=== PATIENT | female | born 1950 | race Caucasian/White ===

== ENCOUNTER 2017-05-15 08:51 | Inpatient (IN) | payer MEDICARE, OTHER ==
[2017-05-15] MEDS ORDERED: IPRATROPIUM-ALBUTEROL 3 ML NEB INHALATION STA (08:55)
--- NOTE | 2017-05-15 08:58 | ED ---
General Adult HPI - General Stated complaint: Difficulty Breathing Time Seen by Provider: 05/15/17 08:54 Source: patient, EMS, RN notes reviewed Mode of arrival: EMS Limitations: physical limitation - History of Present Illness Initial comments: Patient is a pleasant 66-year-old female presenting to the emergency department with difficulty in breathing. Patient is in respiratory distress with CPAP and provides limited history. Patient reportedly did choke on some food yesterday. Patient does have a history of dyspnea with previous CHF and COPD. No reported fever. No chest pain - Related Data Home Medications Medication Instructions Recorded Confirmed Alendronate Sodium [Fosamax] 70 mg PO WE 01/05/14 05/15/17 Lactulose 20 gm PO DAILY PRN 01/05/14 05/15/17 Metoprolol Tartrate [Lopressor] 12.5 mg PO BID 01/05/14 05/15/17 hydrALAZINE HCL 25 mg PO BID@0800,199901/05/14 05/15/17 ARIPiprazole [Abilify] 2 mg PO HS 10/30/14 05/15/17 Omeprazole [PriLOSEC] 20 mg PO Q48H 10/30/14 05/15/17 rOPINIRole HCL [Requip] 0.25 mg PO HS@199910/30/14 05/15/17 Multivitamins, Thera [Multivitamin 1 tab PO DAILY 11/06/14 05/15/17 (formulary)] Fluticasone Nasal Mel[place] [Flonase 1 spray EA NOSTRIL BID@0800,199906/01/1505/15 Nasal Mellette] Thiamine [Vitamin B-1] 100 mg PO DAILY@0800 08/24/15 05/15/17 Gabapentin [Neurontin] 200 mg PO AC-TID 09/29/15 05/15/17 Aspirin EC [Ecotrin Low Dose] 81 mg PO DAILY 01/07/16 05/15/17 Ipratropium-Albuterol Nebulize 3 ml INHALATION RT-QID PRN 01/07/16 05/15/17 [Duoneb 0.5 mg-3 mg/3 ml Soln] levETIRAcetam [Keppra] 500 mg PO BID@0800,199901/07/16 05/15/17 Albuterol Inhaler [Ventolin Hfa 2 puff INHALATION RT-Q6H PRN 01/28/16 05/15/17 Inhaler] Budesonide [Pulmicort Flexhaler] 1 puff INHALATION RT-BID 01/28/16 05/15/17 Theophylline 24 Hour [Craig-24] 200 mg PO DAILY@0800 01/28/16 05/15/17 ALPRAZolam [Xanax] 0.25 mg PO BID 05/15/17 05/15/17 Acetaminophen Tab [Tylenol Tab] 650 mg PO Q4H PRN 05/15/17 05/15/17 Atorvastatin [Lipitor] 10 mg PO HS@199905/15/17 05/15/17 Brimonidine Tartrate [Alphagan P 1 drops BOTH EYES BID 05/15/17 05/15/17 0.1% Ophth Soln] Bromfenac Sodium [Prolensa Ophth 1 drop RIGHT EYE DAILY 05/15/17 05/15/17 Soln] Cholecalciferol [Vitamin D3] 2,000 units PO DAILY 05/15/17 05/15/17 HYDROcodone/APAP 7.5-325MG [Badger 1 tab PO Q6H PRN 05/15/17 05/15/17 7.5-325] Latanoprost [Xalatan 0.005%] 1 drop BOTH EYES HS 05/15/17 05/15/17 Nicotine 14Mg/24Hr Patch [Habitrol 1 patch TRANSDERM DAILY 05/15/17 05/15/17 14Mg/24Hr Patch] Nitroglycerin Sl Tabs [Nitrostat] 0.4 mg SUBLINGUAL Q5M PRN 05/15/17 05/15/17 PARoxetine HCL [Paxil] 60 mg PO DAILY 05/15/17 05/15/17 Sennosides-Docusate Sodium 1 tab PO BID 05/15/17 05/15/17 [Senokot-S] Zolpidem [Ambien] 10 mg PO HS@1999 PRN 05/15/17 05/15/17 Previous Rx's Medication Instructions Recorded guaiFENesin [Mucinex] 1,200 mg PO Q12HR tablet.er 02/01/16 Allergies Allergy/AdvReac Type Severity Reaction Status Date / Time latex Allergy Rash/Hives Verified 05/15/17 09:14 strawberry [[place]] Allergy Dyspnea,swe Verified 05/15/17 09:14 lling,rash Sulfa (Sulfonamide Allergy Rash/Hives, Verified 05/15/17 09:14 Antibiotics) swelling Review of Systems ROS Statement: Those systems with pertinent positive or pertinent negative responses have been documented in the HPI. ROS Other: All systems not noted in ROS Statement are negative. Constitutional: Denies: fever Eyes: Denies: eye discharge ENT: Denies: throat pain Respiratory: Reports: dyspnea Cardiovascular: Denies: chest pain Endocrine: Reports: fatigue Gastrointestinal: Denies: abdominal pain Genitourinary: Denies: dysuria Musculoskeletal: Denies: back pain Skin: Denies: rash Neurological: Denies: headache Past Medical History Past Medical History: Asthma, COPD, GERD/Reflux, Hypertension, Liver Disease, Osteoarthritis (OA), Pneumonia, Seizure Disorder Additional Past Medical History / Comment(s): Chronic respiratory failure O2 3liters PRN, hep C, urinary incontinence- wears briefs, chronic back pain, chronic anemia, neuropathy, varicose veins, sinusitis, seasonal allergies, tinnitis, uses walker, NO SEIZURE ACTIVITY SINCE 08/08/12 WHEN ADMITTED TO [facility], STROKE 2013-NO RESIDUAL PROBLEMS, RT CATARACT,. 000 History of Any Multi-Drug Resistant Organisms: None Reported Past Surgical History: Hysterectomy, Joint Replacement, Orthopedic Surgery, Tubal Ligation Additional Past Surgical History / Comment(s): patel knee arthroplasty, left wrist ORIF, Right hip surgery, oophorectomy, liver biopsy. limited surgical hx at [facility] Past Anesthesia/Blood Transfusion Reactions: No Reported Reaction Additional Past Anesthesia/Blood Transfusion Reaction / Comment(s): Pt states she had blood transfusion when her children were little without reaction. Past Psychological History: Anxiety, Depression, Panic Disorder Additional Psychological History / Comment(s): Pt resides at [facility].USES A WALKER WHEN UP Smoking Status: Current every day smoker Past Alcohol Use History: None Reported Additional Past Alcohol Use History / Comment(s): smokes 1 PPD, [facility] not sure how long Past Drug Use History: None Reported Additional Drug Use History / Comment(s): . - Past Family History Mother History Unknown: Yes Family Medical History: Diabetes Mellitus Additional Family Medical History / Comment(s): unable to obtain any family history from previous chart or patient Father History Unknown: Yes Family Medical History: Vascular Disorder Additional Family Medical History / Comment(s): PERIPHERAL VASCULAR DISEASE, MACULAR DEGENERATION General Exam Limitations: physical limitation General appearance: alert, in distress Head exam: Present: atraumatic Eye exam: Present: normal appearance, PERRL ENT exam: Present: normal oropharynx Neck exam: Present: normal inspection Respiratory exam: Present: respiratory distress, wheezes, rales Cardiovascular Exam: Present: tachycardia GI/Abdominal exam: Present: soft. Absent: tenderness Extremities exam: Present: normal inspection. Absent: pedal edema, calf tenderness Neurological exam: Present: alert Psychiatric exam: Present: normal affect, normal mood Skin exam: Present: normal color Course Vital Signs 05/15/17 05/15/17 05/15/17 08:57 09:06 09:15 Temperature 98.5 F Pulse Rate 118 H 119 H Respiratory 34 H Rate Blood Pressure 111/77 O2 Sat by Pulse 87 L 90 L Oximetry 05/15/17 05/15/17 05/15/17 09:20 10:00 11:00 Temperature 98.7 F Pulse Rate 121 H 120 H 122 H Respiratory 32 H 28 H Rate Blood Pressure 167/87 148/94 O2 Sat by Pulse 94 L 99 Oximetry - Reevaluation(s) Reevaluation #1: 05/15/17 09:06 Patient has DO NOT RESUSCITATE paperwork signed by Dr. Redmond. 05/15/17 11:36 Patient meet sepsis criteria diagnosed at 11:36 AM. Blood cultures ordered. Lactic acid added on. IV antibiotics will be started. 05/15/17 11:37 Patient was reevaluated and updated. 05/15/17 11:42 Case was discussed in detail with Dr. Davis, who will consult. He does recommend ICU. EKG Findings - EKG Comments: EKG Findings:: Sinus tachycardia 119. UT 136. QRS 74. QT 328. QTC 461. Normal axis. Normal QRS. No acute ST change. Procedures - ABG Interpretation Ph: 7.38 PCO2: 59.4 PO2: 57 Interpretation: respiratory acidosis, metabolic alkalosis Medical Decision Making - Lab Data Result diagrams: 05/15/17 09:10 05/15/17 09:10 Lab Results 05/15/17 05/15/17 05/15/17 Range/Units 09:10 09:10 09:10 WBC 17.5 H (3.8-10.6) k/uL RBC 4.54 (3.80-5.40) m/uL Hgb 13.7 (11.4-16.0) gm/dL Hct 42.1 (34.0-46.0) % MCV 92.9 (80.0-100.0) fL MCH 30.2 (25.0-35.0) pg MCHC 32.5 (31.0-37.0) g/dL RDW 13.1 (11.5-15.5) % Plt Count 480 H (150-450) k/uL Neutrophils % 80 % Lymphocytes % 12 % Monocytes % 5 % Eosinophils % 1 % Basophils % 1 % Neutrophils # 14.0 H (1.3-7.7) k/uL Lymphocytes # 2.1 (1.0-4.8) k/uL Monocytes # 0.8 (0-1.0) k/uL Eosinophils # 0.2 (0-0.7) k/uL Basophils # 0.1 (0-0.2) k/uL PT (9.0-12.0) sec INR (<1.2) APTT (22.0-30.0) sec Sample Site ABG pH (7.35-7.45) ABG pCO2 (35-45) mmHg ABG pO2 (83-108) mmHg ABG HCO3 (21-25) mmol/L ABG Total CO2 (19-24) mmol/L ABG O2 Saturation (94-97) % ABG Base Excess mmol/L Henry Test FiO2 % Sodium 144 (137-145) mmol/L Potassium 4.4 (3.5-5.1) mmol/L Chloride 95 L (98-107) mmol/L Carbon Dioxide 34 H (22-30) mmol/L Anion Gap 15 mmol/L BUN 17 (7-17) mg/dL Creatinine 0.90 (0.52-1.04) mg/dL Est GFR (MDRD) Af Amer >60 (>60 ml/min/1.73 sqM) Est GFR (MDRD) Non-Af >60 (>60 ml/min/1.73 sqM) Glucose 201 H (74-99) mg/dL Calcium 10.0 (8.4-10.2) mg/dL Magnesium 1.8 (1.6-2.3) mg/dL Total Bilirubin 0.5 (0.2-1.3) mg/dL AST 25 (14-36) U/L ALT 27 (9-52) U/L Alkaline Phosphatase 63 (38-126) U/L Total Creatine Kinase 48 (30-135) U/L CK-MB (CK-2) 1.4 (0.0-2.4) ng/mL CK-MB (CK-2) Rel Index 2.9 Troponin I <0.012 (0.000-0.034) ng/mL NT-Pro-B Natriuret Pep pg/mL Total Protein 8.5 H (6.3-8.2) g/dL Albumin 4.7 (3.5-5.0) g/dL Theophylline 1.7 ug/mL 05/15/17 05/15/17 05/15/17 Range/Units 09:10 09:10 09:19 WBC (3.8-10.6) k/uL RBC (3.80-5.40) m/uL Hgb (11.4-16.0) gm/dL Hct (34.0-46.0) % MCV (80.0-100.0) fL MCH (25.0-35.0) pg MCHC (31.0-37.0) g/dL RDW (11.5-15.5) % Plt Count (150-450) k/uL Neutrophils % % Lymphocytes % % Monocytes % % Eosinophils % % Basophils % % Neutrophils # (1.3-7.7) k/uL Lymphocytes # (1.0-4.8) k/uL Monocytes # (0-1.0) k/uL Eosinophils # (0-0.7) k/uL Basophils # (0-0.2) k/uL PT 10.5 (9.0-12.0) sec INR 1.1 (<1.2) APTT 25.1 (22.0-30.0) sec Sample Site lbrac ABG pH 7.38 (7.35-7.45) ABG pCO2 59 H (35-45) mmHg ABG pO2 57 L (83-108) mmHg ABG HCO3 34 H (21-25) mmol/L ABG Total CO2 36 H (19-24) mmol/L ABG O2 Saturation 88.0 L (94-97) % ABG Base Excess 9.0 mmol/L Henry Test Yes FiO2 50 % Sodium (137-145) mmol/L Potassium (3.5-5.1) mmol/L Chloride (98-107) mmol/L Carbon Dioxide (22-30) mmol/L Anion Gap mmol/L BUN (7-17) mg/dL Creatinine (0.52-1.04) mg/dL Est GFR (MDRD) Af Amer (>60 ml/min/1.73 sqM) Est GFR (MDRD) Non-Af (>60 ml/min/1.73 sqM) Glucose (74-99) mg/dL Calcium (8.4-10.2) mg/dL Magnesium (1.6-2.3) mg/dL Total Bilirubin (0.2-1.3) mg/dL AST (14-36) U/L ALT (9-52) U/L Alkaline Phosphatase (38-126) U/L Total Creatine Kinase (30-135) U/L CK-MB (CK-2) (0.0-2.4) ng/mL CK-MB (CK-2) Rel Index Troponin I (0.000-0.034) ng/mL NT-Pro-B Natriuret Pep 165 pg/mL Total Protein (6.3-8.2) g/dL Albumin (3.5-5.0) g/dL Theophylline ug/mL - Radiology Data Radiology results: image reviewed (Chest x-ray shows left basilar opacity could represent atelectasis or pneumonia.) Critical Care Time Critical Care Time: Yes Total Critical Care Time: 33 Disposition Clinical Impression: Pneumonia, Sepsis, Acute respiratory failure Disposition: ADMITTED IP TO THIS [facility] Condition: Critical Referrals: Rhett Redmond DO [Primary Care Provider] - 1-2 days Decision Time: 11:37
--- NOTE | 2017-05-15 09:14 | XR ---
EXAMINATION TYPE: XR chest 1V portable DATE OF EXAM: 05/15/2017 Comparison: 12/30/2016 Clinical History: 66 year-old female shortness of breath, dyspnea, difficulty breathing Findings: Low lung volumes with crowded vascular markings. Heart appears borderline enlarged. Mild diffuse inte rstitial prominence. There is focal left basilar opacity. Impression: 1. Hypoventilatory changes. In addition, interstitial changes appear largely chronic, possible chroni c bronchitis/asthma. 2. Focal left basilar opacity could represent atelectasis or pneumonia. Clinically correlate and foll ow-up after any potential treatment to ensure clearance.
[2017-05-15 09:34] LABS: ABG HCO3 34 mmol/L (21-25); ABG PCO2 59 mmHg (35-45); ABG PH 7.38 (7.35-7.45); ABG PO2 57 mmHg (83-108); ABG TCO2 36 mmol/L (19-24)
[2017-05-15 09:38] LABS: ALT 27 U/L (9-52); AST 25 U/L (14-36); Albumin 4.7 g/dL (3.5-5.0); Alkaline Phosphatase 63 U/L (38-126); Anion Gap 15 mmol/L; Blood Urea Nitrogen 17 mg/dL (7-17); Carbon Dioxide 34 mmol/L (22-30); Chloride 95 mmol/L (98-107); Glucose 201 mg/dL (74-99); Magnesium 1.8 mg/dL (1.6-2.3); Potassium 4.4 mmol/L (3.5-5.1); Sodium 144 mmol/L (137-145); Theophylline 1.7 ug/mL; Total Bilirubin 0.5 mg/dL (0.2-1.3); Total Protein 8.5 g/dL (6.3-8.2)
[2017-05-15 09:39] LABS: INR 1.1 (<1.2); Partial Thromboplastin Time 25.1 sec (22.0-30.0); Prothrombin Time 10.5 sec (9.0-12.0)
[2017-05-15 09:47] LABS: Basophils # (A) 0.1 k/uL (0-0.2); Basophils % (A) 1 %; Eosinophils # (A) 0.2 k/uL (0-0.7); Eosinophils % (A) 1 %; HCT 42.1 % (34.0-46.0); HGB 13.7 gm/dL (11.4-16.0); Lymphocytes # (A) 2.1 k/uL (1.0-4.8); Lymphocytes % (A) 12 %; MCH 30.2 pg (25.0-35.0); MCHC 32.5 g/dL (31.0-37.0); MCV 92.9 fL (80.0-100.0); Mean Platelet Volume 8.1; Monocytes # (A) 0.8 k/uL (0-1.0); Monocytes % (A) 5 %; Neutrophils % (A) 80 %; Platelet Count 480 k/uL (150-450); RBC 4.54 m/uL (3.80-5.40); RDW 13.1 % (11.5-15.5); WBC 17.5 k/uL (3.8-10.6)
[2017-05-15 09:54] LABS: Creatine Kinase 48 U/L (30-135)
[2017-05-15] MEDS ORDERED: MORPHINE SULFATE 2 MG/ML SYRINGE IVP ONE (09:56)
[2017-05-15 10:06] LABS: Creatine Kinase MB 1.4 ng/mL (0.0-2.4); Troponin I <0.012 ng/mL (0.000-0.034)
[2017-05-15] MEDS ORDERED: PNEUMONIA PROTOCOL UTILIZED 1 EACH MISC PO PRN (11:38)
[2017-05-15] MEDS ORDERED: IPRATROPIUM-ALBUTEROL 3 ML NEB INHALATION PRN (11:38)
[2017-05-15] MEDS ORDERED: PIPERACILLIN-TAZOBACTAM 3.375 GM in DEXTROSE/WATER 1 50ML.BAG IVPB STA (11:38)
[2017-05-15] MEDS ORDERED: LEVOFLOXACIN 750MG-D5W PMX 750 MG in DEXTROSE/WATER 1 150ML.BAG IVPB STA (11:38)
[2017-05-15] MEDS: SODIUM CHLORIDE 0.9% 1,000 ML IV SCH (11:46)
[2017-05-15] MEDS ORDERED: SODIUM CHLORIDE 0.9% 250 ML IV STA (11:55)
[2017-05-15] MEDS ORDERED: SODIUM CHLORIDE 0.9% 1,000 ML IV STA ×2 (11:55)
[2017-05-15 12:31] LABS: Glucose,Whole Blood 167 mg/dL (75-99)
[2017-05-15] MEDS: IPRATROPIUM-ALBUTEROL 3 ML NEB INHALATION SCH ×3 (12:32→20:01)
[2017-05-15] MEDS ORDERED: ACETAMINOPHEN TAB 325 MG TAB PO PRN (13:18)
[2017-05-15] MEDS ORDERED: LACTULOSE 20 GM/30 ML CUP PO PRN (13:18)
[2017-05-15] MEDS ORDERED: PARoxetine 20 MG TAB PO SCH (13:30)
[2017-05-15] MEDS ORDERED: FUROSEMIDE 10 MG/ML 2 ML VIAL IV ONE (14:11)
[2017-05-15] MEDS: methylPREDNISolone SOD SUCCI 125 MG/2 ML VIAL IV SCH ×2 (14:21→18:09)
[2017-05-15] MEDS: PANTOPRAZOLE 40 MG/10 ML VIAL IVP SCH (14:22)
[2017-05-15] MEDS: HYDROmorphone 0.5 MG/0.5 ML SYRINGE IVP PRN ×3 (14:23→21:43)
[2017-05-15 14:49] LABS: Amorphous Sediment,Urine Occasional /hpf; Appearance,Urine Clear (Clear); Bacteria,Urine Many /hpf; Bilirubin,Urine Negative (Negative); Blood,Urine Negative (Negative); Color,Urine Yellow; Glucose,Urine (UA) Negative (Negative); Hyaline Casts,Urine 59 /lpf (0-2); Ketones,Urine Negative (Negative); Leukocyte Esterase,Urine Large (Negative); Mucus,Urine Occasional /hpf; Nitrite,Urine Positive (Negative); Protein,Urine Trace (Negative); RBC,Urine 4 /hpf (0-5); Specific Gravity,Urine 1.015 (1.001-1.035); Squamous Epithelial Cell,Urine 3 /hpf (0-4); Urobilinogen,Urine <2.0 mg/dL (<2.0); WBC,Urine 56 /hpf (0-5)
--- NOTE | 2017-05-15 15:41 | P.CNPUL ---
History of Present Illness Consult date: 05/15/17 Reason for consult: dyspnea History of present illness: A 66-year-old female patient who is known to me from previous hospitalizations, who is a resident of an assisted living/[place] assisted [facility], presented to the ED today with difficulty in breathing. The patient reportedly was having increased weakness, chills, shakes, and apparently she did choke on some food material yesterday. Subsequently her breathing got progressively worse and she started having chest congestion and dyspnea and for that reason she presented to the hospital for further advice. No reported fever. No reported chest pain. In the ED, the patient was found to be in significant respiratory distress. She had a DNR/DNI CODE STATUS. She was placed on a BiPAP for respiratory support. The chest x-ray was obtained and showed small lung volumes , carotid vascular markings, the heart size was borderline enlarged and there was mild diffuse interstitial prominence and a focal left basilar opacity/ infiltration suggestive an underlying pneumonia. The patient had a blood gas that showed a pH of 7.38 with a pCO2 of 59 and pO2 of 57 and this was done and FiO2 of 50%. Based on that, the patient was placed on a BiPAP and following that the patient got transferred to the intensive care unit. Current white cell count is at 17.5. The lactic acid level is at 2.3. The rest of the electrodes are within normal limits. First set of troponin is negative and the patient has a nonelevated BNP level. Urinalysis is also abnormal with increased white cell counts and influenza screen was also negative. Currently, the patient is on a combination of Zosyn and Levaquin. Note that the patient has a chronic component of hypercapnic arrest 30 failure. Based on previous echocardiogram the patient has a normal ejection fraction without evidence of any pulmonary hypertension. She is known to have COPD however. Review of Systems Constitutional: Reports fatigue, Reports lethargy, Reports weakness, Reports weight gain Eyes: denies blurred vision, denies bulging eye, denies decreased vision Ears: deny: decreased hearing, ear discharge, earache Ears, nose, mouth and throat: Denies headache, Denies sore throat Cardiovascular: Reports decreased exercise tolerance, Reports dyspnea on exertion, Reports shortness of breath Respiratory: Reports cough, Reports cough with sputum, Reports dyspnea, Reports sleep apnea, Reports wheezing Gastrointestinal: Denies abdominal pain, Denies diarrhea, Denies nausea, Denies vomiting Genitourinary: Denies dysuria, Denies hematuria Musculoskeletal: Reports gait dysfunction, Reports muscle weakness Musculoskeletal: bilateral: ankle swelling, absent: ankle pain, ankle stiffness Integumentary: Denies pruritus, Denies rash Neurological: Denies numbness, Denies weakness Psychiatric: Denies anxiety, Denies depression Endocrine: Denies fatigue, Denies weight change Past Medical History Past Medical History: Asthma, Heart Failure, COPD, Eye Disorder, GERD/Reflux, Hyperlipidemia, Hypertension, Liver Disease, Osteoarthritis (OA), Pneumonia, Renal Disease, Seizure Disorder Additional Past Medical History / Comment(s): Chronic respiratory failure /O2 2liters ATC, COPD and chronic bronchitis, sinus problems, 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 000 History of Any Multi-Drug Resistant Organisms: None Reported Past Surgical History: Hysterectomy, Joint Replacement, Orthopedic Surgery, Tubal Ligation Additional Past Surgical History / Comment(s): Bilateral total knees and total R hip arthroplasty, L wrist ORIF, R oophorectomy d/t cyst, liver bx, back epidural injections. Past Anesthesia/Blood Transfusion Reactions: No Reported Reaction Additional Past Anesthesia/Blood Transfusion Reaction / Comment(s): Pt states she had blood transfusion without reaction. Smoking Status: Former smoker - Past Family History Mother History Unknown: Yes Family Medical History: Diabetes Mellitus Additional Family Medical History / Comment(s): unable to obtain any family history from previous chart or patient Father History Unknown: Yes Family Medical History: Eye Disorder, Vascular Disorder Additional Family Medical History / Comment(s): PERIPHERAL VASCULAR DISEASE, MACULAR DEGENERATION Medications and Allergies Home Medications Medication Instructions Recorded Confirmed Type Alendronate Sodium [Fosamax] 70 mg PO WE 01/05/14 05/15/17 History Lactulose 20 gm PO DAILY PRN 01/05/14 05/15/17 History Metoprolol Tartrate [Lopressor] 12.5 mg PO BID 01/05/14 05/15/17 History hydrALAZINE HCL 25 mg PO BID@08,199901/05/14 05/15/17 History ARIPiprazole [Abilify] 2 mg PO HS 10/30/14 05/15/17 History Omeprazole [PriLOSEC] 20 mg PO Q48H 10/30/14 05/15/17 History rOPINIRole HCL [Requip] 0.25 mg PO HS@199910/30/14 05/15/17 History Multivitamins, Thera [Multivitamin 1 tab PO DAILY 11/06/14 05/15/17 History (formulary)] Fluticasone Nasal [place] [Flonase 1 spray EA NOSTRIL BID@08,199906/01/1505/15 History Nasal [place]] Thiamine [Vitamin B-1] 100 mg PO DAILY@0800 08/24/15 05/15/17 History Gabapentin [Neurontin] 200 mg PO AC-TID 09/29/15 05/15/17 History Aspirin EC [Ecotrin Low Dose] 81 mg PO DAILY 01/07/16 05/15/17 History Ipratropium-Albuterol Nebulize 3 ml INHALATION RT-QID PRN 01/07/16 05/15/17 History [Duoneb 0.5 mg-3 mg/3 ml Soln] levETIRAcetam [Keppra] 500 mg PO BID@08,199901/07/16 05/15/17 History Albuterol Inhaler [Ventolin Hfa 2 puff INHALATION RT-Q6H PRN 01/28/16 05/15/17 History Inhaler] Budesonide [Pulmicort Flexhaler] 1 puff INHALATION RT-BID 01/28/16 05/15/17 History Theophylline 24 Hour [Craig-24] 200 mg PO DAILY@0800 01/28/16 05/15/17 History guaiFENesin [Mucinex] 1,200 mg PO Q12HR tablet.er 02/01/16 05/15/17 Rx ALPRAZolam [Xanax] 0.25 mg PO BID 05/15/17 05/15/17 History Acetaminophen Tab [Tylenol Tab] 650 mg PO Q4H PRN 05/15/17 05/15/17 History Atorvastatin [Lipitor] 10 mg PO HS@199905/15/17 05/15/17 History Brimonidine Tartrate [Alphagan P 1 drops BOTH EYES BID 05/15/17 05/15/17 History 0.1% Ophth Soln] Bromfenac Sodium [Prolensa Ophth 1 drop RIGHT EYE DAILY 05/15/17 05/15/17 History Soln] Cholecalciferol [Vitamin D3] 2,000 units PO DAILY 05/15/17 05/15/17 History HYDROcodone/APAP 7.5-325MG [[place] 1 tab PO Q6H PRN 05/15/17 05/15/17 History 7.5-325] Latanoprost [Xalatan 0.005%] 1 drop BOTH EYES HS 05/15/17 05/15/17 History Nicotine 14Mg/24Hr Patch [Habitrol 1 patch TRANSDERM DAILY 05/15/17 05/15/17 History 14Mg/24Hr Patch] Nitroglycerin Sl Tabs [Nitrostat] 0.4 mg SUBLINGUAL Q5M PRN 05/15/17 05/15/17 History PARoxetine HCL [Paxil] 60 mg PO DAILY 05/15/17 05/15/17 History Sennosides-Docusate Sodium 1 tab PO BID 05/15/17 05/15/17 History [Senokot-S] Zolpidem [Ambien] 10 mg PO HS@2000 PRN 05/15/17 05/15/17 History Allergies Allergy/AdvReac Type Severity Reaction Status Date / Time latex Allergy Rash/Hives Verified 05/15/17 09:14 strawberry [[place]] Allergy Dyspnea,swe Verified 05/15/17 09:14 lling,rash Sulfa (Sulfonamide Allergy Rash/Hives, Verified 05/15/17 09:14 Antibiotics) swelling Physical Exam Vitals: Vital Signs Temp Pulse Resp BP Pulse Ox 05/15/17 14:30 128 H 30 H 112/58 90 L 05/15/17 14:15 127 H 32 H 112/78 95 05/15/17 14:00 122 H 27 H 140/87 97 05/15/17 13:45 136 H 32 H 135/75 99 05/15/17 13:30 115 H 26 H 128/71 99 05/15/17 13:15 138 H 31 H 95/56 100 05/15/17 13:00 113 H 34 H 109/63 98 05/15/17 12:46 107 H 05/15/17 12:45 91 30 H 132/70 97 05/15/17 12:33 93 05/15/17 12:30 99 F 104 H 30 H 132/70 97 05/15/17 12:09 98 F 128 H 30 H 149/87 94 L 05/15/17 12:00 122 H 32 H 149/77 85 L 05/15/17 11:00 98.7 F 122 H 28 H 148/94 99 05/15/17 10:00 120 H 32 H 167/87 94 L 05/15/17 09:20 121 H 05/15/17 09:15 90 L 05/15/17 09:06 119 H 05/15/17 08:57 98.5 F 118 H 34 H 111/77 87 L Intake and Output 05/15/17 05/15/17 05/15/17 06:59 14:59 22:59 Other: Weight 72.575 kg Patient Weight 05/16/17 06:59 Weight 72.575 kg The patient is in significant amount of respiratory distress and the patient is utilizing BiPAP for now for respiratory support. Note that she has a DNR/DNI CODE STATUS and she will not get intubated based on her CODE STATUS. She has however tolerating the BiPAP and she is synchronous with a full facemask. Head exam was generally normal. There was no scleral icterus or corneal arcus. Mucous membranes were moist.Neck was supple and without jugular venous distension, thyromegaly, or carotid bruits. Carotids were easily palpable bilaterally. There was no adenopathy. Lung sounds are diminished bilaterally and there is diffuse expiratory wheezes and rhonchi heard throughout the lung hall and her axillary phase of breathing is quite prolonged.Cardiac exam revealed the PMI to be normally situated and sized. The rhythm was regular and no extrasystoles were noted during several minutes of auscultation. The first and second heart sounds were normal and physiologic splitting of the second heart sound was noted. There were no murmurs, rubs, clicks, or gallops. Abdominal exam revealed normal bowel sounds. The abdomen was soft, non-tender, and without masses, organomegaly, or appreciable enlargement of the abdominal aorta.Examination of the extremities revealed easily palpable radial, femoral and pedal pulses. There was no cyanosis, clubbing or edema.Examination of the skin revealed no evidence of significant rashes, suspicious appearing nevi or other concerning lesions. Neurologically the exam is nonfocal and the patient is moving all 4 extremities without any limitation. She is awake and alert. Results - Laboratory Findings CBC and BMP: 05/15/17 09:10 05/15/17 09:10 ABG ABG pH 7.38 (7.35-7.45) 05/15/17 09:19 ABG pCO2 59 mmHg (35-45) H 05/15/17 09:19 ABG pO2 57 mmHg (83-108) L 05/15/17 09:19 ABG O2 Saturation 88.0 % (94-97) L 05/15/17 09:19 PT/INR, D-dimer PT 10.5 sec (9.0-12.0) 05/15/17 09:10 INR 1.1 (<1.2) 05/15/17 09:10 Abnormal lab findings: Abnormal Labs 05/15/17 05/15/17 05/15/17 09:10 09:10 09:10 WBC 17.5 H Plt Count 480 H Neutrophils # 14.0 H ABG pCO2 ABG pO2 ABG HCO3 ABG Total CO2 ABG O2 Saturation Chloride 95 L Carbon Dioxide 34 H Glucose 201 H POC Glucose (mg/dL) Plasma Lactic Acid Sammy 2.3 H* Total Protein 8.5 H Urine Protein Urine Nitrite Ur Leukocyte Esterase Urine WBC Amorphous Sediment Urine Bacteria Hyaline Casts Urine Mucus 05/15/17 05/15/17 05/15/17 09:19 12:29 13:30 WBC Plt Count Neutrophils # ABG pCO2 59 H ABG pO2 57 L ABG HCO3 34 H ABG Total CO2 36 H ABG O2 Saturation 88.0 L Chloride Carbon Dioxide Glucose POC Glucose (mg/dL) 167 H Plasma Lactic Acid Sammy Total Protein Urine Protein Trace H Urine Nitrite Positive H Ur Leukocyte Esterase Large H Urine WBC 56 H Amorphous Sediment Occasional H Urine Bacteria Many H Hyaline Casts 59 H Urine Mucus Occasional H - Diagnostic Findings Chest x-ray: image reviewed Assessment and Plan Plan: Impression 1 acute COPD exacerbation secondary to a left lung pneumonia, rule out an aspiration pneumonia with impending respiratory failure. 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 The patient is currently on BiPAP for respiratory support. We'll monitor the blood gases. We'll monitor the chest x-ray. Cover the patient with a combination of Zosyn and Levaquin. DuoNeb neb last treatment [id number]. IV Solu-Medrol 60 every 6. Nicotine patch for smoking cessation. Sputum Gram stain and culture. Blood culture. Check a urine culture to make sure there is no underlying urine checked infection. Cut down the IV fluids to 50 mL an hour and give the patient 20 mg of IV Lasix to optimize her volume status. Based on echocardiogram from several years ago showed no evidence of any cardiomyopathy and the BNP level is not elevated at this point. DNR/DNI CODE STATUS. Prognosis poor based on the above-mentioned comorbidities. We'll continue to follow make further recommendations based on her progress. Influenza screen was negative. This is a critically care evaluation.
[2017-05-15 16:14] LABS: Glucose,Whole Blood 148 mg/dL (75-99)
[2017-05-15] MEDS: HEPARIN SODIUM,PORCINE 5,000 UNIT/ML 1 ML VIAL SQ SCH (16:40)
[2017-05-15] MEDS: GABAPENTIN 100 MG CAP PO SCH (17:16)
[2017-05-15 19:58] LABS: Glucose,Whole Blood 162 mg/dL (75-99)
[2017-05-15] MEDS ORDERED: ATORVASTATIN 10 MG TAB PO SCH (20:00)
[2017-05-15] MEDS ORDERED: levETIRAcetam 500 MG TAB PO SCH (20:00)
[2017-05-15] MEDS ORDERED: ARIPiprazole 2 MG TAB PO SCH (21:00)
[2017-05-15] MEDS ORDERED: ALPRAZolam 0.25 MG TAB PO SCH (21:00)
[2017-05-15] MEDS ORDERED: NITROGLYCERIN SL TABS 0.4 MG TAB SUBLINGUAL PRN (21:21)
[2017-05-15] MEDS ORDERED: NON-FORMULARY DRUG (Omeprazole 20 MG) PO SCH (21:30)
[2017-05-15] MEDS: LATANOPROST 0.005% OPHTH DROPS 2.5 ML BTL BOTH EYES SCH (21:39)
[2017-05-15] MEDS: INSULIN ASPART 100 UNIT/ML 1 ML 10 ML VIAL SQ SCH (21:39)
[2017-05-15] MEDS ORDERED: ACETAMINOPHEN IV (For NPO) 1,000 MG in EMPTY BAG 1 BAG IVPB ONE (22:30)
[2017-05-15 23:49] LABS: Glucose,Whole Blood 148 mg/dL (75-99)
[2017-05-16] MEDS: INSULIN ASPART 100 UNIT/ML 1 ML 10 ML VIAL SQ SCH ×6 (00:31→20:42)
[2017-05-16] MEDS: methylPREDNISolone SOD SUCCI 125 MG/2 ML VIAL IV SCH ×4 (00:32→17:31)
[2017-05-16] MEDS: HEPARIN SODIUM,PORCINE 5,000 UNIT/ML 1 ML VIAL SQ SCH ×3 (00:32→15:53)
[2017-05-16] MEDS: PIPERACILLIN-TAZOBACTAM 3.375 GM in DEXTROSE/WATER 1 50ML.BAG IVPB SCH ×3 (00:32→15:53)
[2017-05-16] MEDS: HYDROmorphone 0.5 MG/0.5 ML SYRINGE IVP PRN ×3 (01:47→12:25)
[2017-05-16 03:58] LABS: Glucose,Whole Blood 140 mg/dL (75-99)
[2017-05-16 04:47] LABS: Basophils % (A) 0 %; Eosinophils # (A) 0.1 k/uL (0-0.7); Eosinophils % (A) 0 %; HCT 39.2 % (34.0-46.0); HGB 12.9 gm/dL (11.4-16.0); Lymphocytes # (A) 0.7 k/uL (1.0-4.8); Lymphocytes % (A) 5 %; MCH 30.2 pg (25.0-35.0); MCV 91.4 fL (80.0-100.0); Monocytes # (A) 0.4 k/uL (0-1.0); Monocytes % (A) 3 %; Neutrophils # (A) 12.4 k/uL (1.3-7.7); Neutrophils % (A) 91 %; Platelet Count 325 k/uL (150-450); RBC 4.29 m/uL (3.80-5.40); RDW 12.2 % (11.5-15.5); WBC 13.7 k/uL (3.8-10.6)
[2017-05-16] MEDS: LORazepam 2 MG/ML INJ IV PRN ×3 (05:02→21:52)
[2017-05-16 05:51] LABS: Anion Gap 11 mmol/L; Blood Urea Nitrogen 22 mg/dL (7-17); Calcium 8.4 mg/dL (8.4-10.2); Carbon Dioxide 30 mmol/L (22-30); Chloride 101 mmol/L (98-107); Glucose 139 mg/dL (74-99); Magnesium 1.5 mg/dL (1.6-2.3); Phosphorus 2.9 mg/dL (2.5-4.5); Potassium 4.8 mmol/L (3.5-5.1); Sodium 142 mmol/L (137-145)
[2017-05-16] MEDS ORDERED: Magnesium Replacement Protocol 1 EACH MISC MISCELLANE PRN (06:30)
[2017-05-16] MEDS: BUDESONIDE 1 MG/2 ML NEBU INHALATION SCH ×2 (07:24→20:14)
[2017-05-16] MEDS: FORMOTEROL FUMARATE 20 MCG/2 ML NEBU INHALATION SCH ×2 (07:24→20:14)
[2017-05-16] MEDS: IPRATROPIUM-ALBUTEROL 3 ML NEB INHALATION SCH ×4 (07:25→20:14)
--- NOTE | 2017-05-16 07:31 | HP ---
HISTORY AND PHYSICAL DATE OF SERVICE: 05/15/2017 CHIEF COMPLAINT: Shortness of breath. HISTORY OF PRESENT ILLNESS: This 66-year-old woman with a past medical history of multiple medical issues including COPD, history of asthma, history of CHF, history of GERD, hypertension, hyperlipidemia, DJD being followed by Dr. Redmond in [facility] is complaining of some difficulty in swallowing and dysphagia also. The patient had previous evaluations. The patient also had CVA in the past. Also the patient apparently having shortness of breath and cough and sputum and the patient was found to have left lower lobe pneumonia. Patient is extremely short of breath. The patient is NO CODE. Patient is on BiPAP with some relief at this time. Patient admitted for further evaluation and treatment. Dr. Davis's evaluation in progress. Broad-spectrum IV antibiotics been given. There is no history of any fever, rigors. No history of headache, loss of consciousness or seizures. No history of contacts at this time. The nasal influenza was negative at this time. The plasma lactic acid was found to be 3, WBC 17.5. PAST MEDICAL HISTORY: History of asthma, CHF, COPD, GERD, hypertension, hyperlipidemia, history of DJD , history of seizure disorder. MEDICATIONS: Medications prior to admission home medications are: 1. Requip 0.25 mg q.h.s. 2. Keppra 500 mg p.o. b.i.d. 3. Hydralazine 25 mg p.o. b.i.d. 4. Mucinex 1200 mg p.o. b.i.d. 5. Ambien 10 mg p.o. q.h.s. 6. Vitamin B1, 100 mg p.o. daily. 7. Craig-24, 200 mg p.o. daily. 8. Senokot-S 1 tab p.o. b.i.d. 9. Paxil 60 mg p.o. daily. 10.Prilosec 20 mg q.48h. 11.Nitrostat 0.4 sublingual p.r.n. 12.Habitrol 14 daily. 13.Multivitamins 1 p.o. daily. 14.Lopressor 12.5 mg b.i.d. 15.Xalatan 0.005% one drop both eyes q.h.s. 16.Lactulose 20 grams p.o. daily p.r.n. 17.DuoNeb q.i.d. and p.r.n. 18.[place] 1 tablet q.6 hours p.r.n. 19.Neurontin 200 mg p.o. t.i.d. 20.Flonase one spray each nostril. 21.Vitamin D3, 2000 daily. 22.Pulmicort 1 puff b.i.d. 23.Alphagan 0.1% one drop both eyes b.i.d. 24.Lipitor 10 mg q.h.s. 25.Ecotrin 81 mg daily. 26.Fosamax 70 mg on Monday. 27.Ventolin HFA 2 puffs q.6 p.r.n. 28.Tylenol 650 q.4 p.r.n. 29.Abilify 2 mg q.h.s. 30.Xanax 0.25 b.i.d. p.r.n. ALLERGIES: Allergies are LATEX, STRAWBERRIES, SULFA. FAMILY HISTORY: Diabetes mellitus in the family. SOCIAL HISTORY: Previous history of smoking. No history of current smoking or alcohol intake. REVIEW OF SYSTEM: Review of systems could not be taken at length because the patient using BiPAP and also some change in mental status. PHYSICAL EXAM: Patient is conscious, on BiPAP. Pulse 122, blood pressure 107/70, respirations 23, temperature 100.7, pulse ox 94% on BiPAP. BiPAP settings are noted. HEENT: Conjunctivae normal. Oral mucosa moist. Neck is no jugular venous distention. No carotid bruit. No lymph node enlargement. RESPIRATORY: Breathing efforts are markedly increased. Bilateral scattered rhonchi and crackles. Expiratory wheezing CARDIOVASCULAR: S1 and S2 normal. No S3, no S4. ABDOMEN: Soft, nontender. No mass palpable. No hepatosplenomegaly. LEGS: No edema, no swelling. NERVOUS SYSTEM: Higher functions as mentioned earlier. Moves all 4 limbs. No focal motor or sensory deficits. LYMPHATICS: No lymphadenopathy of the neck, axillae or groin. SKIN: No ulcer, rash or bleeding. LABS: WBC 17.5, hemoglobin 13.7. ABGs noted. Otherwise, glucose 162. Lactic acid ntd , UA noted. ASSESSMENT: 1. Chronic obstructive pulmonary disease acute exacerbation with acute hypoxic hypercarbic respiratory failure with left lower pneumonia possibly aspiration with sepsis, present on admission. 2. Change in mental status, metabolic encephalopathy, multifactorial. 3. Increased WBC. 4. History of asthma. 5. History of congestive heart failure. 6. History of chronic obstructive pulmonary disease. 7. History of gastroesophageal reflux disease. 8. Hypertension. 9. Hyperlipidemia. 10.Degenerative joint disease. 11.History of pneumonia. 12.History of seizure disorder. 13.Chronic respiratory failure with 2 L nasal cannula with hypoxic. 14.History hepatitis C. 15.History of glaucoma, cataracts. 16.History of degenerative joint disease. 17.History of restless leg syndrome. 18.Remote history of nicotine dependence. RECOMMENDATIONS AND DISCUSSION: This 66-year-old woman presented with multiple complex medical issues, will monitor the patient closely. Continue the current medication and symptomatic treatment. Otherwise, broad-spectrum IV antibiotics initiated. Otherwise I would also recommend bronchodilators and patient was started on IV Zosyn. I would also add a course of steroids as well and will check Accu-Cheks a.c. and at bedtime. Resume the home medications. I would also recommend DVT prophylaxis and incentive spirometer also. The overall prognosis guarded because of multiple complex medical issues. Further recommendations to follow. Will avoid sedatives at this time. Further recommendations to follow. Discussed with the patient, understands and agrees. SAVI / SEAMUSN: [id number] / FRIDA
[2017-05-16] MEDS: GABAPENTIN 100 MG CAP PO SCH (07:55)
[2017-05-16] MEDS ORDERED: THEOPHYLLINE 24 HOUR 200 MG CAP.ER.24H PO SCH (08:00)
[2017-05-16] MEDS ORDERED: THIAMINE 100 MG TAB PO SCH (08:00)
[2017-05-16] MEDS: NICOTINE 14MG/24HR PATCH TRANSDERM SCH (08:43)
[2017-05-16] MEDS: KETOROLAC 0.5% OPHTH DROPS 5 ML BTL RIGHT EYE SCH ×4 (08:43→21:17)
[2017-05-16] MEDS: FLUTICASONE 50MCG/SPRAY NASAL 16GM EA NOSTRIL SCH ×2 (08:43→19:46)
[2017-05-16] MEDS: BRIMONIDINE TARTRATE 0.2% DROPS 5 ML BTL BOTH EYES SCH ×2 (08:43→21:17)
[2017-05-16] MEDS: MAGNESIUM SULFATE-D5W PMX 1 GM in DEXTROSE/WATER 1 100ML.BAG IVPB SCH ×2 (08:43→11:36)
[2017-05-16] MEDS: PANTOPRAZOLE 40 MG/10 ML VIAL IVP SCH (08:43)
--- NOTE | 2017-05-16 08:58 | XR ---
EXAMINATION TYPE: XR chest 1V DATE OF EXAM: 05/16/2017 COMPARISON: 05/15/2017 HISTORY: Dyspnea TECHNIQUE: Single frontal view of the chest is obtained. FINDINGS: Again there are low lung volumes accentuating the pulmonary vasculature. Cardiomediastinal silhouette is upper limits of normal, unchanged from the prior. There is a new [id number] rig ht layering pleural effusion with associated right basilar airspace disease. Linear left basal atelec tasis is unchanged. Remainder the lungs are clear. Mild cephalization is also unchanged. IMPRESSION: New small moderate right pleural effusion and stable mild pulmonary vascular congestion as well as stable left basilar atelectasis.
[2017-05-16] MEDS ORDERED: METOPROLOL TARTRATE 12.5 MG TAB PO SCH (09:00)
[2017-05-16] MEDS ORDERED: ASPIRIN 81 MG PO SCH (09:00)
[2017-05-16] MEDS ORDERED: SENNOSIDES-DOCUSATE SODIUM 1 EACH TAB PO SCH (09:00)
[2017-05-16] MEDS ORDERED: guaiFENesin 600 MG TABLET.ER PO SCH (09:00)
[2017-05-16 09:14] LABS: Glucose,Whole Blood 140 mg/dL (75-99)
[2017-05-16 09:20] LABS: ABG Base Excess 7.5 mmol/L; ABG HCO3 33 mmol/L (21-25); ABG Oxygen Saturation 99.3 % (94-97); ABG PCO2 58 mmHg (35-45); ABG PH 7.36 (7.35-7.45); ABG PO2 123 mmHg (83-108); ABG TCO2 78 mmol/L (19-24)
[2017-05-16] MEDS: SODIUM CHLORIDE 0.9% 1,000 ML IV SCH ×2 (09:37→11:31)
--- NOTE | 2017-05-16 10:18 | P.PN ---
Subjective Progress Note Date: 05/16/17 A 66-year-old female patient who is known to me from previous hospitalizations, who is a resident of an assisted living/[facility], presented to the ED today with difficulty in breathing. The patient reportedly was having increased weakness, chills, shakes, and apparently she did choke on some food material yesterday. Subsequently her breathing got progressively worse and she started having chest congestion and dyspnea and for that reason she presented to the hospital for further advice. No reported fever. No reported chest pain. In the ED, the patient was found to be in significant respiratory distress. She had a DNR/DNI CODE STATUS. She was placed on a BiPAP for respiratory support. The chest x-ray was obtained and showed small lung volumes , carotid vascular markings, the heart size was borderline enlarged and there was mild diffuse interstitial prominence and a focal left basilar opacity/ infiltration suggestive an underlying pneumonia. The patient had a blood gas that showed a pH of 7.38 with a pCO2 of 59 and pO2 of 57 and this was done and FiO2 of 50%. Based on that, the patient was placed on a BiPAP and following that the patient got transferred to the intensive care unit. Current white cell count is at 17.5. The lactic acid level is at 2.3. The rest of the electrodes are within normal limits. First set of troponin is negative and the patient has a nonelevated BNP level. Urinalysis is also abnormal with increased white cell counts and influenza screen was also negative. Currently, the patient is on a combination of Zosyn and Levaquin. Note that the patient has a chronic component of hypercapnic arrest 30 failure. Based on previous echocardiogram the patient has a normal ejection fraction without evidence of any pulmonary hypertension. She is known to have COPD however. On 05/16/2016 I'm seeing this patient for a follow-up. The patient is still BiPAP dependent at a pressure of 14/7 cm of water. She had developed some hypoxemia and she was placed on 100% FiO2. Subsequent blood gases showed a pH of 7.36 with a pCO2 of 58 and pO2 of 123 and based on that the FiO2 was dropped down to 80%. Currently the patient's pulse ox is around 97%. The patient has developed a new small to moderate-sized right-sided pleural effusion. There is also evidence of pulmonary vascular congestion. She feels clinically better however the chest x-ray findings are slightly worse especially with development of a new moderate-sized right-sided pleural effusion. The patient is receiving 0.9 normal saline at the rate of 50 mL an hour. She is on a combination of Zosyn and Levaquin. The creatinine is stable at 0.81 with a BUN of 22. No other significant events overnight. Her breathing is still labored. Culture has been on and showed few gram-positive cocci . The urine output is around 30 mL an hour. The patient remains on a combination of DuoNeb, systemic steroids, Pulmicort and Perforomist embolus treatments around the clock. The patient is also on heparin subcu. The patient is on IV Solu-Medrol. Objective - Vital Signs Vital signs: Vital Signs Temp 99.7 F H 05/16/17 08:00 Pulse 114 H 05/16/17 09:00 Resp 28 H 05/16/17 09:00 BP 127/72 05/16/17 09:00 Pulse Ox 99 05/16/17 09:00 Intake & Output 05/15/17 05/16/17 05/16/17 18:59 06:59 18:59 Intake Total 300 550 200 Output Total 1282 397 60 Balance -982 153 140 Weight 72.575 kg 76.7 kg Intake: IV 300 550 200 Magnesium Sulfate-D5w Pmx 100 1 gm In Dextrose/Water 1 100ml.bag @ 100 mls/hr IVPB Q1H [facility] Rx#: [id number] Sodium Chloride 0.9% 1, 300 550 100 000 ml @ 50 mls/hr IV . Q20H [facility] Rx#:[id number] Output: Urine 1282 397 60 Other: Voiding Method Indwelling Catheter Indwelling Catheter - Exam The patient is in significant amount of respiratory distress and the patient is utilizing BiPAP for now for respiratory support. Note that she has a DNR/DNI CODE STATUS and she will not get intubated based on her CODE STATUS. She has however tolerating the BiPAP and she is synchronous with a full facemask. Head exam was generally normal. There was no scleral icterus or corneal arcus. Mucous membranes were moist.Neck was supple and without jugular venous distension, thyromegaly, or carotid bruits. Carotids were easily palpable bilaterally. There was no adenopathy. Lung sounds are diminished bilaterally and there is diffuse expiratory wheezes and rhonchi heard throughout the lung hall and her axillary phase of breathing is quite prolonged.Cardiac exam revealed the PMI to be normally situated and sized. The rhythm was regular and no extrasystoles were noted during several minutes of auscultation. The first and second heart sounds were normal and physiologic splitting of the second heart sound was noted. There were no murmurs, rubs, clicks, or gallops. Abdominal exam revealed normal bowel sounds. The abdomen was soft, non-tender, and without masses, organomegaly, or appreciable enlargement of the abdominal aorta.Examination of the extremities revealed easily palpable radial, femoral and pedal pulses. There was no cyanosis, clubbing or edema.Examination of the skin revealed no evidence of significant rashes, suspicious appearing nevi or other concerning lesions. Neurologically the exam is nonfocal and the patient is moving all 4 extremities without any limitation. She is awake and alert. - Labs CBC & Chem 7: 05/16/17 03:54 05/16/17 03:54 Labs: Abnormal Lab Results - Last 24 Hours (Table) 05/15/17 05/15/17 05/15/17 Range/Units 09:10 12:29 13:30 WBC (3.8-10.6) k/uL Neutrophils # (1.3-7.7) k/uL Lymphocytes # (1.0-4.8) k/uL ABG pCO2 (35-45) mmHg ABG pO2 (83-108) mmHg ABG HCO3 (21-25) mmol/L ABG Total CO2 (19-24) mmol/L ABG O2 Saturation (94-97) % BUN (7-17) mg/dL Glucose (74-99) mg/dL POC Glucose (mg/dL) 167 H (75-99) mg/dL Plasma Lactic Acid Sammy 2.3 H* (0.7-2.0) mmol/L Magnesium (1.6-2.3) mg/dL Urine Protein Trace H (Negative) Urine Nitrite Positive H (Negative) Ur Leukocyte Esterase Large H (Negative) Urine WBC 56 H (0-5) /hpf Amorphous Sediment Occasional H (None) /hpf Urine Bacteria Many H (None) /hpf Hyaline Casts 59 H (0-2) /lpf Urine Mucus Occasional H (None) /hpf 05/15/17 05/15/17 05/15/17 Range/Units 15:02 16:11 19:56 WBC (3.8-10.6) k/uL Neutrophils # (1.3-7.7) k/uL Lymphocytes # (1.0-4.8) k/uL ABG pCO2 (35-45) mmHg ABG pO2 (83-108) mmHg ABG HCO3 (21-25) mmol/L ABG Total CO2 (19-24) mmol/L ABG O2 Saturation (94-97) % BUN (7-17) mg/dL Glucose (74-99) mg/dL POC Glucose (mg/dL) 148 H 162 H (75-99) mg/dL Plasma Lactic Acid Sammy 3.0 H* (0.7-2.0) mmol/L Magnesium (1.6-2.3) mg/dL Urine Protein (Negative) Urine Nitrite (Negative) Ur Leukocyte Esterase (Negative) Urine WBC (0-5) /hpf Amorphous Sediment (None) /hpf Urine Bacteria (None) /hpf Hyaline Casts (0-2) /lpf Urine Mucus (None) /hpf 05/15/17 05/16/17 05/16/17 Range/Units 23:46 03:54 03:54 WBC 13.7 H (3.8-10.6) k/uL Neutrophils # 12.4 H (1.3-7.7) k/uL Lymphocytes # 0.7 L (1.0-4.8) k/uL ABG pCO2 (35-45) mmHg ABG pO2 (83-108) mmHg ABG HCO3 (21-25) mmol/L ABG Total CO2 (19-24) mmol/L ABG O2 Saturation (94-97) % BUN 22 H (7-17) mg/dL Glucose 139 H (74-99) mg/dL POC Glucose (mg/dL) 148 H (75-99) mg/dL Plasma Lactic Acid Sammy (0.7-2.0) mmol/L Magnesium 1.5 L (1.6-2.3) mg/dL Urine Protein (Negative) Urine Nitrite (Negative) Ur Leukocyte Esterase (Negative) Urine WBC (0-5) /hpf Amorphous Sediment (None) /hpf Urine Bacteria (None) /hpf Hyaline Casts (0-2) /lpf Urine Mucus (None) /hpf 05/16/17 05/16/17 05/16/17 Range/Units 03:56 09:01 09:15 WBC (3.8-10.6) k/uL Neutrophils # (1.3-7.7) k/uL Lymphocytes # (1.0-4.8) k/uL ABG pCO2 58 H (35-45) mmHg ABG pO2 123 H (83-108) mmHg ABG HCO3 33 H (21-25) mmol/L ABG Total CO2 78 H (19-24) mmol/L ABG O2 Saturation 99.3 H (94-97) % BUN (7-17) mg/dL Glucose (74-99) mg/dL POC Glucose (mg/dL) 140 H 140 H (75-99) mg/dL Plasma Lactic Acid Sammy (0.7-2.0) mmol/L Magnesium (1.6-2.3) mg/dL Urine Protein (Negative) Urine Nitrite (Negative) Ur Leukocyte Esterase (Negative) Urine WBC (0-5) /hpf Amorphous Sediment (None) /hpf Urine Bacteria (None) /hpf Hyaline Casts (0-2) /lpf Urine Mucus (None) /hpf Microbiology - Last 24 Hours (Table) 05/15/17 21:27 Gram Stain - Preliminary Sputum 05/15/17 13:30 Urine Culture - Preliminary Urine,Catheterized Assessment and Plan Plan: Impression 1 acute COPD exacerbation secondary to a left lung pneumonia, rule out an aspiration pneumonia with impending respiratory failure. There is also interval worsening of the chest x-ray findings with development of a right- sided pleural effusion and the patient remains BiPAP dependent for now at a pressure of 14/7 cm of water and FiO2 of 80%. Clinically the patient feels less short of breath compared to yesterday. 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 The patient is currently on BiPAP for respiratory support. We'll monitor the blood gases. We'll monitor the chest x-ray. Cover the patient with a combination of Zosyn and Levaquin. Add vancomycin today empiric antibiotic coverage. Sukhdev ortiz last treatment [id number]. IV Solu-Medrol 60 every 6. Nicotine patch for smoking cessation. Sputum Gram stain and culture. Blood culture. Check a urine culture to make sure there is no underlying urine checked infection. The patient will be given Lasix 40 mg IV push today. The IV Fluids to KVO. Repeat Chest X-Ray with the Next 24 Hours. We'll Continue to Follow. CODE STATUS Is DNR/DNI, prognosis poor based on the above-mentioned comorbidities. Critical care evaluation more than 30 minutes. Time with Patient: Greater than 30
[2017-05-16] MEDS ORDERED: FUROSEMIDE 10 MG/ML 4 ML VIAL IV STA ×2 (10:19→20:35)
[2017-05-16] MEDS ORDERED: VANCOMYCIN IV PER PHARMACY 1 EACH MISC MISCELLANE PRN (10:20)
[2017-05-16] MEDS: VANCOMYCIN 1,500 MG in SODIUM CHLORIDE 0.9% 250 ML IVPB SCH (11:30)
[2017-05-16 11:42] LABS: Glucose,Whole Blood 150 mg/dL (75-99)
[2017-05-16] MEDS ORDERED: CHOLECALCIFEROL 1,000 UNIT TAB PO SCH (12:00)
[2017-05-16] MEDS ORDERED: MULTIVITAMINS, THERA 1 EACH TAB PO SCH (12:00)
--- NOTE | 2017-05-16 12:13 | P.CONS ---
History of Present Illness - Reason for Consult Consult date: 05/16/17 Dysphagia Requesting physician: Hedy Hawley - History of Present Illness 66-year-old female is treated chronic hepatitis C treated successfully 2013 admitted with acute COPD exacerbation secondary to pneumonia possible aspiration. Consult requested for dysphagia. Patient ate a steak dinner on Monday after a few bites she developed difficulty swallowing. She vomited several times remnants of undigested food/steak. She reports most of the steak was vomited. No history of dysphagia. No recent EGD. Presently denies dysphagia but reports mild odynophagia in the posterior portion of her throat. Bedside swallow exam was completed and reported as failed. Denies hematemesis hematochezia melena. White count 13.7. Hemoglobin 12.9. Influenza not detected. Chest x-ray new small moderate right pleural effusion. Review of Systems RConstitutional: Denies fever, chills, sweats, weight gain, or loss. HEENT: Negative for migraines, blurred vision or loss, earaches, drainage, tinnitus, oral mucosal lesions, dysphagia, or odynophagia. CARDIAC: Negative for chest pain, arrhythmias, or palpitation. RESPIRATORY: COPD. Asthma. Heart failure. Hyperlipidemia. Hypertension. Seizure disorder. Negative for shortness of breath, hemoptysis, cough, or sputum production. GI: See HPI for pertinent findings. : Negative for hematuria, urgency, frequency, polyuria, or dysuria. GYNc: Denies possibility of . Negative vaginal discharge. MUSCULOSKELETAL: Negative for muscle aches, swelling, arthritis, and arthralgias. NEUROLOGIC: CVA history. ENDOCRINE: Negative for thyroid problems. SKIN: Negative for rash or itching. 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 000 History of Any Multi-Drug Resistant Organisms: None Reported Past Surgical History: Hysterectomy, Joint Replacement, Orthopedic Surgery, Tubal Ligation Additional Past Surgical History / Comment(s): Bilateral total knees and total R hip arthroplasty, L wrist ORIF, R oophorectomy d/t cyst, liver bx, back epidural injections. Past Anesthesia/Blood Transfusion Reactions: No Reported Reaction Additional Past Anesthesia/Blood Transfusion Reaction / Comm: Pt states she had blood transfusion without reaction. Smoking Status: Former smoker - Past Family History Mother History Unknown: Yes Family Medical History: Diabetes Mellitus Additional Family Medical History / Comment(s): unable to obtain any family history from previous chart or patient Father History Unknown: Yes Family Medical History: Eye Disorder, Vascular Disorder Additional Family Medical History / Comment(s): PERIPHERAL VASCULAR DISEASE, MACULAR DEGENERATION Medications and Allergies Home Medications Medication Instructions Recorded Confirmed Type Alendronate Sodium [Fosamax] 70 mg PO WE 01/05/14 05/15/17 History Lactulose 20 gm PO DAILY PRN 01/05/14 05/15/17 History Metoprolol Tartrate [Lopressor] 12.5 mg PO BID 01/05/14 05/15/17 History hydrALAZINE HCL 25 mg PO BID@08,199901/05/14 05/15/17 History ARIPiprazole [Abilify] 2 mg PO HS 10/30/14 05/15/17 History Omeprazole [PriLOSEC] 20 mg PO Q48H 10/30/14 05/15/17 History rOPINIRole HCL [Requip] 0.25 mg PO HS@199910/30/14 05/15/17 History Multivitamins, Thera [Multivitamin 1 tab PO DAILY 11/06/14 05/15/17 History (formulary)] Fluticasone Nasal [place] [Flonase 1 spray EA NOSTRIL BID@08,199906/01/1505/15 History Nasal [place]] Thiamine [Vitamin B-1] 100 mg PO DAILY@0800 08/24/15 05/15/17 History Gabapentin [Neurontin] 200 mg PO AC-TID 09/29/15 05/15/17 History Aspirin EC [Ecotrin Low Dose] 81 mg PO DAILY 01/07/16 05/15/17 History Ipratropium-Albuterol Nebulize 3 ml INHALATION RT-QID PRN 01/07/16 05/15/17 History [Duoneb 0.5 mg-3 mg/3 ml Soln] levETIRAcetam [Keppra] 500 mg PO BID@0800,199901/07/16 05/15/17 History Albuterol Inhaler [Ventolin Hfa 2 puff INHALATION RT-Q6H PRN 01/28/16 05/15/17 History Inhaler] Budesonide [Pulmicort Flexhaler] 1 puff INHALATION RT-BID 01/28/16 05/15/17 History Theophylline 24 Hour [Craig-24] 200 mg PO DAILY@0800 01/28/16 05/15/17 History guaiFENesin [Mucinex] 1,200 mg PO Q12HR tablet.er 02/01/16 05/15/17 Rx ALPRAZolam [Xanax] 0.25 mg PO BID 05/15/17 05/15/17 History Acetaminophen Tab [Tylenol Tab] 650 mg PO Q4H PRN 05/15/17 05/15/17 History Atorvastatin [Lipitor] 10 mg PO HS@199905/15/17 05/15/17 History Brimonidine Tartrate [Alphagan P 1 drops BOTH EYES BID 05/15/17 05/15/17 History 0.1% Ophth Soln] Bromfenac Sodium [Prolensa Ophth 1 drop RIGHT EYE DAILY 05/15/17 05/15/17 History Soln] Cholecalciferol [Vitamin D3] 2,000 units PO DAILY 05/15/17 05/15/17 History HYDROcodone/APAP 7.5-325MG [[place] 1 tab PO Q6H PRN 05/15/17 05/15/17 History 7.5-325] Latanoprost [Xalatan 0.005%] 1 drop BOTH EYES HS 05/15/17 05/15/17 History Nicotine 14Mg/24Hr Patch [Habitrol 1 patch TRANSDERM DAILY 05/15/17 05/15/17 History 14Mg/24Hr Patch] Nitroglycerin Sl Tabs [Nitrostat] 0.4 mg SUBLINGUAL Q5M PRN 05/15/17 05/15/17 History PARoxetine HCL [Paxil] 60 mg PO DAILY 05/15/17 05/15/17 History Sennosides-Docusate Sodium 1 tab PO BID 05/15/17 05/15/17 History [Senokot-S] Zolpidem [Ambien] 10 mg PO HS@1999 PRN 05/15/17 05/15/17 History Allergies Allergy/AdvReac Type Severity Reaction Status Date / Time latex Allergy Rash/Hives Verified 05/15/17 09:14 strawberry [[place]] Allergy Dyspnea,swe Verified 05/15/17 09:14 lling,rash Sulfa (Sulfonamide Allergy Rash/Hives, Verified 05/15/17 09:14 Antibiotics) swelling Physical Exam Vitals: Vital Signs Temp Pulse Resp BP Pulse Ox 05/16/17 11:44 109 H 05/16/17 10:00 108 H 29 H 116/56 97 05/16/17 09:00 114 H 28 H 127/72 99 05/16/17 08:00 99.7 F H 122 H 36 H 157/60 99 05/16/17 07:50 112 H 05/16/17 07:38 109 H 05/16/17 07:37 109 H 05/16/17 07:25 114 H 05/16/17 07:00 111 H 30 H 96/66 96 05/16/17 06:00 99.6 F 111 H 30 H 102/61 95 05/16/17 05:00 106 H 25 H 89/58 96 05/16/17 04:00 105 H 21 106/62 97 05/16/17 03:00 107 H 26 H 118/62 95 05/16/17 02:00 102 H 16 132/77 97 05/16/17 01:00 104 H 12 99/62 97 05/16/17 00:00 98.4 F 109 H 24 82/62 95 05/15/17 23:00 100.7 F H 100 32 H 100/62 94 L 05/15/17 22:00 101.4 F H 111 H 30 H 83/58 91 L 05/15/17 21:00 122 H 44 H 103/59 93 L 05/15/17 20:16 95 05/15/17 20:02 120 H 05/15/17 20:00 100.7 F H 122 H 23 107/70 95 05/15/17 19:00 119 H 25 H 97/65 95 05/15/17 18:00 125 H 44 H 118/65 94 L 05/15/17 17:45 123 H 41 H 95 05/15/17 17:30 124 H 37 H 109/80 91 L 05/15/17 17:15 123 H 37 H 95/77 94 L 05/15/17 17:00 125 H 25 H 100/62 95 05/15/17 16:45 125 H 38 H 108/67 95 05/15/17 16:30 127 H 38 H 85/53 94 L 05/15/17 16:27 126 H 05/15/17 16:15 124 H 26 H 107/78 92 L 05/15/17 16:13 111 H 05/15/17 16:00 99.1 F 128 H 42 H 107/78 92 L 05/15/17 15:45 99.8 F H 129 H 46 H 128/56 92 L 05/15/17 15:30 130 H 36 H 115/72 91 L 05/15/17 15:15 146 H 52 H 103/74 91 L 05/15/17 15:00 113 H 46 H 90 L 05/15/17 14:45 127 H 40 H 106/61 89 L 05/15/17 14:30 128 H 30 H 112/58 90 L 05/15/17 14:15 127 H 32 H 112/78 95 05/15/17 14:00 122 H 27 H 140/87 97 05/15/17 13:45 136 H 32 H 135/75 99 05/15/17 13:30 115 H 26 H 128/71 99 05/15/17 13:15 138 H 31 H 95/56 100 05/15/17 13:00 113 H 34 H 109/63 98 05/15/17 12:46 107 H 05/15/17 12:45 91 30 H 132/70 97 05/15/17 12:33 93 05/15/17 12:30 99 F 104 H 30 H 132/70 97 05/15/17 12:09 98 F 128 H 30 H 149/87 94 L Intake and Output 05/15/17 05/16/17 05/16/17 22:59 06:59 14:59 Intake Total 400 400 582.5 Output Total 1212 242 125 Balance -812 158 457.5 Intake: IV 400 400 582.5 Magnesium Sulfate-D5w Pmx 200 1 gm In Dextrose/Water 1 100ml.bag @ 100 mls/hr IVPB Q1H [facility] Rx#: [id number] Piperacillin-Tazobactam 3 12.5 .375 gm In Dextrose/Water 1 50ml.bag @ 12.5 mls/hr IVPB Q8HR [facility] Rx#: [id number] Sodium Chloride 0.9% 1, 20 000 ml @ 20 mls/hr IV . Q24H [facility] Rx#:[id number] Sodium Chloride 0.9% 1, 400 400 100 000 ml @ 50 mls/hr IV . Q20H [facility] Rx#:[id number] Vancomycin 1,500 mg In 250 Sodium Chloride 0.9% 250 ml @ 125 mls/hr IVPB Q16H [facility] Rx#:[id number] Output: Urine 1212 242 125 Other: Voiding Method Indwelling Catheter Indwelling Catheter Weight 76.7 kg General appearance: The patient is alert, oriented, in no acute distress. HET: Head is normocephalic and atraumatic. Pupils are equal and reactive. Oropharynx is clear without lesions. Neck: Supple without lymphadenopathy. Trachea midline. Heart: S1 S2. Regular rate and rhythm. Lungs: No course breath sounds productive yellow sputum. Abdomen: Soft, nontender, nondistended with bowel sounds. No peritoneal signs. No palpable organomegaly or masses. Extremities: Normal skin color and turgor. No cyanosis, rash, ulceration, clubbing, or edema. Radial and pedal pulses are 2/4 bilaterally. Neurological: No focal deficits. Strength and sensation are grossly intact. Results CBC & Chem 7: 05/17/17 04:52 05/17/17 04:52 Labs: Abnormal Lab Results - Last 24 Hours (Table) 05/15/17 05/15/17 05/15/17 Range/Units 12:29 13:30 15:02 WBC (3.8-10.6) k/uL Neutrophils # (1.3-7.7) k/uL Lymphocytes # (1.0-4.8) k/uL ABG pCO2 (35-45) mmHg ABG pO2 (83-108) mmHg ABG HCO3 (21-25) mmol/L ABG Total CO2 (19-24) mmol/L ABG O2 Saturation (94-97) % BUN (7-17) mg/dL Glucose (74-99) mg/dL POC Glucose (mg/dL) 167 H (75-99) mg/dL Plasma Lactic Acid Sammy 3.0 H* (0.7-2.0) mmol/L Magnesium (1.6-2.3) mg/dL Urine Protein Trace H (Negative) Urine Nitrite Positive H (Negative) Ur Leukocyte Esterase Large H (Negative) Urine WBC 56 H (0-5) /hpf Amorphous Sediment Occasional H (None) /hpf Urine Bacteria Many H (None) /hpf Hyaline Casts 59 H (0-2) /lpf Urine Mucus Occasional H (None) /hpf 05/15/17 05/15/17 05/15/17 Range/Units 16:11 19:56 23:46 WBC (3.8-10.6) k/uL Neutrophils # (1.3-7.7) k/uL Lymphocytes # (1.0-4.8) k/uL ABG pCO2 (35-45) mmHg ABG pO2 (83-108) mmHg ABG HCO3 (21-25) mmol/L ABG Total CO2 (19-24) mmol/L ABG O2 Saturation (94-97) % BUN (7-17) mg/dL Glucose (74-99) mg/dL POC Glucose (mg/dL) 148 H 162 H 148 H (75-99) mg/dL Plasma Lactic Acid Sammy (0.7-2.0) mmol/L Magnesium (1.6-2.3) mg/dL Urine Protein (Negative) Urine Nitrite (Negative) Ur Leukocyte Esterase (Negative) Urine WBC (0-5) /hpf Amorphous Sediment (None) /hpf Urine Bacteria (None) /hpf Hyaline Casts (0-2) /lpf Urine Mucus (None) /hpf 05/16/17 05/16/17 05/16/17 Range/Units 03:54 03:54 03:56 WBC 13.7 H (3.8-10.6) k/uL Neutrophils # 12.4 H (1.3-7.7) k/uL Lymphocytes # 0.7 L (1.0-4.8) k/uL ABG pCO2 (35-45) mmHg ABG pO2 (83-108) mmHg ABG HCO3 (21-25) mmol/L ABG Total CO2 (19-24) mmol/L ABG O2 Saturation (94-97) % BUN 22 H (7-17) mg/dL Glucose 139 H (74-99) mg/dL POC Glucose (mg/dL) 140 H (75-99) mg/dL Plasma Lactic Acid Sammy (0.7-2.0) mmol/L Magnesium 1.5 L (1.6-2.3) mg/dL Urine Protein (Negative) Urine Nitrite (Negative) Ur Leukocyte Esterase (Negative) Urine WBC (0-5) /hpf Amorphous Sediment (None) /hpf Urine Bacteria (None) /hpf Hyaline Casts (0-2) /lpf Urine Mucus (None) /hpf 05/16/17 05/16/17 05/16/17 Range/Units 09:01 09:15 11:39 WBC (3.8-10.6) k/uL Neutrophils # (1.3-7.7) k/uL Lymphocytes # (1.0-4.8) k/uL ABG pCO2 58 H (35-45) mmHg ABG pO2 123 H (83-108) mmHg ABG HCO3 33 H (21-25) mmol/L ABG Total CO2 78 H (19-24) mmol/L ABG O2 Saturation 99.3 H (94-97) % BUN (7-17) mg/dL Glucose (74-99) mg/dL POC Glucose (mg/dL) 140 H 150 H (75-99) mg/dL Plasma Lactic Acid Sammy (0.7-2.0) mmol/L Magnesium (1.6-2.3) mg/dL Urine Protein (Negative) Urine Nitrite (Negative) Ur Leukocyte Esterase (Negative) Urine WBC (0-5) /hpf Amorphous Sediment (None) /hpf Urine Bacteria (None) /hpf Hyaline Casts (0-2) /lpf Urine Mucus (None) /hpf Microbiology - Last 24 Hours (Table) 05/15/17 09:10 Blood Culture - Preliminary Blood No Growth after 24 hours 05/15/17 21:27 Gram Stain - Preliminary Sputum 05/15/17 13:30 Urine Culture - Preliminary Urine,Catheterized Assessment and Plan (1) Dysphagia Narrative/Plan: 66-year-old female admitted with acute COPD exacerbation possible aspiration pneumonia. Patient consumed steak dinner 2 days ago with development of dysphagia possible foreign body since resolved with emesis. Ongoing odynophagia in the posterior pharynx most likely due to irritation with failed bedside swallow evaluation earlier this morning. Residual foreign body cannot be excluded however presently patient is without nausea vomiting and not exhibiting features of obstruction. Current Visit: No Status: Acute Code(s): R13.10 - DYSPHAGIA, UNSPECIFIED SNOMED Code(s): 97642568 (2) Pneumonia Current Visit: Yes Status: Acute Code(s): J18.9 - PNEUMONIA, UNSPECIFIED ORGANISM SNOMED Code(s): 909718501 (3) Acute exacerbation of chronic obstructive airways disease Current Visit: No Status: Acute Code(s): J44.1 - CHRONIC OBSTRUCTIVE PULMONARY DISEASE W (ACUTE) EXACERBATION SNOMED Code(s): 157267366 Plan: 1. We'll discuss swallowing evaluation with speech therapist. Consideration esophagram based on clinical progress for further evaluation until respiratory status is optimized. EGD was discussed with patient at this time she is declining but recommended if odynophagia dysphagia does not improve or worsens. Patient will require pulmonary clearance prior to endoscopy if necessary. Presently her respiratory status is not optimized. 2. Continue nothing by mouth status. Protonix 40 mg IV daily. Thank you for this kind referral and the opportunity to participate in the care of your patient. This consultation was discussed with Dr. Ortiz. The impression and plan of care have been directed as dictated.
[2017-05-16] MEDS: LEVOFLOXACIN 750MG-D5W PMX 750 MG in DEXTROSE/WATER 1 150ML.BAG IVPB SCH (12:24)
[2017-05-16] MEDS ORDERED: METOPROLOL TARTRATE 5 MG/5 ML VIAL IVP PRN (14:05)
[2017-05-16 17:27] LABS: Glucose,Whole Blood 121 mg/dL (75-99)
[2017-05-16] MEDS ORDERED: ACETAMINOPHEN IV (For NPO) 1,000 MG in EMPTY BAG 1 BAG IVPB PRN (18:04)
[2017-05-16] MEDS: levETIRAcetam IV 500 MG in SODIUM CHLORIDE 0.9% 100 ML IVPB SCH (19:45)
[2017-05-16 20:04] LABS: Glucose,Whole Blood 114 mg/dL (75-99)
[2017-05-16] MEDS: LATANOPROST 0.005% OPHTH DROPS 2.5 ML BTL BOTH EYES SCH (21:17)
[2017-05-17] MEDS ORDERED: methylPREDNISolone SOD SUCCI 125 MG/2 ML VIAL ONE (00:15)
[2017-05-17] MEDS ORDERED: HYDROmorphone 0.5 MG/0.5 ML SYRINGE ONE (00:15)
[2017-05-17] MEDS ORDERED: LORazepam 2 MG/ML INJ ONE (00:15)
[2017-05-17] MEDS ORDERED: HEPARIN SODIUM,PORCINE 5,000 UNIT/ML 1 ML VIAL ONE (00:15)
[2017-05-17 03:43] LABS: Glucose,Whole Blood 148 mg/dL (75-99)
[2017-05-17 04:05] LABS: Glucose,Whole Blood 150 mg/dL (75-99)
[2017-05-17] MEDS: VANCOMYCIN 1,500 MG in SODIUM CHLORIDE 0.9% 250 ML IVPB SCH ×2 (05:02→19:04)
[2017-05-17] MEDS: methylPREDNISolone SOD SUCCI 125 MG/2 ML VIAL IV SCH ×4 (05:12→17:04)
[2017-05-17] MEDS: HEPARIN SODIUM,PORCINE 5,000 UNIT/ML 1 ML VIAL SQ SCH ×3 (05:12→15:54)
[2017-05-17] MEDS: INSULIN ASPART 100 UNIT/ML 1 ML 10 ML VIAL SQ SCH ×6 (05:12→21:06)
[2017-05-17] MEDS: PIPERACILLIN-TAZOBACTAM 3.375 GM in DEXTROSE/WATER 1 50ML.BAG IVPB SCH ×3 (05:13→15:03)
[2017-05-17 05:38] LABS: Basophils % (A) 0 %; Eosinophils # (A) 0.1 k/uL (0-0.7); Eosinophils % (A) 1 %; HGB 11.4 gm/dL (11.4-16.0); Lymphocytes # (A) 0.7 k/uL (1.0-4.8); Lymphocytes % (A) 5 %; MCH 29.6 pg (25.0-35.0); MCHC 31.8 g/dL (31.0-37.0); Mean Platelet Volume 8.3; Monocytes # (A) 0.5 k/uL (0-1.0); Monocytes % (A) 4 %; Neutrophils # (A) 11.3 k/uL (1.3-7.7); Neutrophils % (A) 89 %; Platelet Count 390 k/uL (150-450); RBC 3.87 m/uL (3.80-5.40); RDW 13.2 % (11.5-15.5); WBC 12.6 k/uL (3.8-10.6)
[2017-05-17 05:53] LABS: Anion Gap 15 mmol/L; Blood Urea Nitrogen 33 mg/dL (7-17); Calcium 8.6 mg/dL (8.4-10.2); Carbon Dioxide 29 mmol/L (22-30); Chloride 98 mmol/L (98-107); Glucose 151 mg/dL (74-99); Magnesium 2.1 mg/dL (1.6-2.3); Phosphorus 2.4 mg/dL (2.5-4.5); Potassium 3.5 mmol/L (3.5-5.1); Sodium 142 mmol/L (137-145)
[2017-05-17] MEDS ORDERED: Phosphorus Replacement Protoco 1 EACH MISC MISCELLANE PRN (06:30)
[2017-05-17] MEDS ORDERED: Potassium Replacement Protocol 1 EACH MISC MISCELLANE PRN (06:58)
[2017-05-17] MEDS ORDERED: POTASSIUM PHOSPHATE 10 MMOL in SODIUM CHLORIDE 0.9% 250 ML IV ONE (08:00)
[2017-05-17] MEDS: levETIRAcetam IV 500 MG in SODIUM CHLORIDE 0.9% 100 ML IVPB SCH ×2 (08:01→20:54)
[2017-05-17] MEDS: POTASSIUM CHLORIDE 20 MEQ in SODIUM CHLORIDE 0.9% 100 ML IVPB ONE ×2 (08:01→08:04)
--- NOTE | 2017-05-17 08:10 | XR ---
EXAMINATION TYPE: XR chest 1V DATE OF EXAM: 05/17/2017 CLINICAL HISTORY: Difficulty breathing and pneumonia progress study. TECHNIQUE: Single AP portable upright view of the chest is obtained. COMPARISON: Chest x-ray from one day earlier and older studies. FINDINGS: There is reticular interstitial prominence seen bilaterally. There is persistent right low er lung opacity with some improved aeration. There is probable persistent small right pleural effusio n. Cardiac silhouette size is stable and felt within normal limits. There is atherosclerotic and ecta tic thoracic aorta redemonstrated. Visualized osseous structures are intact. Low lung volumes are red emonstrated. IMPRESSION: Chronic reticulonodular interstitial changes and low lung volumes redemonstrated, persist ent but improving right lower lung infiltrate and small right pleural effusion noted.
[2017-05-17 08:13] LABS: Glucose,Whole Blood 114 mg/dL (75-99)
[2017-05-17] MEDS: PANTOPRAZOLE 40 MG/10 ML VIAL IVP SCH (08:13)
[2017-05-17] MEDS: FLUTICASONE 50MCG/SPRAY NASAL 16GM EA NOSTRIL SCH ×2 (08:13→20:55)
[2017-05-17] MEDS: IPRATROPIUM-ALBUTEROL 3 ML NEB INHALATION SCH ×4 (08:17→19:02)
[2017-05-17] MEDS: FORMOTEROL FUMARATE 20 MCG/2 ML NEBU INHALATION SCH ×2 (08:17→19:02)
[2017-05-17] MEDS: BUDESONIDE 1 MG/2 ML NEBU INHALATION SCH ×2 (08:17→19:02)
[2017-05-17] MEDS: POTASSIUM CHLORIDE 10 MEQ in WATER FOR INJECTION 1 100ML.BAG IVPB SCH ×4 (09:10→18:05)
[2017-05-17] MEDS: BRIMONIDINE TARTRATE 0.2% DROPS 5 ML BTL BOTH EYES SCH ×2 (09:12→20:55)
[2017-05-17] MEDS: NICOTINE 14MG/24HR PATCH TRANSDERM SCH (09:57)
[2017-05-17] MEDS: KETOROLAC 0.5% OPHTH DROPS 5 ML BTL RIGHT EYE SCH ×4 (09:57→22:47)
[2017-05-17] MEDS: HALOPERIDOL LACTATE 5 MG/ML 1 ML VIAL IVP PRN ×3 (11:02→20:55)
[2017-05-17] MEDS: SODIUM CHLORIDE 0.9% 1,000 ML IV SCH ×2 (11:10→11:11)
[2017-05-17 11:55] LABS: Glucose,Whole Blood 133 mg/dL (75-99)
[2017-05-17] MEDS: LEVOFLOXACIN 750MG-D5W PMX 750 MG in DEXTROSE/WATER 1 150ML.BAG IVPB SCH (12:07)
--- NOTE | 2017-05-17 12:32 | P.PN ---
Subjective Progress Note Date: 05/17/17 Principal diagnosis: dysphagia More confused today. Nursing reports no episodes of nausea vomiting. Failed bedside swallow yesterday. Respiratory status slightly improved stable. Objective - Vital Signs Vital signs: Vital Signs Temp 99.2 F 05/17/17 12:00 Pulse 105 H 05/17/17 12:12 Resp 29 H 05/17/17 12:00 BP 125/78 05/17/17 12:00 Pulse Ox 96 05/17/17 12:00 Intake & Output 05/16/17 05/17/17 05/17/17 18:59 06:59 18:59 Intake Total 935.0 252.5 970.0 Output Total 1640 550 125 Balance -705.0 -297.5 845.0 Weight 72.2 kg Intake: IV 935.0 252.5 970.0 Levofloxacin 750Mg-D5w 150 Pmx 750 mg In Dextrose/ Water 1 150ml.bag @ 100 mls/hr IVPB ONCE STA Rx#: [id number] Magnesium Sulfate-D5w Pmx 200 1 gm In Dextrose/Water 1 100ml.bag @ 100 mls/hr IVPB Q1H [facility] Rx#: [id number] Piperacillin-Tazobactam 3 75.0 12.5 50.0 .375 gm In Dextrose/Water 1 50ml.bag @ 12.5 mls/hr IVPB Q8HR [facility] Rx#: [id number] Potassium Chloride 10 meq 200 In Water For Injection 1 100ml.bag @ 100 mls/hr IVPB Q1H [facility] Rx#: [id number] Potassium Phosphate 10 250 mmol In Sodium Chloride 0 .9% 250 ml @ 125 mls/hr IV ONCE ONE Rx#:[id number] Sodium Chloride 0.9% 1, 160 240 70 000 ml @ 20 mls/hr IV . Q24H [facility] Rx#:[id number] Sodium Chloride 0.9% 1, 100 000 ml @ 50 mls/hr IV . Q20H [facility] Rx#:[id number] Vancomycin 1,500 mg In 250 Sodium Chloride 0.9% 250 ml @ 125 mls/hr IVPB Q16H [facility] Rx#:[id number] levETIRAcetam IV 500 mg 400 In Sodium Chloride 0.9% 100 ml @ 400 mls/hr IVPB 0800,2000 [facility] Rx#: [id number] Output: Urine 1640 550 125 Other: Voiding Method Indwelling Catheter Indwelling Catheter Indwelling Catheter # Voids 1 - Exam General appearance: The patient is alert, confused. HET: Head is normocephalic and atraumatic. Pupils are equal and reactive. Oropharynx is clear without lesions. Neck: Supple without lymphadenopathy. Trachea midline. Heart: S1 S2. Regular rate and rhythm. Lungs: No coarse sounds bilaterally diminished in bases Abdomen: Soft, nontender, nondistended with bowel sounds. No peritoneal signs. No palpable organomegaly or masses. Extremities: Normal skin color and turgor. No cyanosis, rash, ulceration, clubbing, or edema. Radial and pedal pulses are 2/4 bilaterally. Neurological: No focal deficits. Strength and sensation are grossly intact. - Labs CBC & Chem 7: 05/17/17 04:52 05/17/17 04:52 Labs: Abnormal Lab Results - Last 24 Hours (Table) 05/16/17 05/16/17 05/17/17 Range/Units 17:25 20:02 00:13 WBC (3.8-10.6) k/uL Neutrophils # (1.3-7.7) k/uL Lymphocytes # (1.0-4.8) k/uL BUN (7-17) mg/dL Glucose (74-99) mg/dL POC Glucose (mg/dL) 121 H 114 H 148 H (75-99) mg/dL Phosphorus (2.5-4.5) mg/dL 05/17/17 05/17/17 05/17/17 Range/Units 04:03 04:52 04:52 WBC 12.6 H (3.8-10.6) k/uL Neutrophils # 11.3 H (1.3-7.7) k/uL Lymphocytes # 0.7 L (1.0-4.8) k/uL BUN 33 H (7-17) mg/dL Glucose 151 H (74-99) mg/dL POC Glucose (mg/dL) 150 H (75-99) mg/dL Phosphorus 2.4 L (2.5-4.5) mg/dL 05/17/17 05/17/17 Range/Units 08:12 11:53 WBC (3.8-10.6) k/uL Neutrophils # (1.3-7.7) k/uL Lymphocytes # (1.0-4.8) k/uL BUN (7-17) mg/dL Glucose (74-99) mg/dL POC Glucose (mg/dL) 114 H 133 H (75-99) mg/dL Phosphorus (2.5-4.5) mg/dL Microbiology - Last 24 Hours (Table) 05/15/17 09:10 Blood Culture - Preliminary Blood No Growth after 48 hours 05/15/17 13:30 Urine Culture - Preliminary Urine,Catheterized Gram Neg Bacilli 05/15/17 21:27 Gram Stain - Preliminary Sputum Assessment and Plan (1) Dysphagia Narrative/Plan: 66-year-old female admitted with acute COPD exacerbation possible aspiration pneumonia. Patient consumed steak dinner 2 days ago with development of dysphagia possible foreign body since resolved with emesis. Ongoing odynophagia in the posterior pharynx most likely due to irritation with failed bedside swallow evaluation earlier this morning. Residual foreign body cannot be excluded however presently patient is without nausea vomiting and not exhibiting features of obstruction. Current Visit: No Status: Acute Code(s): R13.10 - DYSPHAGIA, UNSPECIFIED SNOMED Code(s): 96462115 (2) Pneumonia Current Visit: Yes Status: Acute Code(s): J18.9 - PNEUMONIA, UNSPECIFIED ORGANISM SNOMED Code(s): 910868994 (3) Acute exacerbation of chronic obstructive airways disease Current Visit: No Status: Acute Code(s): J44.1 - CHRONIC OBSTRUCTIVE PULMONARY DISEASE W (ACUTE) EXACERBATION SNOMED Code(s): 319227436 Plan: 1. Consideration for esophagram based on clinical progress. For now continue with observation and supportive measures. EGD not planned at this time. Patient will require pulmonary clearance prior to endoscopy if necessary. Presently her respiratory status is stable and guarded. 2. Continue nothing by mouth status. Protonix 40 mg IV daily. 3. Consideration for NG tube insertion for enteral feeds/medications was discussed however patient's agitation may result in her removal of NG tube. Assessment and plan a care discussed with Dr. Ortiz.
[2017-05-17] MEDS: LORazepam 2 MG/ML INJ IV PRN ×2 (13:05→17:19)
[2017-05-17] MEDS ORDERED: SODIUM CHLORIDE 0.9% 500 ML IV ONE (14:36)
[2017-05-17 15:58] LABS: Glucose,Whole Blood 103 mg/dL (75-99)
[2017-05-17 17:18] LABS: Glucose,Whole Blood 123 mg/dL (75-99)
--- NOTE | 2017-05-17 18:01 | P.PN ---
<Shi Hunt - Last Filed: 05/17/17 17:52> Subjective Progress Note Date: 05/17/17 Principal diagnosis: Acute exacerbation of chronic obstructive pulmonary disease complicated by left lung pneumonia suspect aspiration and acute respiratory failure requiring BiPAP support. A 66-year-old female patient who is known to me from previous hospitalizations, who is a resident of an assisted living/[facility], presented to the ED today with difficulty in breathing. The patient reportedly was having increased weakness, chills, shakes, and apparently she did choke on some food material yesterday. Subsequently her breathing got progressively worse and she started having chest congestion and dyspnea and for that reason she presented to the hospital for further advice. No reported fever. No reported chest pain. In the ED, the patient was found to be in significant respiratory distress. She had a DNR/DNI CODE STATUS. She was placed on a BiPAP for respiratory support. The chest x-ray was obtained and showed small lung volumes , carotid vascular markings, the heart size was borderline enlarged and there was mild diffuse interstitial prominence and a focal left basilar opacity/ infiltration suggestive an underlying pneumonia. The patient had a blood gas that showed a pH of 7.38 with a pCO2 of 59 and pO2 of 57 and this was done and FiO2 of 50%. Based on that, the patient was placed on a BiPAP and following that the patient got transferred to the intensive care unit. Current white cell count is at 17.5. The lactic acid level is at 2.3. The rest of the electrodes are within normal limits. First set of troponin is negative and the patient has a nonelevated BNP level. Urinalysis is also abnormal with increased white cell counts and influenza screen was also negative. Currently, the patient is on a combination of Zosyn and Levaquin. Note that the patient has a chronic component of hypercapnic arrest 30 failure. Based on previous echocardiogram the patient has a normal ejection fraction without evidence of any pulmonary hypertension. She is known to have COPD however. On 05/16/2016 I'm seeing this patient for a follow-up. The patient is still BiPAP dependent at a pressure of 14/7 cm of water. She had developed some hypoxemia and she was placed on 100% FiO2. Subsequent blood gases showed a pH of 7.36 with a pCO2 of 58 and pO2 of 123 and based on that the FiO2 was dropped down to 80%. Currently the patient's pulse ox is around 97%. The patient has developed a new small to moderate-sized right-sided pleural effusion. There is also evidence of pulmonary vascular congestion. She feels clinically better however the chest x-ray findings are slightly worse especially with development of a new moderate-sized right-sided pleural effusion. The patient is receiving 0.9 normal saline at the rate of 50 mL an hour. She is on a combination of Zosyn and Levaquin. The creatinine is stable at 0.81 with a BUN of 22. No other significant events overnight. Her breathing is still labored. Culture has been on and showed few gram-positive cocci . The urine output is around 30 mL an hour. The patient remains on a combination of DuoNeb, systemic steroids, Pulmicort and Perforomist embolus treatments around the clock. The patient is also on heparin subcu. The patient is on IV Solu-Medrol. The patient is seen again today 05/17/2016 in follow-up in the intensive care unit. She is continue to utilize BiPAP throughout the evening at a pressure 14/ 7 cm of water. She is more awake and alert today as compared to yesterday. She is currently off the BiPAP and maintaining O2 saturations in the 90s on 5 L/ m per nasal cannula. She is confused to time and place. She is somewhat restless. Her urine is positive for gram-negative bacilli, blood cultures reveal no growth to date, sputum culture pending. White count 12.6. Hemoglobin 11.4. Creatinine 1.00. She is continued on DuoNeb inhalations 4 times a day and when necessary along with Pulmicort and Perforomist inhalations twice a day. She is covered with vancomycin, Zosyn and Levaquin. Continued on IV Solu-Medrol. Today's chest x-ray reveals chronic reticulonodular interstitial changes of the lung volumes. There is persistent but improving right lower lung infiltrate and a small right pleural effusion. Objective - Vital Signs Vital signs: Vital Signs Temp 98.2 F 05/17/17 16:00 Pulse 124 H 05/17/17 17:00 Resp 32 H 05/17/17 17:00 BP 92/75 05/17/17 17:00 Pulse Ox 98 05/17/17 17:00 Intake & Output 05/16/17 05/17/17 05/17/17 18:59 06:59 18:59 Intake Total 935.0 252.5 1295.0 Output Total 1640 550 269 Balance -705.0 -297.5 1026.0 Weight 72.2 kg Intake: IV 935.0 252.5 1295.0 Levofloxacin 750Mg-D5w 150 Pmx 750 mg In Dextrose/ Water 1 150ml.bag @ 100 mls/hr IVPB ONCE [facility] Rx#: [id number] Magnesium Sulfate-D5w Pmx 200 1 gm In Dextrose/Water 1 100ml.bag @ 100 mls/hr IVPB Q1H [facility] Rx#: [id number] Piperacillin-Tazobactam 3 75.0 12.5 75.0 .375 gm In Dextrose/Water 1 50ml.bag @ 12.5 mls/hr IVPB Q8HR [facility] Rx#: [id number] Potassium Chloride 10 meq 300 In Water For Injection 1 100ml.bag @ 100 mls/hr IVPB Q1H [facility] Rx#: [id number] Potassium Phosphate 10 250 mmol In Sodium Chloride 0 .9% 250 ml @ 125 mls/hr IV ONCE ONE Rx#:[id number] Sodium Chloride 0.9% 1, 160 240 270 000 ml @ 20 mls/hr IV . Q24H [facility] Rx#:[id number] Sodium Chloride 0.9% 1, 100 000 ml @ 50 mls/hr IV . Q20H [facility] Rx#:[id number] Vancomycin 1,500 mg In 250 Sodium Chloride 0.9% 250 ml @ 125 mls/hr IVPB Q16H [facility] Rx#:[id number] levETIRAcetam IV 500 mg 400 In Sodium Chloride 0.9% 100 ml @ 400 mls/hr IVPB 0800,2000 [facility] Rx#: [id number] Output: Urine 1640 550 269 Other: Voiding Method Indwelling Catheter Indwelling Catheter Indwelling Catheter # Voids 1 1 - Exam The patient has improved slightly from her respiratory distress. She was tolerating 5 L/m per nasal cannula while off the BiPAP briefly. Note that she has a DNR/DNI CODE STATUS and she will not get intubated based on her CODE STATUS. She has however tolerating the BiPAP and she is synchronous with a full facemask. Head exam was generally normal. There was no scleral icterus or corneal arcus. Mucous membranes were moist.Neck was supple and without jugular venous distension, thyromegaly, or carotid bruits. Carotids were easily palpable bilaterally. There was no adenopathy. Lung sounds are diminished bilaterally and there is diffuse expiratory wheezes and rhonchi heard throughout the lung hall and her axillary phase of breathing is quite prolonged.Cardiac exam revealed the PMI to be normally situated and sized. The rhythm was regular and no extrasystoles were noted during several minutes of auscultation. The first and second heart sounds were normal and physiologic splitting of the second heart sound was noted. There were no murmurs, rubs, clicks, or gallops. Abdominal exam revealed normal bowel sounds. The abdomen was soft, non-tender, and without masses, organomegaly, or appreciable enlargement of the abdominal aorta.Examination of the extremities revealed easily palpable radial, femoral and pedal pulses. There was no cyanosis, clubbing or edema.Examination of the skin revealed no evidence of significant rashes, suspicious appearing nevi or other concerning lesions. Neurologically the exam is nonfocal and the patient is moving all 4 extremities without any limitation. She is awake and alert to person. She is having some confusion and hallucinations. - Labs CBC & Chem 7: 05/17/17 04:52 05/17/17 15:07 Labs: Abnormal Lab Results - Last 24 Hours (Table) 05/16/17 05/17/17 05/17/17 Range/Units 20:02 00:13 04:03 WBC (3.8-10.6) k/uL Neutrophils # (1.3-7.7) k/uL Lymphocytes # (1.0-4.8) k/uL BUN (7-17) mg/dL Glucose (74-99) mg/dL POC Glucose (mg/dL) 114 H 148 H 150 H (75-99) mg/dL Phosphorus (2.5-4.5) mg/dL 05/17/17 05/17/17 05/17/17 Range/Units 04:52 04:52 08:12 WBC 12.6 H (3.8-10.6) k/uL Neutrophils # 11.3 H (1.3-7.7) k/uL Lymphocytes # 0.7 L (1.0-4.8) k/uL BUN 33 H (7-17) mg/dL Glucose 151 H (74-99) mg/dL POC Glucose (mg/dL) 114 H (75-99) mg/dL Phosphorus 2.4 L (2.5-4.5) mg/dL 05/17/17 05/17/17 05/17/17 Range/Units 11:53 15:56 17:16 WBC (3.8-10.6) k/uL Neutrophils # (1.3-7.7) k/uL Lymphocytes # (1.0-4.8) k/uL BUN (7-17) mg/dL Glucose (74-99) mg/dL POC Glucose (mg/dL) 133 H 103 H 123 H (75-99) mg/dL Phosphorus (2.5-4.5) mg/dL Microbiology - Last 24 Hours (Table) 05/15/17 09:10 Blood Culture - Preliminary Blood No Growth after 48 hours 05/15/17 13:30 Urine Culture - Preliminary Urine,Catheterized Gram Neg Bacilli Assessment and Plan Assessment: Impression 1 acute COPD exacerbation secondary to a left lung pneumonia, rule out an aspiration pneumonia with impending respiratory failure. There is also interval worsening of the chest x-ray findings with development of a right- sided pleural effusion and the patient remains BiPAP dependent for now at a pressure of 14/7 cm of water and FiO2 of 80%. Clinically the patient feels less short of breath compared to yesterday. She was maintaining O2 saturations in the low 90s while on 5 L/m per nasal cannula for brief trial off the BiPAP. 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 Davis. Her chest x-ray and labs were reviewed. We'll continue with her current medications including vancomycin , Zosyn and Levaquin. She remains on IV Solu-Medrol along with bronchodilators. Her chest x-ray shows some slight improvement in the right lung infiltration. She will be given Haldol for her hallucinations and restlessness. We will continue to utilize BiPAP as needed at 14/7 at 50% FiO2 to maintain O2 saturations in the 90s. We will continue to monitor her closely here in the intensive care unit. She is a DO NOT RESUSCITATE/DO NOT INTUBATE CODE STATUS. We will continue to follow and make further recommendations based on her clinical status. I, the cosigning physician, performed a history & physical examination of the patient. Lungs sounds few scattered rhonchi, crackles in the posterior bases more so on the right. Maintaining good O2 saturations in the 90s on BiPAP with intermittent 5 L/m per nasal cannula. I discussed the assessment and plan of care with my nurse practitioner, Shi Hunt. I attest to the above note as dictated by her. Time with Patient: Greater than 30 <Samra Davis - Last Filed: 05/17/17 18:14> Objective - Vital Signs Vital signs: Vital Signs Temp 98.2 F 05/17/17 16:00 Pulse 124 H 05/17/17 17:00 Resp 32 H 05/17/17 17:00 BP 92/75 05/17/17 17:00 Pulse Ox 98 05/17/17 17:00 Intake & Output 05/16/17 05/17/17 05/17/17 18:59 06:59 18:59 Intake Total 935.0 252.5 1295.0 Output Total 1640 550 269 Balance -705.0 -297.5 1026.0 Weight 72.2 kg Intake: IV 935.0 252.5 1295.0 Levofloxacin 750Mg-D5w 150 Pmx 750 mg In Dextrose/ Water 1 150ml.bag @ 100 mls/hr IVPB ONCE STA Rx#: [id number] Magnesium Sulfate-D5w Pmx 200 1 gm In Dextrose/Water 1 100ml.bag @ 100 mls/hr IVPB Q1H [facility] Rx#: [id number] Piperacillin-Tazobactam 3 75.0 12.5 75.0 .375 gm In Dextrose/Water 1 50ml.bag @ 12.5 mls/hr IVPB Q8HR [facility] Rx#: [id number] Potassium Chloride 10 meq 300 In Water For Injection 1 100ml.bag @ 100 mls/hr IVPB Q1H [facility] Rx#: [id number] Potassium Phosphate 10 250 mmol In Sodium Chloride 0 .9% 250 ml @ 125 mls/hr IV ONCE ONE Rx#:[id number] Sodium Chloride 0.9% 1, 160 240 270 000 ml @ 20 mls/hr IV . Q24H [facility] Rx#:[id number] Sodium Chloride 0.9% 1, 100 000 ml @ 50 mls/hr IV . Q20H [facility] Rx#:[id number] Vancomycin 1,500 mg In 250 Sodium Chloride 0.9% 250 ml @ 125 mls/hr IVPB Q16H [facility] Rx#:[id number] levETIRAcetam IV 500 mg 400 In Sodium Chloride 0.9% 100 ml @ 400 mls/hr IVPB 0800,2000 [facility] Rx#: [id number] Output: Urine 1640 550 269 Other: Voiding Method Indwelling Catheter Indwelling Catheter Indwelling Catheter # Voids 1 1 - Labs CBC & Chem 7: 05/17/17 04:52 05/17/17 15:07 Labs: Abnormal Lab Results - Last 24 Hours (Table) 05/16/17 05/17/17 05/17/17 Range/Units 20:02 00:13 04:03 WBC (3.8-10.6) k/uL Neutrophils # (1.3-7.7) k/uL Lymphocytes # (1.0-4.8) k/uL BUN (7-17) mg/dL Glucose (74-99) mg/dL POC Glucose (mg/dL) 114 H 148 H 150 H (75-99) mg/dL Phosphorus (2.5-4.5) mg/dL 05/17/17 05/17/17 05/17/17 Range/Units 04:52 04:52 08:12 WBC 12.6 H (3.8-10.6) k/uL Neutrophils # 11.3 H (1.3-7.7) k/uL Lymphocytes # 0.7 L (1.0-4.8) k/uL BUN 33 H (7-17) mg/dL Glucose 151 H (74-99) mg/dL POC Glucose (mg/dL) 114 H (75-99) mg/dL Phosphorus 2.4 L (2.5-4.5) mg/dL 05/17/17 05/17/17 05/17/17 Range/Units 11:53 15:56 17:16 WBC (3.8-10.6) k/uL Neutrophils # (1.3-7.7) k/uL Lymphocytes # (1.0-4.8) k/uL BUN (7-17) mg/dL Glucose (74-99) mg/dL POC Glucose (mg/dL) 133 H 103 H 123 H (75-99) mg/dL Phosphorus (2.5-4.5) mg/dL Microbiology - Last 24 Hours (Table) 05/15/17 09:10 Blood Culture - Preliminary Blood No Growth after 48 hours 05/15/17 13:30 Urine Culture - Preliminary Urine,Catheterized Gram Neg Bacilli Assessment and Plan Assessment: Joint evaluation done along with the nurse practitioner. Continue BiPAP for respiratory support. Today chest x-ray shows improvement in the right lower lobe pulmonary infiltrate/effusion lower lobe effusion right infusion effusion and there is obvious consolidation of the right lung base. Left lung seems to be more clear. The patient will have a swallow evaluation. She'll be kept nothing by mouth for now. She is considered to be an increased risk of aspiration and she presented with an aspiration pneumonia at a time of admission. She is on broad-spectrum antibiotics. She may benefit from gentle hydration.
--- NOTE | 2017-05-17 19:46 | P.PN ---
Subjective Progress Note Date: 05/16/17 Personal being dictated for Dr. Hawley Interval history: This is a 66-year-old female admitted in the ICU with acute exacerbation COPD, acute hypoxic hypercarbic respiratory failure, left lower lobe pneumonia, possibly aspiration, metabolic encephalopathy and multiple other medical issues. Continues on Levaquin ,Zosyn, nebulized bronchodilators, steroids. Currently on BiPAP, chest x-ray reporting new small-moderate right pleural effusion. Reports productive cough with yellow sputum.Failed Bedside swallow evaluation,remains nothing by mouth. Evaluated by GI with recommendations noted, including possible esophagram. Complains of nausea, minimal emesis. Maintained on gentle IV fluid hydration. Urine culture reporting gram-negative bacilli. Unable to perform review of systems, patient currently very BiPAP, anxious. Active Medications Albuterol/Ipratropium (Duoneb 0.5 Mg-3 Mg/3 Ml Soln) 3 ml INHALATION RT-QID [facility] Last Admin: 05/17/17 19:02 Dose: 3 ml Albuterol/Ipratropium (Duoneb 0.5 Mg-3 Mg/3 Ml Soln) 3 ml INHALATION RT-Q4H PRN PRN Reason: shortness of breath Brimonidine Tartrate (Alphagan P 0.2% Ophth Soln) 1 drops BOTH EYES BID [facility] Last Admin: 05/17/17 09:12 Dose: 1 drops Budesonide (Pulmicort) 1 mg INHALATION RT-BID [facility] Last Admin: 05/17/17 19:02 Dose: 1 mg Fluticasone Propionate (Flonase Nasal [place]) 1 spray EA NOSTRIL BID@0800,2000 [facility] Last Admin: 05/17/17 08:13 Dose: 1 spray Formoterol Fumarate (Perforomist) 20 mcg INHALATION RT-BID [facility] Last Admin: 05/17/17 19:02 Dose: 20 mcg Haloperidol Lactate (Haldol) 1 mg IVP Q4HR PRN PRN Reason: Agitation or Acute Psychosis Last Admin: 05/17/17 16:29 Dose: 1 mg Heparin Sodium (Porcine) (Heparin) 5,000 unit SQ Q8HR [facility] Last Admin: 05/17/17 15:54 Dose: 5,000 unit Hydromorphone HCl (Dilaudid) 0.5 mg IVP Q4HR PRN PRN Reason: Pain Last Admin: 05/16/17 12:25 Dose: 0.5 mg Levofloxacin 750 mg/ IV (Solution) 150 mls @ 100 mls/hr IVPB Q24H [facility] Stop: 05/28/17 12:01 Last Admin: 05/17/17 12:07 Dose: 100 mls/hr Piperacillin/Tazobactam/ (Dextrose 3.375 gm/ IV Solution) 50 mls @ 12.5 mls/hr IVPB Q8HR [facility] Stop: 05/25/17 00:01 Last Admin: 05/17/17 15:03 Dose: 12.5 mls/hr Vancomycin HCl 1,500 mg/ (Sodium Chloride) 250 mls @ 125 mls/hr IVPB Q16H [facility] Last Admin: 05/17/17 19:04 Dose: 125 mls/hr Levetiracetam 500 mg/ Sodium (Chloride) 105 mls @ 400 mls/hr IVPB 0800,2000 [facility] Last Admin: 05/17/17 08:01 Dose: 400 mls/hr Sodium Chloride (Saline 0.9%) 1,000 mls @ 50 mls/hr IV .Q20H [facility] Last Admin: 05/17/17 11:10 Dose: 50 mls/hr Insulin Aspart (Novolog) 0 unit SQ Q4H [facility] PRN Reason: Protocol Last Admin: 05/17/17 15:56 Dose: Not Given Ketorolac Tromethamine (Acular) 1 drops RIGHT EYE QID [facility] Last Admin: 05/17/17 17:04 Dose: 1 drops Latanoprost (Xalatan 0.005%) 1 drops BOTH EYES HS [facility] Last Admin: 05/16/17 21:17 Dose: 1 drops Lorazepam (Ativan) 0.5 mg IV Q4HR PRN PRN Reason: Anxiety Last Admin: 05/17/17 17:19 Dose: 0.5 mg Methylprednisolone Sodium Succinate (Solu-Medrol) 60 mg IV Q6HR [facility] Last Admin: 05/17/17 17:04 Dose: 60 mg Metoprolol Tartrate (Lopressor) 5 mg IVP Q8HR PRN PRN Reason: Heart Rate - HIGH Miscellaneous Information (Pneumonia Protocol Utilized) 1 each PO ONCE PRN PRN Reason: Per Protocol Miscellaneous Information (Magnesium Per Protocol) 1 each MISCELLANE DAILY PRN ; Protocol PRN Reason: Per Protocol Miscellaneous Information (Phosphorus Per Protocol) 1 each MISCELLANE DAILY PRN ; Protocol PRN Reason: Per Protocol Miscellaneous Information (Potassium Per Protocol) 1 each MISCELLANE DAILY PRN ; Protocol PRN Reason: Per Protocol Miscellaneous Information (Vancomycin Trough Due) 0 each MISCELLANE DIRECTED ONE Stop: 05/18/17 10:01 Nicotine (Habitrol 14mg/24hr Patch) 1 patch TRANSDERM DAILY [facility] Last Admin: 05/17/17 09:57 Dose: 1 patch Nitroglycerin (Nitrostat) 0.4 mg SUBLINGUAL Q5M PRN PRN Reason: Chest Pain Pantoprazole Sodium (Protonix) 40 mg IVP DAILY [facility] Last Admin: 05/17/17 08:13 Dose: 40 mg Objective - Vital Signs Vital signs: Vital Signs Temp 99.0 F 05/16/17 16:00 Pulse 92 05/16/17 17:00 Resp 28 H 05/16/17 17:00 BP 90/59 05/16/17 17:00 Pulse Ox 94 L 05/16/17 17:08 Intake & Output 05/15/17 05/16/17 05/16/17 18:59 06:59 18:59 Intake Total 300 550 902.5 Output Total 2206 214 6881 Balance -982 153 -707.5 Weight 72.575 kg 76.7 kg Intake: IV 300 550 902.5 Levofloxacin 750Mg-D5w 150 Pmx 750 mg In Dextrose/ Water 1 150ml.bag @ 100 mls/hr IVPB ONCE [facility] Rx#: [id number] Magnesium Sulfate-D5w Pmx 200 1 gm In Dextrose/Water 1 100ml.bag @ 100 mls/hr IVPB Q1H [facility] Rx#: [id number] Piperacillin-Tazobactam 3 62.5 .375 gm In Dextrose/Water 1 50ml.bag @ 12.5 mls/hr IVPB Q8HR [facility] Rx#: [id number] Sodium Chloride 0.9% 1, 140 000 ml @ 20 mls/hr IV . Q24H [facility] Rx#:[id number] Sodium Chloride 0.9% 1, 300 550 100 000 ml @ 50 mls/hr IV . Q20H [facility] Rx#:[id number] Vancomycin 1,500 mg In 250 Sodium Chloride 0.9% 250 ml @ 125 mls/hr IVPB Q16H [facility] Rx#:[id number] Output: Urine 9937 202 7178 Other: Voiding Method Indwelling Catheter Indwelling Catheter Indwelling Catheter - Exam PHYSICAL EXAM: VITAL SIGNS: [As above] GENERAL: Sitting up in bed, wearing BiPAP, respiratory effort increased HEENT: Conjunctivae normal. eyes normal. NECK: No JVD. No thyroid enlargement. No LNs CARDIOVASCULAR: S1, S2 muffled. No murmur RESPIRATION: Breath sounds diminished in the bases. Scattered rhonchi and crackles throughout. Occasional fine expiratory wheezing ABDOMEN: Soft, nontender . No guarding. no masses palpable. Bowel sounds heard. LEGS: No edema. no swelling PSYCHIATRY: Alert and oriented -3, mood and affect anxious NERVOUS SYSTEM: Cranial N 2-12 grossly normal. Moves all 4 limbs. Diffuse weakness No focal deficits. No sensory deficit. Skin: no ulcer no rash Joints: No active swelling. No inflammation. Lymphatic system. No LN neck axilla or groin. - Labs CBC & Chem 7: 05/17/17 04:52 05/17/17 15:07 Labs: Abnormal Lab Results - Last 24 Hours (Table) 05/15/17 05/15/17 05/16/17 Range/Units 19:56 23:46 03:54 WBC 13.7 H (3.8-10.6) k/uL Neutrophils # 12.4 H (1.3-7.7) k/uL Lymphocytes # 0.7 L (1.0-4.8) k/uL ABG pCO2 (35-45) mmHg ABG pO2 (83-108) mmHg ABG HCO3 (21-25) mmol/L ABG Total CO2 (19-24) mmol/L ABG O2 Saturation (94-97) % BUN (7-17) mg/dL Glucose (74-99) mg/dL POC Glucose (mg/dL) 162 H 148 H (75-99) mg/dL Magnesium (1.6-2.3) mg/dL 05/16/17 05/16/17 05/16/17 Range/Units 03:54 03:56 09:01 WBC (3.8-10.6) k/uL Neutrophils # (1.3-7.7) k/uL Lymphocytes # (1.0-4.8) k/uL ABG pCO2 (35-45) mmHg ABG pO2 (83-108) mmHg ABG HCO3 (21-25) mmol/L ABG Total CO2 (19-24) mmol/L ABG O2 Saturation (94-97) % BUN 22 H (7-17) mg/dL Glucose 139 H (74-99) mg/dL POC Glucose (mg/dL) 140 H 140 H (75-99) mg/dL Magnesium 1.5 L (1.6-2.3) mg/dL 05/16/17 05/16/17 05/16/17 Range/Units 09:15 11:39 17:25 WBC (3.8-10.6) k/uL Neutrophils # (1.3-7.7) k/uL Lymphocytes # (1.0-4.8) k/uL ABG pCO2 58 H (35-45) mmHg ABG pO2 123 H (83-108) mmHg ABG HCO3 33 H (21-25) mmol/L ABG Total CO2 78 H (19-24) mmol/L ABG O2 Saturation 99.3 H (94-97) % BUN (7-17) mg/dL Glucose (74-99) mg/dL POC Glucose (mg/dL) 150 H 121 H (75-99) mg/dL Magnesium (1.6-2.3) mg/dL Microbiology - Last 24 Hours (Table) 05/15/17 09:10 Blood Culture - Preliminary Blood No Growth after 24 hours 05/15/17 21:27 Gram Stain - Preliminary Sputum 05/15/17 13:30 Urine Culture - Preliminary Urine,Catheterized Assessment and Plan Assessment: 1. Acute COPD exacerbation with acute hypoxic hypercarbic respiratory failure with left lower lobe pneumonia, suspect aspiration with sepsis, present on admission 2. Change in mental status, acute metabolic encephalopathy, multifactorial 3. Leukocytosis 4. History of COPD, asthma 5. Chronic CHF 6. Chronic respiratory failure 7. History of hepatitis C 8. History of glaucoma, cataracts 9. Degenerative joint disease 10 hypertension 11 hyperlipidemia 12 history of seizure disorder 13. Possible acute UTI, gram-negative bacilli Plan: Continue current medication regime ,monitoring and symptomatic treatment. Maintain broad-spectrum IV antibiotics, nebulized bronchodilators, steroids. Aggressive pulmonary toileting. Follow sputum and blood and urine cultures closely. GI and DVT prophylaxis. Further recommendations to follow. Prognosis guarded given multiple complex medical issues. The impression and plan of care has been dictated as directed. : I performed a history and examination of this patient, discussed the same with the dictator. I agree with the dictator's note ,documented as a scribe. Any additional findings or plans will be noted.
--- NOTE | 2017-05-17 19:56 | P.PN ---
Subjective Progress Note Date: 05/17/17 Personal being dictated for Dr. Hawley Interval history: This is a 66-year-old female admitted in the ICU with acute exacerbation COPD, acute hypoxic hypercarbic respiratory failure, left lower lobe pneumonia, possibly aspiration, metabolic encephalopathy and multiple other medical issues. Continues on Levaquin ,Zosyn, nebulized bronchodilators, steroids. Currently on BiPAP, chest x-ray reporting new small-moderate right pleural effusion. Reports productive cough with yellow sputum.Failed Bedside swallow evaluation,remains nothing by mouth. Evaluated by GI with recommendations noted, including possible esophagram. Complains of nausea, minimal emesis. Maintained on gentle IV fluid hydration. Urine culture reporting gram-negative bacilli. 05/17/2017 maintained on vancomycin, Zosyn, Levaquin .Remains NPO. Hallucinating, staff reports patient seeing things in room, thinks she's in a plane crash, talking to the IV pump. Psych has been consulted. Currently on BiPAP. Chest x-ray reporting persistent but improving right lower lung infiltrate, small right pleural effusion, we demonstrated low lung volumes and chronic reticulonodular interstitial changes. T-max 101.8, sputum culture pending, preliminary blood negative, and urine gram-negative bacilli.. Unable to perform review of systems, patient currently very BiPAP, anxious, hallucinating. Active Medications Albuterol/Ipratropium (Duoneb 0.5 Mg-3 Mg/3 Ml Soln) 3 ml INHALATION RT-QID [facility] Last Admin: 05/17/17 19:02 Dose: 3 ml Albuterol/Ipratropium (Duoneb 0.5 Mg-3 Mg/3 Ml Soln) 3 ml INHALATION RT-Q4H PRN PRN Reason: shortness of breath Brimonidine Tartrate (Alphagan P 0.2% Ophth Soln) 1 drops BOTH EYES BID [facility] Last Admin: 05/17/17 09:12 Dose: 1 drops Budesonide (Pulmicort) 1 mg INHALATION RT-BID [facility] Last Admin: 05/17/17 19:02 Dose: 1 mg Fluticasone Propionate (Flonase Nasal [place]) 1 spray EA NOSTRIL BID@0800,2000 [facility] Last Admin: 05/17/17 08:13 Dose: 1 spray Formoterol Fumarate (Perforomist) 20 mcg INHALATION RT-BID [facility] Last Admin: 05/17/17 19:02 Dose: 20 mcg Haloperidol Lactate (Haldol) 1 mg IVP Q4HR PRN PRN Reason: Agitation or Acute Psychosis Last Admin: 05/17/17 16:29 Dose: 1 mg Heparin Sodium (Porcine) (Heparin) 5,000 unit SQ Q8HR [facility] Last Admin: 05/17/17 15:54 Dose: 5,000 unit Hydromorphone HCl (Dilaudid) 0.5 mg IVP Q4HR PRN PRN Reason: Pain Last Admin: 05/16/17 12:25 Dose: 0.5 mg Levofloxacin 750 mg/ IV (Solution) 150 mls @ 100 mls/hr IVPB Q24H [facility] Stop: 05/28/17 12:01 Last Admin: 05/17/17 12:07 Dose: 100 mls/hr Piperacillin/Tazobactam/ (Dextrose 3.375 gm/ IV Solution) 50 mls @ 12.5 mls/hr IVPB Q8HR [facility] Stop: 05/25/17 00:01 Last Admin: 05/17/17 15:03 Dose: 12.5 mls/hr Vancomycin HCl 1,500 mg/ (Sodium Chloride) 250 mls @ 125 mls/hr IVPB Q16H [facility] Last Admin: 05/17/17 19:04 Dose: 125 mls/hr Levetiracetam 500 mg/ Sodium (Chloride) 105 mls @ 400 mls/hr IVPB 0800,2000 [facility] Last Admin: 05/17/17 08:01 Dose: 400 mls/hr Sodium Chloride (Saline 0.9%) 1,000 mls @ 50 mls/hr IV .Q20H [facility] Last Admin: 05/17/17 11:10 Dose: 50 mls/hr Insulin Aspart (Novolog) 0 unit SQ Q4H [facility] PRN Reason: Protocol Last Admin: 05/17/17 15:56 Dose: Not Given Ketorolac Tromethamine (Acular) 1 drops RIGHT EYE QID [facility] Last Admin: 05/17/17 17:04 Dose: 1 drops Latanoprost (Xalatan 0.005%) 1 drops BOTH EYES HS [facility] Last Admin: 05/16/17 21:17 Dose: 1 drops Lorazepam (Ativan) 0.5 mg IV Q4HR PRN PRN Reason: Anxiety Last Admin: 05/17/17 17:19 Dose: 0.5 mg Methylprednisolone Sodium Succinate (Solu-Medrol) 60 mg IV Q6HR [facility] Last Admin: 05/17/17 17:04 Dose: 60 mg Metoprolol Tartrate (Lopressor) 5 mg IVP Q8HR PRN PRN Reason: Heart Rate - HIGH Miscellaneous Information (Pneumonia Protocol Utilized) 1 each PO ONCE PRN PRN Reason: Per Protocol Miscellaneous Information (Magnesium Per Protocol) 1 each MISCELLANE DAILY PRN ; Protocol PRN Reason: Per Protocol Miscellaneous Information (Phosphorus Per Protocol) 1 each MISCELLANE DAILY PRN ; Protocol PRN Reason: Per Protocol Miscellaneous Information (Potassium Per Protocol) 1 each MISCELLANE DAILY PRN ; Protocol PRN Reason: Per Protocol Miscellaneous Information (Vancomycin Trough Due) 0 each MISCELLANE DIRECTED ONE Stop: 05/18/17 10:01 Nicotine (Habitrol 14mg/24hr Patch) 1 patch TRANSDERM DAILY [facility] Last Admin: 05/17/17 09:57 Dose: 1 patch Nitroglycerin (Nitrostat) 0.4 mg SUBLINGUAL Q5M PRN PRN Reason: Chest Pain Pantoprazole Sodium (Protonix) 40 mg IVP DAILY [facility] Last Admin: 05/17/17 08:13 Dose: 40 mg Objective - Vital Signs Vital signs: Vital Signs Temp 98.2 F 05/17/17 16:00 Pulse 110 H 05/17/17 19:46 Resp 34 H 05/17/17 19:00 BP 132/76 05/17/17 19:00 Pulse Ox 99 05/17/17 19:00 Intake & Output 05/17/17 05/17/17 05/18/17 06:59 18:59 06:59 Intake Total 252.5 1407.5 62.5 Output Total 550 281 10 Balance -297.5 1126.5 52.5 Weight 72.2 kg Intake: IV 252.5 1407.5 62.5 Piperacillin-Tazobactam 3 12.5 87.5 12.5 .375 gm In Dextrose/Water 1 50ml.bag @ 12.5 mls/hr IVPB Q8HR [facility] Rx#: [id number] Potassium Chloride 10 meq 400 In Water For Injection 1 100ml.bag @ 100 mls/hr IVPB Q1H [facility] Rx#: [id number] Potassium Phosphate 10 250 mmol In Sodium Chloride 0 .9% 250 ml @ 125 mls/hr IV ONCE ONE Rx#:[id number] Sodium Chloride 0.9% 1, 240 270 50 000 ml @ 20 mls/hr IV . Q24H [facility] Rx#:[id number] levETIRAcetam IV 500 mg 400 In Sodium Chloride 0.9% 100 ml @ 400 mls/hr IVPB 0800,2000 [facility] Rx#: [id number] Output: Urine 550 281 10 Other: Voiding Method Indwelling Catheter Indwelling Catheter # Voids 1 1 1 - Exam PHYSICAL EXAM: VITAL SIGNS: [As above] GENERAL: Sitting up in bed, wearing BiPAP, respiratory effort increased, restless HEENT: Conjunctivae normal. eyes normal. NECK: No JVD. No thyroid enlargement. No LNs CARDIOVASCULAR: S1, S2 muffled. No murmur RESPIRATION: Breath sounds diminished in the bases. Scattered rhonchi throughout. Occasional fine expiratory wheezing ABDOMEN: Soft, nontender . No guarding. no masses palpable. Bowel sounds heard. LEGS: No edema. no swelling PSYCHIATRY: Alert and oriented -2,. Periods of confusion, hallucinating NERVOUS SYSTEM: Cranial N 2-12 grossly normal. Moves all 4 limbs. Diffuse weakness No focal deficits. No sensory deficit. Skin: no ulcer no rash Joints: No active swelling. No inflammation. Lymphatic system. No LN neck axilla or groin. - Labs CBC & Chem 7: 05/17/17 04:52 05/17/17 15:07 Labs: Abnormal Lab Results - Last 24 Hours (Table) 05/16/17 05/17/17 05/17/17 Range/Units 20:02 00:13 04:03 WBC (3.8-10.6) k/uL Neutrophils # (1.3-7.7) k/uL Lymphocytes # (1.0-4.8) k/uL BUN (7-17) mg/dL Glucose (74-99) mg/dL POC Glucose (mg/dL) 114 H 148 H 150 H (75-99) mg/dL Phosphorus (2.5-4.5) mg/dL 05/17/17 05/17/17 05/17/17 Range/Units 04:52 04:52 08:12 WBC 12.6 H (3.8-10.6) k/uL Neutrophils # 11.3 H (1.3-7.7) k/uL Lymphocytes # 0.7 L (1.0-4.8) k/uL BUN 33 H (7-17) mg/dL Glucose 151 H (74-99) mg/dL POC Glucose (mg/dL) 114 H (75-99) mg/dL Phosphorus 2.4 L (2.5-4.5) mg/dL 05/17/17 05/17/17 05/17/17 Range/Units 11:53 15:56 17:16 WBC (3.8-10.6) k/uL Neutrophils # (1.3-7.7) k/uL Lymphocytes # (1.0-4.8) k/uL BUN (7-17) mg/dL Glucose (74-99) mg/dL POC Glucose (mg/dL) 133 H 103 H 123 H (75-99) mg/dL Phosphorus (2.5-4.5) mg/dL Microbiology - Last 24 Hours (Table) 05/15/17 09:10 Blood Culture - Preliminary Blood No Growth after 48 hours 05/15/17 13:30 Urine Culture - Preliminary Urine,Catheterized Gram Neg Bacilli Assessment and Plan Assessment: 1. Acute COPD exacerbation with acute hypoxic hypercarbic respiratory failure with left lower lobe pneumonia, suspect aspiration with sepsis, present on admission 2. Change in mental status, acute metabolic encephalopathy, multifactorial 3. Leukocytosis 4. History of COPD, asthma 5. Chronic CHF 6. Chronic respiratory failure 7. History of hepatitis C 8. History of glaucoma, cataracts 9. Degenerative joint disease 10 hypertension 11 hyperlipidemia 12 history of seizure disorder 13. Possible acute UTI, gram-negative bacilli Plan: Continue current medication regime ,monitoring and symptomatic treatment. Maintain broad-spectrum IV antibiotics, nebulized bronchodilators, steroids and gentle IV fluid hydration. Psychiatry consulted, recommendations pending. Follow sputum and blood and urine cultures closely. Strict aspiration precautions. Potential esophagram pending improvement in respiratory status. Further recommendations to follow. Prognosis guarded given multiple complex medical issues. The impression and plan of care has been dictated as directed. : I performed a history and examination of this patient, discussed the same with the dictator. I agree with the dictator's note ,documented as a scribe. Any additional findings or plans will be noted.
[2017-05-17] MEDS: LATANOPROST 0.005% OPHTH DROPS 2.5 ML BTL BOTH EYES SCH (20:55)
[2017-05-17 21:01] LABS: Glucose,Whole Blood 112 mg/dL (75-99)
[2017-05-17] MEDS: HYDROmorphone 0.5 MG/0.5 ML SYRINGE IVP PRN (22:47)
[2017-05-17 23:52] LABS: Glucose,Whole Blood 126 mg/dL (75-99)
[2017-05-18] MEDS: INSULIN ASPART 100 UNIT/ML 1 ML 10 ML VIAL SQ SCH ×6 (01:38→21:41)
[2017-05-18] MEDS: methylPREDNISolone SOD SUCCI 125 MG/2 ML VIAL IV SCH ×4 (01:39→17:56)
[2017-05-18] MEDS: PIPERACILLIN-TAZOBACTAM 3.375 GM in DEXTROSE/WATER 1 50ML.BAG IVPB SCH ×2 (01:39→07:55)
[2017-05-18] MEDS: HEPARIN SODIUM,PORCINE 5,000 UNIT/ML 1 ML VIAL SQ SCH ×3 (01:40→16:23)
[2017-05-18] MEDS: HALOPERIDOL LACTATE 5 MG/ML 1 ML VIAL IVP PRN (01:40)
[2017-05-18] MEDS: HYDROmorphone 0.5 MG/0.5 ML SYRINGE IVP PRN ×3 (03:00→15:10)
[2017-05-18 03:57] LABS: Glucose,Whole Blood 123 mg/dL (75-99)
[2017-05-18 05:24] LABS: Basophils % (A) 0 %; Eosinophils % (A) 1 %; HCT 32.2 % (34.0-46.0); HGB 10.3 gm/dL (11.4-16.0); Lymphocytes # (A) 0.7 k/uL (1.0-4.8); Lymphocytes % (A) 8 %; MCH 29.9 pg (25.0-35.0); MCV 93.3 fL (80.0-100.0); Mean Platelet Volume 8.4; Monocytes # (A) 0.3 k/uL (0-1.0); Monocytes % (A) 4 %; Neutrophils # (A) 8.2 k/uL (1.3-7.7); Neutrophils % (A) 88 %; Platelet Count 314 k/uL (150-450); RBC 3.45 m/uL (3.80-5.40); WBC 9.3 k/uL (3.8-10.6)
[2017-05-18 05:48] LABS: Anion Gap 10 mmol/L; Blood Urea Nitrogen 32 mg/dL (7-17); Calcium 7.9 mg/dL (8.4-10.2); Carbon Dioxide 29 mmol/L (22-30); Chloride 107 mmol/L (98-107); Glucose 125 mg/dL (74-99); Magnesium 2.2 mg/dL (1.6-2.3); Phosphorus 2.6 mg/dL (2.5-4.5); Potassium 3.9 mmol/L (3.5-5.1); Sodium 146 mmol/L (137-145)
[2017-05-18] MEDS: BUDESONIDE 1 MG/2 ML NEBU INHALATION SCH ×2 (07:37→19:32)
[2017-05-18] MEDS: FORMOTEROL FUMARATE 20 MCG/2 ML NEBU INHALATION SCH ×2 (07:39→19:32)
[2017-05-18] MEDS: IPRATROPIUM-ALBUTEROL 3 ML NEB INHALATION SCH ×4 (07:39→19:32)
[2017-05-18] MEDS: SODIUM CHLORIDE 0.9% 1,000 ML IV SCH (07:55)
[2017-05-18] MEDS: levETIRAcetam IV 500 MG in SODIUM CHLORIDE 0.9% 100 ML IVPB SCH (07:56)
[2017-05-18] MEDS: FLUTICASONE 50MCG/SPRAY NASAL 16GM EA NOSTRIL SCH ×2 (07:56→20:14)
[2017-05-18 07:59] LABS: Glucose,Whole Blood 115 mg/dL (75-99)
[2017-05-18] MEDS: PANTOPRAZOLE 40 MG/10 ML VIAL IVP SCH (08:57)
[2017-05-18] MEDS: BRIMONIDINE TARTRATE 0.2% DROPS 5 ML BTL BOTH EYES SCH ×2 (08:57→20:16)
[2017-05-18] MEDS: NICOTINE 14MG/24HR PATCH TRANSDERM SCH (08:57)
[2017-05-18] MEDS: KETOROLAC 0.5% OPHTH DROPS 5 ML BTL RIGHT EYE SCH ×4 (09:23→21:13)
--- NOTE | 2017-05-18 09:49 | P.PN ---
Subjective Progress Note Date: 05/18/17 Principal diagnosis: dysphagia More lucid today. Nursing reports no episodes of nausea vomiting. MBS scheduled today. Respiratory status improved stable. Objective - Vital Signs Vital signs: Vital Signs Temp 98.6 F 05/18/17 08:00 Pulse 90 05/18/17 09:00 Resp 41 H 05/18/17 09:00 BP 147/69 05/18/17 09:00 Pulse Ox 97 05/18/17 09:00 Intake & Output 05/17/17 05/18/17 05/18/17 18:59 06:59 18:59 Intake Total 1407.5 1245.0 212.5 Output Total 281 460 120 Balance 1126.5 785.0 92.5 Weight 72.2 kg Intake: IV 1407.5 62.5 112.5 Piperacillin-Tazobactam 3 87.5 12.5 12.5 .375 gm In Dextrose/Water 1 50ml.bag @ 12.5 mls/hr IVPB Q8HR [facility] Rx#: [id number] Potassium Chloride 10 meq 400 In Water For Injection 1 100ml.bag @ 100 mls/hr IVPB Q1H [facility] Rx#: [id number] Potassium Phosphate 10 250 mmol In Sodium Chloride 0 .9% 250 ml @ 125 mls/hr IV ONCE ONE Rx#:[id number] Sodium Chloride 0.9% 1, 270 50 000 ml @ 20 mls/hr IV . Q24H [facility] Rx#:[id number] levETIRAcetam IV 500 mg 400 100 In Sodium Chloride 0.9% 100 ml @ 400 mls/hr IVPB 0800,2000 [facility] Rx#: [id number] Intake, IV Titration 1182.5 100 Amount Piperacillin-Tazobactam 3 62.5 .375 gm In Dextrose/Water 1 50ml.bag @ 12.5 mls/hr IVPB Q8HR [facility] Rx#: [id number] Sodium Chloride 0.9% 1, 20 000 ml @ 20 mls/hr IV . Q24H [facility] Rx#:[id number] Sodium Chloride 0.9% 1, 450 100 000 ml @ 50 mls/hr IV . Q20H [facility] Rx#:[id number] Vancomycin 1,500 mg In 250 Sodium Chloride 0.9% 250 ml @ 125 mls/hr IVPB Q16H [facility] Rx#:[id number] levETIRAcetam IV 500 mg 400 In Sodium Chloride 0.9% 100 ml @ 400 mls/hr IVPB 0800,1999 [facility] Rx#: [id number] Output: Urine 281 460 120 Other: Voiding Method Indwelling Catheter Indwelling Catheter Indwelling Catheter # Voids 1 1 - Exam General appearance: The patient is alert. HET: Head is normocephalic and atraumatic. Pupils are equal and reactive. Oropharynx is clear without lesions. Neck: Supple without lymphadenopathy. Trachea midline. Heart: S1 S2. Regular rate and rhythm. Lungs: No coarse sounds bilaterally diminished in bases Abdomen: Soft, nontender, nondistended with bowel sounds. No peritoneal signs. No palpable organomegaly or masses. Extremities: Normal skin color and turgor. No cyanosis, rash, ulceration, clubbing, or edema. Radial and pedal pulses are 2/4 bilaterally. Neurological: No focal deficits. Strength and sensation are grossly intact. - Labs CBC & Chem 7: 05/18/17 04:59 05/18/17 04:59 Labs: Abnormal Lab Results - Last 24 Hours (Table) 05/17/17 05/17/17 05/17/17 Range/Units 11:53 15:56 17:16 RBC (3.80-5.40) m/uL Hgb (11.4-16.0) gm/dL Hct (34.0-46.0) % Neutrophils # (1.3-7.7) k/uL Lymphocytes # (1.0-4.8) k/uL Sodium (137-145) mmol/L BUN (7-17) mg/dL Glucose (74-99) mg/dL POC Glucose (mg/dL) 133 H 103 H 123 H (75-99) mg/dL Calcium (8.4-10.2) mg/dL 05/17/17 05/17/17 05/18/17 Range/Units 20:59 23:51 03:55 RBC (3.80-5.40) m/uL Hgb (11.4-16.0) gm/dL Hct (34.0-46.0) % Neutrophils # (1.3-7.7) k/uL Lymphocytes # (1.0-4.8) k/uL Sodium (137-145) mmol/L BUN (7-17) mg/dL Glucose (74-99) mg/dL POC Glucose (mg/dL) 112 H 126 H 123 H (75-99) mg/dL Calcium (8.4-10.2) mg/dL 05/18/17 05/18/17 05/18/17 Range/Units 04:59 04:59 07:57 RBC 3.45 L (3.80-5.40) m/uL Hgb 10.3 L (11.4-16.0) gm/dL Hct 32.2 L (34.0-46.0) % Neutrophils # 8.2 H (1.3-7.7) k/uL Lymphocytes # 0.7 L (1.0-4.8) k/uL Sodium 146 H (137-145) mmol/L BUN 32 H (7-17) mg/dL Glucose 125 H (74-99) mg/dL POC Glucose (mg/dL) 115 H (75-99) mg/dL Calcium 7.9 L (8.4-10.2) mg/dL Microbiology - Last 24 Hours (Table) 05/15/17 13:30 Urine Culture - Final Urine,Catheterized Escherichia coli 05/15/17 09:10 Blood Culture - Preliminary Blood No Growth after 48 hours Assessment and Plan (1) Dysphagia Narrative/Plan: 66-year-old female admitted with acute COPD exacerbation possible aspiration pneumonia. Patient consumed steak dinner 2 days ago with development of dysphagia possible foreign body since resolved with emesis. Ongoing odynophagia in the posterior pharynx most likely due to irritation with failed bedside swallow evaluation earlier this morning. Residual foreign body cannot be excluded however presently patient is without nausea vomiting and not exhibiting features of obstruction. Current Visit: No Status: Acute Code(s): R13.10 - DYSPHAGIA, UNSPECIFIED SNOMED Code(s): 63432353 (2) Pneumonia Current Visit: Yes Status: Acute Code(s): J18.9 - PNEUMONIA, UNSPECIFIED ORGANISM SNOMED Code(s): 795180240 (3) Acute exacerbation of chronic obstructive airways disease Current Visit: No Status: Acute Code(s): J44.1 - CHRONIC OBSTRUCTIVE PULMONARY DISEASE W (ACUTE) EXACERBATION SNOMED Code(s): 589634060 Plan: 1. MBS evaluation. EGD not planned at this time. Patient will require pulmonary clearance prior to endoscopy if necessary. 2. Continue nothing by mouth status until MBS is completed Protonix 40 mg IV daily. Assessment and plan a care discussed with Dr. Ortiz.
--- NOTE | 2017-05-18 09:56 | XR ---
EXAMINATION TYPE: XR chest 1V DATE OF EXAM: 05/18/2017 HISTORY: Shortness of breath. COMPARISON: 05/17/2017 TECHNIQUE: Single view of the chest is submitted. FINDINGS: Demonstrated are scattered senescent parenchymal change. Patchy perihilar and basilar infiltrates persist although appear to be improving. Continued follow-up advised. The heart is stable. Hilar and mediastinal structures are within normal limits. Degenerative changes are seen of the dorsal spine. IMPRESSION: 1. Patchy perihilar and basilar infiltrates persist although appear to be improving. Continued follo w-up advised.
[2017-05-18] MEDS ORDERED: VANCOMYCIN TROUGH DUE 1 EACH MISC MISCELLANE ONE (10:00)
[2017-05-18 11:43] LABS: Glucose,Whole Blood 122 mg/dL (75-99)
[2017-05-18] MEDS: MEROPENEM 1 GM in SODIUM CHLORIDE 0.9% 100 ML IVPB SCH ×2 (12:33→20:14)
--- NOTE | 2017-05-18 14:51 | P.PN ---
<Shi Hunt - Last Filed: 05/18/17 14:44> Subjective Progress Note Date: 05/18/17 Principal diagnosis: Acute exacerbation of chronic obstructive pulmonary disease complicated by left lung pneumonia suspect aspiration and acute respiratory failure requiring BiPAP support. A 66-year-old female patient who is known to me from previous hospitalizations, who is a resident of an assisted living/[place], presented to the ED today with difficulty in breathing. The patient reportedly was having increased weakness, chills, shakes, and apparently she did choke on some food material yesterday. Subsequently her breathing got progressively worse and she started having chest congestion and dyspnea and for that reason she presented to the hospital for further advice. No reported fever. No reported chest pain. In the ED, the patient was found to be in significant respiratory distress. She had a DNR/DNI CODE STATUS. She was placed on a BiPAP for respiratory support. The chest x-ray was obtained and showed small lung volumes , carotid vascular markings, the heart size was borderline enlarged and there was mild diffuse interstitial prominence and a focal left basilar opacity/ infiltration suggestive an underlying pneumonia. The patient had a blood gas that showed a pH of 7.38 with a pCO2 of 59 and pO2 of 57 and this was done and FiO2 of 50%. Based on that, the patient was placed on a BiPAP and following that the patient got transferred to the intensive care unit. Current white cell count is at 17.5. The lactic acid level is at 2.3. The rest of the electrodes are within normal limits. First set of troponin is negative and the patient has a nonelevated BNP level. Urinalysis is also abnormal with increased white cell counts and influenza screen was also negative. Currently, the patient is on a combination of Zosyn and Levaquin. Note that the patient has a chronic component of hypercapnic arrest 30 failure. Based on previous echocardiogram the patient has a normal ejection fraction without evidence of any pulmonary hypertension. She is known to have COPD however. On 05/16/2016 I'm seeing this patient for a follow-up. The patient is still BiPAP dependent at a pressure of 14/7 cm of water. She had developed some hypoxemia and she was placed on 100% FiO2. Subsequent blood gases showed a pH of 7.36 with a pCO2 of 58 and pO2 of 123 and based on that the FiO2 was dropped down to 80%. Currently the patient's pulse ox is around 97%. The patient has developed a new small to moderate-sized right-sided pleural effusion. There is also evidence of pulmonary vascular congestion. She feels clinically better however the chest x-ray findings are slightly worse especially with development of a new moderate-sized right-sided pleural effusion. The patient is receiving 0.9 normal saline at the rate of 50 mL an hour. She is on a combination of Zosyn and Levaquin. The creatinine is stable at 0.81 with a BUN of 22. No other significant events overnight. Her breathing is still labored. Culture has been on and showed few gram-positive cocci . The urine output is around 30 mL an hour. The patient remains on a combination of DuoNeb, systemic steroids, Pulmicort and Perforomist embolus treatments around the clock. The patient is also on heparin subcu. The patient is on IV Solu-Medrol. The patient is seen again today in follow-up in the intensive care unit. She is continue to utilize BiPAP throughout the evening at a pressure 14/ 7 cm of water. She is more awake and alert today as compared to yesterday. She is currently off the BiPAP and maintaining O2 saturations in the 90s on 5 L/ m per nasal cannula. She is confused to time and place. She is somewhat restless. Her urine is positive for gram-negative bacilli, blood cultures reveal no growth to date, sputum culture pending. White count 12.6. Hemoglobin 11.4. Creatinine 1.00. She is continued on DuoNeb inhalations 4 times a day and when necessary along with Pulmicort and Perforomist inhalations twice a day. She is covered with vancomycin, Zosyn and Levaquin. Continued on IV Solu-Medrol. Today's chest x-ray reveals chronic reticulonodular interstitial changes of the lung volumes. There is persistent but improving right lower lung infiltrate and a small right pleural effusion. Patient is seen again today 05/18/2017 in follow-up in the intensive care unit. She is awake and alert in no acute distress. She is still somewhat disoriented to place and time. She is doing better on the Haldol. She is currently off the BiPAp and maintaining good O2 saturations in the upper 90s on 4 L/m per nasal cannula. She's been afebrile. Slightly tachycardic. No leukocytosis. Hemoglobin 10.3. Creatinine 0.80. Sodium 146. Or cultures positive for E. coli ESBL. We'll discontinue the vancomycin and Zosyn and Levaquin. She'll remain on meropenem now. Chest x-ray continues revealed patchy perihilar and basilar infiltrates persistent although improving. Objective - Vital Signs Vital signs: Vital Signs Temp 98.5 F 05/18/17 12:00 Pulse 100 05/18/17 14:00 Resp 24 05/18/17 14:00 BP 142/74 05/18/17 14:00 Pulse Ox 94 L 05/18/17 14:00 Intake & Output 05/17/17 05/18/17 05/18/17 18:59 06:59 18:59 Intake Total 1407.5 1245.0 487.5 Output Total 281 460 395 Balance 1126.5 785.0 92.5 Weight 72.2 kg Intake: IV 1407.5 62.5 287.5 Piperacillin-Tazobactam 3 87.5 12.5 37.5 .375 gm In Dextrose/Water 1 50ml.bag @ 12.5 mls/hr IVPB Q8HR [facility] Rx#: [id number] Potassium Chloride 10 meq 400 In Water For Injection 1 100ml.bag @ 100 mls/hr IVPB Q1H [facility] Rx#: [id number] Potassium Phosphate 10 250 mmol In Sodium Chloride 0 .9% 250 ml @ 125 mls/hr IV ONCE ONE Rx#:[id number] Sodium Chloride 0.9% 1, 270 50 000 ml @ 20 mls/hr IV . Q24H [facility] Rx#:[id number] Sodium Chloride 0.9% 1, 100 000 ml @ 50 mls/hr IV . Q20H [facility] Rx#:[id number] Sodium Chloride 0.9% 500 50 ml @ 999 mls/hr IV .Q31M [facility] Rx#:[id number] levETIRAcetam IV 500 mg 400 100 In Sodium Chloride 0.9% 100 ml @ 400 mls/hr IVPB 0800,2000 [facility] Rx#: [id number] Intake, IV Titration 1182.5 200 Amount Piperacillin-Tazobactam 3 62.5 .375 gm In Dextrose/Water 1 50ml.bag @ 12.5 mls/hr IVPB Q8HR [facility] Rx#: [id number] Sodium Chloride 0.9% 1, 20 000 ml @ 20 mls/hr IV . Q24H [facility] Rx#:[id number] Sodium Chloride 0.9% 1, 450 200 000 ml @ 50 mls/hr IV . Q20H [facility] Rx#:[id number] Vancomycin 1,500 mg In 250 Sodium Chloride 0.9% 250 ml @ 125 mls/hr IVPB Q16H [facility] Rx#:[id number] levETIRAcetam IV 500 mg 400 In Sodium Chloride 0.9% 100 ml @ 400 mls/hr IVPB 0800,2000 [facility] Rx#: [id number] Output: Urine 281 460 395 Other: Voiding Method Indwelling Catheter Indwelling Catheter Indwelling Catheter # Voids 1 1 - Exam The patient has improved slightly from her respiratory distress. She was tolerating 4 L/m per nasal cannula while off the BiPAP for longer periods today. Note that she has a DNR/DNI CODE STATUS and she will not get intubated based on her CODE STATUS. She has however tolerating the BiPAP and she is synchronous with a full facemask. Head exam was generally normal. There was no scleral icterus or corneal arcus. Mucous membranes were moist.Neck was supple and without jugular venous distension, thyromegaly, or carotid bruits. Carotids were easily palpable bilaterally. There was no adenopathy. Lung sounds are diminished bilaterally and there is diffuse expiratory wheezes and rhonchi heard throughout the lung hall and her axillary phase of breathing is quite prolonged.Cardiac exam revealed the PMI to be normally situated and sized. The rhythm was regular and no extrasystoles were noted during several minutes of auscultation. The first and second heart sounds were normal and physiologic splitting of the second heart sound was noted. There were no murmurs, rubs, clicks, or gallops. Abdominal exam revealed normal bowel sounds. The abdomen was soft, non-tender, and without masses, organomegaly, or appreciable enlargement of the abdominal aorta.Examination of the extremities revealed easily palpable radial, femoral and pedal pulses. There was no cyanosis, clubbing or edema.Examination of the skin revealed no evidence of significant rashes, suspicious appearing nevi or other concerning lesions. Neurologically the exam is nonfocal and the patient is moving all 4 extremities without any limitation. She is awake and alert to person. She is having some confusion and hallucinations. - Labs CBC & Chem 7: 05/18/17 04:59 05/18/17 04:59 Labs: Abnormal Lab Results - Last 24 Hours (Table) 05/17/17 05/17/17 05/17/17 Range/Units 15:56 17:16 20:59 RBC (3.80-5.40) m/uL Hgb (11.4-16.0) gm/dL Hct (34.0-46.0) % Neutrophils # (1.3-7.7) k/uL Lymphocytes # (1.0-4.8) k/uL Sodium (137-145) mmol/L BUN (7-17) mg/dL Glucose (74-99) mg/dL POC Glucose (mg/dL) 103 H 123 H 112 H (75-99) mg/dL Calcium (8.4-10.2) mg/dL 05/17/17 05/18/17 05/18/17 Range/Units 23:51 03:55 04:59 RBC 3.45 L (3.80-5.40) m/uL Hgb 10.3 L (11.4-16.0) gm/dL Hct 32.2 L (34.0-46.0) % Neutrophils # 8.2 H (1.3-7.7) k/uL Lymphocytes # 0.7 L (1.0-4.8) k/uL Sodium (137-145) mmol/L BUN (7-17) mg/dL Glucose (74-99) mg/dL POC Glucose (mg/dL) 126 H 123 H (75-99) mg/dL Calcium (8.4-10.2) mg/dL 05/18/17 05/18/17 05/18/17 Range/Units 04:59 07:57 11:42 RBC (3.80-5.40) m/uL Hgb (11.4-16.0) gm/dL Hct (34.0-46.0) % Neutrophils # (1.3-7.7) k/uL Lymphocytes # (1.0-4.8) k/uL Sodium 146 H (137-145) mmol/L BUN 32 H (7-17) mg/dL Glucose 125 H (74-99) mg/dL POC Glucose (mg/dL) 115 H 122 H (75-99) mg/dL Calcium 7.9 L (8.4-10.2) mg/dL Microbiology - Last 24 Hours (Table) 05/15/17 09:10 Blood Culture - Preliminary Blood No Growth after 72 hours 05/15/17 13:30 Urine Culture - Final Urine,Catheterized Escherichia coli Assessment and Plan Assessment: Impression 1 acute COPD exacerbation secondary to a left lung pneumonia, rule out an aspiration pneumonia with impending respiratory failure. There is also interval worsening of the chest x-ray findings with development of a right- sided pleural effusion and the patient remains BiPAP dependent for now at a pressure of 14/7 cm of water and FiO2 of 80%. Clinically the patient feels less short of breath compared to yesterday. She was maintaining O2 saturations in the low 90s while on 5 L/m per nasal cannula for brief trial off the BiPAP. 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 Davis. Her chest x-ray and labs were reviewed. Chest x-ray continues with bilateral patchy infiltrates but sanchez show improvement. She is noted to have ESBL in the urine culture. We've discontinued the vancomycin, Levaquin and Zosyn. She'll be initiated on Merrem. She remains on IV Solu-Medrol along with bronchodilators. She will be given Haldol for her hallucinations and restlessness. We will continue to utilize BiPAP as needed at 14/7 at 50% FiO2 to maintain O2 saturations in the 90s. She may be transferred out of the ICU later today. She is a DO NOT RESUSCITATE/DO NOT INTUBATE CODE STATUS. We will continue to follow and make further recommendations based on her clinical status. I, the cosigning physician, performed a history & physical examination of the patient. Lungs sounds few scattered rhonchi, crackles in the posterior bases more so on the right. Maintaining good O2 saturations in the 90s on BiPAP with intermittent 4 L/m per nasal cannula. I discussed the assessment and plan of care with my nurse practitioner, Shi Hunt. I attest to the above note as dictated by her. Time with Patient: Greater than 30 <Samra Davis - Last Filed: 05/18/17 15:49> Objective - Vital Signs Vital signs: Vital Signs Temp 98.5 F 05/18/17 12:00 Pulse 133 H 05/18/17 15:00 Resp 28 H 05/18/17 15:00 BP 132/71 05/18/17 15:00 Pulse Ox 98 05/18/17 15:00 Intake & Output 05/17/17 05/18/17 05/18/17 18:59 06:59 18:59 Intake Total 1407.5 1245.0 537.5 Output Total 281 460 430 Balance 1126.5 785.0 107.5 Weight 72.2 kg Intake: IV 1407.5 62.5 337.5 Piperacillin-Tazobactam 3 87.5 12.5 37.5 .375 gm In Dextrose/Water 1 50ml.bag @ 12.5 mls/hr IVPB Q8HR [facility] Rx#: [id number] Potassium Chloride 10 meq 400 In Water For Injection 1 100ml.bag @ 100 mls/hr IVPB Q1H [facility] Rx#: [id number] Potassium Phosphate 10 250 mmol In Sodium Chloride 0 .9% 250 ml @ 125 mls/hr IV ONCE ONE Rx#:[id number] Sodium Chloride 0.9% 1, 270 50 000 ml @ 20 mls/hr IV . Q24H [facility] Rx#:[id number] Sodium Chloride 0.9% 1, 150 000 ml @ 50 mls/hr IV . Q20H [facility] Rx#:[id number] Sodium Chloride 0.9% 500 50 ml @ 999 mls/hr IV .Q31M [facility] Rx#:[id number] levETIRAcetam IV 500 mg 400 100 In Sodium Chloride 0.9% 100 ml @ 400 mls/hr IVPB 0800,2000 [facility] Rx#: [id number] Intake, IV Titration 1182.5 200 Amount Piperacillin-Tazobactam 3 62.5 .375 gm In Dextrose/Water 1 50ml.bag @ 12.5 mls/hr IVPB Q8HR [facility] Rx#: [id number] Sodium Chloride 0.9% 1, 20 000 ml @ 20 mls/hr IV . Q24H [facility] Rx#:[id number] Sodium Chloride 0.9% 1, 450 200 000 ml @ 50 mls/hr IV . Q20H [facility] Rx#:[id number] Vancomycin 1,500 mg In 250 Sodium Chloride 0.9% 250 ml @ 125 mls/hr IVPB Q16H [facility] Rx#:[id number] levETIRAcetam IV 500 mg 400 In Sodium Chloride 0.9% 100 ml @ 400 mls/hr IVPB 0800,2000 [facility] Rx#: [id number] Output: Urine 281 460 430 Other: Voiding Method Indwelling Catheter Indwelling Catheter Indwelling Catheter # Voids 1 1 # Bowel Movements 1 - Labs CBC & Chem 7: 05/18/17 04:59 05/18/17 04:59 Labs: Abnormal Lab Results - Last 24 Hours (Table) 05/17/17 05/17/17 05/17/17 Range/Units 15:56 17:16 20:59 RBC (3.80-5.40) m/uL Hgb (11.4-16.0) gm/dL Hct (34.0-46.0) % Neutrophils # (1.3-7.7) k/uL Lymphocytes # (1.0-4.8) k/uL Sodium (137-145) mmol/L BUN (7-17) mg/dL Glucose (74-99) mg/dL POC Glucose (mg/dL) 103 H 123 H 112 H (75-99) mg/dL Calcium (8.4-10.2) mg/dL 05/17/17 05/18/17 05/18/17 Range/Units 23:51 03:55 04:59 RBC 3.45 L (3.80-5.40) m/uL Hgb 10.3 L (11.4-16.0) gm/dL Hct 32.2 L (34.0-46.0) % Neutrophils # 8.2 H (1.3-7.7) k/uL Lymphocytes # 0.7 L (1.0-4.8) k/uL Sodium (137-145) mmol/L BUN (7-17) mg/dL Glucose (74-99) mg/dL POC Glucose (mg/dL) 126 H 123 H (75-99) mg/dL Calcium (8.4-10.2) mg/dL 05/18/17 05/18/17 05/18/17 Range/Units 04:59 07:57 11:42 RBC (3.80-5.40) m/uL Hgb (11.4-16.0) gm/dL Hct (34.0-46.0) % Neutrophils # (1.3-7.7) k/uL Lymphocytes # (1.0-4.8) k/uL Sodium 146 H (137-145) mmol/L BUN 32 H (7-17) mg/dL Glucose 125 H (74-99) mg/dL POC Glucose (mg/dL) 115 H 122 H (75-99) mg/dL Calcium 7.9 L (8.4-10.2) mg/dL Microbiology - Last 24 Hours (Table) 05/15/17 09:10 Blood Culture - Preliminary Blood No Growth after 72 hours 05/15/17 13:30 Urine Culture - Final Urine,Catheterized Escherichia coli Assessment and Plan Assessment: A joint evaluation done along with the nurse practitioner. The patient will be switched to IV Merrem knowing that the patient when ESBL producing E. coli in her urine. This will also cover this patient for any aspiration pneumonia. Clinically is improving. Less confused compared to yesterday. Continue Haldol as needed. Keep the patient ICU for 24 hours.
--- NOTE | 2017-05-18 15:23 | FL ---
Modified barium swallow. HISTORY: Dysphagia. Modified barium swallow was performed with the department of speech pathology. The patient was prese nted with various consistencies of barium. Transient penetration without evidence for aspiration. Full report is to follow from the department o f speech pathology. Impression: Transient thin liquid penetration without evidence for aspiration.
[2017-05-18] MEDS ORDERED: LACTULOSE 20 GM/30 ML CUP PO PRN (15:37)
[2017-05-18] MEDS ORDERED: ALPRAZolam 0.25 MG TAB PO PRN (15:41)
[2017-05-18 16:22] LABS: Glucose,Whole Blood 116 mg/dL (75-99)
[2017-05-18] MEDS: PARoxetine 20 MG TAB PO SCH (16:47)
[2017-05-18] MEDS: GABAPENTIN 100 MG CAP PO SCH (16:49)
[2017-05-18] MEDS ORDERED: GABAPENTIN 100 MG CAP PO SCH (17:30)
[2017-05-18] MEDS ORDERED: ZOLPIDEM 10 MG TAB PO PRN (20:00)
[2017-05-18] MEDS: ATORVASTATIN 10 MG TAB PO SCH (20:16)
[2017-05-18] MEDS: levETIRAcetam 500 MG TAB PO SCH (20:16)
[2017-05-18] MEDS: METOPROLOL TARTRATE 12.5 MG TAB PO SCH (20:16)
[2017-05-18] MEDS: LATANOPROST 0.005% OPHTH DROPS 2.5 ML BTL BOTH EYES SCH (20:17)
[2017-05-18 20:47] LABS: Glucose,Whole Blood 141 mg/dL (75-99)
[2017-05-18] MEDS ORDERED: ARIPiprazole 2 MG TAB PO SCH (21:00)
[2017-05-18] MEDS: HYDROcodone/APAP 7.5-325MG 1 EACH TAB PO PRN (21:10)
[2017-05-18] MEDS: IMIPRAMINE 25 MG TAB PO SCH (21:11)
[2017-05-18] MEDS: ARIPiprazole 5 MG TAB PO SCH (21:11)
[2017-05-19] MEDS: HEPARIN SODIUM,PORCINE 5,000 UNIT/ML 1 ML VIAL SQ SCH ×3 (00:51→17:28)
[2017-05-19] MEDS: methylPREDNISolone SOD SUCCI 125 MG/2 ML VIAL IV SCH ×3 (00:51→12:36)
[2017-05-19 00:58] LABS: Glucose,Whole Blood 112 mg/dL (75-99)
[2017-05-19] MEDS: INSULIN ASPART 100 UNIT/ML 1 ML 10 ML VIAL SQ SCH ×5 (01:21→20:29)
[2017-05-19] MEDS: HYDROmorphone 0.5 MG/0.5 ML SYRINGE IVP PRN ×2 (02:21→14:55)
[2017-05-19] MEDS: SODIUM CHLORIDE 0.9% 1,000 ML IV SCH (02:24)
[2017-05-19 04:45] LABS: Basophils % (A) 0 %; Eosinophils # (A) 0.1 k/uL (0-0.7); Eosinophils % (A) 1 %; HCT 33.1 % (34.0-46.0); HGB 10.6 gm/dL (11.4-16.0); Hypochromasia Slight; Lymphocytes # (A) 0.8 k/uL (1.0-4.8); Lymphocytes % (A) 9 %; MCH 29.5 pg (25.0-35.0); MCV 91.9 fL (80.0-100.0); Mean Platelet Volume 8.1; Monocytes # (A) 0.3 k/uL (0-1.0); Monocytes % (A) 3 %; Neutrophils # (A) 7.7 k/uL (1.3-7.7); Neutrophils % (A) 87 %; Platelet Count 296 k/uL (150-450); RDW 12.9 % (11.5-15.5); WBC 8.9 k/uL (3.8-10.6)
[2017-05-19 04:56] LABS: Anion Gap 8 mmol/L; Blood Urea Nitrogen 25 mg/dL (7-17); Calcium 7.7 mg/dL (8.4-10.2); Carbon Dioxide 30 mmol/L (22-30); Chloride 104 mmol/L (98-107); Glucose 125 mg/dL (74-99); Magnesium 2.1 mg/dL (1.6-2.3); Phosphorus 2.6 mg/dL (2.5-4.5); Potassium 3.6 mmol/L (3.5-5.1); Sodium 142 mmol/L (137-145)
[2017-05-19] MEDS: HYDROcodone/APAP 7.5-325MG 1 EACH TAB PO PRN ×3 (05:25→19:13)
[2017-05-19] MEDS: MEROPENEM 1 GM in SODIUM CHLORIDE 0.9% 100 ML IVPB SCH ×3 (06:20→20:19)
[2017-05-19] MEDS ORDERED: Potassium Replacement Protocol 1 EACH MISC MISCELLANE PRN (07:12)
[2017-05-19] MEDS: IPRATROPIUM-ALBUTEROL 3 ML NEB INHALATION SCH ×4 (07:14→19:28)
[2017-05-19] MEDS: BUDESONIDE 1 MG/2 ML NEBU INHALATION SCH ×2 (07:14→19:28)
[2017-05-19] MEDS: FORMOTEROL FUMARATE 20 MCG/2 ML NEBU INHALATION SCH ×2 (07:14→19:28)
[2017-05-19 07:37] LABS: Glucose,Whole Blood 116 mg/dL (75-99)
[2017-05-19] MEDS: GABAPENTIN 100 MG CAP PO SCH ×3 (08:57→17:28)
[2017-05-19] MEDS: POTASSIUM CHLORIDE 10 MEQ in WATER FOR INJECTION 1 100ML.BAG IVPB SCH ×2 (08:57→09:30)
[2017-05-19] MEDS: FLUTICASONE 50MCG/SPRAY NASAL 16GM EA NOSTRIL SCH ×2 (08:57→20:20)
[2017-05-19] MEDS: NICOTINE 14MG/24HR PATCH TRANSDERM SCH (08:57)
[2017-05-19] MEDS: ASPIRIN 81 MG PO SCH (08:58)
[2017-05-19] MEDS: BRIMONIDINE TARTRATE 0.2% DROPS 5 ML BTL BOTH EYES SCH ×2 (08:58→20:21)
[2017-05-19] MEDS: KETOROLAC 0.5% OPHTH DROPS 5 ML BTL RIGHT EYE SCH ×3 (08:59→17:29)
[2017-05-19] MEDS: levETIRAcetam 500 MG TAB PO SCH ×2 (08:59→20:21)
[2017-05-19] MEDS: PARoxetine 20 MG TAB PO SCH (09:00)
[2017-05-19] MEDS: METOPROLOL TARTRATE 12.5 MG TAB PO SCH ×2 (09:00→23:31)
[2017-05-19] MEDS: PANTOPRAZOLE 40 MG/10 ML VIAL IVP SCH (09:00)
--- NOTE | 2017-05-19 09:37 | XR ---
EXAMINATION TYPE: XR chest 1V DATE OF EXAM: 05/19/2017 COMPARISON: 05/18/2017 HISTORY: Pneumonia TECHNIQUE: Single frontal view of the chest is obtained. FINDINGS: There a persistent right hilar and right infrahilar patchy opacities. There is improved ae ration of the left lung base. Remainder the lungs are clear. Cardia mediastinal silhouette is partial ly obscured by low lung volumes. Costophrenic angles are blunted likely relating to trace pleural eff usions. Mild to moderate acromioclavicular arthropathy is again noted. IMPRESSION: Improved aeration of the left lung base with persistent right infrahilar and right hilar opacities favored to represent pneumonia. Trace, likely parapneumonic, pleural effusions are also no t seen.
[2017-05-19] MEDS ORDERED: POTASSIUM CHLORIDE ER 20 MEQ TAB.ER PO SCH (10:00)
[2017-05-19 11:47] LABS: Glucose,Whole Blood 157 mg/dL (75-99)
--- NOTE | 2017-05-19 11:49 | CONS ---
CONSULTATION DATE OF SERVICE: 05/18/2017 PURPOSE FOR CONSULTATION: Evaluate for psychotropic medications. HISTORY OF PRESENTING ILLNESS: The patient is a 66-year-old female. She is a resident of [facility]. She was referred for shortness of breath. She was found to have left lower lobe pneumonia. She has a history of depression and had been on Paxil 60 mg a day and Abilify prior to her admission. She had been on 2 mg of Abilify though my understanding is the dose has been titrated up and she has either been on or due to go up to 10 mg of Abilify. She also is prescribed Xanax 0.25 mg twice a day p.r.n. The patient states that she has been doing fairly well from a standpoint of her mood. She says that she is comfortable in her living situation and feels well adjusted there. She has not had significant problems with depression of late. She was not able to give a very detailed history about past treatment. She does acknowledge that she had depression going back to much of her adult life, though she says it was never recognized as something to be treated until in more recent years. It is noted that the patient has a diagnosis of history of seizure disorder and history of restless legs syndrome. My understanding is that the patient was off medications temporarily during the early part of her admission to ICU. According to nursing, she has been improving and a question is whether she could resume her psychotropic medications. MENTAL STATUS: When I saw the patient, she was lying in bed, she gave fairly good eye contact. She was a little restless. She answered questions directly. Her thoughts were clear. She had a relaxed manner. She was spontaneous. Her affect was in a reasonable range. Her mood was even. She smiled some. She was friendly. She did not appear to be anxious or distressed. ASSESSMENT: This 66-year-old female is diagnosed with major depression. It would be appropriate to restart Paxil 60 mg a day. I would also add Abilify 5 mg daily. Apparently, the indication for Abilify is to augment her antidepressant. Records are not available to clarify specific issues related to her psychotropics. It is noted that with her history of restless legs syndrome, that there may need to be some concern that Abilify could aggravate restless legs syndrome. I will continue to follow. MMODL / IJN: [id number] /
--- NOTE | 2017-05-19 12:13 | P.PN ---
Subjective Progress Note Date: 05/19/17 Principal diagnosis: dysphagia More lucid today. Nursing reports no episodes of nausea vomiting. MBS passed. Diet started. Objective - Vital Signs Vital signs: Vital Signs Temp 99.1 F 05/19/17 08:00 Pulse 66 05/19/17 11:13 Resp 22 05/19/17 09:00 BP 95/56 05/19/17 09:00 Pulse Ox 93 L 05/19/17 09:00 Intake & Output 05/18/17 05/19/17 05/19/17 18:59 06:59 18:59 Intake Total 787.5 600 200 Output Total 430 1 Balance 357.5 599 200 Weight 73.8 kg Intake: IV 587.5 600 200 Meropenem 1 gm In Sodium 100 Chloride 0.9% 100 ml @ 200 mls/hr IVPB Q8H [facility] Rx#:[id number] Piperacillin-Tazobactam 3 37.5 .375 gm In Dextrose/Water 1 50ml.bag @ 12.5 mls/hr IVPB Q8HR [facility] Rx#: [id number] Potassium Chloride 10 meq 100 In Water For Injection 1 100ml.bag @ 100 mls/hr IVPB Q1H [facility] Rx#: [id number] Sodium Chloride 0.9% 1, 300 600 100 000 ml @ 50 mls/hr IV . Q20H [facility] Rx#:[id number] Sodium Chloride 0.9% 500 50 ml @ 999 mls/hr IV .Q31M [facility] Rx#:[id number] levETIRAcetam IV 500 mg 100 In Sodium Chloride 0.9% 100 ml @ 400 mls/hr IVPB 0800,2000 [facility] Rx#: [id number] Intake, IV Titration 200 Amount Sodium Chloride 0.9% 1, 200 000 ml @ 50 mls/hr IV . Q20H [facility] Rx#:[id number] Output: Urine 430 0 Urine/Stool Mix 1 Other: Voiding Method Indwelling Catheter Diaper Diaper Incontinent Incontinent # Voids 1 # Bowel Movements 1 1 - Exam General appearance: The patient is alert. HET: Head is normocephalic and atraumatic. Pupils are equal and reactive. Oropharynx is clear without lesions. Neck: Supple without lymphadenopathy. Trachea midline. Heart: S1 S2. Regular rate and rhythm. Lungs: No coarse sounds bilaterally diminished in bases Abdomen: Soft, nontender, nondistended with bowel sounds. No peritoneal signs. No palpable organomegaly or masses. Extremities: Normal skin color and turgor. No cyanosis, rash, ulceration, clubbing, or edema. Radial and pedal pulses are 2/4 bilaterally. Neurological: No focal deficits. Strength and sensation are grossly intact. - Labs CBC & Chem 7: 05/19/17 04:25 05/19/17 04:25 Labs: Abnormal Lab Results - Last 24 Hours (Table) 05/18/17 05/18/17 05/19/17 Range/Units 16:19 20:45 00:56 RBC (3.80-5.40) m/uL Hgb (11.4-16.0) gm/dL Hct (34.0-46.0) % Lymphocytes # (1.0-4.8) k/uL BUN (7-17) mg/dL Glucose (74-99) mg/dL POC Glucose (mg/dL) 116 H 141 H 112 H (75-99) mg/dL Calcium (8.4-10.2) mg/dL 05/19/17 05/19/17 05/19/17 Range/Units 04:25 04:25 07:36 RBC 3.60 L (3.80-5.40) m/uL Hgb 10.6 L (11.4-16.0) gm/dL Hct 33.1 L (34.0-46.0) % Lymphocytes # 0.8 L (1.0-4.8) k/uL BUN 25 H (7-17) mg/dL Glucose 125 H (74-99) mg/dL POC Glucose (mg/dL) 116 H (75-99) mg/dL Calcium 7.7 L (8.4-10.2) mg/dL 05/19/17 Range/Units 11:45 RBC (3.80-5.40) m/uL Hgb (11.4-16.0) gm/dL Hct (34.0-46.0) % Lymphocytes # (1.0-4.8) k/uL BUN (7-17) mg/dL Glucose (74-99) mg/dL POC Glucose (mg/dL) 157 H (75-99) mg/dL Calcium (8.4-10.2) mg/dL Microbiology - Last 24 Hours (Table) 05/15/17 09:10 Blood Culture - Preliminary Blood No Growth after 96 hours 05/15/17 21:27 Gram Stain - Final Sputum Sputum Culture - Final Assessment and Plan (1) Dysphagia Narrative/Plan: 66-year-old female admitted with acute COPD exacerbation possible aspiration pneumonia. Patient consumed steak dinner 2 days ago with development of dysphagia possible foreign body since resolved with emesis. Ongoing odynophagia in the posterior pharynx most likely due to irritation with failed bedside swallow evaluation earlier this morning. Residual foreign body cannot be excluded however presently patient is without nausea vomiting and not exhibiting features of obstruction. MBS satisfactory today diet has been initiated without obstructive symptoms. Current Visit: No Status: Acute Code(s): R13.10 - DYSPHAGIA, UNSPECIFIED SNOMED Code(s): 79812543 (2) Pneumonia Current Visit: Yes Status: Acute Code(s): J18.9 - PNEUMONIA, UNSPECIFIED ORGANISM SNOMED Code(s): 216711098 (3) Acute exacerbation of chronic obstructive airways disease Current Visit: No Status: Acute Code(s): J44.1 - CHRONIC OBSTRUCTIVE PULMONARY DISEASE W (ACUTE) EXACERBATION SNOMED Code(s): 025323679 Plan: 1. Slow advancement of diet as tolerated. No further workup from a GI standpoint. We'll follow as needed. Assessment and plan a care discussed with Dr. Butt
[2017-05-19] MEDS: MULTIVITAMINS, THERA 1 EACH TAB PO SCH (12:41)
[2017-05-19] MEDS: CHOLECALCIFEROL 1,000 UNIT TAB PO SCH (12:41)
[2017-05-19] MEDS: THIAMINE 100 MG TAB PO SCH (12:41)
--- NOTE | 2017-05-19 15:32 | P.PN ---
Subjective Progress Note Date: 05/19/17 A 66-year-old female patient who is known to me from previous hospitalizations, who is a resident of an assisted living/[facility], presented to the ED today with difficulty in breathing. The patient reportedly was having increased weakness, chills, shakes, and apparently she did choke on some food material yesterday. Subsequently her breathing got progressively worse and she started having chest congestion and dyspnea and for that reason she presented to the hospital for further advice. No reported fever. No reported chest pain. In the ED, the patient was found to be in significant respiratory distress. She had a DNR/DNI CODE STATUS. She was placed on a BiPAP for respiratory support. The chest x-ray was obtained and showed small lung volumes , carotid vascular markings, the heart size was borderline enlarged and there was mild diffuse interstitial prominence and a focal left basilar opacity/ infiltration suggestive an underlying pneumonia. The patient had a blood gas that showed a pH of 7.38 with a pCO2 of 59 and pO2 of 57 and this was done and FiO2 of 50%. Based on that, the patient was placed on a BiPAP and following that the patient got transferred to the intensive care unit. Current white cell count is at 17.5. The lactic acid level is at 2.3. The rest of the electrodes are within normal limits. First set of troponin is negative and the patient has a nonelevated BNP level. Urinalysis is also abnormal with increased white cell counts and influenza screen was also negative. Currently, the patient is on a combination of Zosyn and Levaquin. Note that the patient has a chronic component of hypercapnic arrest 30 failure. Based on previous echocardiogram the patient has a normal ejection fraction without evidence of any pulmonary hypertension. She is known to have COPD however. On 05/16/2016 I'm seeing this patient for a follow-up. The patient is still BiPAP dependent at a pressure of 14/7 cm of water. She had developed some hypoxemia and she was placed on 100% FiO2. Subsequent blood gases showed a pH of 7.36 with a pCO2 of 58 and pO2 of 123 and based on that the FiO2 was dropped down to 80%. Currently the patient's pulse ox is around 97%. The patient has developed a new small to moderate-sized right-sided pleural effusion. There is also evidence of pulmonary vascular congestion. She feels clinically better however the chest x-ray findings are slightly worse especially with development of a new moderate-sized right-sided pleural effusion. The patient is receiving 0.9 normal saline at the rate of 50 mL an hour. She is on a combination of Zosyn and Levaquin. The creatinine is stable at 0.81 with a BUN of 22. No other significant events overnight. Her breathing is still labored. Culture has been on and showed few gram-positive cocci . The urine output is around 30 mL an hour. The patient remains on a combination of DuoNeb, systemic steroids, Pulmicort and Perforomist embolus treatments around the clock. The patient is also on heparin subcu. The patient is on IV Solu-Medrol. The patient is seen again today in follow-up in the intensive care unit. She is continue to utilize BiPAP throughout the evening at a pressure 14/ 7 cm of water. She is more awake and alert today as compared to yesterday. She is currently off the BiPAP and maintaining O2 saturations in the 90s on 5 L/ m per nasal cannula. She is confused to time and place. She is somewhat restless. Her urine is positive for gram-negative bacilli, blood cultures reveal no growth to date, sputum culture pending. White count 12.6. Hemoglobin 11.4. Creatinine 1.00. She is continued on DuoNeb inhalations 4 times a day and when necessary along with Pulmicort and Perforomist inhalations twice a day. She is covered with vancomycin, Zosyn and Levaquin. Continued on IV Solu-Medrol. Today's chest x-ray reveals chronic reticulonodular interstitial changes of the lung volumes. There is persistent but improving right lower lung infiltrate and a small right pleural effusion. Patient is seen again today 05/18/2017 in follow-up in the intensive care unit. She is awake and alert in no acute distress. She is still somewhat disoriented to place and time. She is doing better on the Haldol. She is currently off the BiPAp and maintaining good O2 saturations in the upper 90s on 4 L/m per nasal cannula. She's been afebrile. Slightly tachycardic. No leukocytosis. Hemoglobin 10.3. Creatinine 0.80. Sodium 146. Or cultures positive for E. coli ESBL. We'll discontinue the vancomycin and Zosyn and Levaquin. She'll remain on meropenem now. Chest x-ray continues revealed patchy perihilar and basilar infiltrates persistent although improving. On I'm seeing this patient for a follow-up. The patient is doing well and she is awake and alert. She is less confused compared to yesterday. Afebrile hemodynamically stable. I switch this patient IV meropenem regarding an ESBL producing E. coli in the urine and the patient is also covered for aspiration pneumonia. Chest x-ray remains stable with some limited infiltration of the lung bases bilaterally at for the most part the right basal infiltration is subsided. The patient is using the BiPAP overnight at a pressure of 14/7 cm of water. Her white cell count is not elevated. Hemoglobin stable at 10.6. Function is stable creatinine of 0.7. She is tolerating her diet. She passed a swallow evaluation and she was cleared and her diet will be gradually more advanced. The swallow evaluation was done and showed a transient family liquid penetration without evidence of any aspiration. Objective - Vital Signs Vital signs: Vital Signs Temp 99.0 F 05/19/17 12:00 Pulse 69 05/19/17 12:00 Resp 25 H 05/19/17 12:00 BP 110/56 05/19/17 12:00 Pulse Ox 96 05/19/17 12:00 Intake & Output 05/18/17 05/19/17 05/19/17 18:59 06:59 18:59 Intake Total 787.5 600 200 Output Total 430 1 Balance 357.5 599 200 Weight 73.8 kg Intake: IV 587.5 600 200 Meropenem 1 gm In Sodium 100 Chloride 0.9% 100 ml @ 200 mls/hr IVPB Q8H [facility] Rx#:[id number] Piperacillin-Tazobactam 3 37.5 .375 gm In Dextrose/Water 1 50ml.bag @ 12.5 mls/hr IVPB Q8HR [facility] Rx#: [id number] Potassium Chloride 10 meq 100 In Water For Injection 1 100ml.bag @ 100 mls/hr IVPB Q1H [facility] Rx#: [id number] Sodium Chloride 0.9% 1, 300 600 100 000 ml @ 50 mls/hr IV . Q20H [facility] Rx#:[id number] Sodium Chloride 0.9% 500 50 ml @ 999 mls/hr IV .Q31M ONE Rx#:[id number] levETIRAcetam IV 500 mg 100 In Sodium Chloride 0.9% 100 ml @ 400 mls/hr IVPB 0800,2000 [facility] Rx#: [id number] Intake, IV Titration 200 Amount Sodium Chloride 0.9% 1, 200 000 ml @ 50 mls/hr IV . Q20H [facility] Rx#:[id number] Output: Urine 430 0 Urine/Stool Mix 1 Other: Voiding Method Indwelling Catheter Diaper Diaper Incontinent Incontinent # Voids 1 # Bowel Movements 1 1 - Exam The patient is calm and comfortable nonacute distress. Head exam was generally normal. There was no scleral icterus or corneal arcus. Mucous membranes were moist.Neck was supple and without jugular venous distension, thyromegaly, or carotid bruits. Carotids were easily palpable bilaterally. There was no adenopathy. Lung sounds are diminished bilaterally and there is no significant wheezes or rhonchi at this point..Cardiac exam revealed the PMI to be normally situated and sized. The rhythm was regular and no extrasystoles were noted during several minutes of auscultation. The first and second heart sounds were normal and physiologic splitting of the second heart sound was noted. There were no murmurs, rubs, clicks, or gallops. Abdominal exam revealed normal bowel sounds. The abdomen was soft, non-tender, and without masses, organomegaly , or appreciable enlargement of the abdominal aorta.Examination of the extremities revealed easily palpable radial, femoral and pedal pulses. There was no cyanosis, clubbing or edema.Examination of the skin revealed no evidence of significant rashes, suspicious appearing nevi or other concerning lesions. Neurologically the exam is nonfocal and the patient is moving all 4 extremities without any limitation. She is awake and alert. - Labs CBC & Chem 7: 05/19/17 04:25 05/19/17 04:25 Labs: Abnormal Lab Results - Last 24 Hours (Table) 05/18/17 05/18/17 05/19/17 Range/Units 16:19 20:45 00:56 RBC (3.80-5.40) m/uL Hgb (11.4-16.0) gm/dL Hct (34.0-46.0) % Lymphocytes # (1.0-4.8) k/uL BUN (7-17) mg/dL Glucose (74-99) mg/dL POC Glucose (mg/dL) 116 H 141 H 112 H (75-99) mg/dL Calcium (8.4-10.2) mg/dL 05/19/17 05/19/17 05/19/17 Range/Units 04:25 04:25 07:36 RBC 3.60 L (3.80-5.40) m/uL Hgb 10.6 L (11.4-16.0) gm/dL Hct 33.1 L (34.0-46.0) % Lymphocytes # 0.8 L (1.0-4.8) k/uL BUN 25 H (7-17) mg/dL Glucose 125 H (74-99) mg/dL POC Glucose (mg/dL) 116 H (75-99) mg/dL Calcium 7.7 L (8.4-10.2) mg/dL 05/19/17 Range/Units 11:45 RBC (3.80-5.40) m/uL Hgb (11.4-16.0) gm/dL Hct (34.0-46.0) % Lymphocytes # (1.0-4.8) k/uL BUN (7-17) mg/dL Glucose (74-99) mg/dL POC Glucose (mg/dL) 157 H (75-99) mg/dL Calcium (8.4-10.2) mg/dL Microbiology - Last 24 Hours (Table) 05/15/17 09:10 Blood Culture - Preliminary Blood No Growth after 96 hours 05/15/17 21:27 Gram Stain - Final Sputum Sputum Culture - Final Assessment and Plan Plan: Impression 1 acute COPD exacerbation secondary to bilateral pneumonia. The most significant consolidation within the right along with a right-sided pleural effusion with subsided with antibiotics and the patient is currently on IV Merrem. The oxygenation is also improving and the patient is utilizing BiPAP on and off during the day. No significant respiratory distress and the patient is currently down to 4 L of oxygen by nasal cannula. 2 acute on top of chronic hypoxic respiratory failure , improved and please refer to the discussion above 3 chronic hypercapnic respiratory failure 4 E. 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 Pulmonary toileting. Aspiration precaution. Gradually advance diet as tolerated. The patient has been able to pass her swallow evaluation. She has a DNR/DNI CODE STATUS. I'm going to stop the IV Solu Medrol start the patient a prednisone burst taper. Continue bronchodilators. The rest of the medication was all reviewed and no changes from my standpoint. We'll continue to follow. We'll transfer out of the intensive care unit if beds are available on telemetry.
--- NOTE | 2017-05-19 16:13 | CONS ---
CONSULTATION DATE OF CONSULTATION: 05/19/2017 PURPOSE FOR CONSULTATION: Evaluate for psychotropic medications. INTERVAL HISTORY: The patient has been doing well. She had a quiet evening last night. She slept fairly well. Today she has been up. She is in a good mood. She interacts with others. She is hopeful to be getting off ICU soon and hopefully to get home. She has had no problems with the startup of her Paxil and Abilify. She has had no issues with anxiety or depression. She has a good outlook. She maintains good orientation. When I saw the patient, she gave good eye contact. She smiled. She was interactive. Her thoughts were clear. She was not anxious or distressed. I will continue the current diagnosis and treatment plan. I would continue her Paxil and Abilify the same. She is not needing any further psychiatric consultation at this time. SAVI / JUAN RAMON: [id number] /
[2017-05-19 17:15] LABS: Glucose,Whole Blood 123 mg/dL (75-99)
--- NOTE | 2017-05-19 18:38 | P.PN ---
Subjective Progress Note Date: 05/18/17 Personal being dictated for Dr. Hawley Interval history: This is a 66-year-old female admitted in the ICU with acute exacerbation COPD, acute hypoxic hypercarbic respiratory failure, left lower lobe pneumonia, possibly aspiration, metabolic encephalopathy and multiple other medical issues. Continues on Levaquin ,Zosyn, nebulized bronchodilators, steroids. Currently on BiPAP, chest x-ray reporting new small-moderate right pleural effusion. Reports productive cough with yellow sputum.Failed Bedside swallow evaluation,remains nothing by mouth. Evaluated by GI with recommendations noted, including possible esophagram. Complains of nausea, minimal emesis. Maintained on gentle IV fluid hydration. Urine culture reporting gram-negative bacilli. 05/17/2017 maintained on vancomycin, Zosyn, Levaquin .Remains NPO. Hallucinating, staff reports patient seeing things in room, thinks she's in a plane crash, talking to the IV pump. Psych has been consulted. Currently on BiPAP. Chest x-ray reporting persistent but improving right lower lung infiltrate, small right pleural effusion, we demonstrated low lung volumes and chronic reticulonodular interstitial changes. T-max 101.8, sputum culture pending, preliminary blood negative, and urine gram-negative bacilli.. 05/18/2017 scheduled for modified barium swallow today. Urine reporting ESBL, antibiotics changed to Merrem. Patient more alert, continues to hallucinate, psych. Consult in place, recommendations pending. Chest x-ray reporting improving patchy perihilar and bibasilar infiltrates. No nausea or vomiting today. Unable to perform review of systems, patient currently wearing BiPAP. Active Medications Generic Name Dose Route Start Last Admin Trade Name Freq PRN Reason Stop Dose Admin Hydrocodone Bitart/Acetaminophen 1 each 05/18/17 15:30 05/19/17 13:17 Aynor 7.5-325 PO 1 each Q6H PRN Administration Pain Albuterol/Ipratropium 3 ml 05/15/17 12:00 05/19/17 15:43 Duoneb 0.5 Mg-3 Mg/3 Ml Soln INHALATION 3 ml RT-QID [facility] Administration Albuterol/Ipratropium 3 ml 05/15/17 11:38 Duoneb 0.5 Mg-3 Mg/3 Ml Soln INHALATION RT-Q4H PRN shortness of breath Aripiprazole 5 mg 05/18/17 21:00 05/18/17 21:11 Abilify PO 5 mg HS DELTA Administration Aspirin 81 mg 05/19/17 09:00 05/19/17 08:58 Aspirin PO 81 mg DAILY [facility] Administration Atorvastatin Calcium 10 mg 05/18/17 21:00 05/18/17 20:16 Lipitor PO 10 mg HS DELTA Administration Brimonidine Tartrate 1 drops 05/16/17 09:00 05/19/17 08:58 Alphagan P 0.2% Ophth Soln BOTH EYES 1 drops BID [facility] Administration Budesonide 1 mg 05/16/17 08:00 05/19/17 07:14 Pulmicort INHALATION 1 mg RT-BID [facility] Administration Cholecalciferol 2,000 unit 05/19/17 12:00 05/19/17 12:41 Vitamin D3 PO 2,000 unit DAILY@1200 [facility] Administration Fluticasone Propionate 1 spray 05/16/17 08:00 05/19/17 08:57 Flonase Nasal Helper EA NOSTRIL Not Given BID@0800,1999 [facility] Formoterol Fumarate 20 mcg 05/16/17 08:00 05/19/17 07:14 Perforomist INHALATION 20 mcg RT-BID [facility] Administration Gabapentin 100 mg 05/18/17 17:30 05/19/17 17:28 Neurontin PO 100 mg AC-TID [facility] Administration Haloperidol Lactate 1 mg 05/17/17 10:42 05/18/17 01:40 Haldol IVP 1 mg Q4HR PRN Administration Agitation or Acute Psychosis Heparin Sodium (Porcine) 5,000 unit 05/15/17 16:00 05/19/17 17:28 Heparin SQ 5,000 unit Q8HR [facility] Administration Hydromorphone HCl 0.5 mg 05/15/17 14:07 05/19/17 14:55 Dilaudid IVP 0.5 mg Q4HR PRN Administration Pain Sodium Chloride 1,000 mls @ 50 mls/hr 05/17/17 10:45 05/19/17 02:24 Saline 0.9% IV 50 mls/hr .Q20H [facility] Administration Meropenem 1 gm/ Sodium 100 mls @ 200 mls/hr 05/18/17 12:00 05/19/17 12:36 Chloride IVPB 200 mls/hr Q8H [facility] Administration Imipramine HCl 25 mg 05/18/17 21:00 05/18/17 21:11 Tofranil PO 25 mg HS [facility] Administration Insulin Aspart 0 unit 05/19/17 07:30 05/19/17 17:29 Novolog SQ Not Given ACHS [facility] Protocol Ketorolac Tromethamine 1 drops 05/16/17 09:00 05/19/17 17:29 Acular RIGHT EYE 1 drops QID [facility] Administration Lactulose 20 gm 05/18/17 15:37 Cephulac PO DAILY PRN Constipation Latanoprost 1 drops 05/15/17 21:00 05/18/17 20:17 Xalatan 0.005% BOTH EYES 1 drops HS [facility] Administration Levetiracetam 500 mg 05/18/17 21:00 05/19/17 08:59 Keppra PO 500 mg Q12HR [facility] Administration Metoprolol Tartrate 12.5 mg 05/18/17 21:00 05/19/17 09:00 Lopressor PO 12.5 mg BID [facility] Administration Miscellaneous Information 1 each 05/15/17 11:38 Pneumonia Protocol Utilized PO ONCE PRN Per Protocol Miscellaneous Information 1 each 05/16/17 06:30 Magnesium Per Protocol MISCELLANE DAILY PRN Per Protocol Protocol Miscellaneous Information 1 each 05/17/17 06:30 Phosphorus Per Protocol MISCELLANE DAILY PRN Per Protocol Protocol Miscellaneous Information 1 each 05/17/17 06:58 Potassium Per Protocol MISCELLANE DAILY PRN Per Protocol Protocol Multivitamins 1 each 05/19/17 12:00 05/19/17 12:41 Theragran PO 1 each DAILY@1200 [facility] Administration Nicotine 1 patch 05/16/17 09:00 05/19/17 08:57 Habitrol 14mg/24hr Patch TRANSDERM 1 patch DAILY [facility] Administration Nitroglycerin 0.4 mg 05/15/17 21:21 Nitrostat SUBLINGUAL Q5M PRN Chest Pain Pantoprazole Sodium 40 mg 05/15/17 13:30 05/19/17 09:00 Protonix IVP 40 mg DAILY [facility] Administration Paroxetine HCl 60 mg 05/18/17 15:45 05/19/17 09:00 Paxil PO 60 mg DAILY [facility] Administration Prednisone 40 mg 05/20/17 09:00 PO DAILY DELTA Ropinirole HCl 0.25 mg 05/18/17 21:00 05/18/17 20:16 Requip PO 0.25 mg HS [facility] Administration Thiamine HCl 100 mg 05/19/17 12:00 05/19/17 12:41 Vitamin B-1 PO 100 mg DAILY@1200 [facility] Administration Objective - Vital Signs Vital signs: Vital Signs Temp 98.5 F 05/18/17 12:00 Pulse 89 05/18/17 12:00 Resp 22 05/18/17 12:00 BP 127/62 05/18/17 12:00 Pulse Ox 99 05/18/17 12:00 Intake & Output 05/17/17 05/18/17 05/18/17 18:59 06:59 18:59 Intake Total 1407.5 1245.0 387.5 Output Total 281 460 295 Balance 1126.5 785.0 92.5 Weight 72.2 kg Intake: IV 1407.5 62.5 187.5 Piperacillin-Tazobactam 3 87.5 12.5 37.5 .375 gm In Dextrose/Water 1 50ml.bag @ 12.5 mls/hr IVPB Q8HR [facility] Rx#: [id number] Potassium Chloride 10 meq 400 In Water For Injection 1 100ml.bag @ 100 mls/hr IVPB Q1H [facility] Rx#: [id number] Potassium Phosphate 10 250 mmol In Sodium Chloride 0 .9% 250 ml @ 125 mls/hr IV ONCE ONE Rx#:[id number] Sodium Chloride 0.9% 1, 270 50 000 ml @ 20 mls/hr IV . Q24H [facility] Rx#:[id number] Sodium Chloride 0.9% 500 50 ml @ 999 mls/hr IV .Q31M [facility] Rx#:[id number] levETIRAcetam IV 500 mg 400 100 In Sodium Chloride 0.9% 100 ml @ 400 mls/hr IVPB 0800,2000 [facility] Rx#: [id number] Intake, IV Titration 1182.5 200 Amount Piperacillin-Tazobactam 3 62.5 .375 gm In Dextrose/Water 1 50ml.bag @ 12.5 mls/hr IVPB Q8HR [facility] Rx#: [id number] Sodium Chloride 0.9% 1, 20 000 ml @ 20 mls/hr IV . Q24H [facility] Rx#:[id number] Sodium Chloride 0.9% 1, 450 200 000 ml @ 50 mls/hr IV . Q20H [facility] Rx#:[id number] Vancomycin 1,500 mg In 250 Sodium Chloride 0.9% 250 ml @ 125 mls/hr IVPB Q16H [facility] Rx#:[id number] levETIRAcetam IV 500 mg 400 In Sodium Chloride 0.9% 100 ml @ 400 mls/hr IVPB 0800,2000 [facility] Rx#: [id number] Output: Urine 281 460 295 Other: Voiding Method Indwelling Catheter Indwelling Catheter Indwelling Catheter # Voids 1 1 - Exam PHYSICAL EXAM: VITAL SIGNS: [As above] GENERAL: Sitting up in bed, wearing BiPAP, HEENT: Conjunctivae normal. eyes normal. NECK: No JVD. No thyroid enlargement. No LNs CARDIOVASCULAR: S1, S2 muffled. No murmur RESPIRATION: Breath sounds diminished in the bases. Scattered rhonchi throughout. Occasional fine expiratory wheezing ABDOMEN: Soft, nontender . No guarding. no masses palpable. Bowel sounds heard. LEGS: No edema. no swelling PSYCHIATRY: Alert and oriented -2,.hallucinating NERVOUS SYSTEM: Cranial N 2-12 grossly normal. Moves all 4 limbs. Diffuse weakness No focal deficits. No sensory deficit. Skin: no ulcer no rash Joints: No active swelling. No inflammation. Lymphatic system. No LN neck axilla or groin. - Labs CBC & Chem 7: 05/19/17 04:25 05/19/17 04:25 Labs: Abnormal Lab Results - Last 24 Hours (Table) 05/17/17 05/17/17 05/17/17 Range/Units 15:56 17:16 20:59 RBC (3.80-5.40) m/uL Hgb (11.4-16.0) gm/dL Hct (34.0-46.0) % Neutrophils # (1.3-7.7) k/uL Lymphocytes # (1.0-4.8) k/uL Sodium (137-145) mmol/L BUN (7-17) mg/dL Glucose (74-99) mg/dL POC Glucose (mg/dL) 103 H 123 H 112 H (75-99) mg/dL Calcium (8.4-10.2) mg/dL 05/17/17 05/18/17 05/18/17 Range/Units 23:51 03:55 04:59 RBC 3.45 L (3.80-5.40) m/uL Hgb 10.3 L (11.4-16.0) gm/dL Hct 32.2 L (34.0-46.0) % Neutrophils # 8.2 H (1.3-7.7) k/uL Lymphocytes # 0.7 L (1.0-4.8) k/uL Sodium (137-145) mmol/L BUN (7-17) mg/dL Glucose (74-99) mg/dL POC Glucose (mg/dL) 126 H 123 H (75-99) mg/dL Calcium (8.4-10.2) mg/dL 05/18/17 05/18/17 05/18/17 Range/Units 04:59 07:57 11:42 RBC (3.80-5.40) m/uL Hgb (11.4-16.0) gm/dL Hct (34.0-46.0) % Neutrophils # (1.3-7.7) k/uL Lymphocytes # (1.0-4.8) k/uL Sodium 146 H (137-145) mmol/L BUN 32 H (7-17) mg/dL Glucose 125 H (74-99) mg/dL POC Glucose (mg/dL) 115 H 122 H (75-99) mg/dL Calcium 7.9 L (8.4-10.2) mg/dL Microbiology - Last 24 Hours (Table) 05/15/17 09:10 Blood Culture - Preliminary Blood No Growth after 72 hours 05/15/17 13:30 Urine Culture - Final Urine,Catheterized Escherichia coli Assessment and Plan Assessment: 1. Acute COPD exacerbation with acute hypoxic hypercarbic respiratory failure with left lower lobe pneumonia, suspect aspiration with sepsis, present on admission 2. Change in mental status, acute metabolic encephalopathy, multifactorial 3. Leukocytosis 4. History of COPD, asthma 5. Chronic CHF 6. Chronic respiratory failure 7. History of hepatitis C 8. History of glaucoma, cataracts 9. Degenerative joint disease 10 hypertension 11 hyperlipidemia 12 history of seizure disorder 13. Possible acute UTI, E. coli Plan: Continue current medication regime , PPI, monitoring and symptomatic treatment. MBS pending. Maintain broad-spectrum IV antibiotics, nebulized bronchodilators, steroids and gentle IV fluid hydration. Psychiatry consult in place, recommendations pending. Strict aspiration precautions. Prognosis guarded given multiple complex medical issues. The impression and plan of care has been dictated as directed. : I performed a history and examination of this patient, discussed the same with the dictator. I agree with the dictator's note ,documented as a scribe. Any additional findings or plans will be noted.
--- NOTE | 2017-05-19 18:55 | P.PN ---
Subjective Progress Note Date: 05/19/17 Personal being dictated for Dr. Hawley Interval history: This is a 66-year-old female admitted in the ICU with acute exacerbation COPD, acute hypoxic hypercarbic respiratory failure, left lower lobe pneumonia, possibly aspiration, metabolic encephalopathy and multiple other medical issues. Continues on Levaquin ,Zosyn, nebulized bronchodilators, steroids. Currently on BiPAP, chest x-ray reporting new small-moderate right pleural effusion. Reports productive cough with yellow sputum.Failed Bedside swallow evaluation,remains nothing by mouth. Evaluated by GI with recommendations noted, including possible esophagram. Complains of nausea, minimal emesis. Maintained on gentle IV fluid hydration. Urine culture reporting gram-negative bacilli. 05/17/2017 maintained on vancomycin, Zosyn, Levaquin .Remains NPO. Hallucinating, staff reports patient seeing things in room, thinks she's in a plane crash, talking to the IV pump. Psych has been consulted. Currently on BiPAP. Chest x-ray reporting persistent but improving right lower lung infiltrate, small right pleural effusion, we demonstrated low lung volumes and chronic reticulonodular interstitial changes. T-max 101.8, sputum culture pending, preliminary blood negative, and urine gram-negative bacilli.. 05/18/2017 scheduled for modified barium swallow today. Urine reporting ESBL, antibiotics changed to Merrem. Patient more alert, continues to hallucinate, psych. Consult in place, recommendations pending. Chest x-ray reporting improving patchy perihilar and bibasilar infiltrates. No nausea or vomiting today. 05/19/2017 passed modified barium swallow, placed on dysphagia level III diet. Tolerating well with no nausea vomiting or diarrhea. Continues to hallucinate but states she is aware of it. Further states that she has been hallucinating for the last 2-3 years. Evaluated by psychiatry, diagnosed with major depression, recommendations noted Maintained on Merrem for E. coli ESBL of urine. Wet loose cough with minimal thick yellow secretions. Review of systems: CONSTITUTIONAL: No fever, no malaise, no fatigue. HEENT: No recent visual problems or hearing problems. Denied any sore throat. CARDIOVASCULAR: No chest pain, orthopnea, PND, no palpitations, no syncope. PULMONARY: No shortness of breath, no cough, no hemoptysis. GASTROINTESTINAL: No diarrhea, no nausea, no vomiting, no abdominal pain. Normoactive bowel sounds. NEUROLOGICAL: No headaches, no weakness, no numbness. HEMATOLOGICAL: Denies any bleeding or petechiae. GENITOURINARY: Denies any burning micturition, frequency, or urgency. MUSCULOSKELETAL/RHEUMATOLOGICAL: Denies any joint pain, swelling, or any muscle pain. ENDOCRINE: Denies any polyuria or polydipsia. PSYCHIATRIC: No anxiety, no depression The rest of the 14 point review of systems is negative Active Medications Generic Name Dose Route Start Last Admin Trade Name Freq PRN Reason Stop Dose Admin Hydrocodone Bitart/Acetaminophen 1 each 05/18/17 15:30 05/19/17 13:17 [place] 7.5-325 PO 1 each Q6H PRN Administration Pain Albuterol/Ipratropium 3 ml 05/15/17 12:00 05/19/17 15:43 Duoneb 0.5 Mg-3 Mg/3 Ml Soln INHALATION 3 ml RT-QID DELTA Administration Albuterol/Ipratropium 3 ml 05/15/17 11:38 Duoneb 0.5 Mg-3 Mg/3 Ml Soln INHALATION RT-Q4H PRN shortness of breath Aripiprazole 5 mg 05/18/17 21:00 05/18/17 21:11 Abilify PO 5 mg HS DELTA Administration Aspirin 81 mg 05/19/17 09:00 05/19/17 08:58 Aspirin PO 81 mg DAILY DELTA Administration Atorvastatin Calcium 10 mg 05/18/17 21:00 05/18/17 20:16 Lipitor PO 10 mg HS DELTA Administration Brimonidine Tartrate 1 drops 05/16/17 09:00 05/19/17 08:58 Alphagan P 0.2% Ophth Soln BOTH EYES 1 drops BID DELTA Administration Budesonide 1 mg 05/16/17 08:00 05/19/17 07:14 Pulmicort INHALATION 1 mg RT-BID DELTA Administration Cholecalciferol 2,000 unit 05/19/17 12:00 05/19/17 12:41 Vitamin D3 PO 2,000 unit DAILY@1200 DELTA Administration Fluticasone Propionate 1 spray 05/16/17 08:00 05/19/17 08:57 Flonase Nasal [place] EA NOSTRIL Not Given BID@0800,2000 [facility] Formoterol Fumarate 20 mcg 05/16/17 08:00 05/19/17 07:14 Perforomist INHALATION 20 mcg RT-BID DELTA Administration Gabapentin 100 mg 05/18/17 17:30 05/19/17 17:28 Neurontin PO 100 mg AC-TID DELTA Administration Haloperidol Lactate 1 mg 05/17/17 10:42 05/18/17 01:40 Haldol IVP 1 mg Q4HR PRN Administration Agitation or Acute Psychosis Heparin Sodium (Porcine) 5,000 unit 05/15/17 16:00 05/19/17 17:28 Heparin SQ 5,000 unit Q8HR DELTA Administration Hydromorphone HCl 0.5 mg 05/15/17 14:07 05/19/17 14:55 Dilaudid IVP 0.5 mg Q4HR PRN Administration Pain Sodium Chloride 1,000 mls @ 50 mls/hr 05/17/17 10:45 05/19/17 02:24 Saline 0.9% IV 50 mls/hr .Q20H DELTA Administration Meropenem 1 gm/ Sodium 100 mls @ 200 mls/hr 05/18/17 12:00 05/19/17 12:36 Chloride IVPB 200 mls/hr Q8H DELTA Administration Imipramine HCl 25 mg 05/18/17 21:00 05/18/17 21:11 Tofranil PO 25 mg HS DELTA Administration Insulin Aspart 0 unit 05/19/17 07:30 05/19/17 17:29 Novolog SQ Not Given ACHS [facility] Protocol Ketorolac Tromethamine 1 drops 05/16/17 09:00 05/19/17 17:29 Acular RIGHT EYE 1 drops QID DELTA Administration Lactulose 20 gm 05/18/17 15:37 Cephulac PO DAILY PRN Constipation Latanoprost 1 drops 05/15/17 21:00 05/18/17 20:17 Xalatan 0.005% BOTH EYES 1 drops HS DELTA Administration Levetiracetam 500 mg 05/18/17 21:00 05/19/17 08:59 Keppra PO 500 mg Q12HR DELTA Administration Metoprolol Tartrate 12.5 mg 05/18/17 21:00 05/19/17 09:00 Lopressor PO 12.5 mg BID DELTA Administration Miscellaneous Information 1 each 05/15/17 11:38 Pneumonia Protocol Utilized PO ONCE PRN Per Protocol Miscellaneous Information 1 each 05/16/17 06:30 Magnesium Per Protocol MISCELLANE DAILY PRN Per Protocol Protocol Miscellaneous Information 1 each 05/17/17 06:30 Phosphorus Per Protocol MISCELLANE DAILY PRN Per Protocol Protocol Miscellaneous Information 1 each 05/17/17 06:58 Potassium Per Protocol MISCELLANE DAILY PRN Per Protocol Protocol Multivitamins 1 each 05/19/17 12:00 05/19/17 12:41 Theragran PO 1 each DAILY@1200 DELTA Administration Nicotine 1 patch 05/16/17 09:00 05/19/17 08:57 Habitrol 14mg/24hr Patch TRANSDERM 1 patch DAILY DELTA Administration Nitroglycerin 0.4 mg 05/15/17 21:21 Nitrostat SUBLINGUAL Q5M PRN Chest Pain Pantoprazole Sodium 40 mg 05/15/17 13:30 05/19/17 09:00 Protonix IVP 40 mg DAILY DELTA Administration Paroxetine HCl 60 mg 05/18/17 15:45 05/19/17 09:00 Paxil PO 60 mg DAILY DELTA Administration Prednisone 40 mg 05/20/17 09:00 PO DAILY DELTA Ropinirole HCl 0.25 mg 05/18/17 21:00 05/18/17 20:16 Requip PO 0.25 mg HS DELTA Administration Thiamine HCl 100 mg 05/19/17 12:00 05/19/17 12:41 Vitamin B-1 PO 100 mg DAILY@1200 DELTA Administration Objective - Vital Signs Vital signs: Vital Signs Temp 98.4 F 05/19/17 16:00 Pulse 75 05/19/17 16:00 Resp 22 05/19/17 16:00 BP 93/51 05/19/17 16:00 Pulse Ox 99 05/19/17 16:00 Intake & Output 05/18/17 05/19/17 05/19/17 18:59 06:59 18:59 Intake Total 787.5 600 600 Output Total 430 1 Balance 357.5 599 600 Weight 73.8 kg Intake: IV 587.5 600 600 Meropenem 1 gm In Sodium 100 Chloride 0.9% 100 ml @ 200 mls/hr IVPB Q8H DELTA Rx#:[id number] Piperacillin-Tazobactam 3 37.5 .375 gm In Dextrose/Water 1 50ml.bag @ 12.5 mls/hr IVPB Q8HR DELTA Rx#: [id number] Potassium Chloride 10 meq 100 In Water For Injection 1 100ml.bag @ 100 mls/hr IVPB Q1H [facility] Rx#: [id number] Sodium Chloride 0.9% 1, 300 600 500 000 ml @ 50 mls/hr IV . Q20H [facility] Rx#:[id number] Sodium Chloride 0.9% 500 50 ml @ 999 mls/hr IV .Q31M ONE Rx#:[id number] levETIRAcetam IV 500 mg 100 In Sodium Chloride 0.9% 100 ml @ 400 mls/hr IVPB 0800,2000 [facility] Rx#: [id number] Intake, IV Titration 200 Amount Sodium Chloride 0.9% 1, 200 000 ml @ 50 mls/hr IV . Q20H [facility] Rx#:[id number] Output: Urine 430 0 Urine/Stool Mix 1 Other: Voiding Method Indwelling Catheter Diaper Diaper Incontinent Incontinent # Voids 1 1 # Bowel Movements 1 1 2 - Exam PHYSICAL EXAM: VITAL SIGNS: [As above] GENERAL: Sitting up in bed, wearing BiPAP, HEENT: Conjunctivae normal. eyes normal. NECK: No JVD. No thyroid enlargement. No LNs CARDIOVASCULAR: S1, S2 muffled. No murmur RESPIRATION: Breath sounds diminished in the bases. Scattered rhonchi throughout. Occasional fine expiratory wheezing ABDOMEN: Soft, nontender . No guarding. no masses palpable. Bowel sounds heard. LEGS: No edema. no swelling PSYCHIATRY: Alert and oriented -2,.hallucinating NERVOUS SYSTEM: Cranial N 2-12 grossly normal. Moves all 4 limbs. Diffuse weakness No focal deficits. No sensory deficit. Skin: no ulcer no rash Joints: No active swelling. No inflammation. Lymphatic system. No LN neck axilla or groin. Microbiology 05/15/17 09:10 Blood Blood Culture - Preliminary No Growth after 96 hours 05/15/17 21:27 Sputum Gram Stain - Final 05/15/17 21:27 Sputum Sputum Culture - Final 05/15/17 13:30 Urine,Catheterized Urine Culture - Final Escherichia coli - Labs CBC & Chem 7: 05/19/17 04:25 05/19/17 04:25 Labs: Abnormal Lab Results - Last 24 Hours (Table) 05/18/17 05/19/17 05/19/17 Range/Units 20:45 00:56 04:25 RBC 3.60 L (3.80-5.40) m/uL Hgb 10.6 L (11.4-16.0) gm/dL Hct 33.1 L (34.0-46.0) % Lymphocytes # 0.8 L (1.0-4.8) k/uL BUN (7-17) mg/dL Glucose (74-99) mg/dL POC Glucose (mg/dL) 141 H 112 H (75-99) mg/dL Calcium (8.4-10.2) mg/dL 05/19/17 05/19/17 05/19/17 Range/Units 04:25 07:36 11:45 RBC (3.80-5.40) m/uL Hgb (11.4-16.0) gm/dL Hct (34.0-46.0) % Lymphocytes # (1.0-4.8) k/uL BUN 25 H (7-17) mg/dL Glucose 125 H (74-99) mg/dL POC Glucose (mg/dL) 116 H 157 H (75-99) mg/dL Calcium 7.7 L (8.4-10.2) mg/dL 05/19/17 Range/Units 17:14 RBC (3.80-5.40) m/uL Hgb (11.4-16.0) gm/dL Hct (34.0-46.0) % Lymphocytes # (1.0-4.8) k/uL BUN (7-17) mg/dL Glucose (74-99) mg/dL POC Glucose (mg/dL) 123 H (75-99) mg/dL Calcium (8.4-10.2) mg/dL Microbiology - Last 24 Hours (Table) 05/15/17 09:10 Blood Culture - Preliminary Blood No Growth after 96 hours 05/15/17 21:27 Gram Stain - Final Sputum Sputum Culture - Final Assessment and Plan Assessment: 1. Acute COPD exacerbation with acute hypoxic hypercarbic respiratory failure with left lower lobe pneumonia, suspect aspiration with sepsis, present on admission 2. Change in mental status, acute metabolic encephalopathy, multifactorial 3. Leukocytosis 4. History of COPD, asthma 5. Chronic CHF 6. Chronic respiratory failure 7. History of hepatitis C 8. History of glaucoma, cataracts 9. Degenerative joint disease 10 hypertension 11 hyperlipidemia 12 history of seizure disorder 13. Possible acute UTI, E. coli/ESBL Plan: Continue current medication regime , PPI, monitoring and symptomatic treatment. MBS pending. Maintain IV antibiotics, nebulized bronchodilators, steroids. Steroid tapering in progress. Antidepressants as per psychiatry .Strict aspiration precautions. Prognosis guarded given multiple complex medical issues. The impression and plan of care has been dictated as directed. : I performed a history and examination of this patient, discussed the same with the dictator. I agree with the dictator's note ,documented as a scribe. Any additional findings or plans will be noted.
[2017-05-19] MEDS: IMIPRAMINE 25 MG TAB PO SCH (20:21)
[2017-05-19] MEDS: ATORVASTATIN 10 MG TAB PO SCH (20:21)
[2017-05-19] MEDS: LATANOPROST 0.005% OPHTH DROPS 2.5 ML BTL BOTH EYES SCH (20:21)
[2017-05-19] MEDS: ARIPiprazole 5 MG TAB PO SCH (20:21)
[2017-05-19 20:27] LABS: Glucose,Whole Blood 172 mg/dL (75-99)
[2017-05-20] MEDS: KETOROLAC 0.5% OPHTH DROPS 5 ML BTL RIGHT EYE SCH ×5 (00:45→22:14)
[2017-05-20] MEDS: HEPARIN SODIUM,PORCINE 5,000 UNIT/ML 1 ML VIAL SQ SCH ×3 (00:46→16:54)
[2017-05-20] MEDS: SODIUM CHLORIDE 0.9% 1,000 ML IV SCH ×2 (00:46→18:25)
[2017-05-20] MEDS: HYDROmorphone 0.5 MG/0.5 ML SYRINGE IVP PRN ×3 (01:19→16:54)
[2017-05-20] MEDS: HYDROcodone/APAP 7.5-325MG 1 EACH TAB PO PRN ×3 (04:17→18:24)
[2017-05-20] MEDS: MEROPENEM 1 GM in SODIUM CHLORIDE 0.9% 100 ML IVPB SCH ×3 (04:21→20:46)
[2017-05-20 05:48] LABS: Anion Gap 8 mmol/L; Blood Urea Nitrogen 24 mg/dL (7-17); Calcium 8.1 mg/dL (8.4-10.2); Carbon Dioxide 30 mmol/L (22-30); Chloride 105 mmol/L (98-107); Glucose 109 mg/dL (74-99); Magnesium 2.1 mg/dL (1.6-2.3); Potassium 3.7 mmol/L (3.5-5.1); Sodium 143 mmol/L (137-145)
[2017-05-20] MEDS ORDERED: Potassium Replacement Protocol 1 EACH MISC MISCELLANE PRN (06:48)
[2017-05-20] MEDS ORDERED: POTASSIUM CHLORIDE ER 20 MEQ TAB.ER PO SCH (07:00)
--- NOTE | 2017-05-20 07:01 | XR ---
EXAMINATION TYPE: XR chest 1V DATE OF EXAM: 05/20/2017 HISTORY: pneumonia. REFERENCE: Previous study dated 05/19/2017. FINDINGS: There is improved aeration at the right lung base. Heart size is obscured. I suspect small, bilateral effusions.. IMPRESSION: IMPROVING RIGHT BASILAR AIRSPACE DISEASE.
[2017-05-20 07:32] LABS: Glucose,Whole Blood 107 mg/dL (75-99)
[2017-05-20] MEDS: FORMOTEROL FUMARATE 20 MCG/2 ML NEBU INHALATION SCH ×2 (08:22→20:52)
[2017-05-20] MEDS: IPRATROPIUM-ALBUTEROL 3 ML NEB INHALATION SCH ×4 (08:22→20:52)
[2017-05-20] MEDS: BUDESONIDE 1 MG/2 ML NEBU INHALATION SCH ×2 (08:22→20:52)
[2017-05-20] MEDS: INSULIN ASPART 100 UNIT/ML 1 ML 10 ML VIAL SQ SCH ×4 (08:53→22:15)
[2017-05-20] MEDS: GABAPENTIN 100 MG CAP PO SCH ×3 (08:53→16:55)
[2017-05-20] MEDS: FLUTICASONE 50MCG/SPRAY NASAL 16GM EA NOSTRIL SCH ×2 (08:54→20:50)
[2017-05-20] MEDS: ASPIRIN 81 MG PO SCH (08:54)
[2017-05-20] MEDS: levETIRAcetam 500 MG TAB PO SCH ×2 (08:55→20:45)
[2017-05-20] MEDS: BRIMONIDINE TARTRATE 0.2% DROPS 5 ML BTL BOTH EYES SCH ×2 (08:55→20:46)
[2017-05-20] MEDS: METOPROLOL TARTRATE 12.5 MG TAB PO SCH (08:56)
[2017-05-20] MEDS: PANTOPRAZOLE 40 MG/10 ML VIAL IVP SCH (08:56)
[2017-05-20] MEDS: predniSONE 20 MG TAB PO SCH (08:57)
[2017-05-20] MEDS: PARoxetine 20 MG TAB PO SCH (08:57)
[2017-05-20] MEDS: NICOTINE 14MG/24HR PATCH TRANSDERM SCH (09:51)
[2017-05-20] MEDS: ALPRAZolam 0.25 MG TAB PO PRN ×2 (11:07→20:45)
[2017-05-20 12:34] LABS: Glucose,Whole Blood 100 mg/dL (75-99)
[2017-05-20] MEDS: CHOLECALCIFEROL 1,000 UNIT TAB PO SCH (12:57)
[2017-05-20] MEDS: THIAMINE 100 MG TAB PO SCH (12:58)
[2017-05-20] MEDS: MULTIVITAMINS, THERA 1 EACH TAB PO SCH (12:58)
--- NOTE | 2017-05-20 13:41 | P.PN ---
<Shi Hunt - Last Filed: 05/20/17 13:36> Subjective Progress Note Date: 05/20/17 Principal diagnosis: Acute exacerbation of chronic obstructive pulmonary disease complicated by left lung pneumonia suspect aspiration and acute respiratory failure requiring BiPAP support. A 66-year-old female patient who is known to me from previous hospitalizations, who is a resident of an assisted living/[facility], presented to the ED today with difficulty in breathing. The patient reportedly was having increased weakness, chills, shakes, and apparently she did choke on some food material yesterday. Subsequently her breathing got progressively worse and she started having chest congestion and dyspnea and for that reason she presented to the hospital for further advice. No reported fever. No reported chest pain. In the ED, the patient was found to be in significant respiratory distress. She had a DNR/DNI CODE STATUS. She was placed on a BiPAP for respiratory support. The chest x-ray was obtained and showed small lung volumes , carotid vascular markings, the heart size was borderline enlarged and there was mild diffuse interstitial prominence and a focal left basilar opacity/ infiltration suggestive an underlying pneumonia. The patient had a blood gas that showed a pH of 7.38 with a pCO2 of 59 and pO2 of 57 and this was done and FiO2 of 50%. Based on that, the patient was placed on a BiPAP and following that the patient got transferred to the intensive care unit. Current white cell count is at 17.5. The lactic acid level is at 2.3. The rest of the electrodes are within normal limits. First set of troponin is negative and the patient has a nonelevated BNP level. Urinalysis is also abnormal with increased white cell counts and influenza screen was also negative. Currently, the patient is on a combination of Zosyn and Levaquin. Note that the patient has a chronic component of hypercapnic arrest 30 failure. Based on previous echocardiogram the patient has a normal ejection fraction without evidence of any pulmonary hypertension. She is known to have COPD however. On 05/16/2016 I'm seeing this patient for a follow-up. The patient is still BiPAP dependent at a pressure of 14/7 cm of water. She had developed some hypoxemia and she was placed on 100% FiO2. Subsequent blood gases showed a pH of 7.36 with a pCO2 of 58 and pO2 of 123 and based on that the FiO2 was dropped down to 80%. Currently the patient's pulse ox is around 97%. The patient has developed a new small to moderate-sized right-sided pleural effusion. There is also evidence of pulmonary vascular congestion. She feels clinically better however the chest x-ray findings are slightly worse especially with development of a new moderate-sized right-sided pleural effusion. The patient is receiving 0.9 normal saline at the rate of 50 mL an hour. She is on a combination of Zosyn and Levaquin. The creatinine is stable at 0.81 with a BUN of 22. No other significant events overnight. Her breathing is still labored. Culture has been on and showed few gram-positive cocci . The urine output is around 30 mL an hour. The patient remains on a combination of DuoNeb, systemic steroids, Pulmicort and Perforomist embolus treatments around the clock. The patient is also on heparin subcu. The patient is on IV Solu-Medrol. The patient is seen again today in follow-up in the intensive care unit. She is continue to utilize BiPAP throughout the evening at a pressure 14/ 7 cm of water. She is more awake and alert today as compared to yesterday. She is currently off the BiPAP and maintaining O2 saturations in the 90s on 5 L/ m per nasal cannula. She is confused to time and place. She is somewhat restless. Her urine is positive for gram-negative bacilli, blood cultures reveal no growth to date, sputum culture pending. White count 12.6. Hemoglobin 11.4. Creatinine 1.00. She is continued on DuoNeb inhalations 4 times a day and when necessary along with Pulmicort and Perforomist inhalations twice a day. She is covered with vancomycin, Zosyn and Levaquin. Continued on IV Solu-Medrol. Today's chest x-ray reveals chronic reticulonodular interstitial changes of the lung volumes. There is persistent but improving right lower lung infiltrate and a small right pleural effusion. Patient is seen again today 05/18/2017 in follow-up in the intensive care unit. She is awake and alert in no acute distress. She is still somewhat disoriented to place and time. She is doing better on the Haldol. She is currently off the BiPAp and maintaining good O2 saturations in the upper 90s on 4 L/m per nasal cannula. She's been afebrile. Slightly tachycardic. No leukocytosis. Hemoglobin 10.3. Creatinine 0.80. Sodium 146. Or cultures positive for E. coli ESBL. We'll discontinue the vancomycin and Zosyn and Levaquin. She'll remain on meropenem now. Chest x-ray continues revealed patchy perihilar and basilar infiltrates persistent although improving. On I'm seeing this patient for a follow-up. The patient is doing well and she is awake and alert. She is less confused compared to yesterday. Afebrile hemodynamically stable. I switch this patient IV meropenem regarding an ESBL producing E. coli in the urine and the patient is also covered for aspiration pneumonia. Chest x-ray remains stable with some limited infiltration of the lung bases bilaterally at for the most part the right basal infiltration is subsided. The patient is using the BiPAP overnight at a pressure of 14/7 cm of water. Her white cell count is not elevated. Hemoglobin stable at 10.6. Function is stable creatinine of 0.7. She is tolerating her diet. She passed a swallow evaluation and she was cleared and her diet will be gradually more advanced. The swallow evaluation was done and showed a transient family liquid penetration without evidence of any aspiration. The patient is seen again today 05/20/2017 in follow-up in the intensive care unit. She is more awake and alert today as compared to yesterday. She denies any worsening shortness of breath, cough or congestion. His currently maintaining good O2 saturations in the mid to upper 90s on 5 L/m per nasal cannula. Temperature 99.2. She remains on meropenem for her ESBL E. coli urinary tract infection. Objective - Vital Signs Vital signs: Vital Signs Temp 99.2 F 05/20/17 12:00 Pulse 100 05/20/17 13:11 Resp 21 05/20/17 12:00 BP 117/63 05/20/17 12:00 Pulse Ox 95 05/20/17 12:00 Intake & Output 05/19/17 05/20/17 05/20/17 18:59 06:59 18:59 Intake Total 600 50 250 Output Total 0 Balance 600 50 250 Weight 75.9 kg Intake: IV 600 50 50 Potassium Chloride 10 meq 100 In Water For Injection 1 100ml.bag @ 100 mls/hr IVPB Q1H [facility] Rx#: [id number] Sodium Chloride 0.9% 1, 500 50 50 000 ml @ 50 mls/hr IV . Q20H [facility] Rx#:[id number] Oral 200 Output: Urine 0 Other: Voiding Method Diaper Diaper Diaper Incontinent Incontinent Incontinent # Voids 1 1 1 # Bowel Movements 2 1 1 - Exam The patient has improved from her respiratory distress. She was tolerating 5 L/ m per nasal cannula while off the BiPAP for longer periods today. Note that she has a DNR/DNI CODE STATUS and she will not get intubated based on her CODE STATUS. She has however tolerating the BiPAP and she is synchronous with a full facemask. Head exam was generally normal. There was no scleral icterus or corneal arcus. Mucous membranes were moist.Neck was supple and without jugular venous distension, thyromegaly, or carotid bruits. Carotids were easily palpable bilaterally. There was no adenopathy. Lung sounds are diminished bilaterally and there is diffuse expiratory wheezes and rhonchi heard throughout the lung hall and her axillary phase of breathing is quite prolonged.Cardiac exam revealed the PMI to be normally situated and sized. The rhythm was regular and no extrasystoles were noted during several minutes of auscultation. The first and second heart sounds were normal and physiologic splitting of the second heart sound was noted. There were no murmurs, rubs, clicks, or gallops. Abdominal exam revealed normal bowel sounds. The abdomen was soft, non-tender, and without masses, organomegaly, or appreciable enlargement of the abdominal aorta.Examination of the extremities revealed easily palpable radial, femoral and pedal pulses. There was no cyanosis, clubbing or edema.Examination of the skin revealed no evidence of significant rashes, suspicious appearing nevi or other concerning lesions. Neurologically the exam is nonfocal and the patient is moving all 4 extremities without any limitation. She is awake and alert to person. She is having some confusion and hallucinations. - Labs CBC & Chem 7: 05/19/17 04:25 05/20/17 05:09 Labs: Abnormal Lab Results - Last 24 Hours (Table) 05/19/17 05/19/17 05/20/17 Range/Units 17:14 20:25 05:09 BUN 24 H (7-17) mg/dL Glucose 109 H (74-99) mg/dL POC Glucose (mg/dL) 123 H 172 H (75-99) mg/dL Calcium 8.1 L (8.4-10.2) mg/dL 05/20/17 05/20/17 Range/Units 07:30 12:33 BUN (7-17) mg/dL Glucose (74-99) mg/dL POC Glucose (mg/dL) 107 H 100 H (75-99) mg/dL Calcium (8.4-10.2) mg/dL Microbiology - Last 24 Hours (Table) 05/15/17 09:10 Blood Culture - Preliminary Blood No Growth after 120 hours 05/15/17 21:27 Gram Stain - Final Sputum Sputum Culture - Final Assessment and Plan Assessment: Impression 1 acute COPD exacerbation secondary to a left lung pneumonia, rule out an aspiration pneumonia with impending respiratory failure. There is also interval worsening of the chest x-ray findings with development of a right- sided pleural effusion and the patient remains BiPAP dependent for now at a pressure of 14/7 cm of water and FiO2 of 80%. Clinically the patient feels less short of breath compared to yesterday. She was maintaining O2 saturations in the low 90s while on 5 L/m per nasal cannula for brief trial off the BiPAP. 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 Davis. Her chest x-ray and labs were reviewed. Chest x-ray continues to show improvement in the right basilar airspace disease.. She is noted to have ESBL in the urine culture. She remains on Merrem. She remains on redness on with bronchodilators. She will be given Haldol for her hallucinations and restlessness. We will continue to utilize BiPAP as needed at 14/7 at 50% FiO2 to maintain O2 saturations in the 90s. She may be transferred out of the ICU. She is a DO NOT RESUSCITATE/DO NOT INTUBATE CODE STATUS. We will continue to follow and make further recommendations based on her clinical status. I, the cosigning physician, performed a history & physical examination of the patient. Lungs sounds few scattered rhonchi, crackles in the posterior bases more so on the right. Maintaining good O2 saturations in the 90s on BiPAP with intermittent 4 L/m per nasal cannula. I discussed the assessment and plan of care with my nurse practitioner, Shi Hunt. I attest to the above note as dictated by her. <Samra Davis - Last Filed: 05/21/17 16:05> Objective - Vital Signs Vital signs: Vital Signs Temp 98.0 F 05/20/17 20:00 Pulse 75 05/21/17 15:53 Resp 21 05/21/17 08:00 BP 142/61 05/21/17 08:00 Pulse Ox 95 05/21/17 08:00 Intake & Output 05/20/17 05/21/17 05/21/17 18:59 06:59 18:59 Intake Total 550 50 400 Balance 550 50 400 Weight 80.3 kg Intake: IV 100 50 400 Sodium Chloride 0.9% 1, 100 50 400 000 ml @ 50 mls/hr IV . Q20H [facility] Rx#:[id number] Oral 450 Other: Voiding Method Diaper Diaper Diaper Incontinent Incontinent Incontinent # Voids 1 1 1 # Bowel Movements 2 - Labs CBC & Chem 7: 05/19/17 04:25 05/21/17 04:43 Labs: Abnormal Lab Results - Last 24 Hours (Table) 05/20/17 05/20/17 05/21/17 Range/Units 18:14 20:14 04:43 Carbon Dioxide 31 H (22-30) mmol/L BUN 20 H (7-17) mg/dL POC Glucose (mg/dL) 161 H 148 H (75-99) mg/dL 05/21/17 Range/Units 12:17 Carbon Dioxide (22-30) mmol/L BUN (7-17) mg/dL POC Glucose (mg/dL) 126 H (75-99) mg/dL Microbiology - Last 24 Hours (Table) 05/15/17 09:10 Blood Culture - Final Blood No Growth after 144 hours Assessment and Plan Assessment: A joint evaluation that was done along with the nurse practitioner. I tested above-mentioned information. Patient is doing very well. I'm very happy with the improvement in the chest x-ray findings. Her delirium has subsided with Haldol. She is very appropriate this morning. She is tolerating her diet and she is swallowing without any major difficulties. We'll continue to follow. We 'll move her out of the intensive care units.
[2017-05-20 18:17] LABS: Glucose,Whole Blood 161 mg/dL (75-99)
--- NOTE | 2017-05-20 18:51 | P.PN ---
Progress Note - Text Progress Note Date: 05/20/17 DATE OF SERVICE: 05/20/2017 PRESENTING COMPLAINT: Increasing shortness of breath HISTORY OF PRESENT ILLNESS: 66-year-old female resident of assisted living/[facility], presented to the emergency department with difficulty breathing. Had increasing weakness chills shakes apparently did choke on some food with her breathing subsequently becoming aggressively worse began having chest congestion and dyspnea, on arrival found to be in significant respiratory distress placed on a BiPAP, x-ray revealed small lung volumes carotid vascular markings and a left basilar opacity/infiltration suggestive of underlying pneumonia. Patient admitted to the ICU for acute exacerbation of chronic obstructive pulmonary disease complicated by left lung pneumonia, questionable aspiration and acute respiratory failure requiring BiPAP support. closer monitoring INTERVAL HISTORY: 05/20/2017: Patient lying in bed appears comfortable. Awake and alert able to answer simple straightforward questions. Has some congestion unable to cough anything up. Maintaining good oxygen saturations in the upper 90s. Temperature 99.2. Continues on meropenem for ESBL and E. coli in the urinary tract. Tolerating her diet, able to stand up at the bedside with assistance, last BM 05/19/2017. REVIEW OF SYSTEMS: Done for constitutional ,cardiovascular, GI, pulmonary with relevant findings as above. CURRENT MEDICATIONS [place], DuoNeb, Xanax, Abilify, aspirin, Lipitor, Alphagan ophthalmic drops, cholecalciferol, Flonase nasal spray, Perforomist, Neurontin, Haldol, heparin, Dilaudid, Tofranil, lactulose, Keppra, Imodium, meropenem, Lopressor, nicotine patch, Protonix, Paxil, prednisone, Requip. PHYSICAL EXAM VITAL SIGNS: Temperature 99.2, pulse 80, respiratory rate 21, blood pressure 117/63, oxygen saturation 95% on 5 L. GENERAL APPEARANCE: Lying in bed, not in distress. HENT: Normocephalic, JVD not raised. Mass not palpable. Oral cavity normal, external appearance of ears and nose normal. EYES:Pupils equal. Conjunctiva normal. RESPIRATORY: Respiratory effort mildly increased. Lungs diminished bilaterally, diffuse expiratory wheezing and rhonchi and prolonged expiration to auscultation. CARDIOVASCULAR: First and second sounds normal. No edema. ABDOMEN: Soft. Liver and spleen not palpable. No tenderness. No mass palpable. PSYCHIATRY: Alert and oriented 1-2 able to answer simple straightforward questions with some confusion and hallucinations and patient is aware of her hallucinating. Mood and affect normal. INVESTIGATIONS: BUN 24, Accu-Cheks noted, phosphorus 8.1. Chest x-ray: Improving right basilar airspace disease. ASSESSMENT: -Acute COPD exacerbation in a smoker -Left lower lobe pneumonia probably aspiration -Acute on chronic hypoxic respiratory failure, currently off BiPAP support, currently on 5 L of oxygen, slow to respond -Chronic hypercapnic respiratory failure, maintained on 23 L of oxygen at home -Acute urinary tract infection with cultures positive for E. coli/ESBL -Chronic intermittent dysphagia failed barium swallow evaluation but tolerating thin liquids -Chronic nicotine dependence the patient is a former smoker -Essential hypertension. -History of chronic hepatitis C viral infection, successfully treated back in 2012. -Anxiety depression not otherwise specified. -Primary osteoarthritis, osteoporosis with chronic back pain -Seizure disorder -Morbid obesity, body mass index 33.8. -Chronic Urinary incontinence -Peripheral neuropathy in a patient who is not a diabetic -Chronic restless leg syndrome LEGAL guardian: [facility] Public guardian, telephone #[phone]. PLAN: Patient trialed on nasal cannula 5 L has done well BiPAP support remains available, overall condition is stable for transfer to [address] [place] [address] as soon as a bed is available. Continue meropenem for E. coli in the urinary tract, Haldol for hallucinations and restlessness. Plan of care discussed at the bedside we will follow closely. ROOFING APPLICATOR statement: Patient was seen and examined by nurse practitioner Sasha Luu and all elements of the case discussed with attending Dr. Torres
[2017-05-20 20:16] LABS: Glucose,Whole Blood 148 mg/dL (75-99)
[2017-05-20] MEDS: ARIPiprazole 5 MG TAB PO SCH (20:45)
[2017-05-20] MEDS: ATORVASTATIN 10 MG TAB PO SCH (20:45)
[2017-05-20] MEDS: IMIPRAMINE 25 MG TAB PO SCH (20:46)
[2017-05-20] MEDS: LATANOPROST 0.005% OPHTH DROPS 2.5 ML BTL BOTH EYES SCH (20:46)
[2017-05-20] MEDS: LOPERAMIDE 2 MG CAP PO PRN (20:54)
--- NOTE | 2017-05-20 22:26 | PN ---
PROGRESS NOTE . DATE OF SERVICE: 05/20/17 ATTENDING NOTE: Patient seen and examined by me. I discussed with nurse practitioner, Ms. Luu. This is a patient with aspiration pneumonia in the ICU, had some trouble, has also had some intermittent dysphagia. Aspiration to thin liquids, but now trial of diet is being given. Breathing is better. PHYSICAL EXAMINATION: LUNGS: Decreased breath sounds. Mild wheezing. Some crackles. Cardiovascular 1st and 2nd sounds normal. Asked some simple questions. ASSESSMENT: 1. Acute chronic obstructive pulmonary disease exacerbation in a smoker. 2. Left lower lobe pneumonia probably aspiration. 3. Acute on chronic hypoxic respiratory failure. The patient is off now by BiPAP, currently on 5 L of oxygen. 4. Acute urinary tract infection from E coli with ESBL. PLAN: Continue current medication and treatment plan including DuoNeb, IV meropenem. Prognosis is guarded. Will follow. SAVI / ESAMUSN: [id number] /
[2017-05-21] MEDS: METOPROLOL TARTRATE 12.5 MG TAB PO SCH ×3 (01:28→21:30)
[2017-05-21] MEDS: HYDROcodone/APAP 7.5-325MG 1 EACH TAB PO PRN ×3 (01:59→18:08)
[2017-05-21] MEDS: HEPARIN SODIUM,PORCINE 5,000 UNIT/ML 1 ML VIAL SQ SCH ×3 (02:00→16:16)
[2017-05-21 05:13] LABS: Anion Gap 6 mmol/L; Blood Urea Nitrogen 20 mg/dL (7-17); Calcium 8.8 mg/dL (8.4-10.2); Carbon Dioxide 31 mmol/L (22-30); Chloride 105 mmol/L (98-107); Glucose 94 mg/dL (74-99); Potassium 3.8 mmol/L (3.5-5.1); Sodium 142 mmol/L (137-145)
[2017-05-21] MEDS: MEROPENEM 1 GM in SODIUM CHLORIDE 0.9% 100 ML IVPB SCH ×3 (06:08→20:05)
[2017-05-21] MEDS: HYDROmorphone 0.5 MG/0.5 ML SYRINGE IVP PRN (06:08)
[2017-05-21 07:32] LABS: Glucose,Whole Blood 89 mg/dL (75-99)
[2017-05-21] MEDS: IPRATROPIUM-ALBUTEROL 3 ML NEB INHALATION SCH ×4 (07:59→19:35)
[2017-05-21] MEDS: BUDESONIDE 1 MG/2 ML NEBU INHALATION SCH ×2 (07:59→19:43)
[2017-05-21] MEDS: FORMOTEROL FUMARATE 20 MCG/2 ML NEBU INHALATION SCH ×2 (07:59→19:35)
[2017-05-21] MEDS: INSULIN ASPART 100 UNIT/ML 1 ML 10 ML VIAL SQ SCH ×4 (08:35→21:31)
[2017-05-21] MEDS: KETOROLAC 0.5% OPHTH DROPS 5 ML BTL RIGHT EYE SCH ×4 (09:06→21:30)
[2017-05-21] MEDS: PARoxetine 20 MG TAB PO SCH (09:07)
[2017-05-21] MEDS: BRIMONIDINE TARTRATE 0.2% DROPS 5 ML BTL BOTH EYES SCH ×2 (09:07→21:31)
[2017-05-21] MEDS: PANTOPRAZOLE 40 MG/10 ML VIAL IVP SCH (09:07)
[2017-05-21] MEDS: predniSONE 20 MG TAB PO SCH (09:08)
[2017-05-21] MEDS: GABAPENTIN 100 MG CAP PO SCH ×3 (09:08→18:05)
[2017-05-21] MEDS: NICOTINE 14MG/24HR PATCH TRANSDERM SCH (09:09)
[2017-05-21] MEDS: ASPIRIN 81 MG PO SCH (09:09)
[2017-05-21] MEDS: levETIRAcetam 500 MG TAB PO SCH ×2 (09:09→21:30)
[2017-05-21] MEDS: FLUTICASONE 50MCG/SPRAY NASAL 16GM EA NOSTRIL SCH ×2 (09:10→19:58)
[2017-05-21] MEDS: ALPRAZolam 0.25 MG TAB PO PRN (09:16)
[2017-05-21 12:19] LABS: Glucose,Whole Blood 126 mg/dL (75-99)
--- NOTE | 2017-05-21 12:19 | P.PN ---
Progress Note - Text Progress Note Date: 05/21/17 DATE OF SERVICE: 05/21/2017 PRESENTING COMPLAINT: Increasing shortness of breath HISTORY OF PRESENT ILLNESS: 66-year-old female resident of assisted living/[facility], presented to the emergency department with difficulty breathing. Had increasing weakness chills shakes apparently did choke on some food with her breathing subsequently becoming aggressively worse began having chest congestion and dyspnea, on arrival found to be in significant respiratory distress placed on a BiPAP, x-ray revealed small lung volumes carotid vascular markings and a left basilar opacity/infiltration suggestive of underlying pneumonia. Patient admitted to the ICU for acute exacerbation of chronic obstructive pulmonary disease complicated by left lung pneumonia, questionable aspiration and acute respiratory failure requiring BiPAP support. closer monitoring INTERVAL HISTORY: 05/21/2017: Patient lying in bed appears comfortable. Awake alert able to answer simple straightforward questions. No acute overnight events, no BiPAP use overnight, titrating oxygen back to patient's baseline. Uses 3 L of oxygen at home currently on 4 L, able to maintain her current oxygen saturations in the mid 90s. Continues to have some congestion which she is unable to cough up. Tolerating her diet, up to the chair with assistance. Last BM 05/20/2017. 05/20/2017: Patient lying in bed appears comfortable. Awake and alert able to answer simple straightforward questions. Has some congestion unable to cough anything up. Maintaining good oxygen saturations in the upper 90s. Temperature 99.2. Continues on meropenem for ESBL and E. coli in the urinary tract. Tolerating her diet, able to stand up at the bedside with assistance, last BM 05/19/2017. REVIEW OF SYSTEMS: Done for constitutional ,cardiovascular, GI, pulmonary with relevant findings as above. CURRENT MEDICATIONS [place], DuoNeb, Xanax, Abilify, aspirin, Lipitor, Alphagan ophthalmic drops, budesonide, cholecalciferol, Flonase nasal spray, Perforomist, Neurontin, Haldol , heparin, Dilaudid, Tofranil, lactulose, Keppra, Imodium, meropenem, Lopressor , nicotine patch, Protonix, Paxil, prednisone, Requip. PHYSICAL EXAM VITAL SIGNS: Temperature 98.0, pulse 86, respiratory rate 21, blood pressure 142/61, oxygen saturation 95% on 4 L. GENERAL APPEARANCE: Lying in bed, not in distress. HENT: Normocephalic, JVD not raised. Mass not palpable. Oral cavity normal, external appearance of ears and nose normal. EYES:Pupils equal. Conjunctiva normal. RESPIRATORY: Respiratory effort mildly increased. Lungs diminished bilaterally, diffuse expiratory wheezing and rhonchi and prolonged expiration to auscultation. CARDIOVASCULAR: First and second sounds normal. No edema. ABDOMEN: Soft. Liver and spleen not palpable. No tenderness. No mass palpable. PSYCHIATRY: Alert and oriented 1-2 able to answer simple straightforward questions with some confusion and hallucinations and patient is aware of her hallucinating. Mood and affect normal. INVESTIGATIONS: Carbon dioxide 31, BUN 20, Accu-Cheks noted. ASSESSMENT: -Acute COPD exacerbation in a smoker, slow to respond -Left lower lobe pneumonia probably aspiration, slow to respond -Acute on chronic hypoxic respiratory failure, currently off BiPAP support, currently on 5 L of oxygen, slow to respond -Chronic hypercapnic respiratory failure, maintained on 23 L of oxygen at home -Acute urinary tract infection with cultures positive for E. coli/ESBL, improving -Chronic intermittent dysphagia failed barium swallow evaluation but tolerating thin liquids, improving -Chronic nicotine dependence the patient is a former smoker -Essential hypertension. -History of chronic hepatitis C viral infection, successfully treated back in 2012. -Anxiety depression not otherwise specified. -Primary osteoarthritis, osteoporosis with chronic back pain -Seizure disorder -Morbid obesity, body mass index 33.8. -Chronic Urinary incontinence -Peripheral neuropathy in a patient who is not a diabetic -Chronic restless leg syndrome LEGAL guardian: [facility] Public guardianShey, telephone #. PLAN: Patient trialed on nasal cannula 5 L has done well BiPAP support remains available, overall condition is stable for transfer to [address] [place], [place] [address]medical surgical floor as soon as a bed is available. Continue meropenem for E. coli in the urinary tract, Haldol for hallucinations and restlessness. Discharge planning for the next 24-48 hours she is a resident of [facility]. Plan of care discussed at the bedside we will follow closely. CAKE MAKER statement: Patient was seen and examined by nurse practitioner Sasha Luu and all elements of the case discussed with attending Dr. Torres
[2017-05-21] MEDS: CHOLECALCIFEROL 1,000 UNIT TAB PO SCH (12:35)
[2017-05-21] MEDS: THIAMINE 100 MG TAB PO SCH (12:36)
[2017-05-21] MEDS: MULTIVITAMINS, THERA 1 EACH TAB PO SCH (12:36)
[2017-05-21] MEDS: SODIUM CHLORIDE 0.9% 1,000 ML IV SCH (14:39)
--- NOTE | 2017-05-21 15:53 | P.PN ---
Subjective Progress Note Date: 05/21/17 Acute exacerbation of chronic obstructive pulmonary disease complicated by left lung pneumonia suspect aspiration and acute respiratory failure requiring BiPAP support. A 66-year-old female patient who is known to me from previous hospitalizations, who is a resident of an assisted living/[facility], presented to the ED today with difficulty in breathing. The patient reportedly was having increased weakness, chills, shakes, and apparently she did choke on some food material yesterday. Subsequently her breathing got progressively worse and she started having chest congestion and dyspnea and for that reason she presented to the hospital for further advice. No reported fever. No reported chest pain. In the ED, the patient was found to be in significant respiratory distress. She had a DNR/DNI CODE STATUS. She was placed on a BiPAP for respiratory support. The chest x-ray was obtained and showed small lung volumes , carotid vascular markings, the heart size was borderline enlarged and there was mild diffuse interstitial prominence and a focal left basilar opacity/ infiltration suggestive an underlying pneumonia. The patient had a blood gas that showed a pH of 7.38 with a pCO2 of 59 and pO2 of 57 and this was done and FiO2 of 50%. Based on that, the patient was placed on a BiPAP and following that the patient got transferred to the intensive care unit. Current white cell count is at 17.5. The lactic acid level is at 2.3. The rest of the electrodes are within normal limits. First set of troponin is negative and the patient has a nonelevated BNP level. Urinalysis is also abnormal with increased white cell counts and influenza screen was also negative. Currently, the patient is on a combination of Zosyn and Levaquin. Note that the patient has a chronic component of hypercapnic arrest 30 failure. Based on previous echocardiogram the patient has a normal ejection fraction without evidence of any pulmonary hypertension. She is known to have COPD however. On 05/16/2016 I'm seeing this patient for a follow-up. The patient is still BiPAP dependent at a pressure of 14/7 cm of water. She had developed some hypoxemia and she was placed on 100% FiO2. Subsequent blood gases showed a pH of 7.36 with a pCO2 of 58 and pO2 of 123 and based on that the FiO2 was dropped down to 80%. Currently the patient's pulse ox is around 97%. The patient has developed a new small to moderate-sized right-sided pleural effusion. There is also evidence of pulmonary vascular congestion. She feels clinically better however the chest x-ray findings are slightly worse especially with development of a new moderate-sized right-sided pleural effusion. The patient is receiving 0.9 normal saline at the rate of 50 mL an hour. She is on a combination of Zosyn and Levaquin. The creatinine is stable at 0.81 with a BUN of 22. No other significant events overnight. Her breathing is still labored. Culture has been on and showed few gram-positive cocci . The urine output is around 30 mL an hour. The patient remains on a combination of DuoNeb, systemic steroids, Pulmicort and Perforomist embolus treatments around the clock. The patient is also on heparin subcu. The patient is on IV Solu-Medrol. The patient is seen again today in follow-up in the intensive care unit. She is continue to utilize BiPAP throughout the evening at a pressure 14/ 7 cm of water. She is more awake and alert today as compared to yesterday. She is currently off the BiPAP and maintaining O2 saturations in the 90s on 5 L/ m per nasal cannula. She is confused to time and place. She is somewhat restless. Her urine is positive for gram-negative bacilli, blood cultures reveal no growth to date, sputum culture pending. White count 12.6. Hemoglobin 11.4. Creatinine 1.00. She is continued on DuoNeb inhalations 4 times a day and when necessary along with Pulmicort and Perforomist inhalations twice a day. She is covered with vancomycin, Zosyn and Levaquin. Continued on IV Solu-Medrol. Today's chest x-ray reveals chronic reticulonodular interstitial changes of the lung volumes. There is persistent but improving right lower lung infiltrate and a small right pleural effusion. Patient is seen again today 05/18/2017 in follow-up in the intensive care unit. She is awake and alert in no acute distress. She is still somewhat disoriented to place and time. She is doing better on the Haldol. She is currently off the BiPAp and maintaining good O2 saturations in the upper 90s on 4 L/m per nasal cannula. She's been afebrile. Slightly tachycardic. No leukocytosis. Hemoglobin 10.3. Creatinine 0.80. Sodium 146. Or cultures positive for E. coli ESBL. We'll discontinue the vancomycin and Zosyn and Levaquin. She'll remain on meropenem now. Chest x-ray continues revealed patchy perihilar and basilar infiltrates persistent although improving. On I'm seeing this patient for a follow-up. The patient is doing well and she is awake and alert. She is less confused compared to yesterday. Afebrile hemodynamically stable. I switch this patient IV meropenem regarding an ESBL producing E. coli in the urine and the patient is also covered for aspiration pneumonia. Chest x-ray remains stable with some limited infiltration of the lung bases bilaterally at for the most part the right basal infiltration is subsided. The patient is using the BiPAP overnight at a pressure of 14/7 cm of water. Her white cell count is not elevated. Hemoglobin stable at 10.6. Function is stable creatinine of 0.7. She is tolerating her diet. She passed a swallow evaluation and she was cleared and her diet will be gradually more advanced. The swallow evaluation was done and showed a transient family liquid penetration without evidence of any aspiration. The patient is seen again today 05/20/2017 in follow-up in the intensive care unit. She is more awake and alert today as compared to yesterday. She denies any worsening shortness of breath, cough or congestion. His currently maintaining good O2 saturations in the mid to upper 90s on 5 L/m per nasal cannula. Temperature 99.2. She remains on meropenem for her ESBL E. coli urinary tract infection. On 05/21/2017 the patient is resting comfortably in bed. Afebrile. The patient is on IV Merrem regarding E. coli ESBL in the urine. No respiratory distress. Wide awake and alert following commands and answering questions appropriately. She has been tolerating her diet without any difficulty swallowing or respiratory aspiration. No nausea no vomiting no abdominal pain. No change in mental status and no delirium. No agitation. No other complaints over the past 24 hours. She is a selective overflow and she'll be moved out of the intensive care unit. Objective - Vital Signs Vital signs: Vital Signs Temp 98.0 F 05/20/17 20:00 Pulse 70 05/21/17 11:58 Resp 21 05/21/17 08:00 BP 142/61 05/21/17 08:00 Pulse Ox 95 05/21/17 08:00 Intake & Output 05/20/17 05/21/17 05/21/17 18:59 06:59 18:59 Intake Total 550 50 400 Balance 550 50 400 Weight 80.3 kg Intake: IV 100 50 400 Sodium Chloride 0.9% 1, 100 50 400 000 ml @ 50 mls/hr IV . Q20H [facility] Rx#:[id number] Oral 450 Other: Voiding Method Diaper Diaper Diaper Incontinent Incontinent Incontinent # Voids 1 1 1 # Bowel Movements 2 - Exam The patient has improved from her respiratory distress. She was tolerating 5 L/ m per nasal cannula while off the BiPAP for longer periods today. Note that she has a DNR/DNI CODE STATUS and she will not get intubated based on her CODE STATUS. She has however tolerating the BiPAP and she is synchronous with a full facemask. Head exam was generally normal. There was no scleral icterus or corneal arcus. Mucous membranes were moist.Neck was supple and without jugular venous distension, thyromegaly, or carotid bruits. Carotids were easily palpable bilaterally. There was no adenopathy. Lung sounds are diminished bilaterally and there is diffuse expiratory wheezes and rhonchi heard throughout the lung hall and her axillary phase of breathing is quite prolonged.Cardiac exam revealed the PMI to be normally situated and sized. The rhythm was regular and no extrasystoles were noted during several minutes of auscultation. The first and second heart sounds were normal and physiologic splitting of the second heart sound was noted. There were no murmurs, rubs, clicks, or gallops. Abdominal exam revealed normal bowel sounds. The abdomen was soft, non-tender, and without masses, organomegaly, or appreciable enlargement of the abdominal aorta.Examination of the extremities revealed easily palpable radial, femoral and pedal pulses. There was no cyanosis, clubbing or edema.Examination of the skin revealed no evidence of significant rashes, suspicious appearing nevi or other concerning lesions. Neurologically the exam is nonfocal and the patient is moving all 4 extremities without any limitation. She is awake and alert to person. She is having some confusion and hallucinations. - Labs CBC & Chem 7: 05/19/17 04:25 05/21/17 04:43 Labs: Abnormal Lab Results - Last 24 Hours (Table) 05/20/17 05/20/17 05/21/17 Range/Units 18:14 20:14 04:43 Carbon Dioxide 31 H (22-30) mmol/L BUN 20 H (7-17) mg/dL POC Glucose (mg/dL) 161 H 148 H (75-99) mg/dL 05/21/17 Range/Units 12:17 Carbon Dioxide (22-30) mmol/L BUN (7-17) mg/dL POC Glucose (mg/dL) 126 H (75-99) mg/dL Microbiology - Last 24 Hours (Table) 05/15/17 09:10 Blood Culture - Final Blood No Growth after 144 hours Assessment and Plan Plan: 1 acute COPD exacerbation secondary to bilateral lower lobe pneumonia that was more pronounced on the right. The patient is responded very nicely to antibiotics and subsequent chest x-ray showed clearing of the right lower lobe consolidation. Currently she is back to her baseline. She is not having any significant respiratory distress. She is off the BiPAP for now. 2 acute on top of chronic hypoxic respiratory failure , improved acute component and the patient is back to oxygen at 4 L/m nasal cannula with a saturation of 95% 3 chronic hypercapnic respiratory failure 4 urine checked infection with E. 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 She has to this patient to selective. The rest of medication be kept unchanged. Sit up in the bed and increased level of activity as tolerated. We'll follow.
[2017-05-21] MEDS: HYDROmorphone 2 MG/ML 1 ML SYRINGE IVP PRN (16:16)
[2017-05-21 17:41] LABS: Glucose,Whole Blood 155 mg/dL (75-99)
--- NOTE | 2017-05-21 20:39 | PN ---
PROGRESS NOTE DATE OF SERVICE: 05/21/17 ATTENDING NOTE: Patient seen and examined by me. Discussed with nurse practitioner Ms. Luu. The patient admitted with COPD exacerbation. Doing better. Did tolerate some diet. Is set up a chair. PHYSICAL EXAMINATION: On examination, afebrile, pulse 116, respiration 22, blood pressure 120/61. Lungs decreased breath sounds. Some wheezing. Psych: Awake, answering questions. INVESTIGATIONS: Potassium 3.8, creatinine 0.60. ASSESSMENT: Acute chronic obstructive pulmonary disease exacerbation, slowly improving with left lower lobe pneumonia. The patient has been off BiPAP, currently on 5 L of oxygen. The patient is also getting acute urinary tract infection with E coli ESBL for which patient is on meropenem. PLAN: Continue medication and treatment plan including IV meropenem. Overall, patient is improving. Follow with Pulmonary. SAVI / SEAMUSN: [id number] /
[2017-05-21 21:06] LABS: Glucose,Whole Blood 147 mg/dL (75-99)
[2017-05-21] MEDS: ARIPiprazole 5 MG TAB PO SCH (21:30)
[2017-05-21] MEDS: IMIPRAMINE 25 MG TAB PO SCH (21:30)
[2017-05-21] MEDS: ATORVASTATIN 10 MG TAB PO SCH (21:30)
[2017-05-21] MEDS: LATANOPROST 0.005% OPHTH DROPS 2.5 ML BTL BOTH EYES SCH (21:31)
[2017-05-22] MEDS: HEPARIN SODIUM,PORCINE 5,000 UNIT/ML 1 ML VIAL SQ SCH ×3 (01:00→16:49)
[2017-05-22] MEDS: HYDROcodone/APAP 7.5-325MG 1 EACH TAB PO PRN ×3 (02:44→14:37)
[2017-05-22] MEDS: MEROPENEM 1 GM in SODIUM CHLORIDE 0.9% 100 ML IVPB SCH ×2 (05:59→11:44)
[2017-05-22] MEDS: SODIUM CHLORIDE 0.9% 1,000 ML IV SCH (06:01)
[2017-05-22 07:26] LABS: Glucose,Whole Blood 125 mg/dL (75-99)
[2017-05-22] MEDS: IPRATROPIUM-ALBUTEROL 3 ML NEB INHALATION SCH ×3 (08:09→17:06)
[2017-05-22] MEDS: FORMOTEROL FUMARATE 20 MCG/2 ML NEBU INHALATION SCH (08:09)
[2017-05-22] MEDS: BUDESONIDE 1 MG/2 ML NEBU INHALATION SCH (08:10)
[2017-05-22] MEDS: INSULIN ASPART 100 UNIT/ML 1 ML 10 ML VIAL SQ SCH ×3 (08:28→17:44)
[2017-05-22] MEDS: ASPIRIN 81 MG PO SCH (08:32)
[2017-05-22] MEDS: levETIRAcetam 500 MG TAB PO SCH (08:32)
[2017-05-22] MEDS: predniSONE 20 MG TAB PO SCH (08:32)
[2017-05-22] MEDS: GABAPENTIN 100 MG CAP PO SCH ×3 (08:32→17:42)
[2017-05-22] MEDS: METOPROLOL TARTRATE 12.5 MG TAB PO SCH (08:32)
[2017-05-22] MEDS: ALPRAZolam 0.25 MG TAB PO PRN ×2 (08:32→16:13)
[2017-05-22] MEDS: PARoxetine 20 MG TAB PO SCH (08:33)
[2017-05-22] MEDS: NICOTINE 14MG/24HR PATCH TRANSDERM SCH (08:33)
[2017-05-22] MEDS: PANTOPRAZOLE 40 MG/10 ML VIAL IVP SCH (08:33)
[2017-05-22] MEDS: KETOROLAC 0.5% OPHTH DROPS 5 ML BTL RIGHT EYE SCH ×3 (08:34→17:42)
[2017-05-22] MEDS: FLUTICASONE 50MCG/SPRAY NASAL 16GM EA NOSTRIL SCH (08:34)
[2017-05-22] MEDS: BRIMONIDINE TARTRATE 0.2% DROPS 5 ML BTL BOTH EYES SCH (08:34)
--- NOTE | 2017-05-22 10:22 | P.PN ---
Subjective Progress Note Date: 05/22/17 Principal diagnosis: Acute on chronic hypoxic respiratory failure secondary to COPD and bilateral pneumonia, likely aspiration in nature. A 66-year-old female patient who is known to me from previous hospitalizations, who is a resident of an assisted living/[facility], presented to the ED today with difficulty in breathing. The patient reportedly was having increased weakness, chills, shakes, and apparently she did choke on some food material yesterday. Subsequently her breathing got progressively worse and she started having chest congestion and dyspnea and for that reason she presented to the hospital for further advice. No reported fever. No reported chest pain. In the ED, the patient was found to be in significant respiratory distress. She had a DNR/DNI CODE STATUS. She was placed on a BiPAP for respiratory support. The chest x-ray was obtained and showed small lung volumes , carotid vascular markings, the heart size was borderline enlarged and there was mild diffuse interstitial prominence and a focal left basilar opacity/ infiltration suggestive an underlying pneumonia. The patient had a blood gas that showed a pH of 7.38 with a pCO2 of 59 and pO2 of 57 and this was done and FiO2 of 50%. Based on that, the patient was placed on a BiPAP and following that the patient got transferred to the intensive care unit. Current white cell count is at 17.5. The lactic acid level is at 2.3. The rest of the electrodes are within normal limits. First set of troponin is negative and the patient has a nonelevated BNP level. Urinalysis is also abnormal with increased white cell counts and influenza screen was also negative. Currently, the patient is on a combination of Zosyn and Levaquin. Note that the patient has a chronic component of hypercapnic arrest 30 failure. Based on previous echocardiogram the patient has a normal ejection fraction without evidence of any pulmonary hypertension. She is known to have COPD however. On 05/16/2016 I'm seeing this patient for a follow-up. The patient is still BiPAP dependent at a pressure of 14/7 cm of water. She had developed some hypoxemia and she was placed on 100% FiO2. Subsequent blood gases showed a pH of 7.36 with a pCO2 of 58 and pO2 of 123 and based on that the FiO2 was dropped down to 80%. Currently the patient's pulse ox is around 97%. The patient has developed a new small to moderate-sized right-sided pleural effusion. There is also evidence of pulmonary vascular congestion. She feels clinically better however the chest x-ray findings are slightly worse especially with development of a new moderate-sized right-sided pleural effusion. The patient is receiving 0.9 normal saline at the rate of 50 mL an hour. She is on a combination of Zosyn and Levaquin. The creatinine is stable at 0.81 with a BUN of 22. No other significant events overnight. Her breathing is still labored. Culture has been on and showed few gram-positive cocci . The urine output is around 30 mL an hour. The patient remains on a combination of DuoNeb, systemic steroids, Pulmicort and Perforomist embolus treatments around the clock. The patient is also on heparin subcu. The patient is on IV Solu-Medrol. The patient is seen again today in follow-up in the intensive care unit. She is continue to utilize BiPAP throughout the evening at a pressure 14/ 7 cm of water. She is more awake and alert today as compared to yesterday. She is currently off the BiPAP and maintaining O2 saturations in the 90s on 5 L/ m per nasal cannula. She is confused to time and place. She is somewhat restless. Her urine is positive for gram-negative bacilli, blood cultures reveal no growth to date, sputum culture pending. White count 12.6. Hemoglobin 11.4. Creatinine 1.00. She is continued on DuoNeb inhalations 4 times a day and when necessary along with Pulmicort and Perforomist inhalations twice a day. She is covered with vancomycin, Zosyn and Levaquin. Continued on IV Solu-Medrol. Today's chest x-ray reveals chronic reticulonodular interstitial changes of the lung volumes. There is persistent but improving right lower lung infiltrate and a small right pleural effusion. Patient is seen again today 05/18/2017 in follow-up in the intensive care unit. She is awake and alert in no acute distress. She is still somewhat disoriented to place and time. She is doing better on the Haldol. She is currently off the BiPAp and maintaining good O2 saturations in the upper 90s on 4 L/m per nasal cannula. She's been afebrile. Slightly tachycardic. No leukocytosis. Hemoglobin 10.3. Creatinine 0.80. Sodium 146. Or cultures positive for E. coli ESBL. We'll discontinue the vancomycin and Zosyn and Levaquin. She'll remain on meropenem now. Chest x-ray continues revealed patchy perihilar and basilar infiltrates persistent although improving. On I'm seeing this patient for a follow-up. The patient is doing well and she is awake and alert. She is less confused compared to yesterday. Afebrile hemodynamically stable. I switch this patient IV meropenem regarding an ESBL producing E. coli in the urine and the patient is also covered for aspiration pneumonia. Chest x-ray remains stable with some limited infiltration of the lung bases bilaterally at for the most part the right basal infiltration is subsided. The patient is using the BiPAP overnight at a pressure of 14/7 cm of water. Her white cell count is not elevated. Hemoglobin stable at 10.6. Function is stable creatinine of 0.7. She is tolerating her diet. She passed a swallow evaluation and she was cleared and her diet will be gradually more advanced. The swallow evaluation was done and showed a transient family liquid penetration without evidence of any aspiration. The patient is seen again today 05/20/2017 in follow-up in the intensive care unit. She is more awake and alert today as compared to yesterday. She denies any worsening shortness of breath, cough or congestion. His currently maintaining good O2 saturations in the mid to upper 90s on 5 L/m per nasal cannula. Temperature 99.2. She remains on meropenem for her ESBL E. coli urinary tract infection. On 05/21/2017 the patient is resting comfortably in bed. Afebrile. The patient is on IV Merrem regarding E. coli ESBL in the urine. No respiratory distress. Wide awake and alert following commands and answering questions appropriately. She has been tolerating her diet without any difficulty swallowing or respiratory aspiration. No nausea no vomiting no abdominal pain. No change in mental status and no delirium. No agitation. No other complaints over the past 24 hours. She is a selective overflow and she'll be moved out of the intensive care unit. Reevaluated today on 05/22/2017, patient is doing well, intermittently placed on BiPAP, but presently on nasal cannula, still receiving Merrem for E. coli ESBL in the urine. Still on multiple bronchodilators, and meds as listed. Labs were reviewed she has a relatively normal basic metabolic profile. Negative C. difficile screening. Remains on Merrem, vancomycin was discontinued. Objective - Vital Signs Vital signs: Vital Signs Temp 98.4 F 05/22/17 08:00 Pulse 80 05/22/17 08:29 Resp 17 05/22/17 08:00 BP 138/61 05/22/17 08:00 Pulse Ox 97 05/22/17 08:00 Intake & Output 05/21/17 05/22/17 05/22/17 18:59 06:59 18:59 Intake Total 900 400 Balance 900 400 Weight 84.8 kg Intake: IV 900 400 Meropenem 1 gm In Sodium 100 Chloride 0.9% 100 ml @ 200 mls/hr IVPB Q8H [facility] Rx#:[id number] Sodium Chloride 0.9% 1, 800 400 000 ml @ 50 mls/hr IV . Q20H [facility] Rx#:[id number] Other: Voiding Method Diaper Diaper Diaper Incontinent Incontinent Incontinent # Voids 1 1 - Exam Physical Exam: Revealed a 66-year-old female obese, on 5 L nasal cannula, in no distress. HEENT:[Neck is supple.] [No neck masses.] [No thyromegaly.] [No JVD.] Chest: [Minimal fine crackles at the bases, some wheezing and rhonchi on forced expiratory maneuver was noted..] Cardiac Exam: [Normal S1 and S2, no S3 gallop, no murmur.] Abdomen: [Soft, nontender, no megaly, no rebound, no guarding, normal bowel sounds.] Extremities: [No clubbing, no edema, no cyanosis.] Neurological Exam: [No focal neurologic deficit. Psychiatric: Normal mood affect and mental status examination. Musculoskeletal: Normal range of motion, no limitations, no deformities. - Labs CBC & Chem 7: 05/19/17 04:25 05/21/17 04:43 Labs: Abnormal Lab Results - Last 24 Hours (Table) 05/21/17 05/21/17 05/21/17 Range/Units 12:17 17:39 21:04 POC Glucose (mg/dL) 126 H 155 H 147 H (75-99) mg/dL 05/22/17 Range/Units 07:25 POC Glucose (mg/dL) 125 H (75-99) mg/dL Microbiology - Last 24 Hours (Table) 05/15/17 09:10 Blood Culture - Final Blood No Growth after 144 hours Assessment and Plan Assessment: 1 acute on chronic hypoxic and hypercapnic respiratory failure, secondary to COPD exacerbation, bilateral pneumonia, suspected to be aspiration in nature unless for otherwise, although the possibility of healthcare associated pneumonia is also likely and in the differential. 2 acute urinary tract infection secondary to ESBL, E. coli. 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 Time with Patient: Less than 30
[2017-05-22] MEDS: HYDROmorphone 2 MG/ML 1 ML SYRINGE IVP PRN ×2 (11:40→16:43)
[2017-05-22] MEDS: CHOLECALCIFEROL 1,000 UNIT TAB PO SCH (11:43)
[2017-05-22] MEDS: MULTIVITAMINS, THERA 1 EACH TAB PO SCH (11:43)
[2017-05-22] MEDS: THIAMINE 100 MG TAB PO SCH (11:43)
[2017-05-22 11:51] LABS: Glucose,Whole Blood 106 mg/dL (75-99)
[2017-05-22 11:54] VITALS: BP 132/67; RESP 36; TEMP 98.8
[2017-05-22] MEDS: LOPERAMIDE 2 MG CAP PO PRN (11:56)
[2017-05-22 14:42] VITALS: BMI 37.8
[2017-05-22 16:17] LABS: Glucose,Whole Blood 128 mg/dL (75-99)
--- NOTE | 2017-05-22 16:48 | DS ---
DISCHARGE SUMMARY DATE OF ADMISSION: 05/15/2017. DATE OF DISCHARGE: 05/22/2017 FINAL DIAGNOSES: 1. Acute chronic obstructive pulmonary disease exacerbation in a current smoker. 2. Left lower lobe pneumonia; suspect Gram-negative organism, probably from aspiration, present on admission. 3. Acute on chronic hypoxic respiratory failure. Patient did require BiPAP secondary to above. 4. Chronic hypercapnic respiratory failure, on 2 to 3 liters of oxygen at home. 5. Acute urinary tract infection with cultures positive for Escherichia coli/ESBL, present on admission. 6. Chronic intermittent dysphagia, failed barium swallow, but tolerating thin liquids. 7. Chronic nicotine dependence. The patient is a smoker. 8. Essential hypertension. 9. Hepatitis C treated in 2012. 10.Anxiety, depression not otherwise specified. 11.Primary osteoarthritis leading to chronic low back pain. 12.Chronic seizure disorder. 13.Obesity; body mass index of 33.8. 14.Chronic urinary stress incontinence. 15.Peripheral neuropathy, cause unknown. 16.Chronic restless leg syndrome. 17.Patient has a legal guardian, [facility] Guardian telephone [phone]. 18.CODE STATUS: DO NOT RESUSCITATE. HOSPITAL COURSE: This patient presented with shortness of breath, cough, felt to have aspiration pneumonia, also found to have a UTI, ESBL E coli. The patient's blood cultures were negative. Sputum culture was unremarkable. The patient was treated with antibiotics, including meropenem. The patient will complete 3 more days to complete for the ESBL. Currently patient doing well, tolerating a diet. Blood pressure is 127/65 and oxygen is 100% on 3 L. LUNGS: Decreased breath sounds. Some wheezing. Tired-appearing. The patient was seen by Psychiatry, Dr. Vargas, who had the patient on Paxil and increased the dose of Abilify. The patient did have a modified barium swallow that showed some thin aspiration, but she is tolerating her diet. The patient has had this before. CONSULTATIONS: 1. Dr. Davis from Pulmonary Critical Care. 2. Dr. Vargas from Psychiatry. 3. Dr. Butt from GI. DISCHARGE MEDICATIONS: 1. Fosamax 70 mg p.o. on Wednesdays. 2. Lactulose 20 grams daily p.r.n. 3. Lopressor 12.5 p.o. b.i.d. 4. Prilosec 20 mg p.o. q.48 hours. 5. Requip 0.25 p.o. at bedtime. 6. Multivitamin 1 tablet p.o. daily. 7. Flonase 1 spray each nostril b.i.d. 8. Thiamine 100 mg p.o. daily. 9. Aspirin 81 mg p.o. daily. 10.DuoNeb q.i.d. p.r.n. 11.Keppra 500 mg p.o. b.i.d. 12.Ventolin HFA 2 puffs q.6 p.r.n. 13.Flexhaler 1 puff b.i.d. 14.Craig-24 200 mg p.o. daily. 15.Mucinex 1200 mg p.o. q.12. 16.Tylenol 650 mg q.4. 17.Lipitor 10 mg at bedtime. 18.Alphagan 0.1% one drop to both eyes b.i.d. 19.Prolensa ophthalmic solution 1 drop to right eye daily. 20.Vitamin D3 2000 units p.o. daily. 21.Xalatan 0.005% one drop to both eyes at bedtime. 22.Nicotine 40 mg patch daily. 23.Nitrostat 0.4 sublingually q.5 p.r.n. 24.Paxil 60 mg p.o. daily. 25.Senokot S one tablet p.o. b.i.d. 26.Xanax 0.25 p.o. b.i.d. 27.Abilify 5 mg p.o. at bedtime. 28.Perforomist 20 mcg inhalation b.i.d. 29.Neurontin 100 mg p.o. t.i.d. 30.[place] 7.5 one tablet q.6 p.r.n. 31.DuoNeb q.i.d. 32.Imodium 2 mg p.o. q.i.d. p.r.n. 33.Meropenem 1 gram IV piggyback q.8 for a total of 9 doses. 34.Prednisone taper. DISPOSITION: [facility]. Follow up with Psychiatry in 2 weeks. Follow up with Dr. Davis in 1 week. Follow up with Dr. Redmond at the [facility]. Labs: CBC and BMP in 3 to 5 days. Oxygen 3 L nasal cannula. Per Dietary, patient may have straws at bedside; small sips only. Patient otherwise is tolerating her diet regularly. MMODL / IJN: [id number] /
[2017-05-22 17:21] VITALS: PULSE 80
--- NOTE | 2017-05-23 14:07 | CDI ---
Last Revision, March 2017 Documentation Clarification Form Date: 05/23/2017 1:46:00 PM From: Daylin Resendiz Phone: If you have a question regarding this query, please contact [employer] Worker at [phone] between 8am and 5pm. Admit Date: 05/15/2017 11:38:00 AM Patient Name: Mable Houser Visit Number: [id number] Discharge Date: ATTENTION: The Clinical Documentation Specialists (CDI) and [facility] Coding Staff appreciate your assistance in clarifying documentation. Please respond to the clarification below the line at the bottom and electronically sign. The CDI & [facility] Coding staff will review the response and follow-up if needed. Please note: Queries are made part of the Legal Health Record. If you have any questions, please contact the author of this message via ITS. Dr. Enrrique Torres Sepsis is documented in the ED report, H&P and Anna Ortiz's progress notes. History/Risk Factors: Patient was admitted for left lower lobe pneumonia. Clinical Indicators: Altered mental status, leukocytosis. WBC/Left Shift : 17.5/14.0 Lactic acid: 2.3 Blood cultures: No growth. Vitals signs on admission: T. 99.7 then up to 101.8 on same day, P. 118 - 128 on day of admission, R. 34, BP 111/77 Antibiotics: IV Levofloxacin, IV Piiperacillin/Tazobactam, IV Vancomycin IV Bolus: IV sodium chloride 1,000 mls @999 mls/h In your professional opinion, please clarify if Sepsis was ruled in or ruled out Other, please specify Unable to determine Identify the (suspected) organism Link or clarify if there is associated (due to/with): Organ failure Shock SIRS Criteria..2 or more of the following may indicate SIRS: Temperature < 96.8F (36C) or > 101.0F (38.3C) Heart Rate > 90 bpm Respiratory Rate > 20 breaths/min or PaCO2 < 32 mmHg White Blood Cell Count > 12,000 or < 4,000 cells/mm3 or > 10% bands Lactate >2.0 mmol/L (>4.0 is equivalent to septic shock) Please continue to document in your progress notes and discharge summary in order to capture severity of illness and risk of mortality. Include clinical findings that support your diagnosis. sepsis from pneumonia, suspect gram negative organism-POA MTDD
--- NOTE | 2017-06-05 08:25 | DS ---
DISCHARGE SUMMARY ADDENDUM: DATE OF ADMISSION: 05/15/2017 DATE OF DISCHARGE: 05/22/2017 Left lower lobe pneumonia, suspect gram-negative organism, probably from aspiration, causing sepsis, present on admission. MMODL / IJN: [id number] /
== END 2017-05-22 20:44 | DRG 871 ==
LOC: EC 08:51 → 6ICU 11:38
PROVIDERS: ADMIT Hospitalist; ATTEND Hospitalist
PROC: 5A09457 Assistance with Respiratory Ventilation, 24-96 Consecutive Hours, Continuous Positive Airway Pressure (ICD-10-PCS; principal; 2017-05-15)
DX: A41.50 Gram-negative sepsis, unspecified (principal); J69.0 Pneumonitis due to inhalation of food and vomit; J96.21 Acute and chronic respiratory failure with hypoxia; G93.41 Metabolic encephalopathy; E87.4 Mixed disorder of acid-base balance; J15.6 Pneumonia due to other Gram-negative bacteria; R13.10 Dysphagia, unspecified; J96.22 Acute and chronic respiratory failure with hypercapnia; J44.1 Chronic obstructive pulmonary disease with (acute) exacerbation; N39.0 Urinary tract infection, site not specified; R44.3 Hallucinations, unspecified; G62.9 Polyneuropathy, unspecified; F03.90 Unspecified dementia, unspecified severity, without behavioral disturbance, psychotic disturbance, mood disturbance, and anxiety; I11.0 Hypertensive heart disease with heart failure; I50.9 Heart failure, unspecified; E66.01 Morbid (severe) obesity due to excess calories; B96.20 Unspecified Escherichia coli [E. coli] as the cause of diseases classified elsewhere; F17.210 Nicotine dependence, cigarettes, uncomplicated; E78.5 Hyperlipidemia, unspecified; F41.0 Panic disorder [episodic paroxysmal anxiety]; G25.81 Restless legs syndrome; G40.909 Epilepsy, unspecified, not intractable, without status epilepticus; G89.29 Other chronic pain; H40.9 Unspecified glaucoma; I83.90 Asymptomatic varicose veins of unspecified lower extremity; K21.9 Gastro-esophageal reflux disease without esophagitis; M19.91 Primary osteoarthritis, unspecified site; M81.0 Age-related osteoporosis without current pathological fracture; N39.3 Stress incontinence (female) (male); R15.9 Full incontinence of feces; I69.928 Other speech and language deficits following unspecified cerebrovascular disease; M54.9 Dorsalgia, unspecified; F32.9 Major depressive disorder, single episode, unspecified; Z16.12 Extended spectrum beta lactamase (ESBL) resistance; Z66 Do not resuscitate; Z99.81 Dependence on supplemental oxygen; Z96.653 Presence of artificial knee joint, bilateral; Z96.641 Presence of right artificial hip joint; Z90.721 Acquired absence of ovaries, unilateral; Z90.710 Acquired absence of both cervix and uterus; Z87.01 Personal history of pneumonia (recurrent); Z68.33 Body mass index [BMI] 33.0-33.9, adult; Z79.82 Long term (current) use of aspirin; Z79.83 Long term (current) use of bisphosphonates; Z79.899 Other long term (current) drug therapy; Z91.040 Latex allergy status; Z88.2 Allergy status to sulfonamides; Z91.018 Allergy to other foods
CPT/HCPCS: 36415; 36600; 71045; 74230; 80048; 80053; 80198; 80202; 81001; 82550; 82553; 82805; 83605; 83735; 83880; 84100; 84132; 84484; 85025; 85610; 85730; 87040; 87070; 87077; 87086; 87186; 87205; 87324; 87502; 93005; 94640; 94660; 96365; 96375; 99291

== ENCOUNTER → 2017-12-08 | Outpatient (CLI) | payer MEDICARE, OTHER ==
--- NOTE | 2017-12-08 10:57 | MR ---
EXAMINATION TYPE: MR lumbar spine wo con DATE OF EXAM: 12/08/2017 COMPARISON: NONE HISTORY: Low Back Pain / Spondylosis Without Myelopathy TECHNIQUE: T1 and T2 axial and sagittal images of the lumbar spine are submitted. FINDINGS: There is no abnormal signal seen within the visualized spinal cord or paraspinal soft tissu es. Simple appearing cyst within the bilateral kidney. There are chronic multiple compression fractures with severe fractures at T10, T11 and L1. Moderate e ndplate compression fractures of L4 and L5 and mild superior endplate compression fracture of L2. At T12-L1 there is retropulsion of the severe compression fracture. This abuts the anterior margin th e spinal cord. Mild bilateral foraminal encroachment hypertrophic change of the facets. Central disc focal herniation also noted. There is approximate 30% reduction AP canal diameter. At L1-2 there is facet arthropathy with posterior spurring. Mild circumferential disc bulging and lig amentum flavum hypertrophy. No Canal stenosis. At L2-3 there is facet arthropathy and ligamentum flavum hypertrophy. No Canal stenosis. No foraminal encroachment. At L3-4 there is degenerative disc disease with circumferential disc bulging but no canal stenosis. T here is more moderate to advanced facet arthropathy with ligamentum flavum hypertrophy. Mild bilatera l foraminal encroachment. Borderline central stenosis. At L4-5 there is degenerative disc disease with advanced facet arthropathy. Mild central disc bulging with mild bilateral foraminal encroachment but no canal stenosis. At L5-S1 there is disease with advanced facet arthropathy. There is no canal stenosis. Neural foramin a remain patent. There is a atrophy of the paraspinal musculature. Aorta of normal caliber. Mild thickening to the lef t adrenal gland is nonspecific. IMPRESSION: 1. Multiple chronic compression fractures with severe fractures at L1, T10 and T11. 2. Retropulsion and disc small herniation T12-L1 and abuts the anterior margin of the spinal cord res ults in approximately 30% reduction AP canal diameter. 3. Multilevel disc bulging and facet arthropathy with borderline central stenosis at L3-4 and multile anamaria mild bilateral foraminal encroachment as discussed above.
== END | disposition home or self-care (01) ==
LOC: RADMRIMAIN 09:57
PROVIDERS: ATTEND Physical Medicine & Rehabilitation
DX: M48.061 Spinal stenosis, lumbar region without neurogenic claudication (principal); M51.26 Other intervertebral disc displacement, lumbar region; M46.96 Unspecified inflammatory spondylopathy, lumbar region; M48.56XA Collapsed vertebra, not elsewhere classified, lumbar region, initial encounter for fracture
CPT/HCPCS: 72148

== ENCOUNTER 2018-01-09 02:14 | Emergency (ER) | payer OTHER, MEDICARE ==
--- NOTE | 2018-01-09 02:31 | ED ---
Fall HPI - General Source: patient, RN notes reviewed Mode of arrival: EMS <Homar Torres - Last Filed: 01/09/18 03:26> <Shannan Anderson - Last Filed: 01/09/18 23:05> - General Chief Complaint: Fall Stated Complaint: Fall Time Seen by Provider: 01/09/18 02:20 - History of Present Illness Initial Comments: This a 67-year-old female presents emergency Department with chief complaint of left ankle pain. Patient currently resides at [facility]. Patient states that she was walking with her daughter and actually fell. Patient has obvious left ankle injury. Patient x-rays that facility which showed acute fracture though she was unable to be splinted there. She denies head injury no loss conscious. This did happen earlier yesterday. Patient has had a left knee surgery in the past. Patient denies any prior left ankle injuries. (Homar Torres) - Related Data Home Medications Medication Instructions Recorded Confirmed Alendronate Sodium [Fosamax] 70 mg PO WE 01/05/14 05/15/17 Lactulose 20 gm PO DAILY PRN 01/05/14 05/15/17 Metoprolol Tartrate [Lopressor] 12.5 mg PO BID 01/05/14 05/15/17 Omeprazole [PriLOSEC] 20 mg PO Q48H 10/30/14 05/15/17 rOPINIRole HCL [Requip] 0.25 mg PO HS@199910/30/14 05/15/17 Multivitamins, Thera [Multivitamin 1 tab PO DAILY 11/06/14 05/15/17 (formulary)] Fluticasone Nasal [place] [Flonase 1 spray EA NOSTRIL BID@08,199906/01/1505/15 Nasal Beggs] Thiamine [Vitamin B-1] 100 mg PO DAILY@0800 08/24/15 05/15/17 Aspirin EC [Ecotrin Low Dose] 81 mg PO DAILY 01/07/16 05/15/17 Ipratropium-Albuterol Nebulize 3 ml INHALATION RT-QID PRN 01/07/16 05/15/17 [Duoneb 0.5 mg-3 mg/3 ml Soln] levETIRAcetam [Keppra] 500 mg PO BID@0800,199901/07/16 05/15/17 Albuterol Inhaler [Ventolin Hfa 2 puff INHALATION RT-Q6H PRN 01/28/16 05/15/17 Inhaler] Budesonide [Pulmicort Flexhaler] 1 puff INHALATION RT-BID 01/28/16 05/15/17 Theophylline 24 Hour [Craig-24] 200 mg PO DAILY@0800 01/28/16 05/15/17 Acetaminophen Tab [Tylenol] 650 mg PO Q4H PRN 05/15/17 05/15/17 Atorvastatin [Lipitor] 10 mg PO HS@199905/15/17 05/15/17 Brimonidine Tartrate [Alphagan P 1 drops BOTH EYES BID 05/15/17 05/15/17 0.1% Ophth Soln] Bromfenac Sodium [Prolensa Ophth 1 drop RIGHT EYE DAILY 05/15/17 05/15/17 Soln] Cholecalciferol [Vitamin D3] 2,000 units PO DAILY 05/15/17 05/15/17 Latanoprost [Xalatan 0.005%] 1 drop BOTH EYES HS 05/15/17 05/15/17 Nicotine 14Mg/24Hr Patch [Habitrol] 1 patch TRANSDERM DAILY 05/15/17 05/15/17 Nitroglycerin Sl Tabs [Nitrostat] 0.4 mg SUBLINGUAL Q5M PRN 05/15/17 05/15/17 PARoxetine HCL [Paxil] 60 mg PO DAILY 05/15/17 05/15/17 Sennosides-Docusate Sodium 1 tab PO BID 05/15/17 05/15/17 [Senokot-S] Previous Rx's Medication Instructions Recorded guaiFENesin [Mucinex] 1,200 mg PO Q12HR tablet.er 02/01/16 ALPRAZolam [Xanax] 0.25 mg PO BID #10 tab 05/22/17 ARIPiprazole [Abilify] 5 mg PO HS #1 tab 05/22/17 Formoterol Fumarate [Perforomist] 20 mcg INHALATION RT-BID nebu 05/22/17 Gabapentin [Neurontin] 100 mg PO AC-TID #30 cap 05/22/17 HYDROcodone/APAP 7.5-325MG [[place] 1 tab PO Q6H PRN #10 tab 05/22/17 7.5-325] Ipratropium-Albuterol Nebulize 3 ml INHALATION RT-Q8H PRN 05/22/17 [Duoneb 0.5 mg-3 mg/3 ml Soln] ampul.neb Ipratropium-Albuterol Nebulize 3 ml INHALATION RT-QID ampul.neb 05/22/17 [Duoneb 0.5 mg-3 mg/3 ml Soln] Loperamide [Imodium] 2 mg PO QID PRN cap 05/22/17 Meropenem [Merrem] 1 gm IVPB Q8H #9 vial 05/22/17 predniSONE 10 mg PO DAILY #30 tab 05/22/17 Allergies Allergy/AdvReac Type Severity Reaction Status Date / Time latex Allergy Rash/Hives Verified 01/09/18 02:24 strawberry [Kendall] Allergy Dyspnea,swe Verified 01/09/18 02:24 lling,rash Sulfa (Sulfonamide Allergy Rash/Hives, Verified 01/09/18 02:24 Antibiotics) swelling Review of Systems ROS Other: All systems not noted in ROS Statement are negative. <Homar Torres - Last Filed: 01/09/18 03:26> ROS Other: All systems not noted in ROS Statement are negative. <Shannan Anderson - Last Filed: 01/09/18 23:05> ROS Statement: Those systems with pertinent positive or pertinent negative responses have been documented in the HPI. 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 000 History of Any Multi-Drug Resistant Organisms: ESBL Date of last positivie culture/infection: 05/15/17 MDRO Source:: ESBL URINE Past Surgical History: Hysterectomy, Joint Replacement, Orthopedic Surgery, Tubal Ligation Additional Past Surgical History / Comment(s): Bilateral total knees and total R hip arthroplasty, L wrist ORIF, R oophorectomy d/t cyst, liver bx, back epidural injections. Past Anesthesia/Blood Transfusion Reactions: No Reported Reaction Additional Past Anesthesia/Blood Transfusion Reaction / Comment(s): Pt states she had blood transfusion without reaction. Past Psychological History: Anxiety, Depression, Panic Disorder Smoking Status: Former smoker Past Alcohol Use History: None Reported Past Drug Use History: None Reported - Past Family History Mother History Unknown: Yes Family Medical History: Diabetes Mellitus Additional Family Medical History / Comment(s): unable to obtain any family history from previous chart or patient Father History Unknown: Yes Family Medical History: Eye Disorder, Vascular Disorder Additional Family Medical History / Comment(s): PERIPHERAL VASCULAR DISEASE, MACULAR DEGENERATION <Homar Torres M - Last Filed: 01/09/18 03:26> General Exam Limitations: physical limitation General appearance: alert, in no apparent distress Respiratory exam: Present: normal lung sounds bilaterally. Absent: respiratory distress, wheezes, rales, rhonchi, stridor Cardiovascular Exam: Present: regular rate, normal rhythm, normal heart sounds. Absent: systolic murmur, diastolic murmur, rubs, gallop, clicks Extremities exam: Present: other (Left ankle there is ecchymosis, obvious deformity neurovascular intact there is no foot tenderness no proximal tib-fib tenderness) <Homar Torres M - Last Filed: 01/09/18 03:26> Vital Signs 01/09/18 01/09/18 01/09/18 02:20 03:16 03:43 Temperature 99.5 F 98.6 F Pulse Rate 103 H 102 H Respiratory 15 18 Rate Blood Pressure 138/60 128/70 O2 Sat by Pulse 95 97 Oximetry Procedures - Orthopedic Splinting/Casting Injury #1 Side: left Lower Extremity Injury Location: short leg, ankle Lower Extremity Immobilizer: posterior splint, synthetic pre-padded splint <Homar Torres M - Last Filed: 01/09/18 03:26> Medical Decision Making <Homar Torres M - Last Filed: 01/09/18 03:26> <Shannan Anderson P - Last Filed: 01/09/18 23:05> - Medical Decision Making 67-year-old female presented to emergency department for left ankle fracture. X -rays reveals a trimalleolar fracture. Patient's orthopedic surgeon is Dr. Pennington case discussed with Dr. Pennington recommends splint and follow-up in office. Patient will be discharged back to [place] nonweightbearing and she' ll continue her [place] for pain control. She is neurovascularly intact. (Homar Trores) I was available for consultation in the emergency department. The history and physical exam were done by the midlevel provider. I was consulted for this patient's care. I reviewed the case with the midlevel provider and based on their presentation of the patient, I agree with the assessment, medical decision making and plan of care as documented. I discussed patient care with Dr. Pennington who recommended splinting, he can see the patient in office later today. (Shannan Anderson) Disposition Is patient prescribed a controlled substance at d/c from ED?: No Time of Disposition: 03:28 <Homar Torres - Last Filed: 01/09/18 03:26> <Shannan Anderson P - Last Filed: 01/09/18 23:05> Clinical Impression: Fall, Trimalleolar fracture of left ankle Disposition: HOME SELF-CARE Condition: Stable Instructions: Ankle Fracture (ED) Additional Instructions: Please return to the Emergency Department if symptoms worsen or any other concerns. Referrals: Rhett Redmond DO [Primary Care Provider] - 1-2 days Ehsan Pennington MD [STAFF PHYSICIAN] - 1-2 days
--- NOTE | 2018-01-09 02:44 | XR ---
EXAMINATION TYPE: XR ankle limited LT DATE OF EXAM: 01/09/2018 COMPARISON: NONE HISTORY: Ankle pain TECHNIQUE: 2 views FINDINGS: There are transverse fractures of the medial and lateral malleolus. There is probably a sm all chip fracture of the posterior malleolus on the lateral view. There is soft tissue swelling aroun d the ankle joint. IMPRESSION: Nondisplaced trimalleolar fracture of the left ankle. Soft tissue swelling. No dislocation.
[2018-01-09] MEDS ORDERED: MORPHINE SULFATE 4 MG/ML SYRINGE IVP STA (03:02)
[2018-01-09] MEDS ORDERED: ONDANSETRON 4 MG/2 ML VIAL IVP STA (03:02)
[2018-01-09 03:17] VITALS: BP 128/70; PULSE 102; RESP 18
[2018-01-09 03:45] VITALS: TEMP 98.6
== END 2018-01-09 03:45 | disposition home or self-care (01) ==
LOC: EC 02:14
DX: S82.852A Displaced trimalleolar fracture of left lower leg, initial encounter for closed fracture (principal); J44.9 Chronic obstructive pulmonary disease, unspecified; E78.5 Hyperlipidemia, unspecified; I11.0 Hypertensive heart disease with heart failure; I50.9 Heart failure, unspecified; H40.9 Unspecified glaucoma; G40.909 Epilepsy, unspecified, not intractable, without status epilepticus; M19.90 Unspecified osteoarthritis, unspecified site; K21.9 Gastro-esophageal reflux disease without esophagitis; J96.10 Chronic respiratory failure, unspecified whether with hypoxia or hypercapnia; F32.9 Major depressive disorder, single episode, unspecified; F41.0 Panic disorder [episodic paroxysmal anxiety]; Z87.891 Personal history of nicotine dependence; Z88.2 Allergy status to sulfonamides; Z91.018 Allergy to other foods; Z91.040 Latex allergy status; Z79.1 Long term (current) use of non-steroidal anti-inflammatories (NSAID); Z79.51 Long term (current) use of inhaled steroids; Z79.82 Long term (current) use of aspirin; Z79.899 Other long term (current) drug therapy; Z99.81 Dependence on supplemental oxygen; W01.0XXA Fall on same level from slipping, tripping and stumbling without subsequent striking against object, initial encounter; Y93.01 Activity, walking, marching and hiking; Y92.009 Unspecified place in unspecified non-institutional (private) residence as the place of occurrence of the external cause
CPT/HCPCS: 73600; 99284; 29515; 96374; 96375; J2270; J2405

== ENCOUNTER 2018-07-26 00:01 | Inpatient (IN) | payer MEDICARE, OTHER ==
[2018-07-26] MEDS ORDERED: ACETAMINOPHEN TAB 325 MG TAB PO STA (00:06)
--- NOTE | 2018-07-26 00:22 | ED ---
General Adult HPI - General Stated complaint: Poss sepsis, altered mental status Time Seen by Provider: 07/26/18 00:06 Source: EMS Mode of arrival: EMS Limitations: altered mental status - History of Present Illness Initial comments: Mable is a medically ill 68-year-old female who resides at [facility] presents to the emergency department today via EMS for evaluation of altered mental status and possible sepsis. Per EMS the patient's baseline alert and oriented to person and place she does have some speech difficulty. Yesterday staff noted that she was febrile a urinalysis revealed a UTI and lab work revealed leukocytosis with a white blood cell count of 21. This evening they noted that she seemed very sleepy her heart was racing she was febrile decided to send her the ER for further evaluation of possible sepsis likely due to urinary tract infection. Upon arrival the patient is very sleepy she does wake to voice she answers questions with yes or no answers. She denies pain. - Related Data Home Medications Medication Instructions Recorded Confirmed Alendronate Sodium [Fosamax] 70 mg PO WE 01/05/14 05/15/17 Lactulose 20 gm PO DAILY PRN 01/05/14 05/15/17 Metoprolol Tartrate [Lopressor] 12.5 mg PO BID 01/05/14 05/15/17 Omeprazole [PriLOSEC] 20 mg PO Q48H 10/30/14 05/15/17 rOPINIRole HCL [Requip] 0.25 mg PO HS@199910/30/14 05/15/17 Multivitamins, Thera [Multivitamin 1 tab PO DAILY 11/06/14 05/15/17 (formulary)] Fluticasone Nasal [place] [Flonase 1 spray EA NOSTRIL BID@0800,199906/01/15 05/15/17 Nasal [place]] Thiamine [Vitamin B-1] 100 mg PO DAILY@0800 08/24/15 05/15/17 Aspirin EC [Ecotrin Low Dose] 81 mg PO DAILY 01/07/16 05/15/17 Ipratropium-Albuterol Nebulize 3 ml INHALATION RT-QID PRN 01/07/16 05/15/17 [Duoneb 0.5 mg-3 mg/3 ml Soln] levETIRAcetam [Keppra] 500 mg PO BID@0800,199901/07/16 05/15/17 Albuterol Inhaler [Ventolin Hfa 2 puff INHALATION RT-Q6H PRN 01/28/16 05/15/17 Inhaler] Budesonide [Pulmicort Flexhaler] 1 puff INHALATION RT-BID 01/28/16 05/15/17 Theophylline 24 Hour [Craig-24] 200 mg PO DAILY@0800 01/28/16 05/15/17 Acetaminophen Tab [Tylenol] 650 mg PO Q4H PRN 05/15/17 05/15/17 Atorvastatin [Lipitor] 10 mg PO HS@199905/15/17 05/15/17 Brimonidine Tartrate [Alphagan P 1 drops BOTH EYES BID 05/15/17 05/15/17 0.1% Ophth Soln] Bromfenac Sodium [Prolensa Ophth 1 drop RIGHT EYE DAILY 05/15/17 05/15/17 Soln] Cholecalciferol [Vitamin D3] 2,000 units PO DAILY 05/15/17 05/15/17 Latanoprost [Xalatan 0.005%] 1 drop BOTH EYES HS 05/15/17 05/15/17 Nicotine 14Mg/24Hr Patch [Habitrol] 1 patch TRANSDERM DAILY 05/15/17 05/15/17 Nitroglycerin Sl Tabs [Nitrostat] 0.4 mg SUBLINGUAL Q5M PRN 05/15/17 05/15/17 PARoxetine HCL [Paxil] 60 mg PO DAILY 05/15/17 05/15/17 Sennosides-Docusate Sodium 1 tab PO BID 05/15/17 05/15/17 [Senokot-S] Previous Rx's Medication Instructions Recorded guaiFENesin [Mucinex] 1,200 mg PO Q12HR tablet.er 02/01/16 ALPRAZolam [Xanax] 0.25 mg PO BID #10 tab 05/22/17 ARIPiprazole [Abilify] 5 mg PO HS #1 tab 05/22/17 Formoterol Fumarate [Perforomist] 20 mcg INHALATION RT-BID nebu 05/22/17 Gabapentin [Neurontin] 100 mg PO AC-TID #30 cap 05/22/17 HYDROcodone/APAP 7.5-325MG [[place] 1 tab PO Q6H PRN #10 tab 05/22/17 7.5-325] Ipratropium-Albuterol Nebulize 3 ml INHALATION RT-Q8H PRN 05/22/17 [Duoneb 0.5 mg-3 mg/3 ml Soln] ampul.neb Ipratropium-Albuterol Nebulize 3 ml INHALATION RT-QID ampul.neb 05/22/17 [Duoneb 0.5 mg-3 mg/3 ml Soln] Loperamide [Imodium] 2 mg PO QID PRN cap 05/22/17 Meropenem [Merrem] 1 gm IVPB Q8H #9 vial 05/22/17 predniSONE 10 mg PO DAILY #30 tab 05/22/17 Allergies Allergy/AdvReac Type Severity Reaction Status Date / Time latex Allergy Rash/Hives Verified 07/26/18 00:10 strawberry [[place]] Allergy Dyspnea,swe Verified 07/26/18 00:10 lling,rash Sulfa (Sulfonamide Allergy Rash/Hives, Verified 07/26/18 00:10 Antibiotics) swelling Review of Systems ROS Statement: Those systems with pertinent positive or pertinent negative responses have been documented in the HPI. ROS Other: All systems not noted in ROS Statement are negative. 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 000 History of Any Multi-Drug Resistant Organisms: ESBL Date of last positivie culture/infection: 05/15/17 MDRO Source:: ESBL URINE Past Surgical History: Hysterectomy, Joint Replacement, Orthopedic Surgery, Tub al Ligation Additional Past Surgical History / Comment(s): Bilateral total knees and total R hip arthroplasty, L wrist ORIF, R oophorectomy d/t cyst, liver bx, back epidural injections. Past Anesthesia/Blood Transfusion Reactions: No Reported Reaction Additional Past Anesthesia/Blood Transfusion Reaction / Comment(s): Pt states she had blood transfusion without reaction. Past Psychological History: Anxiety, Depression, Panic Disorder Smoking Status: Former smoker Past Alcohol Use History: None Reported Past Drug Use History: None Reported - Past Family History Mother History Unknown: Yes Family Medical History: Diabetes Mellitus Additional Family Medical History / Comment(s): unable to obtain any family history from previous chart or patient Father History Unknown: Yes Family Medical History: Eye Disorder, Vascular Disorder Additional Family Medical History / Comment(s): PERIPHERAL VASCULAR DISEASE, MACULAR DEGENERATION General Exam - General Exam Comments Initial Comments: Physical Exam GENERAL: Chronically ill-appearing female appears much older than stated age Toxic appearance, having rigors HENT: Normocephalic, Atraumatic. EYES: PERRL, EOMI PULMONARY: Crackles bilaterally On 2 L supplemental oxygen via nasal cannula CARDIOVASCULAR: Tachycardic Warm and well perfused extremities ABDOMEN: Soft and nontender with normal bowel sounds. SKIN: Warm to the touch, pale : Deferred NEUROLOGIC: Alert to self MUSCULOSKELETAL: Normal extremities with adequate strength and full range of motion. No lower extremity swelling or edema. No calf tenderness. PSYCHIATRIC: Unable to assess Limitations: no limitations Limitations: altered mental status Course Vital Signs 07/26/18 00:04 Temperature 102 F H Pulse Rate 110 H Respiratory 32 H Rate Blood Pressure 128/91 O2 Sat by Pulse 96 Oximetry EKG Findings - EKG Comments: EKG Findings:: Attempt was made to obtain an EKG upon arrival however patient is having persistent right ear secondary to very high fever. History EKG obtained at 12:09 AM with significant movement artifact, rhythm appears to be sinus tachycardia. Will plan to repeat EKG when patient stabilizes. Medical Decision Making - Medical Decision Making Sepsis workup initiated Gentle IVF ordered - patient has CHF, appears clinically fluid overloaded Patient documentation confirms she is DNR - do not want to fluid overload her because we cannot intubate if she has pulmonary edema Shins mental status continues to decline while in the emergency department. At this time I do not feel the patient can tolerate by mouth intake including her antipyretics. Suppositories will be administered. Patient continues to be tachypneic with very wet breath sounds despite getting only 2-300 mL of IV fluids, bolus will be discontinued. Urinalysis from 2 days ago confirms urinary tract infection culture is pending, labs today again reveal leukocytosis with neutrophilia as well as chronic kidney disease I do feel the patient warrants further evaluation of sepsis due to urinary tract infection. IV antibiotics have been ordered. Patient will be admitted to the hospital for further management. - Lab Data Result diagrams: 07/26/18 00:25 07/26/18 00:25 Lab Results 07/26/18 07/26/18 07/26/18 Range/Units 00:25 00:25 00:25 WBC 19.1 H (3.8-10.6) k/uL RBC 4.29 (3.80-5.40) m/uL Hgb 10.6 L (11.4-16.0) gm/dL Hct 34.5 (34.0-46.0) % MCV 80.5 (80.0-100.0) fL MCH 24.7 L (25.0-35.0) pg MCHC 30.7 L (31.0-37.0) g/dL RDW 14.4 (11.5-15.5) % Plt Count 602 H (150-450) k/uL Neutrophils % 91 % Lymphocytes % 3 % Monocytes % 4 % Eosinophils % 1 % Basophils % 0 % Neutrophils # 17.3 H (1.3-7.7) k/uL Lymphocytes # 0.6 L (1.0-4.8) k/uL Monocytes # 0.8 (0-1.0) k/uL Eosinophils # 0.2 (0-0.7) k/uL Basophils # 0.1 (0-0.2) k/uL Hypochromasia Marked PT (9.0-12.0) sec INR (<1.2) APTT (22.0-30.0) sec Sodium 139 (137-145) mmol/L Potassium 4.9 (3.5-5.1) mmol/L Chloride 96 L (98-107) mmol/L Carbon Dioxide 31 H (22-30) mmol/L Anion Gap 12 mmol/L BUN 39 H (7-17) mg/dL Creatinine 2.26 H (0.52-1.04) mg/dL Est GFR (CKD-EPI)AfAm 25 (>60 ml/min/1.73 sqM) Est GFR (CKD-EPI)NonAf 22 (>60 ml/min/1.73 sqM) Glucose 127 H (74-99) mg/dL Plasma Lactic Acid Sammy 1.1 (0.7-2.0) mmol/L Calcium 9.3 (8.4-10.2) mg/dL Total Bilirubin 0.5 (0.2-1.3) mg/dL AST 39 H (14-36) U/L ALT 19 (9-52) U/L Alkaline Phosphatase 120 (38-126) U/L Troponin I (0.000-0.034) ng/mL Total Protein 7.9 (6.3-8.2) g/dL Albumin 3.5 (3.5-5.0) g/dL Influenza Type A RNA (Not Detectd) Influenza Type B (PCR) (Not Detectd) 07/26/18 07/26/18 07/26/18 Range/Units 00:25 00:25 01:20 WBC (3.8-10.6) k/uL RBC (3.80-5.40) m/uL Hgb (11.4-16.0) gm/dL Hct (34.0-46.0) % MCV (80.0-100.0) fL MCH (25.0-35.0) pg MCHC (31.0-37.0) g/dL RDW (11.5-15.5) % Plt Count (150-450) k/uL Neutrophils % % Lymphocytes % % Monocytes % % Eosinophils % % Basophils % % Neutrophils # (1.3-7.7) k/uL Lymphocytes # (1.0-4.8) k/uL Monocytes # (0-1.0) k/uL Eosinophils # (0-0.7) k/uL Basophils # (0-0.2) k/uL Hypochromasia PT 11.7 (9.0-12.0) sec INR 1.1 (<1.2) APTT 31.5 H (22.0-30.0) sec Sodium (137-145) mmol/L Potassium (3.5-5.1) mmol/L Chloride (98-107) mmol/L Carbon Dioxide (22-30) mmol/L Anion Gap mmol/L BUN (7-17) mg/dL Creatinine (0.52-1.04) mg/dL Est GFR (CKD-EPI)AfAm (>60 ml/min/1.73 sqM) Est GFR (CKD-EPI)NonAf (>60 ml/min/1.73 sqM) Glucose (74-99) mg/dL Plasma Lactic Acid Sammy (0.7-2.0) mmol/L Calcium (8.4-10.2) mg/dL Total Bilirubin (0.2-1.3) mg/dL AST (14-36) U/L ALT (9-52) U/L Alkaline Phosphatase (38-126) U/L Troponin I 0.012 (0.000-0.034) ng/mL Total Protein (6.3-8.2) g/dL Albumin (3.5-5.0) g/dL Influenza Type A RNA Not Detected (Not Detectd) Influenza Type B (PCR) Not Detected (Not Detectd) Disposition Clinical Impression: Sepsis, UTI (urinary tract infection) Disposition: ADMITTED IP TO THIS [facility] Condition: Critical Is patient prescribed a controlled substance at d/c from ED?: No Referrals: Rhett Redmond DO [Primary Care Provider] - 1-2 days
[2018-07-26] MEDS: SODIUM CHLORIDE 0.9% 500 ML 500 ML IV SCH ×2 (00:27→02:15)
--- NOTE | 2018-07-26 00:52 | XR ---
EXAM: XR Chest, 1 View CLINICAL HISTORY: Fever TECHNIQUE: Frontal view of the chest. COMPARISON: 06-19-17 FINDINGS: Lungs: Lungs are underinflated but clear Pleural space: Unremarkable. No pneumothorax. Heart: Unremarkable. No cardiomegaly. Mediastinum: Unremarkable. Bones/joints: Osteopenia. Moderate degenerative changes. IMPRESSION: No acute findings.
[2018-07-26 01:08] LABS: Albumin 3.5 g/dL (3.5-5.0); Calcium 9.3 mg/dL (8.4-10.2); Potassium 4.9 mmol/L (3.5-5.1); Total Bilirubin 0.5 mg/dL (0.2-1.3); Total Protein 7.9 g/dL (6.3-8.2)
[2018-07-26 01:35] LABS: INR 1.1 (<1.2); Partial Thromboplastin Time 31.5 sec (22.0-30.0); Prothrombin Time 11.7 sec (9.0-12.0)
[2018-07-26 01:37] LABS: Basophils # (A) 0.1 k/uL (0-0.2); Basophils % (A) 0 %; Eosinophils # (A) 0.2 k/uL (0-0.7); Eosinophils % (A) 1 %; HCT 34.5 % (34.0-46.0); HGB 10.6 gm/dL (11.4-16.0); Hypochromasia Marked; Lymphocytes # (A) 0.6 k/uL (1.0-4.8); Lymphocytes % (A) 3 %; MCH 24.7 pg (25.0-35.0); MCHC 30.7 g/dL (31.0-37.0); MCV 80.5 fL (80.0-100.0); Mean Platelet Volume 7.8; Monocytes # (A) 0.8 k/uL (0-1.0); Monocytes % (A) 4 %; Neutrophils # (A) 17.3 k/uL (1.3-7.7); Neutrophils % (A) 91 %; Platelet Count 602 k/uL (150-450); RBC 4.29 m/uL (3.80-5.40); RDW 14.4 % (11.5-15.5); WBC 19.1 k/uL (3.8-10.6)
[2018-07-26] MEDS ORDERED: NALOXONE 0.4 MG/ML 1 ML VIAL IV PRN (01:48)
[2018-07-26 02:02] LABS: Glucose,Whole Blood 157 mg/dL (75-99)
[2018-07-26] MEDS ORDERED: ACETAMINOPHEN SUPPOSITORY 650 MG SUPP RECTAL STA (02:14)
[2018-07-26 02:42] LABS: Appearance,Urine Turbid (Clear); Bacteria,Urine Many /hpf; Bilirubin,Urine Negative (Negative); Blood,Urine Moderate (Negative); Color,Urine Yellow; Glucose,Urine (UA) Negative (Negative); Ketones,Urine Negative (Negative); Leukocyte Esterase,Urine Large (Negative); Mucus,Urine Rare /hpf; Nitrite,Urine Negative (Negative); PH, Urine 6.5 (5.0-8.0); Protein,Urine 2+ (Negative); RBC,Urine >182 /hpf (0-5); Specific Gravity,Urine 1.022 (1.001-1.035); Squamous Epithelial Cell,Urine 3 /hpf (0-4); WBC,Urine >182 /hpf (0-5)
[2018-07-26] MEDS ORDERED: LACTULOSE 20 GM/30 ML CUP PO PRN (11:24)
[2018-07-26] MEDS: GABAPENTIN 100 MG CAP PO SCH ×3 (12:06→20:03)
[2018-07-26] MEDS: METOPROLOL TARTRATE 12.5 MG TAB PO SCH ×2 (12:06→21:16)
[2018-07-26] MEDS: ASPIRIN 81 MG PO SCH (12:06)
[2018-07-26] MEDS: PANTOPRAZOLE 40 MG TABLET PO SCH (12:06)
[2018-07-26 12:51] LABS: Glucose,Whole Blood 95 mg/dL (75-99)
[2018-07-26] MEDS: levETIRAcetam 500 MG TAB PO SCH ×2 (13:48→21:16)
[2018-07-26] MEDS: FERROUS SULFATE 325 MG TAB PO SCH ×2 (16:35→21:16)
[2018-07-26] MEDS: ALPRAZolam 0.25 MG TAB PO SCH ×2 (16:35→21:16)
[2018-07-26] MEDS: THEOPHYLLINE 24 HOUR 300 MG CAP.ER.24H PO SCH (16:35)
[2018-07-26 17:01] LABS: Glucose,Whole Blood 89 mg/dL (75-99)
[2018-07-26 20:28] LABS: Glucose,Whole Blood 124 mg/dL (75-99)
[2018-07-26] MEDS: FLUTICASONE 110 MCG INHALER INHALATION SCH (20:42)
[2018-07-26] MEDS: LATANOPROST 0.005% OPHTH DROPS 2.5 ML BTL BOTH EYES SCH (21:15)
[2018-07-26] MEDS: ATORVASTATIN 10 MG TAB PO SCH (21:16)
[2018-07-26] MEDS: ARIPiprazole 5 MG TAB PO SCH (21:16)
[2018-07-26] MEDS: SENNOSIDES-DOCUSATE SODIUM 1 EACH TAB PO SCH (21:16)
[2018-07-26] MEDS: HEPARIN SODIUM,PORCINE 5,000 UNIT/ML 1 ML VIAL SQ SCH (21:20)
--- NOTE | 2018-07-26 23:18 | P.HPIM ---
History of Present Illness H&P Date: 07/26/18 Chief Complaint: Altered mental status Mable is a medically ill 68-year-old female who resides at [facility] presents to the emergency department today via EMS for evaluation of altered mental status and possible sepsis. Per EMS the patient's baseline alert and oriented t o person and place she does have some speech difficulty. Yesterday staff noted that she was febrile a urinalysis revealed a UTI and lab work revealed leukocytosis with a white blood cell count of 21. This evening they noted that she seemed very sleepy her heart was racing she was febrile decided to send her the ER for further evaluation of possible sepsis likely due to urinary tract infection. Denied any abdominal pain. No complaints of chest pain or shortness of breath. No headache or dizziness or lightheadedness. No leg swelling. Patient does have past history of Chronic respiratory failure /O2 2liters ATC, COPD and chronic bronchitis, sinus problems, CVA in past with some speech i nvolvement, chronic dysphagia and the patient has past previous swallow evaluations, hepatitis C with successful treatment, last known seizure 08/08/12, glaucoma/cataracts bilaterally, urine/stool incontinence, chronic anemia, chronic back pain-pt ws to go for epidural injection today, neuropathy bilateral feet, varicose veins, RLS, bilateral tinnitis, varicose veins, seasonal ALLERGIES, degenerative arthritis. WBC 19.1, ua positive for infection. Patient is currently lethargic and sleepy but able to auscultation questions. Patient does not know why she is in the hospital. BUN 39 and creatinine 2.26 T-max 102 on admission. Chest x-ray showed no acute findings. EKG showed sinus tachycardia. Review of Systems Constitutional: Patient denies any fever or chills . No generalized weakness or weight loss. Abdomen: Patient denied nausea vomiting and diarrhea and abdominal pain. Cardiovascular: Patient denies any chest pain or short of breath no palpitations. Respiratory: patient denied any cough is from production. No shortness of breath Neurologic: Patient denied any numbness or tingling headache. Musculoskeletal: Patient denies any complaints of joint swelling or deformity. Skin: Negative Complete review of systems could not be obtained from the patient. 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 000 History of Any Multi-Drug Resistant Organisms: ESBL Date of last positivie culture/infection: 05/15/17 MDRO Source:: ESBL URINE Past Surgical History: Hysterectomy, Joint Replacement, Orthopedic Surgery, Tub al Ligation Additional Past Surgical History / Comment(s): Bilateral total knees and total R hip arthroplasty, L wrist ORIF, R oophorectomy d/t cyst, liver bx, back epidural injections. Past Anesthesia/Blood Transfusion Reactions: No Reported Reaction Additional Past Anesthesia/Blood Transfusion Reaction / Comment(s): Pt states she had blood transfusion without reaction. Past Psychological History: Anxiety, Depression, Panic Disorder Additional Psychological History / Comment(s): Pt resides at [facility]. She uses a walker to ambulate. 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 She uses O2 at 2L/NC ATC. Smoking Status: Unknown if ever smoked Past Alcohol Use History: None Reported Additional Past Alcohol Use History / Comment(s): Pt started smoking in 1965 and quit about 2011. She was a ppd smoker. Past Drug Use History: None Reported Additional Drug Use History / Comment(s): . - Past Family History Mother History Unknown: Yes Family Medical History: Diabetes Mellitus Additional Family Medical History / Comment(s): unable to obtain any family history from previous chart or patient Father History Unknown: Yes Family Medical History: Eye Disorder, Vascular Disorder Additional Family Medical History / Comment(s): PERIPHERAL VASCULAR DISEASE, MACULAR DEGENERATION Medications and Allergies Home Medications Medication Instructions Recorded Confirmed Type Alendronate Sodium [Fosamax] 70 mg PO WE 01/05/14 07/26/18 History Lactulose 20 gm PO DAILY PRN 01/05/14 07/26/18 History Metoprolol Tartrate [Lopressor] 12.5 mg PO BID 01/05/14 07/26/18 History Omeprazole [PriLOSEC] 20 mg PO Q48H 10/30/14 07/26/18 History Multivitamins, Thera [Multivitamin 1 tab PO DAILY 11/06/14 07/26/18 History (formulary)] Thiamine [Vitamin B-1] 100 mg PO DAILY 08/24/15 07/26/18 History Aspirin EC [Ecotrin Low Dose] 81 mg PO DAILY 01/07/16 07/26/18 History levETIRAcetam [Keppra] 500 mg PO BID 01/07/16 07/26/18 History Albuterol Inhaler [Ventolin Hfa 2 puff INHALATION RT-Q6H PRN 01/28/16 07/26/18 History Inhaler] Budesonide [Pulmicort Flexhaler] 1 puff INHALATION RT-BID 01/28/16 07/26/18 History Acetaminophen Tab [Tylenol] 650 mg PO Q4H PRN 05/15/17 07/26/18 History Atorvastatin [Lipitor] 10 mg PO HS 05/15/17 07/26/18 History Cholecalciferol [Vitamin D3] 2,000 units PO DAILY 05/15/17 07/26/18 History Latanoprost [Xalatan 0.005%] 1 drop BOTH EYES HS 05/15/17 07/26/18 History Nitroglycerin Sl Tabs [Nitrostat] 0.4 mg SUBLINGUAL Q5M PRN 05/15/17 07/26/18 History PARoxetine HCL [Paxil] 60 mg PO DAILY 05/15/17 07/26/18 History Sennosides-Docusate Sodium 1 tab PO BID 05/15/17 07/26/18 History [Senokot-S] ALPRAZolam [Xanax] 0.25 mg PO BID #10 tab 05/22/17 07/26/18 Rx ARIPiprazole [Abilify] 5 mg PO HS #1 tab 05/22/17 07/26/18 Rx Ferrous Sulfate [Feosol] 325 mg PO BID 07/26/18 07/26/18 History Gabapentin [Neurontin] 200 mg PO AC-TID 07/26/18 07/26/18 History HYDROcodone/APAP 10-325MG [[place] 1 tab PO Q8H PRN 07/26/18 07/26/18 History 10-325] Theophylline 12 Hour [Craig-Dur] 300 mg PO BID 07/26/18 07/26/18 History Zolpidem [Ambien] 10 mg PO HS PRN 07/26/18 07/26/18 History hydrALAZINE HCL [Apresoline] 25 mg PO Q12H 07/26/18 07/26/18 History Allergies Allergy/AdvReac Type Severity Reaction Status Date / Time latex Allergy Rash/Hives Verified 07/26/18 09:08 strawberry [[place]] Allergy Dyspnea,swe Verified 07/26/18 09:08 lling,rash Sulfa (Sulfonamide Allergy Rash/Hives, Verified 07/26/18 09:08 Antibiotics) swelling Physical Exam Vitals: Vital Signs Temp Pulse Pulse Resp BP BP Pulse Ox 07/26/18 08:18 98/62 07/26/18 08:16 16 07/26/18 07:00 98.2 F 83 16 85/51 07/26/18 06:10 118/71 07/26/18 05:32 82 97/63 96 07/26/18 05:01 86 101/66 96 07/26/18 04:52 98.8 F 87 18 89/58 96 07/26/18 04:29 89 20 93/62 96 07/26/18 04:19 99.1 F 92 89/58 95 07/26/18 04:03 99.3 F 95 18 97/65 95 07/26/18 03:45 96 07/26/18 03:35 100.3 F H 100 22 104/69 96 07/26/18 02:10 97.7 F 107 H 26 H 142/73 98 07/26/18 00:04 102 F H 110 H 32 H 128/91 96 Intake and Output 07/25/18 07/26/18 07/26/18 22:59 06:59 14:59 Intake Total 550 Balance 550 Intake: Intake, IV Titration 550 Amount Sodium Chloride 0.9% 500 500 ml 500 ml @ 1000 mls/hr IV Q[facility]M [facility] Rx#:[id number] cefTRIAXone 1 gm In 50 Sodium Chloride 0.9% 50 ml @ 100 mls/hr IVPB ONCE STA Rx#:[id number] Other: Weight 72.575 kg PHYSICAL EXAMINATION: Patient is lying in the bed comfortably, no acute distress, awake alert and oriented but lethargic.. HEENT: Normocephalic. Neck is supple. Pupils reactive. Nostrils clear. Oral cavity is moist. Ears reveal no drainage. Neck reveals no JVD, carotid bruits, or thyromegaly. CHEST EXAMINATION: Trachea is central. Symmetrical expansion. Lung hall clear to auscultation and percussion. CARDIAC: Normal S1, S2 with no gallops. No murmurs ABDOMEN: Soft. Bowel sounds normal. No organomegaly. No abdominal bruits. Extremities: reveal no edema. No clubbing or cyanosis Neurologically awake, alert, oriented x2-3 with well-coordinated movements. No focal deficits noted Skin: No rash or skin lesions. Psychiatric: Coperative. Could not be assessed completely Musculoskeletal: No joint swelling or deformity. Normal range of motion. Results CBC & Chem 7: 07/26/18 00:25 07/26/18 00:25 Labs: Abnormal Lab Results - Last 24 Hours (Table) 07/26/18 07/26/18 07/26/18 Range/Units 00:25 00:25 00:25 WBC 19.1 H (3.8-10.6) k/uL Hgb 10.6 L (11.4-16.0) gm/dL MCH 24.7 L (25.0-35.0) pg MCHC 30.7 L (31.0-37.0) g/dL Plt Count 602 H (150-450) k/uL Neutrophils # 17.3 H (1.3-7.7) k/uL Lymphocytes # 0.6 L (1.0-4.8) k/uL APTT 31.5 H (22.0-30.0) sec Chloride 96 L (98-107) mmol/L Carbon Dioxide 31 H (22-30) mmol/L BUN 39 H (7-17) mg/dL Creatinine 2.26 H (0.52-1.04) mg/dL Glucose 127 H (74-99) mg/dL POC Glucose (mg/dL) (75-99) mg/dL AST 39 H (14-36) U/L Urine Appearance (Clear) Urine Protein (Negative) Urine Blood (Negative) Ur Leukocyte Esterase (Negative) Urine RBC (0-5) /hpf Urine WBC (0-5) /hpf Urine WBC Clumps (None) /hpf Urine Bacteria (None) /hpf Urine Mucus (None) /hpf 07/26/18 07/26/18 Range/Units 02:00 02:30 WBC (3.8-10.6) k/uL Hgb (11.4-16.0) gm/dL MCH (25.0-35.0) pg MCHC (31.0-37.0) g/dL Plt Count (150-450) k/uL Neutrophils # (1.3-7.7) k/uL Lymphocytes # (1.0-4.8) k/uL APTT (22.0-30.0) sec Chloride (98-107) mmol/L Carbon Dioxide (22-30) mmol/L BUN (7-17) mg/dL Creatinine (0.52-1.04) mg/dL Glucose (74-99) mg/dL POC Glucose (mg/dL) 157 H (75-99) mg/dL AST (14-36) U/L Urine Appearance Turbid H (Clear) Urine Protein 2+ H (Negative) Urine Blood Moderate H (Negative) Ur Leukocyte Esterase Large H (Negative) Urine RBC >182 H (0-5) /hpf Urine WBC >182 H (0-5) /hpf Urine WBC Clumps Many H (None) /hpf Urine Bacteria Many H (None) /hpf Urine Mucus Rare H (None) /hpf Microbiology - Last 24 Hours (Table) 07/26/18 02:30 Urine Culture - Preliminary Urine,Catheterized Thrombosis Risk Factor Assmnt - DVT/VTE Prophylaxis DVT/VTE Prophylaxis: Pharmacologic Prophylaxis ordered - Choose All That Apply Any of the Below Risk Factors Present?: Yes Each Factor Represents 1 point: Abnormal pulmonary function (COPD), Obesity (BMI >25) Other Risk Factors: Yes Each Risk Factor Represents 2 Points: Age 61-74 years Other congenital or acquired thrombophilia - If yes, enter type in comment: No Thrombosis Risk Factor Assessment Total Risk Factor Score: 4 Thrombosis Risk Factor Assessment Level: Moderate Risk Assessment and Plan Assessment: Sepsis secondary to acute urinary tract infection. Patient was febrile tachycardic and does have leukocytosis. Altered mental status possible metabolic acidosis secondary to infection. Improved now Acute urinary tract infection Acute kidney injury most likely prerenal. COPD on oxygen via nasal cannula History of CVA with speech involvement Chronic dysphagia on soft diet. Hepatitis C with successful treatment History of his atenolol Urinary incontinence Chronic anemia Chronic back pain Bilateral peripheral neuropathy. Nondiabetic Degenerative joint disease Anxiety/depression and panic disorder Previous history of smoking. DVT prophylaxis. Heparin subcu. Plan Patient will be continued on IV hydration with normal saline. Antibiotics in the form of ceftriaxone. Continue with home medications and oxygen therapy. Continue with breathing treatments as needed. Follow-up urine culture reports. Follow renal function. Mechanical soft diet. Nutrition evaluation. PTOT. Further recommendations based on the clinical course. Continue with DVT prophylaxis. Time with Patient: Greater than 30
[2018-07-26] MEDS: ALBUTEROL NEBULIZED 2.5 MG/3 ML INHALATION PRN (23:49)
[2018-07-27] MEDS: ACETAMINOPHEN TAB 325 MG TAB PO PRN (00:06)
[2018-07-27] MEDS: SODIUM CHLORIDE 0.9% 1,000 ML IV SCH ×2 (00:07→13:23)
[2018-07-27 00:37] LABS: Glucose,Whole Blood 98 mg/dL (75-99)
[2018-07-27] MEDS ORDERED: FUROSEMIDE 10 MG/ML 4 ML VIAL IV STA (01:09)
[2018-07-27 01:54] LABS: Glucose,Whole Blood 98 mg/dL (75-99)
[2018-07-27 02:58] LABS: Albumin 2.9 g/dL (3.5-5.0); Calcium 8.2 mg/dL (8.4-10.2); Magnesium 1.9 mg/dL (1.6-2.3); Phosphorus 4.1 mg/dL (2.5-4.5); Total Bilirubin 0.5 mg/dL (0.2-1.3)
[2018-07-27 05:09] LABS: Basophils # (A) 0.1 k/uL (0-0.2); Basophils % (A) 0 %; Eosinophils # (A) 0.1 k/uL (0-0.7); Eosinophils % (A) 1 %; HCT 31.2 % (34.0-46.0); Hypochromasia Marked; Lymphocytes # (A) 0.8 k/uL (1.0-4.8); Lymphocytes % (A) 4 %; MCH 23.6 pg (25.0-35.0); MCHC 28.9 g/dL (31.0-37.0); MCV 81.8 fL (80.0-100.0); Mean Platelet Volume 9.7; Monocytes # (A) 0.8 k/uL (0-1.0); Monocytes % (A) 4 %; Neutrophils # (A) 16.4 k/uL (1.3-7.7); Neutrophils % (A) 89 %; Platelet Count 383 k/uL (150-450); RBC 3.81 m/uL (3.80-5.40); RDW 15.2 % (11.5-15.5); WBC 18.4 k/uL (3.8-10.6)
[2018-07-27 06:58] LABS: Glucose,Whole Blood 96 mg/dL (75-99)
[2018-07-27] MEDS: ALBUTEROL NEBULIZED 2.5 MG/3 ML INHALATION PRN (08:12)
[2018-07-27] MEDS: FLUTICASONE 110 MCG INHALER INHALATION SCH ×2 (08:12→21:35)
--- NOTE | 2018-07-27 08:35 | XR ---
EXAMINATION TYPE: XR chest 1V DATE OF EXAM: 07/27/2018 COMPARISON: 07/26/2018 INDICATION: Fluid overload TECHNIQUE: Single frontal view of the chest is obtained. FINDINGS: The heart size is normal. The pulmonary vasculature is slightly prominent. No suspicious consolidations are IMPRESSION: 1. Correlate for early volume overload.
[2018-07-27 08:38] LABS: Amorphous Sediment,Urine Few /hpf; Appearance,Urine Cloudy (Clear); Bacteria,Urine Rare /hpf; Bilirubin,Urine Negative (Negative); Blood,Urine Small (Negative); Color,Urine Yellow; Glucose,Urine (UA) Negative (Negative); Hyaline Casts,Urine 1 /lpf (0-2); Ketones,Urine Negative (Negative); Leukocyte Esterase,Urine Large (Negative); Mucus,Urine Rare /hpf; Nitrite,Urine Negative (Negative); PH, Urine 5.5 (5.0-8.0); Protein,Urine Trace (Negative); RBC,Urine 11 /hpf (0-5); Specific Gravity,Urine 1.011 (1.001-1.035); Squamous Epithelial Cell,Urine <1 /hpf (0-4); Urobilinogen,Urine <2.0 mg/dL (<2.0)
[2018-07-27 08:56] LABS: ABG Base Excess 4.2 mmol/L; ABG HCO3 31 mmol/L (21-25); ABG Oxygen Saturation 95.7 % (94-97); ABG PCO2 63 mmHg (35-45); ABG PH 7.29 (7.35-7.45); ABG PO2 78 mmHg (83-108); ABG TCO2 33 mmol/L (19-24)
[2018-07-27] MEDS: PARoxetine 20 MG TAB PO SCH (09:31)
[2018-07-27] MEDS: CHOLECALCIFEROL 1,000 UNIT TAB PO SCH (09:31)
[2018-07-27] MEDS: GABAPENTIN 100 MG CAP PO SCH ×3 (09:32→17:51)
[2018-07-27] MEDS: levETIRAcetam 500 MG TAB PO SCH ×2 (09:32→20:50)
[2018-07-27] MEDS: SENNOSIDES-DOCUSATE SODIUM 1 EACH TAB PO SCH ×2 (09:32→20:51)
[2018-07-27] MEDS: ASPIRIN 81 MG PO SCH (09:32)
[2018-07-27] MEDS: METOPROLOL TARTRATE 12.5 MG TAB PO SCH ×2 (09:32→20:51)
[2018-07-27] MEDS: FERROUS SULFATE 325 MG TAB PO SCH ×2 (09:32→20:49)
[2018-07-27] MEDS: HEPARIN SODIUM,PORCINE 5,000 UNIT/ML 1 ML VIAL SQ SCH ×2 (09:33→20:50)
[2018-07-27] MEDS: ALPRAZolam 0.25 MG TAB PO SCH ×2 (09:35→20:48)
[2018-07-27] MEDS ORDERED: IPRATROPIUM-ALBUTEROL 3 ML NEB INHALATION PRN (09:51)
--- NOTE | 2018-07-27 09:52 | P.CNPUL ---
History of Present Illness Consult date: 07/27/18 Requesting physician: Eugenio Blanco Reason for consult: other Chief complaint: Hypertension, urinary tract infection, septic shock History of present illness: This is a 68-year-old white female patient, a resident of [facility], who was brought to the hospital per EMS on all 07/26/2018 for evaluation of altered mental status, fever, speech difficulty. Urinalysis at the [facility] d a UTI, and lab work revealed leukocytosis with a white blood cell count of 21,000. She was very lethargic, and was admitted with concern of sepsis. Chest x-ray did not show any acute pulmonary process. EKG showed sinus tachycardia and evidence of possible lateral infarct and inferior posterior infarct of undetermined age. Admission lab work showed a white blood cell count of 19.1, hemoglobin is 10.6, INR is 1.1, sodium is 139, potassium is 4.9, chloride is 96, CO2 is 31, BUN was 39, creatinine is 2.26, urinalysis showed grossly infected urine, with large amount of leukocyte esterase, red blood cells greater than 182, and white blood cells greater than 182, many bacteria. Influenza screen was negative. Patient has had ESBL E. coli urinary tract infections in the past in April 2017. Last night on all 07/26/2018 patient became hypotensive, with a pressure of 80/40, rapid response team was called, patient was given 2 L of IV fluids in fluid boluses, she was very lethargic, and she was transferred to the intensive care unit for further monitoring, patient's blood pressure did recover, currently 127/72, patient responded nicely to fluid boluses, did not require vasopressor support, no tachycardia, his rhythm on the monitor with a rate of 94 BPM, he is febrile, with a T-max of 101.8F in the last 24 hours. This morning's blood gas showed pO2 of 78, pCO2 of 63, and pH of 7.29 is was done on 32% FiO2. Patient is lethargic, but easily arousable, she does not verbally respond, but follows simple commands, squeezing hands on command moving extremities. Denies any distress, denies any chest pain shortness of breath or abdominal pain. Today's labs have been reviewed, white blood cell, and is 18.4, hemoglobin is 9.0, electrolytes are within normal limits, BUN is 43 and creatinine is 2.29. Repeat urinalysis showed large leuks, RBCs and WBCs, moderate WBC clumps, and rare bacteria. Antibiotic coverage in the form of Rocephin. Review of Systems All systems: negative Constitutional: Reports lethargy, Reports weakness, Denies chills, Denies fever Eyes: denies blurred vision, denies pain Ears, nose, mouth and throat: Denies headache, Denies sore throat Cardiovascular: Denies chest pain, Denies shortness of breath Respiratory: Denies cough Gastrointestinal: Denies abdominal pain, Denies diarrhea, Denies nausea, Denies vomiting Genitourinary: Denies dysuria, Denies hematuria Musculoskeletal: Denies myalgias Integumentary: Denies pruritus, Denies rash Neurological: Denies numbness, Denies weakness Psychiatric: Denies anxiety, Denies depression Endocrine: Denies fatigue, Denies weight change Past Medical History Past Medical History: Asthma, Heart Failure, COPD, Eye Disorder, GERD/Reflux, Hyperlipidemia, Hypertension, Liver Disease, Osteoarthritis (OA), Pneumonia, Renal Disease, Seizure Disorder Additional Past Medical History / Comment(s): Chronic respiratory failure /O2 2liters ATC, COPD and chronic bronchitis, sinus problems, 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 000 History of Any Multi-Drug Resistant Organisms: ESBL Date of last positivie culture/infection: 05/15/17 MDRO Source:: ESBL URINE Past Surgical History: Hysterectomy, Joint Replacement, Orthopedic Surgery, Tubal Ligation Additional Past Surgical History / Comment(s): Bilateral total knees and total R hip arthroplasty, L wrist ORIF, R oophorectomy d/t cyst, liver bx, back epidural injections. Past Anesthesia/Blood Transfusion Reactions: No Reported Reaction Additional Past Anesthesia/Blood Transfusion Reaction / Comment(s): Pt states she had blood transfusion without reaction. Past Psychological History: Anxiety, Depression, Panic Disorder Additional Psychological History / Comment(s): Pt resides at [facility]. She uses a walker to ambulate. 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 She uses O2 at 2L/NC ATC. Smoking Status: Unknown if ever smoked Past Alcohol Use History: None Reported Additional Past Alcohol Use History / Comment(s): Pt started smoking in 1965 and quit about 2011. She was a ppd smoker. Past Drug Use History: None Reported Additional Drug Use History / Comment(s): . - Past Family History Mother History Unknown: Yes Family Medical History: Diabetes Mellitus Additional Family Medical History / Comment(s): unable to obtain any family history from previous chart or patient Father History Unknown: Yes Family Medical History: Eye Disorder, Vascular Disorder Additional Family Medical History / Comment(s): PERIPHERAL VASCULAR DISEASE, MACULAR DEGENERATION Medications and Allergies Home Medications Medication Instructions Recorded Confirmed Type Alendronate Sodium [Fosamax] 70 mg PO WE 01/05/14 07/26/18 History Lactulose 20 gm PO DAILY PRN 01/05/14 07/26/18 History Metoprolol Tartrate [Lopressor] 12.5 mg PO BID 01/05/14 07/26/18 History Omeprazole [PriLOSEC] 20 mg PO Q48H 10/30/14 07/26/18 History Multivitamins, Thera [Multivitamin 1 tab PO DAILY 11/06/14 07/26/18 History (formulary)] Thiamine [Vitamin B-1] 100 mg PO DAILY 08/24/15 07/26/18 History Aspirin EC [Ecotrin Low Dose] 81 mg PO DAILY 01/07/16 07/26/18 History levETIRAcetam [Keppra] 500 mg PO BID 01/07/16 07/26/18 History Albuterol Inhaler [Ventolin Hfa 2 puff INHALATION RT-Q6H PRN 01/28/16 07/26/18 History Inhaler] Budesonide [Pulmicort Flexhaler] 1 puff INHALATION RT-BID 01/28/16 07/26/18 History Acetaminophen Tab [Tylenol] 650 mg PO Q4H PRN 05/15/17 07/26/18 History Atorvastatin [Lipitor] 10 mg PO HS 05/15/17 07/26/18 History Cholecalciferol [Vitamin D3] 2,000 units PO DAILY 05/15/17 07/26/18 History Latanoprost [Xalatan 0.005%] 1 drop BOTH EYES HS 05/15/17 07/26/18 History Nitroglycerin Sl Tabs [Nitrostat] 0.4 mg SUBLINGUAL Q5M PRN 05/15/17 07/26/18 History PARoxetine HCL [Paxil] 60 mg PO DAILY 05/15/17 07/26/18 History Sennosides-Docusate Sodium 1 tab PO BID 05/15/17 07/26/18 History [Senokot-S] ALPRAZolam [Xanax] 0.25 mg PO BID #10 tab 05/22/17 07/26/18 Rx ARIPiprazole [Abilify] 5 mg PO HS #1 tab 05/22/17 07/26/18 Rx Ferrous Sulfate [Feosol] 325 mg PO BID 07/26/18 07/26/18 History Gabapentin [Neurontin] 200 mg PO AC-TID 07/26/18 07/26/18 History HYDROcodone/APAP 10-325MG [[place] 1 tab PO Q8H PRN 07/26/18 07/26/18 History 10-325] Theophylline 12 Hour [Craig-Dur] 300 mg PO BID 07/26/18 07/26/18 History Zolpidem [Ambien] 10 mg PO HS PRN 07/26/18 07/26/18 History hydrALAZINE HCL [Apresoline] 25 mg PO Q12H 07/26/18 07/26/18 History Allergies Allergy/AdvReac Type Severity Reaction Status Date / Time latex Allergy Rash/Hives Verified 07/26/18 09:08 strawberry [[place]] Allergy Dyspnea,swe Verified 07/26/18 09:08 lling,rash Sulfa (Sulfonamide Allergy Rash/Hives, Verified 07/26/18 09:08 Antibiotics) swelling Physical Exam Vitals: Vital Signs Temp Pulse Pulse Pulse Pulse Resp BP 07/27/18 09:18 97 07/27/18 09:10 93 07/27/18 07:00 94 18 127/72 07/27/18 06:30 96 21 126/73 07/27/18 06:00 94 28 H 109/58 07/27/18 05:30 93 27 H 100/55 07/27/18 05:00 91 27 H 95/56 07/27/18 04:30 90 20 99/55 07/27/18 04:00 101.3 F H 97 22 94/51 07/27/18 03:30 101.8 F H 103 H 20 92/59 07/27/18 03:02 07/27/18 03:00 98 20 106/54 07/27/18 02:38 100.1 F H 91 24 103/51 07/27/18 01:01 07/27/18 00:58 99.5 F 07/27/18 00:34 98.4 F 103 H 18 07/27/18 00:02 100 07/26/18 23:58 20 07/26/18 23:50 100 07/26/18 20:43 07/26/18 19:47 98.6 F 99 20 07/26/18 18:40 98.9 F 96 104 H 20 07/26/18 16:36 16 07/26/18 14:09 98.5 F 145 H 16 07/26/18 11:27 97.9 F 81 18 BP Pulse Ox 07/27/18 09:18 07/27/18 09:10 07/27/18 07:00 94 L 07/27/18 06:30 92 L 07/27/18 06:00 92 L 07/27/18 05:30 94 L 07/27/18 05:00 95 07/27/18 04:30 96 07/27/18 04:00 96 07/27/18 03:30 93 L 07/27/18 03:02 93 L 07/27/18 03:00 92 L 07/27/18 02:38 90 L 07/27/18 01:01 80/60 07/27/18 00:58 07/27/18 00:34 116/64 96 07/27/18 00:02 07/26/18 23:58 07/26/18 23:50 07/26/18 20:43 97 07/26/18 19:47 07/26/18 18:40 121/79 92 L 07/26/18 16:36 07/26/18 14:09 169/113 90 L 07/26/18 11:27 154/74 Intake and Output 07/26/18 07/27/18 07/27/18 22:59 06:59 14:59 Intake Total 100 25 Output Total 205 50 Balance -105 -25 Intake: IV 100 25 Sodium Chloride 0.9% 1, 100 25 000 ml @ 25 mls/hr IV . Q24H [facility] Rx#:[id number] Output: Urine 205 50 Other: Voiding Method Incontinent Indwelling Catheter # Voids 1 Weight 64.8 kg GENERAL EXAM: Lethargic, 68-year-old white female, arousable to verbal stimuli, squeezes hands on command, wiggles toes on command, comfortable in no apparent distress. HEAD: Normocephalic/atraumatic. EYES: Normal reaction of pupils, equal size. Conjunctiva pink, sclera white. NOSE: Clear with pink turbinates. THROAT: No erythema or exudates. NECK: No masses, no JVD, no thyroid enlargement, no adenopathy. CHEST: No chest wall deformity. Symmetrical expansion. LUNGS: Equal air entry with no crackles, wheeze, rhonchi or dullness. CVS: Regular rate and rhythm, normal S1 and S2, no gallops, no murmurs, no rubs ABDOMEN: Soft, nontender. No hepatosplenomegaly, normal bowel sounds, no guarding or rigidity. EXTREMITIES: No clubbing, no edema, no cyanosis, 2+ pulses and upper and lower extremities. MUSCULOSKELETAL: Muscle strength and tone normal. SPINE: No scoliosis or deformity SKIN: No rashes CENTRAL NERVOUS SYSTEM: Alert and oriented -3. No focal deficits, tone is normal in all 4 extremities. PSYCHIATRIC: Alert and oriented -3. Appropriate affect. Intact judgment and insight. Results - Laboratory Findings CBC and BMP: 07/27/18 02:33 07/27/18 02:33 ABG ABG pH 7.29 (7.35-7.45) L 07/27/18 08:54 ABG pCO2 63 mmHg (35-45) H 07/27/18 08:54 ABG pO2 78 mmHg (83-108) L 07/27/18 08:54 ABG O2 Saturation 95.7 % (94-97) 07/27/18 08:54 PT/INR, D-dimer PT 11.7 sec (9.0-12.0) 07/26/18 00:25 INR 1.1 (<1.2) 07/26/18 00:25 Abnormal lab findings: Abnormal Labs 0407/26/18 07/26/18 00:25 00:25 00:25 WBC 19.1 H Hgb 10.6 L Hct MCH 24.7 L MCHC 30.7 L Plt Count 602 H Neutrophils # 17.3 H Lymphocytes # 0.6 L APTT 31.5 H ABG pH ABG pCO2 ABG pO2 ABG HCO3 ABG Total CO2 Chloride 96 L Carbon Dioxide 31 H BUN 39 H Creatinine 2.26 H Glucose 127 H POC Glucose (mg/dL) Calcium AST 39 H Albumin Urine Appearance Urine Protein Urine Blood Ur Leukocyte Esterase Urine RBC Urine WBC Urine WBC Clumps Amorphous Sediment Urine Bacteria Urine Mucus 07/26/18 07/26/18 07/26/18 02:00 02:30 20:26 WBC Hgb Hct MCH MCHC Plt Count Neutrophils # Lymphocytes # APTT ABG pH ABG pCO2 ABG pO2 ABG HCO3 ABG Total CO2 Chloride Carbon Dioxide BUN Creatinine Glucose POC Glucose (mg/dL) 157 H 124 H Calcium AST Albumin Urine Appearance Turbid H Urine Protein 2+ H Urine Blood Moderate H Ur Leukocyte Esterase Large H Urine RBC >182 H Urine WBC >182 H Urine WBC Clumps Many H Amorphous Sediment Urine Bacteria Many H Urine Mucus Rare H 07/27/18 07/27/18 07/27/18 02:33 02:33 06:55 WBC 18.4 H Hgb 9.0 L D Hct 31.2 L MCH 23.6 L MCHC 28.9 L Plt Count Neutrophils # 16.4 H Lymphocytes # 0.8 L APTT ABG pH ABG pCO2 ABG pO2 ABG HCO3 ABG Total CO2 Chloride Carbon Dioxide BUN 43 H Creatinine 2.29 H Glucose POC Glucose (mg/dL) Calcium 8.2 L AST Albumin 2.9 L Urine Appearance Cloudy H Urine Protein Trace H Urine Blood Small H Ur Leukocyte Esterase Large H Urine RBC 11 H Urine WBC 54 H Urine WBC Clumps Moderate H Amorphous Sediment Few H Urine Bacteria Rare H Urine Mucus Rare H 07/27/18 08:54 WBC Hgb Hct MCH MCHC Plt Count Neutrophils # Lymphocytes # APTT ABG pH 7.29 L ABG pCO2 63 H ABG pO2 78 L ABG HCO3 31 H ABG Total CO2 33 H Chloride Carbon Dioxide BUN Creatinine Glucose POC Glucose (mg/dL) Calcium AST Albumin Urine Appearance Urine Protein Urine Blood Ur Leukocyte Esterase Urine RBC Urine WBC Urine WBC Clumps Amorphous Sediment Urine Bacteria Urine Mucus - Diagnostic Findings Chest x-ray: report reviewed, image reviewed Additional studies: EKG reviewed Assessment and Plan Plan: Assessment: #1. Acute septic shock related to urinary tract infection #2. Altered mental status, leukocytosis, hypotension, related to the above #3. History of ESBL E. coli urinary tract infection #4. Acute on chronic hypercapnic respiratory failure, related to urinary tract infection #5. Acute kidney injury related to ATN #6. History of chronic bronchial asthma/COPD with chronic hypoxemic respiratory failure patient wears 2 L of oxygen at home #7. History of heart failure #8. GERD/reflux #9. Hypertension, hyperlipidemia #10. Seizure disorder #11. History of CVA, chronic dysphagia #12. History of hepatitis C treated #13. Former smoker #14. halfway resident Plan: We'll switch the antibiotics to Zosyn from Rocephin. Continue the IV fluids, patient has responded to IV fluid resuscitation quite nicely, is not requiring any vasopressor support, more hemodynamically stable, remains febrile, will await the results of final cultures. She is more awake and following commands. GI and DVT prophylaxis, monitor hemodynamics, urine output. Today's chest x- ray has been reviewed, shows low lung volumes, and mild fluid overload, chest x- ray has been reviewed with Dr. Bay, blood gases were reviewed with Dr. Bay, patient is more awake, responsive. No acute distress, will continue monitoring. No rhonchi or wheezing, will continue breathing treatments. Patient will remain in the ICU. I performed a history & physical examination of the patient and discussed their management with my nurse practitioner, Sheila Villavicencio. I reviewed the nurse practitioner's note and agree with the documented findings and plan of care. Lung sounds are positive for diminished breath sounds. The findings and the impression was discussed with the patient. I attest to the documentation by the nurse practitioner. Time with Patient: Greater than 30
[2018-07-27] MEDS: THEOPHYLLINE 24 HOUR 300 MG CAP.ER.24H PO SCH (09:55)
--- NOTE | 2018-07-27 10:39 | ECHOF ---
Referral Reason:CHF MEASUREMENTS -------- HEIGHT: 152.4 cm WEIGHT: 64.4 kg BP: RVIDd: 3.2 cm (< 3.3) IVSd: 1.0 cm (0.6 - 1.1) LVIDd: 3.5 cm (3.9 - 5.3) LVPWd: 1.1 cm (0.6 - 1.1) IVSs: 1.2 cm LVIDs: 1.3 cm LVPWs: 1.2 cm LAESV Index (A-L): 20.79 ml/m Ao Diam: 3.0 cm (2.0 - 3.7) AV Cusp: 1.7 cm (1.5 - 2.6) LA Diam: 3.1 cm (2.7 - 3.8) MV E Kris: 0.74 m/s MV DecT: 142 ms MV A Kris: 0.79 m/s MV E/A Ratio: 0.93 RAP: 5.00 mmHg RVSP: 40.22 mmHg FINDINGS -------- Sinus rhythm. This was a technically adequate study. The left ventricular size is normal. There is mild concentric left ventricular hypertrophy. Overa ll left ventricular systolic function is normal with, an EF between 55 - 60 %. The right ventricle is normal in size. Normal LA size by volume 22+/-6 ml/m2. The right atrial size is normal. The aortic valve is trileaflet and appears structurally normal. The mitral valve leaflets are mildly thickened. Mild mitral regurgitation is present. Mild tricuspid regurgitation present. There is mild pulmonary hypertension. The right ventricular systolic pressure, as measured by Doppler, is 40.22mmHg. There is no pulmonic regurgitation present. The aortic root size is normal. Normal inferior vena cava with normal inspiratory collapse consistent with estimated right atrial pre ssure of 5 mmHg. There is a small, generalized pericardial effusion present. CONCLUSIONS -------- 1. Sinus rhythm. 2. This was a technically adequate study. 3. The left ventricular size is normal. 4. There is mild concentric left ventricular hypertrophy. 5. Overall left ventricular systolic function is normal with, an EF between 55 - 60 %. 6. The right ventricle is normal in size. 7. Normal LA size by volume 22+/-6 ml/m2. 8. The right atrial size is normal. 9. The aortic valve is trileaflet and appears structurally normal. 10. The mitral valve leaflets are mildly thickened. 11. Mild mitral regurgitation is present. 12. Mild tricuspid regurgitation present. 13. There is mild pulmonary hypertension. 14. The right ventricular systolic pressure, as measured by Doppler, is 40.22mmHg. 15. There is no pulmonic regurgitation present. 16. The aortic root size is normal. 17. Normal inferior vena cava with normal inspiratory collapse consistent with estimated right atrial pressure of 5 mmHg. 18. There is a small, generalized pericardial effusion present. FLEET MANAGER: Nahmoi Weber RDCS
[2018-07-27] MEDS: PIPERACILLIN-TAZOBACTAM 3.375 GM in SODIUM CHLORIDE 0.9% 100 ML IVPB SCH ×2 (11:35→20:47)
[2018-07-27] MEDS: IPRATROPIUM-ALBUTEROL 3 ML NEB INHALATION SCH ×2 (11:51→21:35)
[2018-07-27 11:54] LABS: Glucose,Whole Blood 114 mg/dL (75-99)
[2018-07-27] MEDS: MULTIVITAMINS, THERA 1 EACH TAB PO SCH (12:26)
--- NOTE | 2018-07-27 13:04 | CDI ---
Documentation Clarification Form Date: 07/27/2018 12:31:59 PM From: Tash Mcleod RN, CCDS Admit Date: 07/26/2018 1:48:00 AM Patient Name: Mable Houser Visit Number: [id number] Discharge Date: ATTENTION: The Clinical Documentation Specialists (CDI) and [facility] Coding Staff appreciate your assistance in clarifying documentation. Please respond to the clarification below the line at the bottom and electronically sign. The CDI & [facility] Coding staff will review the response and follow-up if needed. Please note: Queries are made part of the Legal Health Record. If you have any questions, please contact the author of this message via ITS. Dr. Eugenio Blanco Altered Mental Status was documented in the ED evaluation and your H/P and further clarification is needed. History/Risk Factors: Asthma, Heart Failure, COPD, Hypertension, Liver Disease, Chronic respiratory failure O2 dependent. Hepatitis C, Former smoker Clinical Indicators: 68-year-old female from via EMS for evaluation of altered mental status and possible sepsis. She is normally alert and oriented to person and place. Upon arrival the patient is lethargic and very sleepy, toxic appearance, having rigors. She is alert to self. Vital signs: 128/91 110 32 102 Labs: WBC 19.1 HGB 10.6, HCT 34.5, BUN 39, CR 2.26, Lactic acid 1.1, UA- positive for UTI X Ray: No acute findings Treatment: Monitor CBC, Lytes, Monitor O2 Sat's (Titrate) Zosyn IV IV Fluids In your professional opinion, please further clarify the etiology of the Altered Mental Status, if known. Metabolic Encephalopathy due to UTI Dementia (if know, specify Type and if with/without Behavioral Disturbance) Other condition (please specify) Unable to determine (Last Revision: July 2017) Metabolic Encephalopathy due to UTI MTDD
--- NOTE | 2018-07-27 13:40 | P.CRDCN ---
History of Present Illness History of present illness: This is Dr. Echeverria dictating a consult on this patient The patient was interviewed and examined by me IMPRESSION / ASSESSMENT: Sinus tachycardia secondary to urosepsis PLAN: Continue management of sepsis 2-D echo is normal No further cardiac workup at this point HPI 68-year-old female who [facility] presented to the emergency room with altered mental status and sepsis Diagnosis sepsis secondary to acute renal tract infection. Patient was febrile and hence tachycardic she does have leukocytosis 2-D echo shows preserved LV size and systolic function Twelve-lead ECG shows sinus tachycardia and baseline artifact ROS: No fever chills or rigors, no cough, phlegm or expectoration, no nausea, vomiting or diarrhea, no hematuria, dysuria, no musculoskeletal complaints, no strokes or seizures, no skin lesions. 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 000 History of Any Multi-Drug Resistant Organisms: ESBL Date of last positivie culture/infection: 05/15/17 MDRO Source:: ESBL URINE Past Surgical History: Hysterectomy, Joint Replacement, Orthopedic Surgery, Tubal Ligation Additional Past Surgical History / Comment(s): Bilateral total knees and total R hip arthroplasty, L wrist ORIF, R oophorectomy d/t cyst, liver bx, back epidural injections. Past Anesthesia/Blood Transfusion Reactions: No Reported Reaction Additional Past Anesthesia/Blood Transfusion Reaction / Comment(s): Pt states she had blood transfusion without reaction. Past Psychological History: Anxiety, Depression, Panic Disorder Additional Psychological History / Comment(s): Pt resides at [facility]. She uses a walker to ambulate. 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 She uses O2 at 2L/NC ATC. Smoking Status: Unknown if ever smoked Past Alcohol Use History: None Reported Additional Past Alcohol Use History / Comment(s): Pt started smoking in 1965 and quit about 2011. She was a ppd smoker. Past Drug Use History: None Reported Additional Drug Use History / Comment(s): . - Past Family History Mother History Unknown: Yes Family Medical History: Diabetes Mellitus Additional Family Medical History / Comment(s): unable to obtain any family history from previous chart or patient Father History Unknown: Yes Family Medical History: Eye Disorder, Vascular Disorder Additional Family Medical History / Comment(s): PERIPHERAL VASCULAR DISEASE, MACULAR DEGENERATION Medications and Allergies Home Medications Medication Instructions Recorded Confirmed Type RX: Alendronate Sodium [Fosamax] 70 mg PO WE 01/05/14 07/26/18 History RX: Lactulose 20 gm PO DAILY PRN 01/05/14 07/26/18 History RX: Metoprolol Tartrate [Lopressor] 12.5 mg PO BID 01/05/14 07/26/18 History RX: Omeprazole [PriLOSEC] 20 mg PO Q48H 10/30/14 07/26/18 History RX: Multivitamins, Thera 1 tab PO DAILY 11/06/14 07/26/18 History [Multivitamin (formulary)] RX: Thiamine [Vitamin B-1] 100 mg PO DAILY 08/24/15 07/26/18 History RX: Aspirin EC [Ecotrin Low Dose] 81 mg PO DAILY 01/07/16 07/26/18 History RX: levETIRAcetam [Keppra] 500 mg PO BID 01/07/16 07/26/18 History RX: Albuterol Inhaler [Ventolin 2 puff INHALATION RT-Q6H PRN 01/28/16 07/26/18 History Hfa Inhaler] RX: Budesonide [Pulmicort 1 puff INHALATION RT-BID 01/28/16 07/26/18 History Flexhaler] RX: Acetaminophen Tab [Tylenol] 650 mg PO Q4H PRN 05/15/17 07/26/18 History RX: Atorvastatin [Lipitor] 10 mg PO HS 05/15/17 07/26/18 History RX: Cholecalciferol [Vitamin D3] 2,000 units PO DAILY 05/15/17 07/26/18 History RX: Latanoprost [Xalatan 0.005%] 1 drop BOTH EYES HS 05/15/17 07/26/18 History RX: Nitroglycerin Sl Tabs 0.4 mg SUBLINGUAL Q5M PRN 05/15/17 07/26/18 History [Nitrostat] RX: PARoxetine HCL [Paxil] 60 mg PO DAILY 05/15/17 07/26/18 History RX: Sennosides-Docusate Sodium 1 tab PO BID 05/15/17 07/26/18 History [Senokot-S] RX: ALPRAZolam [Xanax] 0.25 mg PO BID #10 tab 05/22/17 07/26/18 Rx RX: ARIPiprazole [Abilify] 5 mg PO HS #1 tab 05/22/17 07/26/18 Rx Ferrous Sulfate [Feosol] 325 mg PO BID 07/26/18 07/26/18 History HYDROcodone/APAP 10-325MG [[place] 1 tab PO Q8H PRN 07/26/18 07/26/18 History 10-325] RX: Gabapentin [Neurontin] 200 mg PO AC-TID 07/26/18 07/26/18 History Theophylline 12 Hour [Craig-Dur] 300 mg PO BID 07/26/18 07/26/18 History Zolpidem [Ambien] 10 mg PO HS PRN 07/26/18 07/26/18 History hydrALAZINE HCL [Apresoline] 25 mg PO Q12H 07/26/18 07/26/18 History Allergies Allergy/AdvReac Type Severity Reaction Status Date / Time latex Allergy Rash/Hives Verified 07/26/18 09:08 strawberry [[place]] Allergy Dyspnea,swe Verified 07/26/18 09:08 lling,rash Sulfa (Sulfonamide Allergy Rash/Hives, Verified 07/26/18 09:08 Antibiotics) swelling Physical Exam Vitals: Vital Signs Temp Pulse Pulse Pulse Pulse Resp BP 07/27/18 13:00 85 21 105/61 07/27/18 12:01 88 07/27/18 12:00 99.0 F 81 22 88/61 07/27/18 11:52 80 07/27/18 11:00 87 34 H 104/58 07/27/18 10:00 92 18 100/86 07/27/18 09:18 97 07/27/18 09:10 93 07/27/18 09:00 93 28 H 112/54 07/27/18 08:00 99.0 F 95 31 H 112/66 07/27/18 07:00 94 18 127/72 07/27/18 06:30 96 21 126/73 07/27/18 06:00 94 28 H 109/58 07/27/18 05:30 93 27 H 100/55 07/27/18 05:00 91 27 H 95/56 07/27/18 04:30 90 20 99/55 07/27/18 04:00 101.3 F H 97 22 94/51 07/27/18 03:30 101.8 F H 103 H 20 92/59 07/27/18 03:02 07/27/18 03:00 98 20 106/54 07/27/18 02:38 100.1 F H 91 24 103/51 07/27/18 01:01 07/27/18 00:58 99.5 F 07/27/18 00:34 98.4 F 103 H 18 07/27/18 00:02 100 07/26/18 23:58 20 07/26/18 23:50 100 07/26/18 20:43 07/26/18 19:47 98.6 F 99 20 07/26/18 18:40 98.9 F 96 104 H 20 07/26/18 16:36 16 07/26/18 14:09 98.5 F 145 H 16 BP Pulse Ox 07/27/18 13:00 94 L 07/27/18 12:01 07/27/18 12:00 98 07/27/18 11:52 07/27/18 11:00 96 07/27/18 10:00 92 L 07/27/18 09:18 07/27/18 09:10 07/27/18 09:00 95 07/27/18 08:00 92 L 07/27/18 07:00 94 L 07/27/18 06:30 92 L 07/27/18 06:00 92 L 07/27/18 05:30 94 L 07/27/18 05:00 95 07/27/18 04:30 96 07/27/18 04:00 96 07/27/18 03:30 93 L 07/27/18 03:02 93 L 07/27/18 03:00 92 L 07/27/18 02:38 90 L 07/27/18 01:01 80/60 07/27/18 00:58 07/27/18 00:34 116/64 96 07/27/18 00:02 07/26/18 23:58 07/26/18 23:50 07/26/18 20:43 97 07/26/18 19:47 07/26/18 18:40 121/79 92 L 07/26/18 16:36 07/26/18 14:09 169/113 90 L Intake and Output 07/26/18 07/27/18 07/27/18 22:59 06:59 14:59 Intake Total 100 275 Output Total 205 365 Balance -105 -90 Intake: IV 100 275 Piperacillin-Tazobactam 3 100 .375 gm In Sodium Chloride 0.9% 100 ml @ 25 mls/hr IVPB Q12HR [facility] Rx #:[id number] Sodium Chloride 0.9% 1, 100 175 000 ml @ 25 mls/hr IV . Q24H [facility] Rx#:[id number] Output: Urine 205 365 Other: Voiding Method Incontinent Indwelling Catheter Indwelling Catheter # Voids 1 # Bowel Movements 1 Weight 64.8 kg Results 07/27/18 02:33 07/27/18 02:33 Cardiac Enzymes 07/27/18 Range/Units 02:33 AST 36 (14-36) U/L CBC 07/27/18 Range/Units 02:33 WBC 18.4 H (3.8-10.6) k/uL RBC 3.81 (3.80-5.40) m/uL Hgb 9.0 L D (11.4-16.0) gm/dL Hct 31.2 L (34.0-46.0) % Plt Count 383 (150-450) k/uL Comprehensive Metabolic Panel 07/27/18 Range/Units 02:33 Sodium 141 (137-145) mmol/L Potassium 5.0 (3.5-5.1) mmol/L Chloride 104 (98-107) mmol/L Carbon Dioxide 28 (22-30) mmol/L BUN 43 H (7-17) mg/dL Creatinine 2.29 H (0.52-1.04) mg/dL Glucose 96 (74-99) mg/dL Calcium 8.2 L (8.4-10.2) mg/dL AST 36 (14-36) U/L ALT 21 (9-52) U/L Alkaline Phosphatase 103 (38-126) U/L Total Protein 7.0 (6.3-8.2) g/dL Albumin 2.9 L (3.5-5.0) g/dL Current Medications Generic Name Dose Route Start Last Admin Trade Name Freq PRN Reason Stop Dose Admin Acetaminophen 650 mg 07/26/18 11:24 07/27/18 00:06 Tylenol Tab PO 650 mg Q4H PRN Administration MILD Pain Albuterol/Ipratropium 3 ml 07/27/18 13:00 07/27/18 11:51 Duoneb 0.5 Mg-3 Mg/3 Ml Soln INHALATION 3 ml RT-TID DELTA Administration Albuterol/Ipratropium 3 ml 07/27/18 09:51 Duoneb 0.5 Mg-3 Mg/3 Ml Soln INHALATION RT-Q2H PRN Shortness Of Breath Or Wheezing Alprazolam 0.25 mg 07/26/18 12:15 07/27/18 09:35 Xanax PO Not Given BID [facility] Aripiprazole 5 mg 07/26/18 21:00 07/26/18 21:16 Abilify PO 5 mg HS DELTA Administration Aspirin 81 mg 07/26/18 11:30 07/27/18 09:32 Aspirin PO 81 mg DAILY DELTA Administration Atorvastatin Calcium 10 mg 07/26/18 21:00 07/26/18 21:16 Lipitor PO 10 mg HS DELTA Administration Cholecalciferol 2,000 unit 07/27/18 09:00 07/27/18 09:31 Vitamin D3 PO 2,000 unit DAILY [facility] Administration Ferrous Sulfate 325 mg 07/26/18 12:15 07/27/18 09:32 Feosol PO 325 mg BID DELTA Administration Fluticasone Propionate 1 puff 07/26/18 20:00 07/27/18 08:12 Flovent 110 Mcg Inhaler INHALATION Not Given RT-BID DELTA Gabapentin 200 mg 07/26/18 12:30 07/27/18 12:26 Neurontin PO 200 mg AC-TID DELTA Administration Heparin Sodium (Porcine) 5,000 unit 07/26/18 21:00 07/27/18 09:33 Heparin SQ 5,000 unit Q12HR DELTA Administration Sodium Chloride 1,000 mls @ 25 mls/hr 07/26/18 23:30 07/27/18 13:23 Saline 0.9% IV 25 mls/hr .Q24H DELTA Administration Piperacillin Sod/Tazobactam 100 mls @ 25 mls/hr 07/27/18 11:00 07/27/18 11:35 Sod 3.375 gm/ Sodium Chloride IVPB 25 mls/hr Q12HR DELTA Administration Lactulose 20 gm 07/26/18 11:24 Cephulac PO DAILY PRN Constipation Latanoprost 1 drops 07/26/18 21:00 07/26/18 21:15 Xalatan 0.005% BOTH EYES 1 drops HS DELTA Administration Levetiracetam 500 mg 07/26/18 11:30 07/27/18 09:32 Keppra PO 500 mg BID DELTA Administration Metoprolol Tartrate 12.5 mg 07/26/18 11:30 07/27/18 09:32 Lopressor PO 12.5 mg BID DELTA Administration Multivitamins 1 each 07/27/18 12:00 07/27/18 12:26 Theragran PO 1 each DAILY@1200 DELTA Administration Naloxone HCl 0.2 mg 07/26/18 01:48 Narcan IV Q2M PRN Opioid Reversal Pantoprazole Sodium 40 mg 07/26/18 07:30 07/26/18 12:06 Protonix PO 40 mg Q48H DELTA Administration Paroxetine HCl 60 mg 07/27/18 09:00 07/27/18 09:31 Paxil PO 60 mg DAILY DELTA Administration Senna/Docusate Sodium 1 each 07/26/18 21:00 07/27/18 09:32 Senokot-S PO 1 each BID DELTA Administration Theophylline 600 mg 07/26/18 12:15 07/27/18 09:55 Craig-24 PO 600 mg DAILY DELTA Administration Intake and Output 07/26/18 07/27/18 07/27/18 22:59 06:59 14:59 Intake Total 100 275 Output Total 205 365 Balance -90 Intake: IV 100 275 Piperacillin-Tazobactam 3 100 .375 gm In Sodium Chloride 0.9% 100 ml @ 25 mls/hr IVPB Q12HR [facility] Rx #:[id number] Sodium Chloride 0.9% 1, 100 175 000 ml @ 25 mls/hr IV . Q24H [facility] Rx#:[id number] Output: Urine 205 365 Other: Voiding Method Incontinent Indwelling Catheter Indwelling Catheter # Voids 1 # Bowel Movements 1 Weight 64.8 kg 07/27/18 02:33 07/27/18 02:33
[2018-07-27] MEDS ORDERED: SODIUM CHLORIDE 0.9% 1,000 ML IV ONE (15:49)
[2018-07-27] MEDS ORDERED: HYDROcodone/APAP 10-325MG 1 EACH TAB PO PRN (16:15)
[2018-07-27 17:16] LABS: Glucose,Whole Blood 104 mg/dL (75-99)
[2018-07-27] MEDS: ATORVASTATIN 10 MG TAB PO SCH (20:49)
[2018-07-27] MEDS: ARIPiprazole 5 MG TAB PO SCH (21:06)
[2018-07-27] MEDS: LATANOPROST 0.005% OPHTH DROPS 2.5 ML BTL BOTH EYES SCH (21:06)
[2018-07-27 21:12] LABS: Glucose,Whole Blood 120 mg/dL (75-99)
--- NOTE | 2018-07-28 00:09 | P.PN ---
Subjective Progress Note Date: 07/27/18 Principal diagnosis: Sepsis secondary to urinary tract infection Septic shock Metabolic encephalopathy due to infection Mable is a medically ill 68-year-old female who resides at [facility] presents to the emergency department today via EMS for evaluation of altered mental sta tus and possible sepsis. Per EMS the patient's baseline alert and oriented to person and place she does have some speech difficulty. Yesterday staff noted that she was febrile a urinalysis revealed a UTI and lab work revealed leukocytosis with a white blood cell count of 21. This evening they noted that she seemed very sleepy her heart was racing she was febrile decided to send her the ER for further evaluation of possible sepsis likely due to urinary tract infection. Denied any abdominal pain. No complaints of chest pain or shortness of breath. No headache or dizziness or lightheadedness. No leg swelling. 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 WBC 19.1, ua positive for infection. Patient is currently lethargic and sleepy but able to auscultation questions. Patient does not know why she is in the hospital. BUN 39 and creatinine 2.26 T-max 102 on admission. Chest x-ray showed no acute findings. EKG showed sinus tachycardia. 07/27/2018 Patient is currently transferred to MICU. Patient became hypotensive and became more lethargic last night and was transferred to intensive care unit. T-max was 101.8. Patient was given 2 L fluid boluses. Currently antibiotics were changed to Zosyn. Patient does have a history of ESBL E. coli urinary tract infection. Patient is still having significant leukocytosis at 18.4. BUN 43 and creatinine 2.29 Blood cultures showed gram negative bacilli. Urine culture showed normal jessie. Repeat culture was ordered. Patient is currently with lethargic but able to respond with verbal stimuli. No commerce of chest pain or shortness of breath. Complete review of systems could not be apparent from the patient. Current medications reviewed. Objective - Vital Signs Vital signs: Vital Signs Temp 99.3 F 07/27/18 16:00 Pulse 108 H 07/27/18 21:47 Resp 25 H 07/27/18 19:00 BP 104/60 07/27/18 19:00 Pulse Ox 91 L 07/27/18 19:00 Intake & Output 07/27/18 07/27/18 07/28/18 06:59 18:59 06:59 Intake Total 100 1400 25 Output Total 205 480 30 Balance -105 920 -5 Weight 64.8 kg Intake: IV 100 1400 25 Piperacillin-Tazobactam 3 100 .375 gm In Sodium Chloride 0.9% 100 ml @ 25 mls/hr IVPB Q12HR [facility] Rx #:[id number] Sodium Chloride 0.9% 1, 100 300 25 000 ml @ 25 mls/hr IV . Q24H [facility] Rx#:[id number] Sodium Chloride 0.9% 1, 1000 000 ml @ 999 mls/hr IV . Q1H1M [facility] Rx#:[id number] Output: Urine 205 480 30 Other: Voiding Method Indwelling Catheter Indwelling Catheter # Voids 1 # Bowel Movements 1 - Exam PHYSICAL EXAMINATION: Patient is lying in the bed comfortably, no acute distress, awake alert and oriented but lethargic.. HEENT: Normocephalic. Neck is supple. Pupils reactive. Nostrils clear. Oral cavity is moist. Ears reveal no drainage. Neck reveals no JVD, carotid bruits, or thyromegaly. CHEST EXAMINATION: Trachea is central. Symmetrical expansion. Lung hall clear to auscultation and percussion. CARDIAC: Normal S1, S2 with no gallops. No murmurs ABDOMEN: Soft. Bowel sounds normal. No organomegaly. No abdominal bruits. Extremities: reveal no edema. No clubbing or cyanosis Neurologically awake, alert, oriented x2-3 with well-coordinated movements. No focal deficits noted Skin: No rash or skin lesions. Psychiatric: Coperative. Could not be assessed completely Musculoskeletal: No joint swelling or deformity. Normal range of motion. - Labs CBC & Chem 7: 07/27/18 02:33 07/27/18 02:33 Labs: Abnormal Lab Results - Last 24 Hours (Table) 07/27/18 07/27/18 07/27/18 Range/Units 02:33 02:33 06:55 WBC 18.4 H (3.8-10.6) k/uL Hgb 9.0 L D (11.4-16.0) gm/dL Hct 31.2 L (34.0-46.0) % MCH 23.6 L (25.0-35.0) pg MCHC 28.9 L (31.0-37.0) g/dL Neutrophils # 16.4 H (1.3-7.7) k/uL Lymphocytes # 0.8 L (1.0-4.8) k/uL ABG pH (7.35-7.45) ABG pCO2 (35-45) mmHg ABG pO2 (83-108) mmHg ABG HCO3 (21-25) mmol/L ABG Total CO2 (19-24) mmol/L BUN 43 H (7-17) mg/dL Creatinine 2.29 H (0.52-1.04) mg/dL POC Glucose (mg/dL) (75-99) mg/dL Calcium 8.2 L (8.4-10.2) mg/dL Albumin 2.9 L (3.5-5.0) g/dL Urine Appearance Cloudy H (Clear) Urine Protein Trace H (Negative) Urine Blood Small H (Negative) Ur Leukocyte Esterase Large H (Negative) Urine RBC 11 H (0-5) /hpf Urine WBC 54 H (0-5) /hpf Urine WBC Clumps Moderate H (None) /hpf Amorphous Sediment Few H (None) /hpf Urine Bacteria Rare H (None) /hpf Urine Mucus Rare H (None) /hpf 07/27/18 07/27/18 07/27/18 Range/Units 08:54 11:50 17:02 WBC (3.8-10.6) k/uL Hgb (11.4-16.0) gm/dL Hct (34.0-46.0) % MCH (25.0-35.0) pg MCHC (31.0-37.0) g/dL Neutrophils # (1.3-7.7) k/uL Lymphocytes # (1.0-4.8) k/uL ABG pH 7.29 L (7.35-7.45) ABG pCO2 63 H (35-45) mmHg ABG pO2 78 L (83-108) mmHg ABG HCO3 31 H (21-25) mmol/L ABG Total CO2 33 H (19-24) mmol/L BUN (7-17) mg/dL Creatinine (0.52-1.04) mg/dL POC Glucose (mg/dL) 114 H 104 H (75-99) mg/dL Calcium (8.4-10.2) mg/dL Albumin (3.5-5.0) g/dL Urine Appearance (Clear) Urine Protein (Negative) Urine Blood (Negative) Ur Leukocyte Esterase (Negative) Urine RBC (0-5) /hpf Urine WBC (0-5) /hpf Urine WBC Clumps (None) /hpf Amorphous Sediment (None) /hpf Urine Bacteria (None) /hpf Urine Mucus (None) /hpf 07/27/18 Range/Units 21:09 WBC (3.8-10.6) k/uL Hgb (11.4-16.0) gm/dL Hct (34.0-46.0) % MCH (25.0-35.0) pg MCHC (31.0-37.0) g/dL Neutrophils # (1.3-7.7) k/uL Lymphocytes # (1.0-4.8) k/uL ABG pH (7.35-7.45) ABG pCO2 (35-45) mmHg ABG pO2 (83-108) mmHg ABG HCO3 (21-25) mmol/L ABG Total CO2 (19-24) mmol/L BUN (7-17) mg/dL Creatinine (0.52-1.04) mg/dL POC Glucose (mg/dL) 120 H (75-99) mg/dL Calcium (8.4-10.2) mg/dL Albumin (3.5-5.0) g/dL Urine Appearance (Clear) Urine Protein (Negative) Urine Blood (Negative) Ur Leukocyte Esterase (Negative) Urine RBC (0-5) /hpf Urine WBC (0-5) /hpf Urine WBC Clumps (None) /hpf Amorphous Sediment (None) /hpf Urine Bacteria (None) /hpf Urine Mucus (None) /hpf Microbiology - Last 24 Hours (Table) 07/27/18 06:55 Urine Culture - Preliminary Urine,Voided 07/26/18 02:30 Urine Culture - Final Urine,Catheterized 07/26/18 00:25 Blood Culture Gram Stain - Preliminary Blood 07/26/18 00:25 Blood Culture - Final Blood Assessment and Plan Assessment: SepsisSeptic shock secondary to acute urinary tract infection. Hypotensive. Status post 2 L fluid bolus. Patient was febrile tachycardic and does have leukocytosis. Altered mental status possible metabolic acidosis secondary to infection. Improved now Acute urinary tract infection Acute kidney injury most likely prerenal. COPD on oxygen via nasal cannula History of CVA with speech involvement Chronic dysphagia on soft diet. Hepatitis C with successful treatment History of his atenolol Urinary incontinence Chronic anemia Chronic back pain Bilateral peripheral neuropathy. Nondiabetic Degenerative joint disease Anxiety/depression and panic disorder Previous history of smoking. DVT prophylaxis. Heparin subcu. Plan Patient will be continued on IV hydration with normal saline. Antibiotics in the form of ceftriaxone, change to Zosyn. Continue with home medications and oxygen therapy. Continue with breathing treatments as needed. Follow-up urine culture reports. Follow renal function. Mechanical soft diet. Nutrition evaluation. PTOT. Further recommendations based on the clinical course. Continue with DVT prophylaxis. Time with Patient: Greater than 30
[2018-07-28] MEDS: ACETAMINOPHEN TAB 325 MG TAB PO PRN (04:28)
--- NOTE | 2018-07-28 06:19 | XR ---
EXAMINATION TYPE: XR chest 1V DATE OF EXAM: 07/28/2018 HISTORY: fluid overload. REFERENCE: Previous study dated 07/27/2018. FINDINGS: The patient is taken relatively poor inspiration. There is bibasilar atelectasis. There is vascular congestion without ayden edema. Heart size remains within normal limits. I could not exclude small, bilateral effusions. IMPRESSION: 1. POOR INSPIRATION. 2. VASCULAR CONGESTION. 3. I COULD NOT EXCLUDE SMALL, BILATERAL EFFUSIONS.
[2018-07-28 06:56] LABS: Glucose,Whole Blood 121 mg/dL (75-99)
[2018-07-28] MEDS: FLUTICASONE 110 MCG INHALER INHALATION SCH (08:01)
[2018-07-28] MEDS: IPRATROPIUM-ALBUTEROL 3 ML NEB INHALATION SCH ×3 (08:01→19:21)
[2018-07-28] MEDS ORDERED: FUROSEMIDE 10 MG/ML 4 ML VIAL IV STA (09:05)
[2018-07-28 09:47] LABS: Basophils % (A) 0 %; Eosinophils # (A) 0.3 k/uL (0-0.7); Eosinophils % (A) 2 %; HGB 8.4 gm/dL (11.4-16.0); Hypochromasia Marked; Lymphocytes # (A) 1.2 k/uL (1.0-4.8); Lymphocytes % (A) 8 %; MCH 23.3 pg (25.0-35.0); MCHC 28.9 g/dL (31.0-37.0); MCV 80.8 fL (80.0-100.0); Mean Platelet Volume 9.6; Monocytes # (A) 0.6 k/uL (0-1.0); Monocytes % (A) 4 %; Neutrophils # (A) 12.7 k/uL (1.3-7.7); Neutrophils % (A) 82 %; Platelet Count 314 k/uL (150-450); RBC 3.59 m/uL (3.80-5.40); RDW 15.7 % (11.5-15.5); WBC 15.5 k/uL (3.8-10.6)
[2018-07-28] MEDS: PIPERACILLIN-TAZOBACTAM 3.375 GM in SODIUM CHLORIDE 0.9% 100 ML IVPB SCH (10:06)
[2018-07-28 10:19] LABS: Calcium 7.8 mg/dL (8.4-10.2); Magnesium 1.9 mg/dL (1.6-2.3); Phosphorus 3.1 mg/dL (2.5-4.5); Potassium 4.5 mmol/L (3.5-5.1)
[2018-07-28] MEDS: CHOLECALCIFEROL 1,000 UNIT TAB PO SCH (11:28)
[2018-07-28] MEDS: SENNOSIDES-DOCUSATE SODIUM 1 EACH TAB PO SCH ×2 (11:29→21:10)
[2018-07-28] MEDS: levETIRAcetam 500 MG TAB PO SCH ×2 (11:29→21:10)
[2018-07-28] MEDS: PARoxetine 20 MG TAB PO SCH (11:29)
[2018-07-28] MEDS: METOPROLOL TARTRATE 12.5 MG TAB PO SCH ×2 (11:30→21:10)
[2018-07-28] MEDS: PANTOPRAZOLE 40 MG TABLET PO SCH (11:30)
[2018-07-28] MEDS: ASPIRIN 81 MG PO SCH (11:30)
[2018-07-28] MEDS: HEPARIN SODIUM,PORCINE 5,000 UNIT/ML 1 ML VIAL SQ SCH ×2 (11:30→21:10)
[2018-07-28] MEDS: FERROUS SULFATE 325 MG TAB PO SCH ×2 (11:30→21:10)
[2018-07-28] MEDS: MULTIVITAMINS, THERA 1 EACH TAB PO SCH (11:41)
[2018-07-28 12:02] LABS: Glucose,Whole Blood 111 mg/dL (75-99)
--- NOTE | 2018-07-28 12:05 | PN ---
PROGRESS NOTE DATE OF SERVICE: 07/28/2018 This is a 68-year-old female who we saw for acute septic shock secondary to urinary tract infection. We thought she had mental status changes, leukocytosis, and mild hypotension all related to the infection. She does have a history of extended spectrum beta lactamase producing E coli from previous urinary tract evaluation. The patient is doing about the same. She is very lethargic and sleepy. She is a DNR. She is on nasal O2 at 3 L. She is getting a 0.9 IV at 25 mL an hour. Apparently, her blood cultures were positive for Proteus species not yet to be identified. She is on Zosyn. She also has a history of previous tobacco use, hepatitis C infection, CVA, seizure disorder, hypertension, GERD, and heart failure. Current vital signs are reviewed. Temperature is 98.1, heart rate 93, respiratory rate 26, blood pressure was 91/61 mean 71, saturations are between 92% and 94% on 3 L. Appears in no acute distress but she is very lethargic and somnolent. Sometimes according to the nurse, she is much more awake. HEENT examination is grossly unremarkable. Nasal O2 noted. Neck is supple. Full range of motion. No adenopathy or thyromegaly. Neck veins are not distended. Cardiovascular examination was regular rhythm and rate. Heart rate 93 beats per minute. S1, S2 normal. No murmur. Lungs reveal some mild coarse rhonchi. No wheezes or crackles. Breath sounds are equal bilaterally but diminished throughout. Abdomen is soft. Extremities are intact. No edema. Skin without rash. Neurologic examination is difficult to assess, but she does move all 4 extremities. There is no facial asymmetry. LABS: Reviewed. White count 15.5, hemoglobin 8.4, hematocrit 29.0, platelet count 314,000. No additional labs are noted from today. Microbiology is showing Proteus species in the blood. Had not yet been fully identified and there is no sensitivity testing as yet. She did have a chest x-ray which shows a poor inspiration and some vascular congestion. ASSESSMENT: 1. Acute septic shock related to urinary tract infection, likely caused by Proteus species. 2. Mental status changes, leukocytosis and hypotension all related to the sepsis. 3. Previous history of extended spectrum beta lactamase producing Escherichia coli in the urinary system. 4. Acute on chronic hypercapnic respiratory failure. 5. Acute kidney injury/ATN. 6. History of chronic bronchial asthma/chronic obstructive pulmonary disease. 7. Chronic hypoxemic respiratory failure. 8. History of heart failure. 9. Gastroesophageal reflux disease. 10.Hypertension. 11.Hyperlipidemia. 12.History of seizure disorder. 13.History of cerebrovascular accident with chronic dysphagia. 14.History of hepatitis C. 15.Previous history of tobacco use. PLAN: The patient will be treated conservatively with antibiotics. Will await for the sensitivities on the Proteus species and further identification. She remains on Zosyn. Additional recommendations and suggestions are forthcoming. Prognosis is guarded. Labs, x-rays, and medications are reviewed. The patient could be transferred up to the general medical floor. MMODL / IJN: [id number] /
[2018-07-28] MEDS: SODIUM CHLORIDE 0.9% 1,000 ML IV SCH (17:34)
[2018-07-28] MEDS: ALPRAZolam 0.25 MG TAB PO SCH (17:43)
[2018-07-28] MEDS: THEOPHYLLINE 24 HOUR 300 MG CAP.ER.24H PO SCH (17:44)
[2018-07-28] MEDS: GABAPENTIN 100 MG CAP PO SCH (17:44)
--- NOTE | 2018-07-28 18:19 | P.CONS ---
History of Present Illness - Reason for Consult Consult date: 07/28/18 - Chief Complaint UTI - History of Present Illness 68-year-old woman who has multiple medical troubles who presents from extended care facility by EMS because of alteration of her mental status. She has a history of stroke and it is impacting her functional status. Is able to answer a few supple questions but is not a good historian. Denying any discomfort at all this point in time. She has a catheter in place and is unable to relate if she has any urinary symptoms. She did have a temperature 101.3 this concerns her urinary infection and constantly infectious diseases consultation was r equested. Review of Systems Patient is a poor historian however She denying headache or acute visual change and difficulty swallowing Denies new shortness of breath cough or sputum production Denies chest pains or pressures Denies abdominal pain appetites poor no nausea or emesis Mccormack catheter in place Generalized weakness Past Medical History Past Medical History: Asthma, Heart Failure, COPD, Eye Disorder, GERD/Reflux, Hyperlipidemia, Hypertension, Liver Disease, Osteoarthritis (OA), Pneumonia, Renal Disease, Seizure Disorder Additional Past Medical History / Comment(s): Chronic respiratory failure /O2 2liters ATC, COPD and chronic bronchitis, sinus problems, 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 000 History of Any Multi-Drug Resistant Organisms: ESBL Year Discovered:: 05/15/17 MDRO Source:: ESBL URINE Past Surgical History: Hysterectomy, Joint Replacement, Orthopedic Surgery, Tubal Ligation Additional Past Surgical History / Comment(s): Bilateral total knees and total R hip arthroplasty, L wrist ORIF, R oophorectomy d/t cyst, liver bx, back epidural injections. Past Anesthesia/Blood Transfusion Reactions: No Reported Reaction Additional Past Anesthesia/Blood Transfusion Reaction / Comm: Pt states she had blood transfusion without reaction. Past Psychological History: Anxiety, Depression, Panic Disorder Additional Psychological History / Comment(s): Pt resides at [facility]. She uses a walker to ambulate. 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 She uses O2 at 2L/NC ATC. Smoking Status: Unknown if ever smoked Past Alcohol Use History: None Reported Additional Past Alcohol Use History / Comment(s): Pt started smoking in 1965 and quit about 2011. She was a ppd smoker. Past Drug Use History: None Reported Additional Drug Use History / Comment(s): . - Past Family History Mother History Unknown: Yes Family Medical History: Diabetes Mellitus Additional Family Medical History / Comment(s): unable to obtain any family history from previous chart or patient Father History Unknown: Yes Family Medical History: Eye Disorder, Vascular Disorder Additional Family Medical History / Comment(s): PERIPHERAL VASCULAR DISEASE, MACULAR DEGENERATION Medications and Allergies Home Medications and Allergies Comment(s): Current Medications Acetaminophen (Tylenol Tab) 650 mg PO Q4H PRN PRN Reason: MILD Pain Last Admin: 07/28/18 04:28 Dose: 650 mg Documented by: Albuterol/Ipratropium (Duoneb 0.5 Mg-3 Mg/3 Ml Soln) 3 ml INHALATION RT-TID [facility] Last Admin: 07/28/18 12:53 Dose: 3 ml Documented by: Albuterol/Ipratropium (Duoneb 0.5 Mg-3 Mg/3 Ml Soln) 3 ml INHALATION RT-Q2H PRN PRN Reason: Shortness Of Breath Or Wheezing Aripiprazole (Abilify) 5 mg PO [facility] Last Admin: 07/27/18 21:06 Dose: 5 mg Documented by: Aspirin (Aspirin) 81 mg PO DAILY [facility] Last Admin: 07/28/18 11:30 Dose: 81 mg Documented by: Atorvastatin Calcium (Lipitor) 10 mg PO [facility] Last Admin: 07/27/18 20:49 Dose: 10 mg Documented by: Cholecalciferol (Vitamin D3) 2,000 unit PO DAILY [facility] Last Admin: 07/28/18 11:28 Dose: 2,000 unit Documented by: Ferrous Sulfate (Feosol) 325 mg PO BID [facility] Last Admin: 07/28/18 11:30 Dose: 325 mg Documented by: Heparin Sodium (Porcine) (Heparin) 5,000 unit SQ Q12HR [facility] Last Admin: 07/28/18 11:30 Dose: 5,000 unit Documented by: Sodium Chloride (Saline 0.9%) 1,000 mls @ 25 mls/hr IV .Q24H [facility] Last Admin: 07/28/18 17:34 Dose: Not Given Documented by: Meropenem 2 gm/ Sodium (Chloride) 100 mls @ 200 mls/hr IVPB Q12HR [facility]; Protocol Lactulose (Cephulac) 20 gm PO DAILY PRN PRN Reason: Constipation Latanoprost (Xalatan 0.005%) 1 drops BOTH EYES HS [facility] Last Admin: 07/27/18 21:06 Dose: 1 drops Documented by: Levetiracetam (Keppra) 500 mg PO BID [facility] Last Admin: 07/28/18 11:29 Dose: 500 mg Documented by: Metoprolol Tartrate (Lopressor) 12.5 mg PO BID [facility] Last Admin: 07/28/18 11:30 Dose: 12.5 mg Documented by: Multivitamins (Theragran) 1 each PO DAILY@1200 [facility] Last Admin: 07/28/18 11:41 Dose: 1 each Documented by: Naloxone HCl (Narcan) 0.2 mg IV Q2M PRN PRN Reason: Opioid Reversal Pantoprazole Sodium (Protonix) 40 mg PO Q48H [facility] Last Admin: 07/28/18 11:30 Dose: 40 mg Documented by: Paroxetine HCl (Paxil) 60 mg PO DAILY [facility] Last Admin: 07/28/18 11:29 Dose: 60 mg Documented by: Senna/Docusate Sodium (Senokot-S) 1 each PO BID [facility] Last Admin: 07/28/18 11:29 Dose: 1 each Documented by: Home Medications Medication Instructions Recorded Confirmed Type Alendronate Sodium [Fosamax] 70 mg PO WE 01/05/14 07/26/18 History Lactulose 20 gm PO DAILY PRN 01/05/14 07/26/18 History Metoprolol Tartrate [Lopressor] 12.5 mg PO BID 01/05/14 07/26/18 History Omeprazole [PriLOSEC] 20 mg PO Q48H 10/30/14 07/26/18 History Multivitamins, Thera [Multivitamin 1 tab PO DAILY 11/06/14 07/26/18 History (formulary)] Thiamine [Vitamin B-1] 100 mg PO DAILY 08/24/15 07/26/18 History Aspirin EC [Ecotrin Low Dose] 81 mg PO DAILY 01/07/16 07/26/18 History levETIRAcetam [Keppra] 500 mg PO BID 01/07/16 07/26/18 History Albuterol Inhaler [Ventolin Hfa 2 puff INHALATION RT-Q6H PRN 01/28/16 07/26/18 History Inhaler] Budesonide [Pulmicort Flexhaler] 1 puff INHALATION RT-BID 01/28/16 07/26/18 History Acetaminophen Tab [Tylenol] 650 mg PO Q4H PRN 05/15/17 07/26/18 History Atorvastatin [Lipitor] 10 mg PO HS 05/15/17 07/26/18 History Cholecalciferol [Vitamin D3] 2,000 units PO DAILY 05/15/17 07/26/18 History Latanoprost [Xalatan 0.005%] 1 drop BOTH EYES HS 05/15/17 07/26/18 History Nitroglycerin Sl Tabs [Nitrostat] 0.4 mg SUBLINGUAL Q5M PRN 05/15/17 07/26/18 History PARoxetine HCL [Paxil] 60 mg PO DAILY 05/15/17 07/26/18 History Sennosides-Docusate Sodium 1 tab PO BID 05/15/17 07/26/18 History [Senokot-S] ALPRAZolam [Xanax] 0.25 mg PO BID #10 tab 05/22/17 07/26/18 Rx ARIPiprazole [Abilify] 5 mg PO HS #1 tab 05/22/17 07/26/18 Rx Ferrous Sulfate [Feosol] 325 mg PO BID 07/26/18 07/26/18 History Gabapentin [Neurontin] 200 mg PO AC-TID 07/26/18 07/26/18 History HYDROcodone/APAP 10-325MG [[place] 1 tab PO Q8H PRN 07/26/18 07/26/18 History 10-325] Theophylline 12 Hour [Craig-Dur] 300 mg PO BID 07/26/18 07/26/18 History Zolpidem [Ambien] 10 mg PO HS PRN 07/26/18 07/26/18 History hydrALAZINE HCL [Apresoline] 25 mg PO Q12H 07/26/18 07/26/18 History Allergies Allergy/AdvReac Type Severity Reaction Status Date / Time latex Allergy Rash/Hives Verified 07/26/18 09:08 strawberry [Dellrose] Allergy Dyspnea,swe Verified 07/26/18 09:08 lling,rash Sulfa (Sulfonamide Allergy Rash/Hives, Verified 07/26/18 09:08 Antibiotics) swelling Physical Exam Vitals: Vital Signs Temp Pulse Resp BP Pulse Ox 07/28/18 15:00 98.1 F 87 19 102/65 96 07/28/18 14:00 93 24 115/68 95 07/28/18 13:05 88 07/28/18 13:00 80 22 113/68 98 07/28/18 12:56 90 07/28/18 12:00 98.6 F 89 30 H 124/68 94 L 07/28/18 11:00 97 17 103/70 94 L 07/28/18 10:00 93 26 H 91/61 92 L 07/28/18 09:00 101 H 21 125/83 90 L 07/28/18 08:21 102 H 07/28/18 08:04 94 94 L 07/28/18 08:00 98.1 F 92 35 H 96/55 95 07/28/18 07:00 93 17 99/57 92 L 07/28/18 06:00 100 24 109/65 94 L 07/28/18 05:00 111 H 25 H 115/75 90 L 07/28/18 04:00 100.1 F H 105 H 23 108/76 91 L 07/28/18 03:00 111 H 22 123/77 91 L 07/28/18 02:00 106 H 27 H 119/69 91 L 07/28/18 01:00 108 H 27 H 112/71 91 L 07/28/18 00:00 99.5 F 110 H 26 H 105/66 92 L 07/27/18 23:00 118 H 27 H 100/59 91 L 07/27/18 22:00 115 H 28 H 105/63 93 L 07/27/18 21:47 108 H 07/27/18 21:36 105 H 07/27/18 21:00 113 H 29 H 99/53 92 L 07/27/18 20:00 98.9 F 104 H 26 H 96/57 93 L 07/27/18 19:00 105 H 25 H 104/60 91 L Intake and Output 07/28/18 07/28/18 07/28/18 06:59 14:59 22:59 Intake Total 200 300 Output Total 220 495 50 Balance -20 -195 -50 Intake: IV 200 300 Piperacillin-Tazobactam 3 100 .375 gm In Sodium Chloride 0.9% 100 ml @ 25 mls/hr IVPB Q12HR DELTA Rx #:[id number] Sodium Chloride 0.9% 1, 200 200 000 ml @ 25 mls/hr IV . Q24H DELTA Rx#:[id number] Output: Urine 220 495 50 Other: Voiding Method Indwelling Catheter Indwelling Catheter # Voids 1 1 # Bowel Movements 1 Weight 66.7 kg HEENT: Anicteric conjunctiva are pink and moist nasal mucosa grossly intact without significant lesions, there is no thrush. Dentition is poor Neck: The neck is supple without significant lymphadenopathy or thyromegaly. Lungs: Symmetrical bilateral air entry with a few expiratory wheezes no bronchial sounds no dullness or egophony Heart: Irregular with audible S1-S2, no S3 no S4. There is no significant murmur click or rub, PMI was nondisplaced. Abdomen: Positive bowel sounds soft and nontender without palpable masses or organomegaly. There was no guarding or rebound. Extremities: The upper extremities have excellent pulses they are symmetric, no significant petechiae or telangiectasia. No splinter hemorrhages were noted. The lower extremities are free from significant edema. The peripheral pulses were 2+ and symmetric. Neuro: Awake alert oriented to person and hospital is comfortable Results CBC & Chem 7: 07/28/18 09:29 07/28/18 09:29 Labs: Abnormal Lab Results - Last 24 Hours (Table) 07/27/18 07/28/18 07/28/18 Range/Units 21:09 06:53 09:29 WBC 15.5 H (3.8-10.6) k/uL RBC 3.59 L (3.80-5.40) m/uL Hgb 8.4 L (11.4-16.0) gm/dL Hct 29.0 L (34.0-46.0) % MCH 23.3 L (25.0-35.0) pg MCHC 28.9 L (31.0-37.0) g/dL RDW 15.7 H (11.5-15.5) % Neutrophils # 12.7 H (1.3-7.7) k/uL Chloride (98-107) mmol/L BUN (7-17) mg/dL Creatinine (0.52-1.04) mg/dL Glucose (74-99) mg/dL POC Glucose (mg/dL) 120 H 121 H (75-99) mg/dL Calcium (8.4-10.2) mg/dL 07/28/18 07/28/18 Range/Units 09:29 11:59 WBC (3.8-10.6) k/uL RBC (3.80-5.40) m/uL Hgb (11.4-16.0) gm/dL Hct (34.0-46.0) % MCH (25.0-35.0) pg MCHC (31.0-37.0) g/dL RDW (11.5-15.5) % Neutrophils # (1.3-7.7) k/uL Chloride 109 H (98-107) mmol/L BUN 46 H (7-17) mg/dL Creatinine 2.13 H (0.52-1.04) mg/dL Glucose 126 H (74-99) mg/dL POC Glucose (mg/dL) 111 H (75-99) mg/dL Calcium 7.8 L (8.4-10.2) mg/dL Microbiology - Last 24 Hours (Table) 07/27/18 06:55 Urine Culture - Final Urine,Voided 07/26/18 00:25 Blood Culture Gram Stain - Preliminary Blood Blood Culture - Preliminary Proteus spec 07/26/18 02:30 Urine Culture - Final Urine,Catheterized Laboratory Results WBC 15.5 k/uL (3.8-10.6) H 07/28/18 09:29 RBC 3.59 m/uL (3.80-5.40) L 07/28/18 09:29 Hgb 8.4 gm/dL (11.4-16.0) L 07/28/18 09:29 Hct 29.0 % (34.0-46.0) L 07/28/18 09:29 MCV 80.8 fL (80.0-100.0) 07/28/18 09:29 MCH 23.3 pg (25.0-35.0) L 07/28/18 09:29 MCHC 28.9 g/dL (31.0-37.0) L 07/28/18 09:29 RDW 15.7 % (11.5-15.5) H 07/28/18 09:29 Plt Count 314 k/uL (150-450) 07/28/18 09:29 Neutrophils % 82 % 07/28/18 09:29 Lymphocytes % 8 % 07/28/18 09: Monocytes % 4 % 07/28/18 09: Eosinophils % 2 % 07/28/18 09: Basophils % 0 % 07/28/18 09:29 Neutrophils # 12.7 k/uL (1.3-7.7) H 07/28/18 09:29 Lymphocytes # 1.2 k/uL (1.0-4.8) 07/28/18 09: Monocytes # 0.6 k/uL (0-1.0) 07/28/18 09: Eosinophils # 0.3 k/uL (0-0.7) 07/28/18 09:29 Basophils # 0.0 k/uL (0-0.2) 07/28/18 09:29 Hypochromasia Marked 07/28/18 09:29 PT 11.7 sec (9.0-12.0) 07/26/18 00:25 INR 1.1 (<1.2) 07/26/18 00:25 APTT 31.5 sec (22.0-30.0) H 07/26/18 00:25 Sample Site RBRA 07/27/18 08:54 ABG pH 7.29 (7.35-7.45) L 07/27/18 08:54 ABG pCO2 63 mmHg (35-45) H 07/27/18 08:54 ABG pO2 78 mmHg (83-108) L 07/27/18 08:54 ABG HCO3 31 mmol/L (21-25) H 07/27/18 08:54 ABG Total CO2 33 mmol/L (19-24) H 07/27/18 08:54 ABG O2 Saturation 95.7 % (94-97) 07/27/18 08:54 ABG Base Excess 4.2 mmol/L 07/27/18 08:54 Henry Test Yes 07/27/18 08:54 FiO2 32 % 07/27/18 08:54 Sodium 142 mmol/L (137-145) 07/28/18 09:29 Potassium 4.5 mmol/L (3.5-5.1) 07/28/18 09:29 Chloride 109 mmol/L (98-107) H 07/28/18 09:29 Carbon Dioxide 26 mmol/L (22-30) 07/28/18 09:29 Anion Gap 7 mmol/L 07/28/18 09:29 BUN 46 mg/dL (7-17) H 07/28/18 09:29 Creatinine 2.13 mg/dL (0.52-1.04) H 07/28/18 09:29 Est GFR (CKD-EPI)AfAm 27 (>60 ml/min/1.73 sqM) 07/28/18 09:29 Est GFR (CKD-EPI)NonAf 23 (>60 ml/min/1.73 sqM) 07/28/18 09:29 Glucose 126 mg/dL (74-99) H 07/28/18 09:29 POC Glucose (mg/dL) 111 mg/dL (75-99) H 07/28/18 11:59 POC Glu Insole Cementer ID Renetta Willoughby 07/28/18 11:59 Plasma Lactic Acid Sammy 1.4 mmol/L (0.7-2.0) 07/27/18 02:33 Calcium 7.8 mg/dL (8.4-10.2) L 07/28/18 09:29 Phosphorus 3.1 mg/dL (2.5-4.5) 07/28/18 09:29 Magnesium 1.9 mg/dL (1.6-2.3) 07/28/18 09:29 Total Bilirubin 0.5 mg/dL (0.2-1.3) 07/27/18 02:33 AST 36 U/L (14-36) 07/27/18 02:33 ALT 21 U/L (9-52) 07/27/18 02:33 Alkaline Phosphatase 103 U/L (38-126) 07/27/18 02:33 Troponin I 0.012 ng/mL (0.000-0.034) 07/26/18 00:25 Total Protein 7.0 g/dL (6.3-8.2) 07/27/18 02:33 Albumin 2.9 g/dL (3.5-5.0) L 07/27/18 02:33 Urine Color Yellow 07/27/18 06:55 Urine Appearance Cloudy (Clear) H 07/27/18 06:55 Urine pH 5.5 (5.0-8.0) 07/27/18 06:55 Ur Specific [place] 1.011 (1.001-1.035) 07/27/18 06:55 Urine Protein Trace (Negative) H 07/27/18 06:55 Urine Glucose (UA) Negative (Negative) 07/27/18 06:55 Urine Ketones Negative (Negative) 07/27/18 06:55 Urine Blood Small (Negative) H 07/27/18 06:55 Urine Nitrite Negative (Negative) 07/27/18 06:55 Urine Bilirubin Negative (Negative) 07/27/18 06:55 Urine Urobilinogen <2.0 mg/dL (<2.0) 07/27/18 06:55 Ur Leukocyte Esterase Large (Negative) H 07/27/18 06:55 Urine RBC 11 /hpf (0-5) H 07/27/18 06:55 Urine WBC 54 /hpf (0-5) H 07/27/18 06:55 Urine WBC Clumps Moderate /hpf (None) H 07/27/18 06:55 Ur Squamous Epith Cells <1 /hpf (0-4) 07/27/18 06:55 Amorphous Sediment Few /hpf (None) H 07/27/18 06:55 Urine Bacteria Rare /hpf (None) H 07/27/18 06:55 Hyaline Casts 1 /lpf (0-2) 07/27/18 06:55 Urine Mucus Rare /hpf (None) H 07/27/18 06:55 Influenza Type A RNA Not Detected (Not Detectd) 07/26/18 01:20 Influenza Type B (PCR) Not Detected (Not Detectd) 07/26/18 01:20 Microbiology 07/27/18 06:55 Urine,Voided Urine Culture - Final 07/26/18 00:25 Blood Blood Culture Gram Stain - Preliminary 07/26/18 00:25 Blood Blood Culture - Preliminary Proteus spec 07/26/18 02:30 Urine,Catheterized Urine Culture - Final 07/26/18 00:25 Blood Blood Culture - Final Chest x-ray: report reviewed (No new acute pneumonic infiltration) Assessment and Plan (1) Sepsis Current Visit: Yes Status: Acute Code(s): A41.9 - SEPSIS, UNSPECIFIED ORGANISM SNOMED Code(s): 90407583 (2) UTI (urinary tract infection) Narrative/Plan: 68-year-old presents to Hospital with an acute care facility with altered mental status. Evidence of fever 101.3, leukocytosis with a white count of 21 is improved to 19.5 today. Creatinine is elevated 2.13 and the patient appears to have sepsis. The source is urinary tract with evidence of abnormal urinalysis and urine culture is positive for gram-negative bacilli. Recently had an E. coli ESBL now has a Proteus species also evidence of positive blood culture for gram-negative bacilli. Given current level illness could be concerned that piperacillin tazobactam would not give coverage because we will alter to carbapenem until we have further data. Follow blood cultures are in process. Leukocytosis is showing some improvement. She is hemodynamically stable and we will got intensive care unit today. Current Visit: Yes Status: Acute Code(s): N39.0 - URINARY TRACT INFECTION, SITE NOT SPECIFIED SNOMED Code(s): 57679449 (3) Altered mental status Current Visit: Yes Status: Acute Code(s): R41.82 - ALTERED MENTAL STATUS, UNSPECIFIED SNOMED Code(s): 996680353
[2018-07-28 18:30] LABS: Glucose,Whole Blood 90 mg/dL (75-99)
[2018-07-28] MEDS: MEROPENEM 2 GM in SODIUM CHLORIDE 0.9% 100 ML IVPB SCH (18:45)
[2018-07-28 20:13] LABS: Glucose,Whole Blood 82 mg/dL (75-99)
[2018-07-28] MEDS: ATORVASTATIN 10 MG TAB PO SCH (21:10)
[2018-07-28] MEDS: LATANOPROST 0.005% OPHTH DROPS 2.5 ML BTL BOTH EYES SCH (21:10)
[2018-07-28] MEDS: ARIPiprazole 5 MG TAB PO SCH (21:10)
--- NOTE | 2018-07-29 01:11 | P.PN ---
Subjective Progress Note Date: 07/28/18 Principal diagnosis: Sepsis secondary to urinary tract infection Septic shock Metabolic encephalopathy due to infection Mable is a medically ill 68-year-old female who resides at [facility] presents to the emergency department today via EMS for evaluation of altered mental sta tus and possible sepsis. Per EMS the patient's baseline alert and oriented to person and place she does have some speech difficulty. Yesterday staff noted that she was febrile a urinalysis revealed a UTI and lab work revealed leukocytosis with a white blood cell count of 21. This evening they noted that she seemed very sleepy her heart was racing she was febrile decided to send her the ER for further evaluation of possible sepsis likely due to urinary tract infection. Denied any abdominal pain. No complaints of chest pain or shortness of breath. No headache or dizziness or lightheadedness. No leg swelling. 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 WBC 19.1, ua positive for infection. Patient is currently lethargic and sleepy but able to auscultation questions. Patient does not know why she is in the hospital. BUN 39 and creatinine 2.26 T-max 102 on admission. Chest x-ray showed no acute findings. EKG showed sinus tachycardia. 07/27/2018 Patient is currently transferred to MICU. Patient became hypotensive and became more lethargic last night and was transferred to intensive care unit. T-max was 101.8. Patient was given 2 L fluid boluses. Currently antibiotics were changed to Zosyn. Patient does have a history of ESBL E. coli urinary tract infection. Patient is still having significant leukocytosis at 18.4. BUN 43 and creatinine 2.29 Blood cultures showed gram negative bacilli. Urine culture showed normal jessie. Repeat culture was ordered. Patient is currently with lethargic but able to respond with verbal stimuli. No complaints of chest pain or shortness of breath. Complete review of systems could not be apparent from the patient. 07/29/2018 Patient is awake alert and oriented. Still slightly lethargic. Lying in the bed comfortably otherwise. No complaints of chest pain or shortness of breath. Patient has been afebrile. Blood cultures grew Proteus species. Antibiotics were changed to meropenem as per ID recommendations. Urine cultures showed no growth. Leukocytosis is improving. Renal function improved with creatinine level II.1. Patient is being transferred to medical floor today. Current medications reviewed. Objective - Vital Signs Vital signs: Vital Signs Temp 98.0 F 07/28/18 21:00 Pulse 109 H 07/28/18 21:00 Resp 20 07/28/18 21:00 BP 120/42 07/28/18 21:00 Pulse Ox 93 L 07/28/18 21:00 Intake & Output 07/28/18 07/28/18 07/29/18 06:59 18:59 06:59 Intake Total 400 300 100 Output Total 330 545 Balance 70 -245 100 Weight 66.7 kg Intake: IV 400 300 100 Piperacillin-Tazobactam 3 100 100 .375 gm In Sodium Chloride 0.9% 100 ml @ 25 mls/hr IVPB Q12HR DELTA Rx #:[id number] Sodium Chloride 0.9% 1, 300 200 100 000 ml @ 25 mls/hr IV . Q24H DELTA Rx#:[id number] Output: Urine 330 545 Other: Voiding Method Indwelling Catheter Indwelling Catheter Diaper Incontinent # Voids 1 # Bowel Movements 1 - Exam PHYSICAL EXAMINATION: Patient is lying in the bed comfortably, no acute distress, awake alert and oriented but lethargic.. HEENT: Normocephalic. Neck is supple. Pupils reactive. Nostrils clear. Oral cavity is moist. Ears reveal no drainage. Neck reveals no JVD, carotid bruits, or thyromegaly. CHEST EXAMINATION: Trachea is central. Symmetrical expansion. Lung hall clear to auscultation and percussion. CARDIAC: Normal S1, S2 with no gallops. No murmurs ABDOMEN: Soft. Bowel sounds normal. No organomegaly. No abdominal bruits. Extremities: reveal no edema. No clubbing or cyanosis Neurologically awake, alert, oriented x2-3 with well-coordinated movements. No focal deficits noted Skin: No rash or skin lesions. Psychiatric: Coperative. Could not be assessed completely Musculoskeletal: No joint swelling or deformity. Normal range of motion. - Labs CBC & Chem 7: 07/28/18 09:29 07/28/18 09:29 Labs: Abnormal Lab Results - Last 24 Hours (Table) 07/28/18 07/28/18 07/28/18 Range/Units 06:53 09:29 09:29 WBC 15.5 H (3.8-10.6) k/uL RBC 3.59 L (3.80-5.40) m/uL Hgb 8.4 L (11.4-16.0) gm/dL Hct 29.0 L (34.0-46.0) % MCH 23.3 L (25.0-35.0) pg MCHC 28.9 L (31.0-37.0) g/dL RDW 15.7 H (11.5-15.5) % Neutrophils # 12.7 H (1.3-7.7) k/uL Chloride 109 H (98-107) mmol/L BUN 46 H (7-17) mg/dL Creatinine 2.13 H (0.52-1.04) mg/dL Glucose 126 H (74-99) mg/dL POC Glucose (mg/dL) 121 H (75-99) mg/dL Calcium 7.8 L (8.4-10.2) mg/dL 07/28/18 Range/Units 11:59 WBC (3.8-10.6) k/uL RBC (3.80-5.40) m/uL Hgb (11.4-16.0) gm/dL Hct (34.0-46.0) % MCH (25.0-35.0) pg MCHC (31.0-37.0) g/dL RDW (11.5-15.5) % Neutrophils # (1.3-7.7) k/uL Chloride (98-107) mmol/L BUN (7-17) mg/dL Creatinine (0.52-1.04) mg/dL Glucose (74-99) mg/dL POC Glucose (mg/dL) 111 H (75-99) mg/dL Calcium (8.4-10.2) mg/dL Microbiology - Last 24 Hours (Table) 07/26/18 00:25 Blood Culture Gram Stain - Final Blood Blood Culture - Final Proteus mirabilis 07/27/18 06:55 Urine Culture - Final Urine,Voided Assessment and Plan Assessment: SepsisSeptic shock secondary to acute urinary tract infection. Hypotensive. Status post 2 L fluid bolus. Patient was febrile tachycardic and does have leukocytosis. Proteus mirabilis bacteremia Altered mental status possible metabolic acidosis secondary to infection. Improved now Acute urinary tract infection Acute kidney injury most likely prerenal. COPD on oxygen via nasal cannula History of CVA with speech involvement Chronic dysphagia on soft diet. Hepatitis C with successful treatment History of his atenolol Urinary incontinence Chronic anemia Chronic back pain Bilateral peripheral neuropathy. Nondiabetic Degenerative joint disease Anxiety/depression and panic disorder Previous history of smoking. DVT prophylaxis. Heparin subcu. Plan Patient will be continued on IV hydration with normal saline. Antibiotics in the form of ceftriaxone, change to Zosyn--> meropenem. Continue with home medications and oxygen therapy. Continue with breathing treatments as needed. Follow renal function. Mechanical soft diet. Nutrition evaluation. PTOT. Further recommendations based on the clinical course. Continue with DVT prophylaxis. Time with Patient: Greater than 30
[2018-07-29 06:52] LABS: Glucose,Whole Blood 75 mg/dL (75-99)
[2018-07-29] MEDS: IPRATROPIUM-ALBUTEROL 3 ML NEB INHALATION SCH ×3 (07:51→19:35)
[2018-07-29 08:14] LABS: Glucose,Whole Blood 87 mg/dL (75-99)
[2018-07-29] MEDS: FERROUS SULFATE 325 MG TAB PO SCH (08:26)
[2018-07-29] MEDS: SENNOSIDES-DOCUSATE SODIUM 1 EACH TAB PO SCH ×2 (08:26→22:18)
[2018-07-29] MEDS: CHOLECALCIFEROL 1,000 UNIT TAB PO SCH (08:26)
[2018-07-29] MEDS: levETIRAcetam 500 MG TAB PO SCH ×2 (08:26→22:17)
[2018-07-29] MEDS: MULTIVITAMINS, THERA 1 EACH TAB PO SCH (08:26)
[2018-07-29] MEDS: METOPROLOL TARTRATE 12.5 MG TAB PO SCH ×2 (08:26→22:18)
[2018-07-29] MEDS: ASPIRIN 81 MG PO SCH (08:26)
[2018-07-29] MEDS: HEPARIN SODIUM,PORCINE 5,000 UNIT/ML 1 ML VIAL SQ SCH ×3 (08:27→22:18)
[2018-07-29] MEDS: MEROPENEM 2 GM in SODIUM CHLORIDE 0.9% 100 ML IVPB SCH ×2 (08:38→22:18)
[2018-07-29 10:32] LABS: Potassium 4.2 mmol/L (3.5-5.1)
[2018-07-29 11:06] LABS: Basophils % (A) 0 %; Eosinophils # (A) 0.4 k/uL (0-0.7); Eosinophils % (A) 3 %; HCT 30.3 % (34.0-46.0); HGB 9.3 gm/dL (11.4-16.0); Hypochromasia Marked; Lymphocytes # (A) 1.1 k/uL (1.0-4.8); Lymphocytes % (A) 10 %; MCHC 30.6 g/dL (31.0-37.0); MCV 81.8 fL (80.0-100.0); Mean Platelet Volume 8.8; Monocytes # (A) 0.5 k/uL (0-1.0); Monocytes % (A) 4 %; Neutrophils # (A) 9.1 k/uL (1.3-7.7); Neutrophils % (A) 80 %; Platelet Count 343 k/uL (150-450); RDW 14.7 % (11.5-15.5); WBC 11.3 k/uL (3.8-10.6)
[2018-07-29 11:07] LABS: Glucose,Whole Blood 74 mg/dL (75-99)
[2018-07-29] MEDS: PARoxetine 20 MG TAB PO SCH (13:31)
[2018-07-29] MEDS: SODIUM CHLORIDE 0.9% 1,000 ML IV SCH (13:33)
--- NOTE | 2018-07-29 13:33 | XR ---
EXAMINATION TYPE: XR chest 1V portable DATE OF EXAM: 07/29/2018 HISTORY: congestion. REFERENCE: Previous study dated 07/28/2018. FINDINGS: Once again, the patient has taken a poor inspiration heart size upper limits of normal. Pul monary vasculature is within normal limits. There is mild, diffuse interstitial change. I could not e xclude small effusions. IMPRESSION: FINDINGS MAY BE SECONDARY TO MILD PULMONARY EDEMA.
[2018-07-29 17:16] LABS: Glucose,Whole Blood 77 mg/dL (75-99)
[2018-07-29 21:00] LABS: Glucose,Whole Blood 95 mg/dL (75-99)
[2018-07-29] MEDS: ARIPiprazole 5 MG TAB PO SCH (22:17)
[2018-07-29] MEDS: ATORVASTATIN 10 MG TAB PO SCH (22:17)
[2018-07-29] MEDS: LATANOPROST 0.005% OPHTH DROPS 2.5 ML BTL BOTH EYES SCH (22:18)
--- NOTE | 2018-07-30 00:26 | P.PN ---
Subjective Progress Note Date: 07/29/18 Principal diagnosis: Sepsis secondary to urinary tract infection Septic shock Metabolic encephalopathy due to infection Mable is a medically ill 68-year-old female who resides at [facility] presents to the emergency department today via EMS for evaluation of altered mental sta tus and possible sepsis. Per EMS the patient's baseline alert and oriented to person and place she does have some speech difficulty. Yesterday staff noted that she was febrile a urinalysis revealed a UTI and lab work revealed leukocytosis with a white blood cell count of 21. This evening they noted that she seemed very sleepy her heart was racing she was febrile decided to send her the ER for further evaluation of possible sepsis likely due to urinary tract infection. Denied any abdominal pain. No complaints of chest pain or shortness of breath. No headache or dizziness or lightheadedness. No leg swelling. 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 WBC 19.1, ua positive for infection. Patient is currently lethargic and sleepy but able to auscultation questions. Patient does not know why she is in the hospital. BUN 39 and creatinine 2.26 T-max 102 on admission. Chest x-ray showed no acute findings. EKG showed sinus tachycardia. 07/27/2018 Patient is currently transferred to MICU. Patient became hypotensive and became more lethargic last night and was transferred to intensive care unit. T-max was 101.8. Patient was given 2 L fluid boluses. Currently antibiotics were changed to Zosyn. Patient does have a history of ESBL E. coli urinary tract infection. Patient is still having significant leukocytosis at 18.4. BUN 43 and creatinine 2.29 Blood cultures showed gram negative bacilli. Urine culture showed normal jessie. Repeat culture was ordered. Patient is currently with lethargic but able to respond with verbal stimuli. No complaints of chest pain or shortness of breath. Complete review of systems could not be apparent from the patient. 07/28/2018 Patient is awake alert and oriented. Still slightly lethargic. Lying in the bed comfortably otherwise. No complaints of chest pain or shortness of breath. Patient has been afebrile. Blood cultures grew Proteus species. Antibiotics were changed to meropenem as per ID recommendations. Urine cultures showed no growth. Leukocytosis is improving. Renal function improved with creatinine level II.1. Patient is being transferred to medical floor today. 07/29/2018 Patient did have worsening shortness of breath this morning and was placed on BiPAP patient. Currently saturating well and more awake and oriented. Otherwise patient is being continued on meropenem as per ID recommendations. Initial blood cultures grew Proteus mirabilis. Follow-up repeat blood cultures. Creatinine level is 2.03 today. Otherwise blood sugar is controlled. Hemodynamically stable. Current medications reviewed. Objective - Vital Signs Vital signs: Vital Signs Temp 97.7 F 07/29/18 12:23 Pulse 98 07/29/18 16:00 Resp 20 07/29/18 16:00 BP 120/66 07/29/18 12:23 Pulse Ox 97 07/29/18 12:23 Intake & Output 07/29/18 07/29/18 07/30/18 06:59 18:59 06:59 Intake Total 300 240 Balance 300 240 Weight 65 kg Intake: IV 300 Sodium Chloride 0.9% 1, 300 000 ml @ 25 mls/hr IV . Q24H [facility] Rx#:[id number] Oral 240 Other: Voiding Method Diaper Diaper Incontinent Incontinent # Voids 1 # Bowel Movements 1 - Exam PHYSICAL EXAMINATION: Patient is lying in the bed comfortably, no acute distress, awake alert and oriented but lethargic.. HEENT: Normocephalic. Neck is supple. Pupils reactive. Nostrils clear. Oral cavity is moist. Ears reveal no drainage. Neck reveals no JVD, carotid bruits, or thyromegaly. CHEST EXAMINATION: Trachea is central. Symmetrical expansion. Lung hall clear to auscultation and percussion. CARDIAC: Normal S1, S2 with no gallops. No murmurs ABDOMEN: Soft. Bowel sounds normal. No organomegaly. No abdominal bruits. Extremities: reveal no edema. No clubbing or cyanosis Neurologically awake, alert, oriented x2-3 with well-coordinated movements. No focal deficits noted Skin: No rash or skin lesions. Psychiatric: Coperative. Could not be assessed completely Musculoskeletal: No joint swelling or deformity. Normal range of motion. - Labs CBC & Chem 7: 07/29/18 09:08 07/29/18 09:08 Labs: Abnormal Lab Results - Last 24 Hours (Table) 07/29/18 07/29/18 07/29/18 Range/Units 09:08 09:08 11:05 WBC 11.3 H (3.8-10.6) k/uL RBC 3.70 L (3.80-5.40) m/uL Hgb 9.3 L (11.4-16.0) gm/dL Hct 30.3 L (34.0-46.0) % MCHC 30.6 L (31.0-37.0) g/dL Neutrophils # 9.1 H (1.3-7.7) k/uL BUN 45 H (7-17) mg/dL Creatinine 2.03 H (0.52-1.04) mg/dL POC Glucose (mg/dL) 74 L (75-99) mg/dL Calcium 8.0 L (8.4-10.2) mg/dL Microbiology - Last 24 Hours (Table) 07/26/18 00:25 Blood Culture Gram Stain - Final Blood Blood Culture - Final Proteus mirabilis Assessment and Plan Assessment: SepsisSeptic shock secondary to acute urinary tract infection. Hypotensive. Status post 2 L fluid bolus. Patient was febrile tachycardic and does have leukocytosis. Proteus mirabilis bacteremia Altered mental status possible metabolic acidosis secondary to infection. I mproved now Acute urinary tract infection Acute kidney injury most likely prerenal. COPD on oxygen via nasal cannula History of CVA with speech involvement Chronic dysphagia on soft diet. Hepatitis C with successful treatment History of his atenolol Urinary incontinence Chronic anemia Chronic back pain Bilateral peripheral neuropathy. Nondiabetic Degenerative joint disease Anxiety/depression and panic disorder Previous history of smoking. DVT prophylaxis. Heparin subcu. Plan Patient be continued on Antibiotics in the form of ceftriaxone, change to Zosyn--> meropenem. Follow-up repeat blood cultures. Continue with home medications and oxygen therapy. Continue with breathing treatments as needed. BiPAP as needed. Follow renal function. Mechanical soft diet. Nutrition evaluation. PTOT. Further recommendations based on the clinical course. Continue with DVT prophylaxis. Time with Patient: Greater than 30
[2018-07-30] MEDS: ACETAMINOPHEN TAB 325 MG TAB PO PRN ×2 (02:16→22:22)
[2018-07-30 06:58] LABS: Glucose,Whole Blood 86 mg/dL (75-99)
[2018-07-30 07:37] LABS: HCT 28.7 % (34.0-46.0); HGB 8.4 gm/dL (11.4-16.0); Hypochromasia Marked; MCH 23.4 pg (25.0-35.0); MCHC 29.3 g/dL (31.0-37.0); MCV 79.9 fL (80.0-100.0); Mean Platelet Volume 7.6; Platelet Count 337 k/uL (150-450); RBC 3.59 m/uL (3.80-5.40); RDW 15.4 % (11.5-15.5); WBC 10.1 k/uL (3.8-10.6)
[2018-07-30] MEDS: IPRATROPIUM-ALBUTEROL 3 ML NEB INHALATION SCH ×3 (08:01→18:53)
[2018-07-30 08:17] LABS: Calcium 8.2 mg/dL (8.4-10.2); Potassium 3.7 mmol/L (3.5-5.1)
[2018-07-30 09:17] LABS: Band Neutrophils % 1 %; Lymphocytes # (M) 1.11 k/uL (1.0-4.8); Monocytes # (M) 0.61 k/uL (0-1.0); Neutrophils % (M) 80 %; Nucleated Red Blood Cells 0 /100 WBC (0-0); Total Cells Counted 100
[2018-07-30 09:18] LABS: Anisocytosis (M) Present; Poikilocytosis (M) Present
[2018-07-30] MEDS: HEPARIN SODIUM,PORCINE 5,000 UNIT/ML 1 ML VIAL SQ SCH ×2 (09:58→19:57)
[2018-07-30] MEDS: MEROPENEM 2 GM in SODIUM CHLORIDE 0.9% 100 ML IVPB SCH ×2 (09:58→22:32)
[2018-07-30] MEDS: METOPROLOL TARTRATE 12.5 MG TAB PO SCH ×2 (09:59→19:56)
[2018-07-30] MEDS: MULTIVITAMINS, THERA 1 EACH TAB PO SCH (09:59)
[2018-07-30] MEDS: PARoxetine 20 MG TAB PO SCH (09:59)
[2018-07-30] MEDS: levETIRAcetam 500 MG TAB PO SCH ×2 (09:59→19:57)
[2018-07-30] MEDS: CHOLECALCIFEROL 1,000 UNIT TAB PO SCH (10:00)
[2018-07-30] MEDS: ASPIRIN 81 MG PO SCH (10:00)
[2018-07-30] MEDS: PANTOPRAZOLE 40 MG TABLET PO SCH (10:00)
[2018-07-30] MEDS: SENNOSIDES-DOCUSATE SODIUM 1 EACH TAB PO SCH ×2 (10:09→19:56)
[2018-07-30 11:22] LABS: Glucose,Whole Blood 77 mg/dL (75-99)
[2018-07-30] MEDS: SODIUM CHLORIDE 0.9% 1,000 ML IV SCH (14:49)
[2018-07-30 16:48] LABS: Glucose,Whole Blood 86 mg/dL (75-99)
[2018-07-30 18:56] LABS: Glucose,Whole Blood 80 mg/dL (75-99)
[2018-07-30] MEDS: LORazepam 0.5 MG TAB PO PRN (19:55)
[2018-07-30] MEDS: ARIPiprazole 5 MG TAB PO SCH (19:56)
[2018-07-30] MEDS: ATORVASTATIN 10 MG TAB PO SCH (19:56)
--- NOTE | 2018-07-30 21:25 | P.PN ---
Subjective Progress Note Date: 07/30/18 68-year-old woman who has multiple medical troubles who presents from extended care facility by EMS because of alteration of her mental status. She has a history of stroke and it is impacting her functional status. Is able to answer a few supple questions but is not a good historian. Denying any discomfort at all this point in time. She has a catheter in place and is unable to relate if she has any urinary symptoms. She did have a temperature 101.3 this concerns her urinary infection and constantly infectious diseases consultation was requested.07/30/2018 patient is a poor historian seems to be feeling slightly better today. Her nausea and vomiting seemed to be improved and her fever has improved also. She is a history of prior resistant pathogens as a meropenem and seems to be tolerating that well. Objective - Vital Signs Vital signs: Vital Signs Temp 98.3 F 07/30/18 11:44 Pulse 78 07/30/18 19:30 Resp 36 H 07/30/18 19:30 BP 162/76 07/30/18 19:30 Pulse Ox 95 07/30/18 19:30 Intake & Output 07/30/18 07/30/18 07/31/18 06:59 18:59 06:59 Intake Total 880 Output Total 2 Balance 880 -2 Weight 64.5 kg Intake: IV 200 Sodium Chloride 0.9% 1, 200 000 ml @ 25 mls/hr IV . Q24H [facility] Rx#:[id number] Intake, IV Titration 100 Amount Meropenem 2 gm In Sodium 100 Chloride 0.9% 100 ml @ 200 mls/hr IVPB Q12HR [facility] Rx#:[id number] Oral 580 Output: Urine 2 Other: Voiding Method Diaper Diaper Incontinent Incontinent # Voids 4 # Bowel Movements 3 2 - Exam HEENT: Anicteric conjunctiva are pink and moist nasal mucosa grossly intact without significant lesions, there is no thrush. Dentition is poor Neck: The neck is supple without significant lymphadenopathy or thyromegaly. Lungs: Symmetrical bilateral air entry with a few expiratory wheezes no bronchial sounds no dullness or egophony Heart: Irregular with audible S1-S2, no S3 no S4. There is no significant murmur click or rub, PMI was nondisplaced. Abdomen: Positive bowel sounds soft and nontender without palpable masses or organomegaly. There was no guarding or rebound. Extremities: The upper extremities have excellent pulses they are symmetric, no significant petechiae or telangiectasia. No splinter hemorrhages were noted. The lower extremities are free from significant edema. The peripheral pulses were 2+ and symmetric. Neuro: Awake alert oriented to person and hospital is comfortable - Labs CBC & Chem 7: 07/30/18 00:08 07/30/18 07:18 Labs: Abnormal Lab Results - Last 24 Hours (Table) 07/30/18 07/30/18 Range/Units 00:08 07:18 RBC 3.59 L (3.80-5.40) m/uL Hgb 8.4 L (11.4-16.0) gm/dL Hct 28.7 L (34.0-46.0) % MCV 79.9 L (80.0-100.0) fL MCH 23.4 L (25.0-35.0) pg MCHC 29.3 L (31.0-37.0) g/dL Neutrophils # (Manual) 8.10 H (1.3-7.7) k/uL BUN 34 H (7-17) mg/dL Creatinine 1.68 H (0.52-1.04) mg/dL Calcium 8.2 L (8.4-10.2) mg/dL Microbiology - Last 24 Hours (Table) 07/26/18 00:25 Blood Culture Gram Stain - Final Blood Blood Culture - Final Proteus mirabilis Laboratory Results WBC 10.1 k/uL (3.8-10.6) 07/30/18 00:08 RBC 3.59 m/uL (3.80-5.40) L 07/30/18 00:08 Hgb 8.4 gm/dL (11.4-16.0) L 07/30/18 00:08 Hct 28.7 % (34.0-46.0) L 07/30/18 00:08 MCV 79.9 fL (80.0-100.0) L 07/30/18 00:08 MCH 23.4 pg (25.0-35.0) L 07/30/18 00:08 MCHC 29.3 g/dL (31.0-37.0) L 07/30/18 00:08 RDW 15.4 % (11.5-15.5) 07/30/18 00:08 Plt Count 337 k/uL (150-450) 07/30/18 00:08 Neutrophils % 80 % 07/29/18 09:08 Neutrophils % (Manual) 80 % 07/30/18 00:08 Band Neutrophils % 1 % 07/30/18 00:08 Lymphocytes % 10 % 07/29/18 09:08 Lymphocytes % (Manual) 11 % 07/30/18 00:08 Monocytes % 4 % 07/29/18 09:08 Monocytes % (Manual) 6 % 07/30/18 00:08 Eosinophils % 3 % 07/29/18 09:08 Eosinophils % (Manual) 2 % 07/30/18 00:08 Basophils % 0 % 07/29/18 09:08 Neutrophils # 9.1 k/uL (1.3-7.7) H 07/29/18 09:08 Neutrophils # (Manual) 8.10 k/uL (1.3-7.7) H 07/30/18 00:08 Lymphocytes # 1.1 k/uL (1.0-4.8) 07/29/18 09:08 Lymphocytes # (Manual) 1.11 k/uL (1.0-4.8) 07/30/18 00:08 Monocytes # 0.5 k/uL (0-1.0) 07/29/18 09:08 Monocytes # (Manual) 0.61 k/uL (0-1.0) 07/30/18 00:08 Eosinophils # 0.4 k/uL (0-0.7) 07/29/18 09:08 Eosinophils # (Manual) 0.20 k/uL (0-0.7) 07/30/18 00:08 Basophils # 0.0 k/uL (0-0.2) 07/29/18 09:08 Nucleated RBCs 0 /100 WBC (0-0) 07/30/18 00:08 Hypochromasia Marked 07/30/18 00:08 Poikilocytosis (manual Present 07/30/18 00:08 Anisocytosis (manual) Present 07/30/18 00:08 PT 11.7 sec (9.0-12.0) 07/26/18 00:25 INR 1.1 (<1.2) 07/26/18 00:25 APTT 31.5 sec (22.0-30.0) H 07/26/18 00:25 Sample Site RBRAC 07/27/18 08:54 ABG pH 7.29 (7.35-7.45) L 07/27/18 08:54 ABG pCO2 63 mmHg (35-45) H 07/27/18 08:54 ABG pO2 78 mmHg (83-108) L 07/27/18 08:54 ABG HCO3 31 mmol/L (21-25) H 07/27/18 08:54 ABG Total CO2 33 mmol/L (19-24) H 07/27/18 08:54 ABG O2 Saturation 95.7 % (94-97) 07/27/18 08:54 ABG Base Excess 4.2 mmol/L 07/27/18 08:54 Henry Test Yes 07/27/18 08:54 FiO2 32 % 07/27/18 08:54 Sodium 140 mmol/L (137-145) 07/30/18 07:18 Potassium 3.7 mmol/L (3.5-5.1) 07/30/18 07:18 Chloride 104 mmol/L (98-107) 07/30/18 07:18 Carbon Dioxide 26 mmol/L (22-30) 07/30/18 07:18 Anion Gap 10 mmol/L 07/30/18 07:18 BUN 34 mg/dL (7-17) H 07/30/18 07:18 Creatinine 1.68 mg/dL (0.52-1.04) H 07/30/18 07:18 Est GFR (CKD-EPI)AfAm 36 (>60 ml/min/1.73 sqM) 07/30/18 07:18 Est GFR (CKD-EPI)NonAf 31 (>60 ml/min/1.73 sqM) 07/30/18 07:18 Glucose 77 mg/dL (74-99) 07/30/18 07:18 POC Glucose (mg/dL) 80 mg/dL (75-99) 07/30/18 18:53 POC Glu Manager Agency ID 07/30/18 18:53 Plasma Lactic Acid Sammy 1.4 mmol/L (0.7-2.0) 07/27/18 02:33 Calcium 8.2 mg/dL (8.4-10.2) L 07/30/18 07:18 Phosphorus 3.1 mg/dL (2.5-4.5) 07/28/18 09:29 Magnesium 1.9 mg/dL (1.6-2.3) 07/28/18 09:29 Total Bilirubin 0.5 mg/dL (0.2-1.3) 07/27/18 02:33 AST 36 U/L (14-36) 07/27/18 02:33 ALT 21 U/L (9-52) 07/27/18 02:33 Alkaline Phosphatase 103 U/L (38-126) 07/27/18 02:33 Troponin I 0.012 ng/mL (0.000-0.034) 07/26/18 00:25 Total Protein 7.0 g/dL (6.3-8.2) 07/27/18 02:33 Albumin 2.9 g/dL (3.5-5.0) L 07/27/18 02:33 Urine Color Yellow 07/27/18 06:55 Urine Appearance Cloudy (Clear) H 07/27/18 06:55 Urine pH 5.5 (5.0-8.0) 07/27/18 06:55 Ur Specific [place] 1.011 (1.001-1.035) 07/27/18 06:55 Urine Protein Trace (Negative) H 07/27/18 06:55 Urine Glucose (UA) Negative (Negative) 07/27/18 06:55 Urine Ketones Negative (Negative) 07/27/18 06:55 Urine Blood Small (Negative) H 07/27/18 06:55 Urine Nitrite Negative (Negative) 07/27/18 06:55 Urine Bilirubin Negative (Negative) 07/27/18 06:55 Urine Urobilinogen <2.0 mg/dL (<2.0) 07/27/18 06:55 Ur Leukocyte Esterase Large (Negative) H 07/27/18 06:55 Urine RBC 11 /hpf (0-5) H 07/27/18 06:55 Urine WBC 54 /hpf (0-5) H 07/27/18 06:55 Urine WBC Clumps Moderate /hpf (None) H 07/27/18 06:55 Ur Squamous Epith Cells <1 /hpf (0-4) 07/27/18 06:55 Amorphous Sediment Few /hpf (None) H 07/27/18 06:55 Urine Bacteria Rare /hpf (None) H 07/27/18 06:55 Hyaline Casts 1 /lpf (0-2) 07/27/18 06:55 Urine Mucus Rare /hpf (None) H 07/27/18 06:55 Influenza Type A RNA Not Detected (Not Detectd) 07/26/18 01:20 Influenza Type B (PCR) Not Detected (Not Detectd) 07/26/18 01:20 Microbiology 07/26/18 00:25 Blood Blood Culture Gram Stain - Final 07/26/18 00:25 Blood Blood Culture - Final Proteus mirabilis 07/27/18 06:55 Urine,Voided Urine Culture - Final 07/26/18 02:30 Urine,Catheterized Urine Culture - Final 07/26/18 00:25 Blood Blood Culture - Final Assessment and Plan (1) Sepsis Current Visit: Yes Status: Acute Code(s): A41.9 - SEPSIS, UNSPECIFIED ORGANISM SNOMED Code(s): 99107887 (2) UTI (urinary tract infection) Narrative/Plan: 68-year-old presents to Hospital with an acute care facility with altered mental status. Evidence of fever 101.3, leukocytosis with a white count of 21 is improved to 19.5 today. Creatinine is elevated 2.13 and the patient appears to have sepsis. The source is urinary tract with evidence of abnormal urinalysis and urine culture is positive for gram-negative bacilli. Recently had an E. coli ESBL now has a Proteus species also evidence of positive blood culture for gram-negative bacilli. Given current level illness could be concerned that piperacillin tazobactam would not give coverage because we will alter to carbapenem until we have further data. Follow blood cultures are in process. Leukocytosis is showing some improvement. She is hemodynamically stable and we will got intensive care unit today. 07/30/2018 the patient has had some improvement. Seems to be a bit more awake and alert but still does not have much of an appetite. There appears to be evidence of the urinary tract infection as etiology of the Proteus mirabilis bacteremia. Given the culture results antibiotic therapy may be de-escalated from carbapenem since there is no ESBL. We'll change to Rocephin. [facility] will consider a course of antibiotic therapy orally if she has further improved in the next short period of time. Current Visit: Yes Status: Acute Code(s): N39.0 - URINARY TRACT INFECTION, SITE NOT SPECIFIED SNOMED Code(s): 03938975 (3) Altered mental status Current Visit: Yes Status: Acute Code(s): R41.82 - ALTERED MENTAL STATUS, UNSPECIFIED SNOMED Code(s): 112217344
[2018-07-30] MEDS: LATANOPROST 0.005% OPHTH DROPS 2.5 ML BTL BOTH EYES SCH (22:22)
--- NOTE | 2018-07-31 00:16 | PN ---
PROGRESS NOTE DATE OF SERVICE: 07/30/2018. PRESENTING COMPLAINT: Sepsis. INTERVAL HISTORY: The patient has multiple medical problems, presented with a septic picture with UTI. Did tolerate some diet. Lying in bed. Feels tired and run down. REVIEW OF SYSTEMS: Done for constitutional, cardiovascular, GI, pulmonary; relevant findings as above. CURRENT MEDICATIONS: Reviewed that include DuoNeb and IV ceftriaxone. PHYSICAL EXAMINATION: VITAL SIGNS: Temperature 97.3, pulse 80, respirations , blood pressure 162/76, pulse ox 95 percent on BiPAP. GENERAL APPEARANCE: Sitting up awake tired-appearing. EYES: Pupils equal. Conjunctivae normal. NECK: JVD unable to assess. Mass not palpable. RESPIRATORY: Effort increased. LUNGS: Decreased breath sounds. CARDIOVASCULAR: 1st and 2nd heart sounds. No edema. ABDOMEN: Soft, nontender. Liver and spleen not palpable. PSYCHIATRY: Patient is able answer simple questions. INVESTIGATIONS: Potassium 3.7, BUN 34, creatinine 1.68. Blood culture from 07/26/2018 positive for Proteus mirabilis. ASSESSMENT: 1. Septic shock secondary to UTI from cystitis. 2. Hypertensive shock. Patient did require fluid boluses. 3. Acute metabolic encephalopathy from secondary infection. 4. Acute kidney injury likely acute tubular necrosis from hypotension. 5. Chronic obstructive pulmonary disease. 6. Chronic dysarthria from prior stroke. 7. Chronic dysphagia on a soft diet. 8. Hepatitis C with successful treatment. 9. Chronic urinary stress incontinence. 10.Chronic anemia. 11.Bilateral peripheral neuropathy, nondiabetic. 12.Primary osteoarthritis. PLAN: Continue current medication and treatment plan including antibiotics. The patient did have a chest x-ray yesterday, it showed nonspecific interstitial changes. The patient's creatinine has improved slowly. MMODL / IJN: [id number] /
[2018-07-31 02:34] LABS: Glucose,Whole Blood 104 mg/dL (75-99)
[2018-07-31 06:55] LABS: Glucose,Whole Blood 90 mg/dL (75-99)
[2018-07-31] MEDS: LORazepam 0.5 MG TAB PO PRN (08:32)
[2018-07-31] MEDS: PARoxetine 20 MG TAB PO SCH (08:33)
[2018-07-31] MEDS: CHOLECALCIFEROL 1,000 UNIT TAB PO SCH (08:38)
[2018-07-31] MEDS: ASPIRIN 81 MG PO SCH (08:39)
[2018-07-31] MEDS: METOPROLOL TARTRATE 12.5 MG TAB PO SCH ×2 (08:39→20:04)
[2018-07-31] MEDS: HEPARIN SODIUM,PORCINE 5,000 UNIT/ML 1 ML VIAL SQ SCH ×2 (08:39→20:04)
[2018-07-31] MEDS: levETIRAcetam 500 MG TAB PO SCH ×2 (08:44→20:04)
[2018-07-31] MEDS: IPRATROPIUM-ALBUTEROL 3 ML NEB INHALATION SCH ×3 (09:05→21:26)
[2018-07-31 11:18] LABS: Glucose,Whole Blood 98 mg/dL (75-99)
[2018-07-31] MEDS: SODIUM CHLORIDE 0.9% 1,000 ML IV SCH (14:36)
[2018-07-31] MEDS: MULTIVITAMINS, THERA 1 EACH TAB PO SCH (14:36)
[2018-07-31 16:56] LABS: Glucose,Whole Blood 99 mg/dL (75-99)
[2018-07-31] MEDS: LORazepam 0.5 MG TAB PO SCH (17:18)
[2018-07-31] MEDS: LATANOPROST 0.005% OPHTH DROPS 2.5 ML BTL BOTH EYES SCH (20:04)
[2018-07-31] MEDS: ARIPiprazole 5 MG TAB PO SCH (20:04)
[2018-07-31] MEDS: SENNOSIDES-DOCUSATE SODIUM 1 EACH TAB PO SCH (20:04)
[2018-07-31] MEDS: ATORVASTATIN 10 MG TAB PO SCH (20:04)
[2018-07-31 20:37] LABS: Glucose,Whole Blood 114 mg/dL (75-99)
--- NOTE | 2018-07-31 23:22 | P.PN ---
Subjective Progress Note Date: 07/31/18 68-year-old woman who has multiple medical troubles who presents from extended care facility by EMS because of alteration of her mental status. She has a history of stroke and it is impacting her functional status. Is able to answer a few supple questions but is not a good historian. Denying any discomfort at all this point in time. She has a catheter in place and is unable to relate if she has any urinary symptoms. She did have a temperature 101.3 this concerns her urinary infection and constantly infectious diseases consultation was requested.07/30/2018 patient is a poor historian seems to be feeling slightly better today. Her nausea and vomiting seemed to be improved and her fever has improved also. She is a history of prior resistant pathogens as a meropenem and seems to be tolerating that well. 07/31/2018 patient is improving. Right therapy has been de-escalating the Rocephin she is tolerating that well. She seems to have no other new acute complaints today. Attempts for transfer are being made. Objective - Vital Signs Vital signs: Vital Signs Temp 97.8 F 07/31/18 21:00 Pulse 80 07/31/18 21:26 Resp 22 07/31/18 21:00 BP 146/83 07/31/18 21:00 Pulse Ox 90 L 07/31/18 21:00 Intake & Output 07/31/18 07/31/18 08/01/18 06:59 18:59 06:59 Intake Total 400 100 Output Total 2 Balance 400 98 Weight 65 kg Intake: Intake, IV Titration 50 Amount cefTRIAXone 1 gm In 50 Sodium Chloride 0.9% 50 ml @ 100 mls/hr IVPB [facility] Rx#:[id number] Oral 350 100 Output: Urine 2 Other: Voiding Method Diaper Incontinent # Voids 1 1 1 # Bowel Movements 1 1 - Exam HEENT: Anicteric conjunctiva are pink and moist nasal mucosa grossly intact without significant lesions, there is no thrush. Dentition is poor Neck: The neck is supple without significant lymphadenopathy or thyromegaly. Lungs: Symmetrical bilateral air entry with a few expiratory wheezes no bronchial sounds no dullness or egophony Heart: Irregular with audible S1-S2, no S3 no S4. There is no significant murmur click or rub, PMI was nondisplaced. Abdomen: Positive bowel sounds soft and nontender without palpable masses or organomegaly. There was no guarding or rebound. Extremities: The upper extremities have excellent pulses they are symmetric, no significant petechiae or telangiectasia. No splinter hemorrhages were noted. The lower extremities are free from significant edema. The peripheral pulses were 2+ and symmetric. Neuro: Awake alert oriented to person and hospital is comfortable - Labs CBC & Chem 7: 07/30/18 00:08 07/30/18 07:18 Labs: Abnormal Lab Results - Last 24 Hours (Table) 07/31/18 07/31/18 Range/Units 02:32 20:36 POC Glucose (mg/dL) 104 H 114 H (75-99) mg/dL Laboratory Results WBC 10.1 k/uL (3.8-10.6) 07/30/18 00:08 RBC 3.59 m/uL (3.80-5.40) L 07/30/18 00:08 Hgb 8.4 gm/dL (11.4-16.0) L 07/30/18 00:08 Hct 28.7 % (34.0-46.0) L 07/30/18 00:08 MCV 79.9 fL (80.0-100.0) L 07/30/18 00:08 MCH 23.4 pg (25.0-35.0) L 07/30/18 00:08 MCHC 29.3 g/dL (31.0-37.0) L 07/30/18 00:08 RDW 15.4 % (11.5-15.5) 07/30/18 00:08 Plt Count 337 k/uL (150-450) 07/30/18 00:08 Neutrophils % 80 % 07/29/18 09:08 Neutrophils % (Manual) 80 % 07/30/18 00:08 Band Neutrophils % 1 % 07/30/18 00:08 Lymphocytes % 10 % 07/29/18 09:08 Lymphocytes % (Manual) 11 % 07/30/18 00:08 Monocytes % 4 % 07/29/18 09:08 Monocytes % (Manual) 6 % 07/30/18 00:08 Eosinophils % 3 % 07/29/18 09:08 Eosinophils % (Manual) 2 % 07/30/18 00:08 Basophils % 0 % 07/29/18 09:08 Neutrophils # 9.1 k/uL (1.3-7.7) H 07/29/18 09:08 Neutrophils # (Manual) 8.10 k/uL (1.3-7.7) H 07/30/18 00:08 Lymphocytes # 1.1 k/uL (1.0-4.8) 07/29/18 09:08 Lymphocytes # (Manual) 1.11 k/uL (1.0-4.8) 07/30/18 00:08 Monocytes # 0.5 k/uL (0-1.0) 07/29/18 09:08 Monocytes # (Manual) 0.61 k/uL (0-1.0) 07/30/18 00:08 Eosinophils # 0.4 k/uL (0-0.7) 07/29/18 09:08 Eosinophils # (Manual) 0.20 k/uL (0-0.7) 07/30/18 00:08 Basophils # 0.0 k/uL (0-0.2) 07/29/18 09:08 Nucleated RBCs 0 /100 WBC (0-0) 07/30/18 00:08 Hypochromasia Marked 07/30/18 00:08 Poikilocytosis (manual Present 07/30/18 00:08 Anisocytosis (manual) Present 07/30/18 00:08 PT 11.7 sec (9.0-12.0) 07/26/18 00:25 INR 1.1 (<1.2) 07/26/18 00:25 APTT 31.5 sec (22.0-30.0) H 07/26/18 00:25 Sample Site [facility] 07/27/18 08:54 ABG pH 7.29 (7.35-7.45) L 07/27/18 08:54 ABG pCO2 63 mmHg (35-45) H 07/27/18 08:54 ABG pO2 78 mmHg (83-108) L 07/27/18 08:54 ABG HCO3 31 mmol/L (21-25) H 07/27/18 08:54 ABG Total CO2 33 mmol/L (19-24) H 07/27/18 08:54 ABG O2 Saturation 95.7 % (94-97) 07/27/18 08:54 ABG Base Excess 4.2 mmol/L 07/27/18 08:54 Henry Test Yes 07/27/18 08:54 FiO2 32 % 07/27/18 08:54 Sodium 140 mmol/L (137-145) 07/30/18 07:18 Potassium 3.7 mmol/L (3.5-5.1) 07/30/18 07:18 Chloride 104 mmol/L (98-107) 07/30/18 07:18 Carbon Dioxide 26 mmol/L (22-30) 07/30/18 07:18 Anion Gap 10 mmol/L 07/30/18 07:18 BUN 34 mg/dL (7-17) H 07/30/18 07:18 Creatinine 1.68 mg/dL (0.52-1.04) H 07/30/18 07:18 Est GFR (CKD-EPI)AfAm 36 (>60 ml/min/1.73 sqM) 07/30/18 07:18 Est GFR (CKD-EPI)NonAf 31 (>60 ml/min/1.73 sqM) 07/30/18 07:18 Glucose 77 mg/dL (74-99) 07/30/18 07:18 POC Glucose (mg/dL) 114 mg/dL (75-99) H 07/31/18 20:36 POC Glu Seismograph Chief ID Razia Rivera 07/31/18 20:36 Plasma Lactic Acid Sammy 1.4 mmol/L (0.7-2.0) 07/27/18 02:33 Calcium 8.2 mg/dL (8.4-10.2) L 07/30/18 07:18 Phosphorus 3.1 mg/dL (2.5-4.5) 07/28/18 09:29 Magnesium 1.9 mg/dL (1.6-2.3) 07/28/18 09:29 Total Bilirubin 0.5 mg/dL (0.2-1.3) 07/27/18 02:33 AST 36 U/L (14-36) 07/27/18 02:33 ALT 21 U/L (9-52) 07/27/18 02:33 Alkaline Phosphatase 103 U/L (38-126) 07/27/18 02:33 Troponin I 0.012 ng/mL (0.000-0.034) 07/26/18 00:25 Total Protein 7.0 g/dL (6.3-8.2) 07/27/18 02:33 Albumin 2.9 g/dL (3.5-5.0) L 07/27/18 02:33 Urine Color Yellow 07/27/18 06:55 Urine Appearance Cloudy (Clear) H 07/27/18 06:55 Urine pH 5.5 (5.0-8.0) 07/27/18 06:55 Ur Specific [place] 1.011 (1.001-1.035) 07/27/18 06:55 Urine Protein Trace (Negative) H 07/27/18 06:55 Urine Glucose (UA) Negative (Negative) 07/27/18 06:55 Urine Ketones Negative (Negative) 07/27/18 06:55 Urine Blood Small (Negative) H 07/27/18 06:55 Urine Nitrite Negative (Negative) 07/27/18 06:55 Urine Bilirubin Negative (Negative) 07/27/18 06:55 Urine Urobilinogen <2.0 mg/dL (<2.0) 07/27/18 06:55 Ur Leukocyte Esterase Large (Negative) H 07/27/18 06:55 Urine RBC 11 /hpf (0-5) H 07/27/18 06:55 Urine WBC 54 /hpf (0-5) H 07/27/18 06:55 Urine WBC Clumps Moderate /hpf (None) H 07/27/18 06:55 Ur Squamous Epith Cells <1 /hpf (0-4) 07/27/18 06:55 Amorphous Sediment Few /hpf (None) H 07/27/18 06:55 Urine Bacteria Rare /hpf (None) H 07/27/18 06:55 Hyaline Casts 1 /lpf (0-2) 07/27/18 06:55 Urine Mucus Rare /hpf (None) H 07/27/18 06:55 Influenza Type A RNA Not Detected (Not Detectd) 07/26/18 01:20 Influenza Type B (PCR) Not Detected (Not Detectd) 07/26/18 01:20 Microbiology 07/26/18 00:25 Blood Blood Culture Gram Stain - Final 07/26/18 00:25 Blood Blood Culture - Final Proteus mirabilis 07/27/18 06:55 Urine,Voided Urine Culture - Final 07/26/18 02:30 Urine,Catheterized Urine Culture - Final 07/26/18 00:25 Blood Blood Culture - Final Assessment and Plan (1) Sepsis Current Visit: Yes Status: Acute Code(s): A41.9 - SEPSIS, UNSPECIFIED ORGANISM SNOMED Code(s): 41341493 (2) UTI (urinary tract infection) Narrative/Plan: 68-year-old presents to Hospital with an acute care facility with altered mental status. Evidence of fever 101.3, leukocytosis with a white count of 21 is improved to 19.5 today. Creatinine is elevated 2.13 and the patient appears to have sepsis. The source is urinary tract with evidence of abnormal urinalysis and urine culture is positive for gram-negative bacilli. Recently had an E. coli ESBL now has a Proteus species also evidence of positive blood culture for gram-negative bacilli. Given current level illness could be concerned that piperacillin tazobactam would not give coverage because we will alter to carbapenem until we have further data. Follow blood cultures are in process. Leukocytosis is showing some improvement. She is hemodynamically stable and we will got intensive care unit today. 07/30/2018 the patient has had some improvement. Seems to be a bit more awake and alert but still does not have much of an appetite. There appears to be evidence of the urinary tract infection as etiology of the Proteus mirabilis bacteremia. Given the culture results antibiotic therapy may be de-escalated from carbapenem since there is no ESBL. We'll change to Rocephin. Patient will be going back to the [facility] will consider a course of antibiotic therapy orally if she has further improved in the next short period of time. 07/31/2018 patient is improving. She was going to [facility] to complete her course of antibiotic therapy and rehab. The Proteus susceptible to multiple agents and completion of 7 days of levofloxacin 500 mg a day should be adequate to complete the treatment of her bacteremic event. Current Visit: Yes Status: Acute Code(s): N39.0 - URINARY TRACT INFECTION, SITE NOT SPECIFIED SNOMED Code(s): 40414585 (3) Altered mental status Current Visit: Yes Status: Acute Code(s): R41.82 - ALTERED MENTAL STATUS, UNSPECIFIED SNOMED Code(s): 885291346
--- NOTE | 2018-08-01 01:22 | PN ---
PROGRESS NOTE DATE OF SERVICE: 07/31/2018 PRESENTING COMPLAINT: Tired. INTERVAL HISTORY: The patient with multiple medical problems, presented with septic picture with UTI, not eating much. Lying in bed. Nurse informed me that she did speak to patient's legal guardian. The patient is encouraged to increase oral intake. REVIEW OF SYSTEMS: Done for constitutional, cardiovascular, GI, pulmonary and relevant findings as above. CURRENT MEDICATIONS: Reviewed that include IV fluids, DuoNeb, Abilify, IV ceftriaxone. PHYSICAL EXAMINATION: VITAL SIGNS: Temperature 97.6, pulse 87, respirations 16, blood pressure 171/80, pulse ox 93 percent on 3 L. GENERAL APPEARANCE: Lying in bed, tired-appearing. EYES: Pupils equal. Conjunctivae normal. NECK: JVD unable to assess. Mass not palpable. RESPIRATORY: Effort increased. LUNGS: Diminished breath sounds CARDIOVASCULAR: 1st and 2nd sounds normal. No edema. ABDOMEN: Soft, nontender. Liver and spleen not palpable. PSYCHIATRY: The patient did answer simple questions. INVESTIGATIONS: Potassium 3.7, BUN 34, creatinine 1.68. ASSESSMENT: 1. Septic shock secondary to urinary tract infection from cystitis. 2. Hypotensive shock. The patient did require fluid boluses. 3. Acute metabolic encephalopathy from secondary to infection with improvement. 4. Acute kidney injury likely acute tubular necrosis from hypertension, slowly improving. 5. Chronic obstructive pulmonary disease. 6. Chronic dysarthria from prior stroke. 7. Chronic dysphagia on a soft diet. 8. Hepatitis C with successful treatment. 9. Chronic urinary stress incontinence. 10.Chronic anemia. 11.Bilateral peripheral neuropathy, nondiabetic. 12.Primary osteoarthritis. 13.The patient has a legal guardian. The patient has a legal guardian court- appointed. 14.Positive blood cultures with Proteus mirabilis. PLAN: Continue medication and treatment plan. Patient encouraged to oral intake. We will change IV fluids to lactated Ringer's. Ringer's and try to make all meals. MMODL / IJN: [id number] /
[2018-08-01 06:53] LABS: Glucose,Whole Blood 111 mg/dL (75-99)
[2018-08-01] MEDS: IPRATROPIUM-ALBUTEROL 3 ML NEB INHALATION SCH ×3 (06:53→19:44)
[2018-08-01] MEDS: LACTATED RINGERS 1,000 ML IV SCH ×3 (07:15→12:22)
[2018-08-01] MEDS: ASPIRIN 81 MG PO SCH (08:30)
[2018-08-01] MEDS: METOPROLOL TARTRATE 12.5 MG TAB PO SCH ×2 (08:30→21:17)
[2018-08-01] MEDS: SENNOSIDES-DOCUSATE SODIUM 1 EACH TAB PO SCH ×2 (08:30→21:17)
[2018-08-01] MEDS: PANTOPRAZOLE 40 MG TABLET PO SCH (08:30)
[2018-08-01] MEDS: MULTIVITAMINS, THERA 1 EACH TAB PO SCH (08:30)
[2018-08-01] MEDS: LORazepam 0.5 MG TAB PO SCH ×3 (08:30→16:35)
[2018-08-01] MEDS: PARoxetine 20 MG TAB PO SCH (08:30)
[2018-08-01] MEDS: HEPARIN SODIUM,PORCINE 5,000 UNIT/ML 1 ML VIAL SQ SCH ×2 (08:31→21:18)
[2018-08-01] MEDS: levETIRAcetam 500 MG TAB PO SCH ×2 (08:33→21:38)
[2018-08-01 09:55] LABS: Calcium 9.5 mg/dL (8.4-10.2); Potassium 4.1 mmol/L (3.5-5.1)
[2018-08-01 11:12] LABS: Glucose,Whole Blood 109 mg/dL (75-99)
[2018-08-01 17:00] LABS: Glucose,Whole Blood 105 mg/dL (75-99)
[2018-08-01 20:53] LABS: Glucose,Whole Blood 99 mg/dL (75-99)
[2018-08-01] MEDS: ATORVASTATIN 10 MG TAB PO SCH (21:17)
[2018-08-01] MEDS: LATANOPROST 0.005% OPHTH DROPS 2.5 ML BTL BOTH EYES SCH (21:18)
[2018-08-01] MEDS: ARIPiprazole 5 MG TAB PO SCH (21:18)
[2018-08-01] MEDS ORDERED: FUROSEMIDE 10 MG/ML 4 ML VIAL IV STA (23:16)
--- NOTE | 2018-08-01 23:51 | PN ---
PROGRESS NOTE DATE OF SERVICE: 08/01/2018 PRESENTING COMPLAINT: Tired. INTERVAL HISTORY: Patient presented with multiple medical problems, including septic picture with UTI. Patient hardly ate today, though states she is taking her medication. Did require some BiPAP yesterday. On nasal cannula today. When I talked to the patient, she said she is just not hungry. Lying in bed, watching television. REVIEW OF SYSTEMS: Done for constitutional, cardiovascular, GI, pulmonary; relevant findings as above. CURRENT MEDICATIONS: Reviewed. They include: 1. DuoNeb. 2. IV ceftriaxone. 3. IV lactated Ringer's. PHYSICAL EXAMINATION: Temperature 97.9, pulse 92, respiration 20, blood pressure 159/80, pulse ox 88% on 3 L. GENERAL APPEARANCE: Lying in bed, awake, slightly short of breath. EYES: Pupils equal. Conjunctivae normal. NECK: JVD unable to assess. Mass not palpable. RESPIRATORY: Effort increased. LUNGS: Diminished breath sounds. Some wheezing. CARDIOVASCULAR: First and second sounds normal. No edema. ABDOMEN: Soft, non-tender. Liver and spleen not palpable. PSYCHIATRY: Awake. Does answer simple questions. INVESTIGATIONS: Potassium 4.1, BUN 28, creatinine 1.37. ASSESSMENT: 1. Septic shock secondary to urinary tract infection from cystitis, with improvement. 2. Hypotensive shock. Patient did require fluid boluses. 3. Acute metabolic encephalopathy secondary to infection, with improvement. 4. Acute kidney injury, likely acute tubular necrosis from hypotension. Continues to improve. 5. Chronic obstructive pulmonary disease. 6. Chronic dysarthria from prior stroke. 7. Chronic dysphagia. On a soft diet. 8. Hepatitis C with successful treatment. 9. Chronic urinary stress incontinence. 10.Chronic anemia. 11.Bilateral peripheral neuropathy, non-diabetic. 12.Primary osteoarthritis. 13.Patient has a court-appointed legal guardian. 14.Positive blood cultures with Proteus mirabilis. 15.Acute hypoxic respiratory failure. Patient required BiPAP earlier; now doing okay with nasal cannula. PLAN: I did speak to the legal guardian on the phone. Did get more sense of the patient's baseline. At this point we will need to stabilize the patient more medically before she can be discharged to go back to the [facility]. I think if the patient tolerates a diet, she should do better. Will also have Dr. Davis from Pulmonary look at the patient from a pulmonary standpoint. Patient did have a chest x-ray 2 days ago, more of film. Will cut back on the IV fluids. MMODL / IJN: [id number] /
[2018-08-02 00:33] LABS: Glucose,Whole Blood 99 mg/dL (75-99)
[2018-08-02] MEDS: LACTATED RINGERS 1,000 ML IV SCH ×3 (00:55→23:19)
[2018-08-02] MEDS: LORazepam 0.5 MG TAB PO SCH ×4 (04:03→23:41)
[2018-08-02 05:35] LABS: Glucose,Whole Blood 91 mg/dL (75-99)
[2018-08-02 07:04] LABS: Glucose,Whole Blood 93 mg/dL (75-99)
[2018-08-02 08:17] LABS: Calcium 9.7 mg/dL (8.4-10.2)
[2018-08-02 08:34] LABS: Potassium 3.9 mmol/L (3.5-5.1)
[2018-08-02] MEDS: IPRATROPIUM-ALBUTEROL 3 ML NEB INHALATION SCH ×3 (09:07→19:33)
[2018-08-02] MEDS: SENNOSIDES-DOCUSATE SODIUM 1 EACH TAB PO SCH ×2 (09:55→22:02)
[2018-08-02] MEDS: ASPIRIN 81 MG PO SCH (09:55)
[2018-08-02] MEDS: levETIRAcetam 500 MG TAB PO SCH ×2 (09:55→22:01)
[2018-08-02] MEDS: HEPARIN SODIUM,PORCINE 5,000 UNIT/ML 1 ML VIAL SQ SCH ×2 (09:56→22:02)
[2018-08-02] MEDS: METOPROLOL TARTRATE 12.5 MG TAB PO SCH ×2 (09:56→22:02)
[2018-08-02] MEDS: PARoxetine 20 MG TAB PO SCH (09:56)
--- NOTE | 2018-08-02 10:19 | XR ---
EXAMINATION TYPE: XR chest 2V DATE OF EXAM: 08/02/2018 COMPARISON: 07/29/2018 INDICATION: Short of breath TECHNIQUE: Frontal and lateral views of the chest are obtained. FINDINGS: The heart size is normal. The pulmonary vasculature is very prominent. There is diffuse increased lung markings. Small posterior pleural effusions are present. Findings are worsening over the interval. IMPRESSION: 1. Clinical correlation recommended for congestive heart failure. Findings are worsening from compari son. 2. Small bilateral pleural effusions.
[2018-08-02 11:10] LABS: Glucose,Whole Blood 89 mg/dL (75-99)
[2018-08-02] MEDS ORDERED: FUROSEMIDE 10 MG/ML 4 ML VIAL IV STA (11:23)
[2018-08-02] MEDS: MULTIVITAMINS, THERA 1 EACH TAB PO SCH (12:31)
--- NOTE | 2018-08-02 14:17 | P.PN ---
Subjective Progress Note Date: 08/02/18 Principal diagnosis: Urinary tract infection, septic shock, dyspnea, mild fluid overload This is a 68-year-old white female patient, a resident of [facility], who was brought to the hospital per EMS on all 07/26/2018 for evaluation of altered mental status, fever, speech difficulty. [facility] at the [facility] revealed a UTI, and lab work revealed leukocytosis with a white blood cell count of 21,000. She was very lethargic, and was admitted with concern of sepsis. Chest x-ray did not show any acute pulmonary process. EKG showed sinus tachycardia and evidence of possible lateral infarct and inferior posterior infarct of undetermined age. Admission lab work showed a white blood cell count of 19.1, hemoglobin is 10.6, INR is 1.1, sodium is 139, potassium is 4.9, ch loride is 96, CO2 is 31, BUN was 39, creatinine is 2.26, urinalysis showed grossly infected urine, with large amount of leukocyte esterase, red blood cells greater than 182, and white blood cells greater than 182, many bacteria. Influenza screen was negative. Patient has had ESBL E. coli urinary tract infections in the past in April 2017. Last night on all 07/26/2018 patient became hypotensive, with a pressure of 80/40, rapid response team was called, patient was given 2 L of IV fluids in fluid boluses, she was very lethargic, and she was transferred to the intensive care unit for further monitoring, patient's blood pressure did recover, currently 127/72, patient responded nicely to fluid boluses, did not require vasopressor support, no tachycardia, his rhythm on the monitor with a rate of 94 BPM, he is febrile, with a T-max of 101.8F in the last 24 hours. This morning's blood gas showed pO2 of 78, pCO2 of 63, and pH of 7.29 is was done on 32% FiO2. Patient is lethargic, but easily arousable, she does not verbally respond, but follows simple commands, squeezing hands on command moving extremities. Denies any distress, denies any chest pain shortness of breath or abdominal pain. Today's labs have been reviewed, white blood cell, and is 18.4, hemoglobin is 9.0, electrolytes are within normal limits, BUN is 43 and creatinine is 2.29. Repeat urinalysis showed large leuks, RBCs and WBCs, moderate WBC clumps, and rare bacteria. Antibiotic coverage in the form of Rocephin. On 08/02/2018 patient seen in follow-up on medical surgical floor. We were reconsulted we assume related to dyspnea, but on today's exam patient is seen resting in bed, she denies any worsening shortness of breath, she is currently on 3 L of oxygen her pulse ox is 94%, she is afebrile, hemodynamically patient is stable, chest x-ray was obtained and showed prominent pulmonary vasculature, diffuse increased lung markings, and small posterior pleural effusions. Patient received a dose of Lasix yesterday, she diuresed, her weight is down by 1.5 kg since yesterday, net fluid balance was difficult to estimate patient is incontinent of urine. We'll give the patient an additional dose of Lasix today, his labs have been reviewed, sodium is 146, potassium is 3.9, CO2 is 31, B1 is 39, creatinine is 1.56. ProBNP came back that 65,200. Echocardiogram was completed on 07/27/2018 showed an EF of 55-60%. Patient denies any chest pain. She is being treated for Proteus mirabilis bacteremia. ID service is following, managing the antibiotics. Otherwise no acute events, patient normally resides at [facility], will likely go back there after discharge, her antibiotic had been D escalated. no other acute complaints. Objective - Vital Signs Vital signs: Vital Signs Temp 97.8 F 08/02/18 11:44 Pulse 88 08/02/18 13:46 Resp 35 H 08/02/18 11:44 BP 135/85 08/02/18 11:44 Pulse Ox 94 L 08/02/18 11:44 Intake & Output 08/01/18 08/02/18 08/02/18 18:59 06:59 18:59 Intake Total 370 450 Balance 370 450 Weight 65 kg 63.5 kg Intake: Intake, IV Titration 100 450 Amount Lactated Ringers 1,000 ml 100 @ 125 mls/hr IV [facility] Rx#:[id number] Lactated Ringers 1,000 ml 400 @ 50 mls/hr IV .[facility] Rx#:[id number] cefTRIAXone 1 gm In 50 Sodium Chloride 0.9% 50 ml @ 100 mls/hr IVPB [facility] Rx#:[id number] Oral 270 Other: Voiding Method Diaper Diaper Diaper Incontinent Incontinent Incontinent # Voids 2 3 1 - Exam GENERAL EXAM: Alert, pleasant, 68-year-old white female, on 3 L of oxygen comfortable in no apparent distress. HEAD: Normocephalic/atraumatic. EYES: Normal reaction of pupils, equal size. Conjunctiva pink, sclera white. NOSE: Clear with pink turbinates. THROAT: No erythema or exudates. NECK: No masses, no JVD, no thyroid enlargement, no adenopathy. CHEST: No chest wall deformity. Symmetrical expansion. Some bibasilar crackles, diminished breath sounds at the bases, no rhonchi or wheezing. no crackles, wheeze, rhonchi or dullness. CVS: Regular rate and rhythm, normal S1 and S2, no gallops, no murmurs, no rubs ABDOMEN: Soft, nontender. No hepatosplenomegaly, normal bowel sounds, no guarding or rigidity. EXTREMITIES: No clubbing, no edema, no cyanosis, 2+ pulses and upper and lower extremities. MUSCULOSKELETAL: Muscle strength and tone normal. SPINE: No scoliosis or deformity SKIN: No rashes CENTRAL NERVOUS SYSTEM: Alert and oriented -3. No focal deficits, tone is normal in all 4 extremities. PSYCHIATRIC: Alert and oriented -3. Appropriate affect. Intact judgment and insight. - Labs CBC & Chem 7: 07/30/18 00:08 08/02/18 07:17 Labs: Abnormal Lab Results - Last 24 Hours (Table) 08/01/18 08/02/18 Range/Units 16:58 07:17 Sodium 146 H (137-145) mmol/L Carbon Dioxide 31 H (22-30) mmol/L BUN 39 H (7-17) mg/dL Creatinine 1.56 H (0.52-1.04) mg/dL POC Glucose (mg/dL) 105 H (75-99) mg/dL Assessment and Plan Plan: Assessment: #1. Acute septic shock related to purchase for Proteus Mirabilis bacteremia, urinary tract infection, urine cultures were negative. #2. Altered mental status, leukocytosis, hypotension, related to the above. Improved #3. History of ESBL E. coli urinary tract infection #4. Acute on chronic hypercapnic respiratory failure, related to urinary tract infection #5. Acute kidney injury related to ATN improved #6. History of chronic bronchial asthma/COPD with chronic hypoxemic respiratory failure patient wears 2 L of oxygen at home #7. History of heart failure #8. GERD/reflux #9. Hypertension, hyperlipidemia #10. Seizure disorder #11. History of CVA, chronic dysphagia #12. History of hepatitis C treated #13. Former smoker #14. prison resident Plan: Patient will be given a dose of IV Lasix today, chest x-ray was reviewed with Dr. Davis, shows changes of congestive heart failure, patient is maintaining good oxygenation on 3 L per nasal cannula, no acute complaints, no complaints of chest pain, vital signs are stable, hemodynamically patient is stable, no fever or chills, she completed a course of antibiotics for her urinary tract infection, and bacteremia. ID service is following, managing the antibiotics, no other complaints today. Maintain aspiration precautions, head of the bed up 30, encourage deep breathing and coughing. I performed a history & physical examination of the patient and discussed their management with my nurse practitioner, Sheila Villavicencio. I reviewed the nurse practitioner's note and agree with the documented findings and plan of care. Gabriela ng sounds are positive for diminished breath sounds. The findings and the impression was discussed with the patient. I attest to the documentation by the nurse practitioner. Time with Patient: Less than 30
[2018-08-02 17:02] LABS: Glucose,Whole Blood 94 mg/dL (75-99)
[2018-08-02 19:55] LABS: Glucose,Whole Blood 132 mg/dL (75-99)
[2018-08-02] MEDS: ATORVASTATIN 10 MG TAB PO SCH (22:02)
[2018-08-02] MEDS: LATANOPROST 0.005% OPHTH DROPS 2.5 ML BTL BOTH EYES SCH (23:20)
[2018-08-02] MEDS: ARIPiprazole 5 MG TAB PO SCH (23:20)
--- NOTE | 2018-08-02 23:49 | PN ---
PROGRESS NOTE DATE OF SERVICE: 08/02/2018 PRESENTING COMPLAINT: Not eating. INTERVAL HISTORY: Patient presented with a septic picture, UTI. Seen by Dr. Davis's group. Did get some IV Lasix. The patient has remained on nasal cannula. Patient is hardly eating, if any at all. She is taking her medications. Simply lying in bed. REVIEW OF SYSTEMS: Done for constitutional, cardiovascular, GI, pulmonary. Patient is limited in her answers. CURRENT MEDICATIONS: Reviewed. They include DuoNeb, IV ceftriaxone. PHYSICAL EXAMINATION: Temperature 97.5, pulse 92, respiration 36, blood pressure 123/70, pulse ox 94% on 3 L. GENERAL APPEARANCE: Lying in bed, awake. EYES: Pupils equal. Conjunctivae normal. NECK: JVD unable to assess. Mass not palpable. RESPIRATORY: Effort increased. LUNGS: Some decreased breath sounds. CARDIOVASCULAR: First and second sounds normal. No edema. ABDOMEN: Soft, non-tender. Liver and spleen not palpable. PSYCHIATRY: Does answer some occasional questions, though lethargic. INVESTIGATIONS: Sodium 146, potassium 3.9, BUN 39, creatinine 1.56. Chest x-ray film, personally reviewed by me, shows infiltrate versus fluid. ASSESSMENT: 1. Septic shock secondary to urinary tract infection from cystitis, with some improvement. 2. Hypotensive shock. Patient did require fluid boluses initially. 3. Acute metabolic encephalopathy secondary to infection, with some improvement. 4. Acute kidney injury, likely acute tubular necrosis from hypotension. 5. Chronic obstructive pulmonary disease. 6. Chronic dysarthria from prior stroke. 7. Chronic dysphagia. On a soft diet. Patient is barely eating. 8. Hepatitis C with successful treatment. 9. Chronic urinary stress incontinence. 10.Chronic anemia, likely related to chronic kidney disease. 11.Bilateral peripheral neuropathy, non-diabetic. 12.Primary osteoarthritis. 13.Patient has a court-appointed legal guardian. 14.Positive blood cultures with Proteus mirabilis. 15.Acute hypoxic respiratory failure. Patient now on nasal cannula. 16.Chronic hypoxic respiratory failure. PLAN: Patient is eating practically nothing. Did receive some IV Lasix earlier today. I did speak to the legal guardian yesterday. Her overall functional status is rather poor. Prognosis guarded. MMODL / IJN: [id number] /
[2018-08-03 02:49] LABS: Glucose,Whole Blood 129 mg/dL (75-99)
[2018-08-03 07:06] LABS: Glucose,Whole Blood 153 mg/dL (75-99)
[2018-08-03] MEDS: PANTOPRAZOLE 40 MG TABLET PO SCH (07:20)
[2018-08-03] MEDS: LORazepam 0.5 MG TAB PO SCH ×2 (07:21→17:12)
[2018-08-03] MEDS: IPRATROPIUM-ALBUTEROL 3 ML NEB INHALATION SCH ×2 (08:33→13:25)
[2018-08-03 09:03] LABS: ABG Base Excess 10.8 mmol/L; ABG HCO3 38 mmol/L (21-25); ABG Oxygen Saturation 92.4 % (94-97); ABG PH 7.28 (7.35-7.45); ABG PO2 74 mmHg (83-108); ABG TCO2 40 mmol/L (19-24)
[2018-08-03 09:12] LABS: ABG PCO2 80 mmHg (35-45)
--- NOTE | 2018-08-03 09:22 | XR ---
EXAMINATION TYPE: XR chest 1V portable DATE OF EXAM: 08/03/2018 COMPARISON: 08/02/2018 HISTORY: Hypoxia TECHNIQUE: Single frontal view of the chest is obtained. FINDINGS: Increasing left basilar opacity is seen with mild interstitial pulmonary edema that is sli ghtly improved from the prior. Cardia mediastinal silhouette is partially obscured but appears again mildly enlarged. Low lung volumes are seen. Trace pleural effusions are redemonstrated. No pneumothor ax. No acute osseous pathology. IMPRESSION: Increasing left basilar opacity may represent confluent pulmonary edema or pneumonia. Pu lmonary vascular congestion has improved in the interim. Trace pleural effusions remain.
[2018-08-03 09:38] LABS: Calcium 9.5 mg/dL (8.4-10.2); Potassium 3.5 mmol/L (3.5-5.1)
[2018-08-03 10:29] LABS: Glucose,Whole Blood 110 mg/dL (75-99)
[2018-08-03] MEDS ORDERED: VANCOMYCIN IV PER PHARMACY 1 EACH MISC MISCELLANE PRN (10:29)
[2018-08-03] MEDS ORDERED: PIPERACILLIN-TAZOBACTAM 3.375 GM in SODIUM CHLORIDE 0.9% 100 ML IVPB SCH (10:30)
[2018-08-03] MEDS: ASPIRIN 81 MG PO SCH (10:43)
[2018-08-03] MEDS: levETIRAcetam 500 MG TAB PO SCH (10:43)
[2018-08-03] MEDS: METOPROLOL TARTRATE 12.5 MG TAB PO SCH (10:43)
[2018-08-03] MEDS: PARoxetine 20 MG TAB PO SCH (10:44)
[2018-08-03] MEDS: SENNOSIDES-DOCUSATE SODIUM 1 EACH TAB PO SCH (10:45)
[2018-08-03] MEDS ORDERED: VANCOMYCIN 1,250 MG in SODIUM CHLORIDE 0.9% 250 ML IVPB ONE (11:00)
[2018-08-03] MEDS: HEPARIN SODIUM,PORCINE 5,000 UNIT/ML 1 ML VIAL SQ SCH (11:28)
[2018-08-03 11:46] LABS: Glucose,Whole Blood 101 mg/dL (75-99)
[2018-08-03] MEDS: MULTIVITAMINS, THERA 1 EACH TAB PO SCH (12:17)
[2018-08-03 14:18] VITALS: BMI 27.3
--- NOTE | 2018-08-03 14:39 | P.PN ---
Subjective Progress Note Date: 08/03/18 Principal diagnosis: Urinary tract infection, septic shock, dyspnea, mild fluid overload This is a 68-year-old white female patient, a resident of [facility], who was brought to the hospital per EMS on all 07/26/2018 for evaluation of altered mental status, fever, speech difficulty. Urinalysis at the correction revealed a UTI, and lab work revealed leukocytosis with a white blood cell count of 21,000. She was very lethargic, and was admitted with concern of sepsis. Chest x-ray did not show any acute pulmonary process. EKG showed sinus tachycardia and evidence of possible lateral infarct and inferior posterior infarct of undetermined age. Admission lab work showed a white blood cell count of 19.1, hemoglobin is 10.6, INR is 1.1, sodium is 139, potassium is 4.9, ch loride is 96, CO2 is 31, BUN was 39, creatinine is 2.26, urinalysis showed grossly infected urine, with large amount of leukocyte esterase, red blood cells greater than 182, and white blood cells greater than 182, many bacteria. Influenza screen was negative. Patient has had ESBL E. coli urinary tract infections in the past in April 2017. Last night on all 07/26/2018 patient became hypotensive, with a pressure of 80/40, rapid response team was called, patient was given 2 L of IV fluids in fluid boluses, she was very lethargic, and she was transferred to the intensive care unit for further monitoring, patient's blood pressure did recover, currently 127/72, patient responded nicely to fluid boluses, did not require vasopressor support, no tachycardia, his rhythm on the monitor with a rate of 94 BPM, he is febrile, with a T-max of 101.8F in the last 24 hours. This morning's blood gas showed pO2 of 78, pCO2 of 63, and pH of 7.29 is was done on 32% FiO2. Patient is lethargic, but easily arousable, she does not verbally respond, but follows simple commands, squeezing hands on command moving extremities. Denies any distress, denies any chest pain shortness of breath or abdominal pain. Today's labs have been reviewed, white blood cell, and is 18.4, hemoglobin is 9.0, electrolytes are within normal limits, BUN is 43 and creatinine is 2.29. Repeat urinalysis showed large leuks, RBCs and WBCs, moderate WBC clumps, and rare bacteria. Antibiotic coverage in the form of Rocephin. On 08/02/2018 patient seen in follow-up on medical surgical floor. We were reconsulted we assume related to dyspnea, but on today's exam patient is seen resting in bed, she denies any worsening shortness of breath, she is currently on 3 L of oxygen her pulse ox is 94%, she is afebrile, hemodynamically patient is stable, chest x-ray was obtained and showed prominent pulmonary vasculature, diffuse increased lung markings, and small posterior pleural effusions. Patient received a dose of Lasix yesterday, she diuresed, her weight is down by 1.5 kg since yesterday, net fluid balance was difficult to estimate patient is incontinent of urine. We'll give the patient an additional dose of Lasix today, his labs have been reviewed, sodium is 146, potassium is 3.9, CO2 is 31, B1 is 39, creatinine is 1.56. ProBNP came back that 65,200. Echocardiogram was completed on 07/27/2018 showed an EF of 55-60%. Patient denies any chest pain. She is being treated for Proteus mirabilis bacteremia. ID service is following, managing the antibiotics. Otherwise no acute events, patient normally resides at [facility], will likely go back there after discharge, her antibiotic had been D escalated. no other acute complaints. On 08/03/2018 patient was brought into the intensive care unit, rapid response team was called for patient's mentation, patient was found unresponsive this m orning by the staff, hypoxemic with a pulse ox of 85% on 3 L of oxygen, patient was placed on BiPAP support blood pressures of 10 and 5 and 50%, and blood gas was obtained, which showed acute respiratory acidosis, with pO2 of 74, pCO2 of 80, and pH of 7.28. BiPAP support was increased to 16, repeat chest x-ray was obtained, and showed increasing left basilar opacity could represent underlying pneumonia, patient has received doses of IV Lasix the day before and yesterday. She has been diuresing, although her volume status is difficult to estimate because she is incontinent of urine. Despite the diuretics patient's breathing has gotten worse, and we suspect underlying pneumonia in the left basilar area. Antibiotic coverage, vancomycin and ceftriaxone, and we'll switch the abiotic coverage to Zosyn and vancomycin. Possibility of aspiration is not excluded, apparently patient received her dose of Ativan last night, was increasingly lethargic. Patient was transferred to the intensive care unit, blood pressure remains stable, she is afebrile, remains on BiPAP support, she started to wake up, she is mumbling, her mouth is dry, but patient does not appear to be in any acute distress. Patient's CODE STATUS is DO NOT RESUSCITATE, she does have a legal guardian, and she has a brother. They were both notified of the clinical changes. We were told the patient's family in the legal guardian were considering comfort care, however we'll attain with supportive care for now, awaiting family in the legal guardian to come in today. The catheter has been placed for accurate intake and output. Lung sounds revealed coarse crackles at bilateral bases. Objective - Vital Signs Vital signs: Vital Signs Temp 98.8 F 08/03/18 11:00 Pulse 78 08/03/18 13:35 Resp 32 H 08/03/18 12:00 BP 137/84 08/03/18 12:00 Pulse Ox 95 08/03/18 12:00 Intake & Output 08/02/18 08/03/18 08/03/18 18:59 06:59 18:59 Intake Total 640 150 Output Total 65 Balance 640 150 -65 Weight 63.5 kg Intake: Intake, IV Titration 400 150 Amount Lactated Ringers 1,000 ml 400 150 @ 50 mls/hr IV .Q20H [facility] Rx#:[id number] Oral 240 Output: Urine 65 Other: Voiding Method Diaper Diaper Indwelling Catheter Incontinent Incontinent # Voids 1 1 1 # Bowel Movements 0 - Exam GENERAL EXAM: Somnolent, 68-year-old white female, on BiPAP support, she started to wake up, opened her eyes, and follows simple commands HEAD: Normocephalic/atraumatic. EYES: Normal reaction of pupils, equal size. Conjunctiva pink, sclera white. NOSE: Clear with pink turbinates. THROAT: No erythema or exudates. NECK: No masses, no JVD, no thyroid enlargement, no adenopathy. CHEST: No chest wall deformity. Symmetrical expansion. Some bibasilar crackles, diminished breath sounds at the bases, no rhonchi or wheezing. no crackles, wheeze, rhonchi or dullness. CVS: Regular rate and rhythm, normal S1 and S2, no gallops, no murmurs, no rubs ABDOMEN: Soft, nontender. No hepatosplenomegaly, normal bowel sounds, no guarding or rigidity. EXTREMITIES: No clubbing, no edema, no cyanosis, 2+ pulses and upper and lower extremities. MUSCULOSKELETAL: Muscle strength and tone normal. SPINE: No scoliosis or deformity SKIN: No rashes CENTRAL NERVOUS SYSTEM: Alert and oriented -3. No focal deficits, tone is normal in all 4 extremities. PSYCHIATRIC: Alert and oriented -3. Appropriate affect. Intact judgment and insight. - Labs CBC & Chem 7: 07/30/18 00:08 08/03/18 08:37 Labs: Abnormal Lab Results - Last 24 Hours (Table) 08/02/18 08/03/18 08/03/18 Range/Units 19:54 02:44 07:04 ABG pH (7.35-7.45) ABG pCO2 (35-45) mmHg ABG pO2 (83-108) mmHg ABG HCO3 (21-25) mmol/L ABG Total CO2 (19-24) mmol/L ABG O2 Saturation (94-97) % Sodium (137-145) mmol/L Carbon Dioxide (22-30) mmol/L BUN (7-17) mg/dL Creatinine (0.52-1.04) mg/dL Glucose (74-99) mg/dL POC Glucose (mg/dL) 132 H 129 H 153 H (75-99) mg/dL 08/03/18 08/03/18 08/03/18 Range/Units 08:37 08:56 10:28 ABG pH 7.28 L (7.35-7.45) ABG pCO2 80 H* (35-45) mmHg ABG pO2 74 L (83-108) mmHg ABG HCO3 38 H (21-25) mmol/L ABG Total CO2 40 H (19-24) mmol/L ABG O2 Saturation 92.4 L (94-97) % Sodium 147 H (137-145) mmol/L Carbon Dioxide 36 H (22-30) mmol/L BUN 38 H (7-17) mg/dL Creatinine 1.67 H (0.52-1.04) mg/dL Glucose 133 H (74-99) mg/dL POC Glucose (mg/dL) 110 H (75-99) mg/dL 08/03/18 Range/Units 11:45 ABG pH (7.35-7.45) ABG pCO2 (35-45) mmHg ABG pO2 (83-108) mmHg ABG HCO3 (21-25) mmol/L ABG Total CO2 (19-24) mmol/L ABG O2 Saturation (94-97) % Sodium (137-145) mmol/L Carbon Dioxide (22-30) mmol/L BUN (7-17) mg/dL Creatinine (0.52-1.04) mg/dL Glucose (74-99) mg/dL POC Glucose (mg/dL) 101 H (75-99) mg/dL Assessment and Plan Plan: Assessment: #1. Acute hypoxemic and hypercapnic respiratory failure related to left lower lung infiltrate, likely related to pneumonia, as a component of pulmonary vascular congestion suggesting fluid overload #2. Acute septic shock related to purchase for Proteus Mirabilis bacteremia, urinary tract infection, urine cultures were negative. #3. Altered mental status, leukocytosis, hypotension, related to the above. #4. History of ESBL E. coli urinary tract infection #5. Acute on chronic hypercapnic respiratory failure, related to urinary tract infection #6. Acute kidney injury related to ATN improved #7. History of chronic bronchial asthma/COPD with chronic hypoxemic respiratory failure patient wears 2 L of oxygen at home #8. History of heart failure #9. GERD/reflux #10. Hypertension, hyperlipidemia #11. Seizure disorder #12. History of CVA, chronic dysphagia #13. History of hepatitis C treated #14. Former smoker #15. long-term resident Plan: We'll send a new set of blood cultures, and she will BiPAP support, patient is hemodynamically stable, will hold the Lasix, today's chest x-ray has been reviewed, and there is possibility of a left lower lung pneumonia. Continue with supportive care, we'll switch the antibiotic from Rocephin to Zosyn, continue with vancomycin, no fever or chills, patient started to wake up and follow simple commands, patient is chronically medically debilitated, she resides in a correction. She has a legal guardian and brother who were notified of clinical changes. For now continue with supportive care, were told the family and the legal guardian considering comfort care. GI and DVT prophylaxis. We'll hold Lasix. I performed a history & physical examination of the patient and discussed their management with my nurse practitioner, Sheila Villavicencio. I reviewed the nurse practitioner's note and agree with the documented findings and plan of care. Lung sounds are positive for diminished breath sounds. The findings and the impression was discussed with the patient. I attest to the documentation by the nurse practitioner. Time with Patient: Greater than 30
[2018-08-03] MEDS ORDERED: LORazepam 2 MG/ML INJ IV STA (15:52)
[2018-08-03] MEDS ORDERED: MORPHINE SULFATE 2 MG/ML SYRINGE IVP STA (15:52)
[2018-08-03 21:49] VITALS: BP 149/85; PULSE 86; RESP 28; TEMP 98
[2018-08-04] MEDS ORDERED: VANCOMYCIN 1,250 MG in SODIUM CHLORIDE 0.9% 250 ML IVPB ONE (06:00)
--- NOTE | 2018-08-05 22:49 | DS ---
DISCHARGE SUMMARY DATE OF ADMISSION: 07/26/2018. DATE PATIENT : 08/03/2018. CAUSE OF : Possible aspiration pneumonia. OTHER MEDICAL PROBLEMS: 1. Septic shock secondary to urinary tract infection from cystitis, POA. 2. Hypotensive shock. 3. Acute metabolic encephalopathy secondary to infection. 4. Acute kidney injury likely acute tubular necrosis from hypertension. 5. Chronic obstructive pulmonary disease. 6. Chronic dysarthria from prior stroke. 7. Chronic dysphagia. 8. Hepatitis C with successful treatment in the past. 9. Chronic urinary stress incontinence. 10.Chronic anemia, likely related to chronic kidney disease. 11.Bilateral peripheral neuropathy, nondiabetic. 12.Primary osteoarthritis. 13.Positive blood cultures with Proteus mirabilis. 14.Acute hypoxic respiratory failure requiring ventilator support with nasal cannula. 15.Chronic hypoxic respiratory failure. HOSPITAL COURSE: This patient has multiple medical problems, having a court-appointed legal guardian. Initially presented with a septic picture. Did recover from that, but the patient was not really doing well, not really eating. Had spoken to the legal guardian. The patient was not doing too well. The patient again went into respiratory distress. The day the patient in the morning, patient became more respiratory distressed, taken to the ICU. The patient was intubated, put on pressors. Chest x-ray film, personally reviewed by me appears to have pneumonia probably aspiration. The patient finally succumbed to underlying condition and . CONSULTATION: 1. Dr. Davis and Dr. Bay from Pulmonary Critical Care. 2. Dr. Blas from Infectious Disease. Copy to Dr. Redmond. MMSANTOSL / SEAMUSN: [id number] /
--- NOTE | 2018-08-06 11:12 | CDI ---
Documentation Clarification Form Date: 08/07/2018 10:06:00 AM From: Yamini Whitney Tiki Aguilar, [employer] Hours-8:30 am & 5 pm M-F Admit Date: 07/26/2018 1:48:00 AM Patient Name: Mable Houser Visit Number: [id number] Discharge Date: 08/03/2018 6:38:00 PM ATTENTION: The Clinical Documentation Specialists (CDI) and [facility] Coding Staff appreciate your assistance in clarifying documentation. Please respond to the clarification below the line at the bottom and electronically sign. The CDI & [facility] Coding staff will review the response and follow-up if needed. Please note: Queries are made part of the Legal Health Record. If you have any questions, please contact the author of this message via ITS. Dr. Enrrique Torres CHF is documented in the H&P, PNs, Dischrg Sum, Consult History/Risk Factors: HTN, COPD, ARF BNP: 52857 Echocardiogram Results: EF 55-60% Chest X Ray: Fluid Overload/Effusion Treatment: IV Lasix In your professional opinion, can you please clarify the acuity and type of CHF if known? Systolic Heart Failure: Acute Chronic Acute on Chronic Diastolic Heart Failure: Acute Chronic Acute on Chronic Systolic & Diastolic Heart Failure: Acute Chronic Acute on Chronic S & D Heart Failure Unable to Determine Other, please specify unable to determine MTDD
== END 2018-08-03 18:38 | disposition hospice, inpatient (51) | DRG 871 ==
LOC: EC 00:01 → 4SSUR 01:48 → 2SICU 07-27 02:37 → 3NMEDONC 07-28 17:26 → 2SICU 08-03 10:13
PROVIDERS: ADMIT Hospitalist; ATTEND Hospitalist
PROC: 5A09557 Assistance with Respiratory Ventilation, Greater than 96 Consecutive Hours, Continuous Positive Airway Pressure (ICD-10-PCS; principal; 2018-07-29)
DX: A41.59 Other Gram-negative sepsis (principal); N17.0 Acute kidney failure with tubular necrosis; J96.22 Acute and chronic respiratory failure with hypercapnia; J96.21 Acute and chronic respiratory failure with hypoxia; R65.21 Severe sepsis with septic shock; G93.41 Metabolic encephalopathy; J18.9 Pneumonia, unspecified organism; E87.2 Acidosis; I13.0 Hypertensive heart and chronic kidney disease with heart failure and stage 1 through stage 4 chronic kidney disease, or unspecified chronic kidney disease; J44.0 Chronic obstructive pulmonary disease with (acute) lower respiratory infection; I50.9 Heart failure, unspecified; R13.10 Dysphagia, unspecified; G62.9 Polyneuropathy, unspecified; R15.9 Full incontinence of feces; I69.391 Dysphagia following cerebral infarction; I69.322 Dysarthria following cerebral infarction; M19.91 Primary osteoarthritis, unspecified site; K21.9 Gastro-esophageal reflux disease without esophagitis; N18.9 Chronic kidney disease, unspecified; G40.909 Epilepsy, unspecified, not intractable, without status epilepticus; E78.5 Hyperlipidemia, unspecified; I83.90 Asymptomatic varicose veins of unspecified lower extremity; G89.29 Other chronic pain; G25.81 Restless legs syndrome; D63.1 Anemia in chronic kidney disease; F41.0 Panic disorder [episodic paroxysmal anxiety]; F32.9 Major depressive disorder, single episode, unspecified; H26.9 Unspecified cataract; N30.90 Cystitis, unspecified without hematuria; R00.0 Tachycardia, unspecified; N39.3 Stress incontinence (female) (male); Z66 Do not resuscitate; Z79.82 Long term (current) use of aspirin; Z79.83 Long term (current) use of bisphosphonates; Z87.891 Personal history of nicotine dependence; Z86.19 Personal history of other infectious and parasitic diseases; Z99.81 Dependence on supplemental oxygen; Z90.710 Acquired absence of both cervix and uterus; Z96.641 Presence of right artificial hip joint; Z96.653 Presence of artificial knee joint, bilateral; Z79.899 Other long term (current) drug therapy; Z91.040 Latex allergy status; Z91.018 Allergy to other foods; Z88.2 Allergy status to sulfonamides; Z83.3 Family history of diabetes mellitus; Z82.49 Family history of ischemic heart disease and other diseases of the circulatory system
CPT/HCPCS: 36415; 36600; 71045; 71046; 80048; 80053; 81001; 82728; 82805; 83540; 83550; 83605; 83735; 83880; 84100; 84484; 85025; 85027; 85610; 85730; 87040; 87077; 87086; 87186; 87502; 93005; 93306; 94640; 94660; 94760; 96374; 99285

== ENCOUNTER 2018-08-03 18:00 | Inpatient (IN) | payer MEDICAID ==
[2018-08-03] MEDS ORDERED: LORazepam 2 MG/ML INJ IV PRN (18:25)
[2018-08-03] MEDS ORDERED: ATROPINE OPHTH SOLN 1% 5ML BTL SUBLINGUAL PRN (18:25)
[2018-08-03] MEDS ORDERED: MORPHINE SULFATE 2 MG/ML SYRINGE IV PRN (18:25)
[2018-08-03] MEDS ORDERED: MORPHINE SULFATE 4 MG/ML SYRINGE IVP ONE (18:25)
[2018-08-03] MEDS ORDERED: BISACODYL 10 MG SUPP RECTAL PRN (18:29)
[2018-08-03] MEDS ORDERED: SCOPOLAMINE 1.5MG/72HR PATCH TRANSDERM SCH (18:30)
[2018-08-03] MEDS ORDERED: ACETAMINOPHEN SUPPOSITORY 650 MG SUPP RECTAL PRN (18:30)
[2018-08-03] MEDS ORDERED: MORPHINE SULFATE (100 MG/2 ML) 100 MG in SODIUM CHLORIDE 0.9% 100 ML IV SCH (19:00)
[2018-08-03 22:44] VITALS: BP 94/71; TEMP 96.7
[2018-08-04 07:21] VITALS: RESP 3
== END 2018-08-04 11:00 | disposition expired | DRG 871 ==
LOC: 2SICU 18:40 → 3NMEDONC 23:51
PROVIDERS: ADMIT Hospitalist; ATTEND Hospitalist
DX: A41.9 Sepsis, unspecified organism (principal); R65.21 Severe sepsis with septic shock; G93.41 Metabolic encephalopathy; N17.0 Acute kidney failure with tubular necrosis; J96.21 Acute and chronic respiratory failure with hypoxia; I13.0 Hypertensive heart and chronic kidney disease with heart failure and stage 1 through stage 4 chronic kidney disease, or unspecified chronic kidney disease; R13.10 Dysphagia, unspecified; G62.9 Polyneuropathy, unspecified; I50.9 Heart failure, unspecified; J44.9 Chronic obstructive pulmonary disease, unspecified; I69.322 Dysarthria following cerebral infarction; I69.391 Dysphagia following cerebral infarction; N39.3 Stress incontinence (female) (male); N18.9 Chronic kidney disease, unspecified; N30.90 Cystitis, unspecified without hematuria; D63.1 Anemia in chronic kidney disease; M19.91 Primary osteoarthritis, unspecified site; M19.90 Unspecified osteoarthritis, unspecified site; F41.0 Panic disorder [episodic paroxysmal anxiety]; F32.9 Major depressive disorder, single episode, unspecified; Z96.653 Presence of artificial knee joint, bilateral; Z99.81 Dependence on supplemental oxygen; Z87.891 Personal history of nicotine dependence